=== PATIENT | female | born 1940 | race Caucasian/White ===

== ENCOUNTER 2018-03-12 22:32 | Emergency (ER) | payer MEDICARE, OTHER ==
[~2018-03-12] VITALS: Ht 162.6 cm; Wt 72.6 kg
[~2018-03-12 22:32] MED LIST: BENICAR HCT 401 EAC1 PO; BENICAR40 MG PO; BISOPROLOL; BUSPAR PO; BUSPIRONE HCL5 MG PO; CHLORDIAZEPOXI1 EACH PO; CYCLOBENZAPRINE10 MG PO; CYCLOBENZAPRINE5 MG PO; CYMBALTA60 MG PO; DOXAZOSIN MESYLA1 MG PO; DOXAZOSIN MESYLA2 MG PO; GABAPENTIN300 MG PO; HYDROCHLOROTHIA25 MG PO; LEVOTHYROXINE137 MCG PO; LOSARTAN POTASS25 MG PO; NEXIUM40 MG PO; NIACIN500 M1 PO; NORCO 5-325 TA1 EACH PO; TRAZODONE; TRAZODONE HCL50 MG PO; ZEBETA10 M1 PO; ZEBETA10 MG PO
[2018-03-13] MEDS ORDERED: MORPHINE SULFATE 4 MG/ML SYR IM ONE (00:20)
== END 2018-03-13 00:22 | disposition left against medical advice (07) ==
LOC: FSED 22:32
DX: M25.511 Pain in right shoulder (principal); Z96.611 Presence of right artificial shoulder joint
CPT/HCPCS: 73030; 96372; 99283; J2270

== ENCOUNTER → 2018-07-04 | Day surgery (SDC) | payer MEDICARE, OTHER ==
[2018-07-02 11:56] LABS: BASOPHILS # (AUTO) 0.1 (0.0-0.1); BASOPHILS % 1.3 % (0.0-1.0); EOSINOPHILS # (AUTO) 0.2 (0.0-0.4); HEMATOCRIT 39.9 % (34.2-44.1); HEMOGLOBIN 13.4 g/dL (12.0-16.0); LYMPHOCYTES # (AUTO) 1.6 (1.0-3.2); LYMPHOCYTES % 29.8 % (18.0-39.1); MEAN CORPUSCULAR HEMOGLOBIN 27.4 pg (28-32); MEAN CORPUSCULAR HGB CONC 33.6 g/dL (31-35); MEAN CORPUSCULAR VOLUME 81.6 fL (81-99); MONOCYTES # (AUTO) 0.7 (0.2-0.8); MONOCYTES % 12.7 % (4.4-11.3); NEUTROPHILS # (AUTO) 2.7 (2.1-6.9); NEUTROPHILS % 51.8 % (38.7-80.0); PLATELET COUNT 133 x10e3/uL (140-360); RED BLOOD COUNT 4.89 x10e6/uL (3.6-5.1); RED CELL DISTRIBUTION WIDTH 15.6 % (11.7-14.4)
[~2018-07-04] MED LIST changes: +DEXAMETHASONE SOD PHOS 10 MG/1 ML VIAL ONE; +FENTANYL CITRATE/PF 100MCG/2 ML INJ ONE; +IOPAMIDOL 200 MG/ML 20 ML VIAL IT ONE; +LIDOCAINE HCL 1% 30ML-PF VIAL ONE; +LIDOCAINE HCL 2% LOCAL INJ 5 ML SDV VIAL INJ ONE; +MIDAZOLAM HCL 2 MG/2 ML VIAL ONE; +NIFEDIPINE ER30 MG PO; +ONDANSETRON HCL INJ 2 MG/ML VIAL ONE; +PROPOFOL IV EMULSION 10 MG/ML 20 ML VIAL ONE; +SPIRONOLACTONE25 MG PO
== END | disposition home or self-care (01) ==
LOC: OR 06:08
PROVIDERS: ATTEND Physical Medicine & Rehabilitation Pain Medicine
DX: M47.26 Other spondylosis with radiculopathy, lumbar region (principal); M54.12 Radiculopathy, cervical region; M46.1 Sacroiliitis, not elsewhere classified; M25.512 Pain in left shoulder; M25.511 Pain in right shoulder; I10 Essential (primary) hypertension; E03.9 Hypothyroidism, unspecified; Z88.6 Allergy status to analgesic agent; Z88.0 Allergy status to penicillin; Z01.810 Encounter for preprocedural cardiovascular examination; Z01.812 Encounter for preprocedural laboratory examination; Z96.651 Presence of right artificial knee joint
CPT/HCPCS: 36415; 64483; 64484 ×2; 85025; 93005; J1100; J2001 ×2; J2250; J2405; Q9966; 77003

== ENCOUNTER → 2019-04-03 | Day surgery (SDC) | payer MEDICARE, OTHER ==
[2019-04-01 14:30] LABS: BASOPHILS # (AUTO) 0.1 (0.0-0.1); BASOPHILS % 1.2 % (0.0-1.0); EOSINOPHILS # (AUTO) 0.2 (0.0-0.4); EOSINOPHILS % 4.1 % (0.0-6.0); HEMATOCRIT 39.5 % (34.2-44.1); HEMOGLOBIN 12.8 g/dL (12.0-16.0); LYMPHOCYTES # (AUTO) 1.4 (1.0-3.2); LYMPHOCYTES % 29.9 % (18.0-39.1); MEAN CORPUSCULAR HEMOGLOBIN 27.5 pg (28-32); MEAN CORPUSCULAR HGB CONC 32.4 g/dL (31-35); MEAN CORPUSCULAR VOLUME 84.9 fL (81-99); MONOCYTES # (AUTO) 0.5 (0.2-0.8); MONOCYTES % 10.6 % (4.4-11.3); NEUTROPHILS # (AUTO) 2.6 (2.1-6.9); NEUTROPHILS % 53.8 % (38.7-80.0); PLATELET COUNT 107 x10e3/uL (140-360); RED BLOOD COUNT 4.65 x10e6/uL (3.6-5.1); RED CELL DISTRIBUTION WIDTH 14.6 % (11.7-14.4)
[~2019-04-03] MED LIST changes: +CEPHALEXIN250 MG PO; +LIBRAX CAPSULE1 EACH PO; -LIDOCAINE HCL 2% LOCAL INJ 5 ML SDV VIAL INJ ONE; +NORCO 7.5-3251 EACH PO; -ONDANSETRON HCL INJ 2 MG/ML VIAL ONE; +ONDANSETRON HCL INJ 2MG/ML 2ML 2 MG/ML VIAL ONE
--- OUTSIDE RECORDS SUMMARY | 2019-04-03 05:14 | XMS REPORT | Continuity of Care Document ---
Author Author [facility] Interface Address Unknown Phone Unavailable Problems Problem Status Onset Date Classification Date Reported Comments Source Medications Medication Details Route Status Patient Instructions Ordering Provider Order Date Source Cyclobenzaprine Hcl 10 Mg Tablet, 10 Mg Oral Daily Active 02/21/2017 [facility] Olmesartan/Hydrochlorothiazide (Benicar Hct 40-25 Mg Tablet) 1 Each Tablet, Oral Daily Active 09/26/2016 [facility] Doxazosin Mesylate 1 Mg Tablet, 1 Mg Oral 1/2QD Active 06/26/2016 [facility] Esomeprazole Magnesium (Nexium) 40 Mg Capsule., 40 Mg Oral Daily Active 06/26/2016 [facility] Olmesartan/Hydrochlorothiazide (Benicar Hct 40-25 Mg Tablet) 1 Each Tablet, Oral Daily Active 06/26/2016 [facility] Trazodone , Active 06/26/2016 [facility] Gabapentin 300 Mg Capsule, 300 Oral Daily Active 05/03/2016 [facility] Buspar , 5 Mg Oral Daily Active 05/19/2015 [facility] Niacin 500 Mg Tablet, 500 Mg Oral Daily Active 05/19/2015 [facility] Bisoprolol Fumarate (Zebeta) 10 Mg Tablet, 10 Mg Oral Daily Active 03/26/2014 [facility] Buspirone Hcl 5 Mg Tablet, 5 Mg Oral Daily Active 03/26/2014 [facility] Cyclobenzaprine Hcl (Flexeril) 5 Mg Tablet, 5 Mg Oral Daily Active 03/26/2014 [facility] Doxazosin Mesylate 1 Mg Tablet, 1 Mg Oral As Needed Active 03/26/2014 [facility] Hydrochlorothiazide 25 Mg Tablet, 25 Mg Oral Daily Active 03/26/2014 [facility] Olmesartan Medoxomil (Benicar) 40 Mg Tablet, 40 Mg Oral Daily Active 03/26/2014 [facility] Trazodone Hcl 50 Mg Tablet, 50 Mg Oral Daily Active 03/26/2014 [facility] Bisoprolol Fumarate (Zebeta) 10 Mg Tab Daily Active [facility] Chlordiazepoxide/Clidinium Br (Chlordiazepoxide-Clidinium Cap) 1 Each Capsule Daily Active [facility] Doxazosin Mesylate 2 Mg Tablet Daily Active [facility] Duloxetine Hcl (Cymbalta) 60 Mg Capsule.dr Daily Active [facility] Hydrochlorothiazide 25 Mg Tablet Daily Active [facility] Hydrocodone Bit/Acetaminophen ([place] 5-325 Tablet) 1 Each Tablet Four Times Daily as needed for Pain Active [facility] Levothyroxine Sodium 137 Mcg Tablet Daily Active [facility] Losartan Potassium 25 Mg Tablet Twice A Day Active [facility] Trazodone Hcl 50 Mg Tablet Daily Active [facility] Allergies, Adverse Reactions, Alerts Substance Category Reaction Severity Reaction type Status Date Reported Comments Source meperidine HCl Unknown Allergy to Substance Active 09/27/2016 [facility] Penicillin Unknown Allergy to Substance Active 09/27/2016 [facility] Immunizations Immunization Date Given Site Status Last Updated Comments Source Results Order Name Results Value Reference Range Date Interpretation Comments Source Vital Signs Vital Sign Value Date Comments Source Encounters Location Location Details Encounter Type Encounter Number Reason For Visit Attending Provider ADM Date DC Date Status Source Departed Emergency Room [id number] DEIDRA JOSE MD 03/12/2018 03/13/2018 [facility] Procedures Procedure Code Date Perfomer Comments Source
[2019-04-03 07:34] VITALS: BP 135/61
== END | disposition home or self-care (01) ==
LOC: OR 05:10
PROVIDERS: ATTEND Physical Medicine & Rehabilitation Pain Medicine
DX: M47.26 Other spondylosis with radiculopathy, lumbar region (principal); M46.1 Sacroiliitis, not elsewhere classified; M54.12 Radiculopathy, cervical region; M47.892 Other spondylosis, cervical region; G89.29 Other chronic pain; I10 Essential (primary) hypertension; I44.7 Left bundle-branch block, unspecified; E03.9 Hypothyroidism, unspecified; F32.9 Major depressive disorder, single episode, unspecified; Z88.6 Allergy status to analgesic agent; Z88.0 Allergy status to penicillin; Z01.810 Encounter for preprocedural cardiovascular examination; Z91.81 History of falling; Z86.19 Personal history of other infectious and parasitic diseases; Z96.651 Presence of right artificial knee joint; Z96.611 Presence of right artificial shoulder joint
CPT/HCPCS: 36415; 64483; 64484; 85025; 93005; J1100; J2001; J2250; J2405; J2704; Q9967; 77003

== ENCOUNTER 2019-05-29 18:33 | Emergency (ER) | payer MEDICARE, OTHER ==
[~2019-05-29] VITALS: Ht 162.6 cm; Wt 72.6 kg
[~2019-05-29 18:33] MED LIST changes: -DEXAMETHASONE SOD PHOS 10 MG/1 ML VIAL ONE; -FENTANYL CITRATE/PF 100MCG/2 ML INJ ONE; -IOPAMIDOL 200 MG/ML 20 ML VIAL IT ONE; -LIDOCAINE HCL 1% 30ML-PF VIAL ONE; -MIDAZOLAM HCL 2 MG/2 ML VIAL ONE; -ONDANSETRON HCL INJ 2MG/ML 2ML 2 MG/ML VIAL ONE; -PROPOFOL IV EMULSION 10 MG/ML 20 ML VIAL ONE
--- OUTSIDE RECORDS SUMMARY | 2019-05-29 18:36 | XMS REPORT | Continuity of Care Document ---
Author Author [facility] Address Unknown Phone Unavailable Care Team Providers Care Filter Tip Catcher Name Role Phone [facility] [place] [employer] Unavailable Unavailable Problems No Data Provided for This Section Medications Medication Details Route Status Patient Instructions Ordering Provider Order Date Source Cyclobenzaprine Hcl 10 Mg Tablet, 10 Mg Oral Daily Active 02/21/2017 [facility] Olmesartan/Hydrochlorothiazide (Benicar Hct 40-25 Mg Tablet) 1 Each Tablet, Oral Daily Active 09/26/2016 [facility] Doxazosin Mesylate 1 Mg Tablet, 1 Mg Oral 1/2QD Active 06/26/2016 [facility] Esomeprazole Magnesium (Nexium) 40 Mg Capsule.dr, 40 Mg Oral Daily Active 06/26/2016 [facility] Olmesartan/Hydrochlorothiazide (Benicar Hct 40-25 Mg Tablet) 1 Each Tablet, Oral Daily Active 06/26/2016 [facility] Trazodone , Active 06/26/2016 [facility] Gabapentin 300 Mg Capsule, 300 Oral Daily Active 05/03/2016 [facility] Buspar , 5 Mg Oral Daily Active 05/19/2015 [facility] Niacin 500 Mg Tablet, 500 Mg Oral Daily Active 05/19/2015 [facility] Bisoprolol Fumarate (Zebeta) 10 Mg Tablet, 10 Mg Oral Daily Active 03/26/2014 [facility] Buspirone Hcl 5 Mg Tablet, 5 Mg Oral Daily Active 03/26/2014 [facility] Cyclobenzaprine Hcl (Flexeril) 5 Mg Tablet, 5 Mg Oral Daily Active 03/26/2014 [facility] Doxazosin Mesylate 1 Mg Tablet, 1 Mg Oral As Needed Active 03/26/2014 [facility] Hydrochlorothiazide 25 Mg Tablet, 25 Mg Oral Daily Active 03/26/2014 [facility] Olmesartan Medoxomil (Benicar) 40 Mg Tablet, 40 Mg Oral Daily Active 03/26/2014 [facility] Trazodone Hcl 50 Mg Tablet, 50 Mg Oral Daily Active 03/26/2014 [facility] Bisoprolol Fumarate (Zebeta) 10 Mg Tab Daily Active [facility] Chlordiazepoxide/Clidinium Br (Chlordiazepoxide-Clidinium Cap) 1 Each Capsule Daily Active [facility] Doxazosin Mesylate 2 Mg Tablet Daily Active [facility] Duloxetine Hcl (Cymbalta) 60 Mg Capsule.dr Daily Active [facility] Hydrochlorothiazide 25 Mg Tablet Daily Active [facility] Hydrocodone Bit/Acetaminophen ([place] 5-325 Tablet) 1 Each Tablet Four Times Daily as needed for Pain Active [facility] Levothyroxine Sodium 137 Mcg Tablet Daily Active [facility] Losartan Potassium 25 Mg Tablet Twice A Day Active [facility] Trazodone Hcl 50 Mg Tablet Daily Active [facility] Allergies, Adverse Reactions, Alerts Substance Category Reaction Severity Reaction type Status Date Reported Comments Source meperidine HCl Unknown Allergy to Substance Active 09/27/2016 [facility] Penicillin Unknown Allergy to Substance Active 09/27/2016 [facility] Immunizations No Data Provided for This Section Results No Data Provided for This Section Pathology Reports No Data Provided for This Section Diagnostic Reports No Data Provided for This Section Consultation Notes No Data Provided for This Section Discharge Summaries No Data Provided for This Section History and Physicals No Data Provided for This Section Vital Signs No Data Provided for This Section Encounters Location Location Details Encounter Type Encounter Number Reason For Visit Attending Provider ADM Date DC Date Status Source Departed Emergency Room [id number] DEIDRA JOSE MD 03/12/2018 03/13/2018 [facility] Procedures No Data Provided for This Section Assessment and Plan No Data Provided for This Section Plan of Care Plan of Care Date Source Discharge Date 03/13/18 12:22am Disposition AGAINST MEDICAL ADVICE Condition at Discharge Other Forms Provided Work/School Excuse Prescriptions See Medication Section 03/13/2018 [facility] Social History Social History Date Source No social history information available. 03/13/2018 [facility] Family History No Data Provided for This Section Advance Directives Order Name Results Value Date Source Advance Directives Advance Directives Directive Response Recorded Date/Time Does the patient have an advance directive? Yes 03/31/14 6:01am If yes, is advance directive on file with [facility]? No 09/23/13 5:50pm If not on file with [facility] will patient provide a copy? Yes 02/20/17 12:27pm 03/13/2018 [facility] Functional Status No Data Provided for This Section
--- NOTE | 2019-05-29 20:17 | Diagnostic Imaging Report ---
Left complete knee. CPT CODE: 08609. INDICATION: Slip and fall, pain and swelling COMPARISON: None FINDINGS: The bones are diffusely demineralized. No evidence of acute fracture or dislocation. There is mild tricompartmental osteoarthritis. No joint effusion. Subcutaneous soft tissue swelling along the medial aspect of the knee. IMPRESSION: No acute osseous injury. Soft tissue contusion of the medial aspect of the knee. No joint effusion. Signed by: Dr. Raquel Ryder MD on 05/29/2019 8:13 PM
== END 2019-05-29 20:24 | disposition home or self-care (01) ==
LOC: FSED 18:33
DX: S83.412A Sprain of medial collateral ligament of left knee, initial encounter (principal); S83.422A Sprain of lateral collateral ligament of left knee, initial encounter; W18.30XA Fall on same level, unspecified, initial encounter; Y92.008 Other place in unspecified non-institutional (private) residence as the place of occurrence of the external cause; I10 Essential (primary) hypertension; E78.00 Pure hypercholesterolemia, unspecified
CPT/HCPCS: 99283

== ENCOUNTER 2020-01-20 21:01 | Inpatient (IN) | payer MEDICARE, OTHER ==
[~2020-01-20] VITALS: Ht 162.6 cm; Wt 71.9 kg
[2020-01-20] MEDS: KCL 20MEQ/.9 SOD CHL 1,000 ML IV SCH (01:40)
--- OUTSIDE RECORDS SUMMARY | 2020-01-20 21:05 | XMS REPORT | Summary of Care ---
Author Author Mike Bruce, Noemi Cifuentes Unknown Address Unknown Phone Unavailable Care Team Providers Care Supervisor Force Adjustment Name Role Phone TANIA Caal, ANNIE Unavailable Unavailable CALLUM Caal, NITHIN Unavailable Unavailable MICHELA Caal, THOR Unavailable Unavailable VALARIE Gutiérrez.OAntonia, KIMBER Unavailable Unavailable OBONYDONELL N.P., SALVADOR Unavailable Unavailable ARTURO Caal, SOLAFA Unavailable Unavailable JUAN Caal, PINEDA Unavailable Unavailable TANIA LOCKE [place], ANNIE HILTON Unavailable Unavailable LIBIA LOCKE, ADY Unavailable Unavailable JANAY INTERIOR DECORATOR PAINTING, SALVADOR T Unavailable Unavailable Callum LOCKE, Nithin Unavailable Unavailable JACINTA LOCKE, BALDEV Gutiérrez Unavailable Unavailable JEAN PAUL LOCKE, FIONA Lacy Unavailable Unavailable Michela LOCKE, Thor Unavailable Unavailable VELAZQUEZ INTERIOR DECORATOR PAINTING-C, MARGIE D Unavailable Unavailable ARTURO LOCKE, SOLAFA Unavailable Unavailable AMAYA LOCKE [place], SHARRON S Unavailable Unavailable KRANTHI LOCKE [place], AKOSUA Chi Unavailable Unavailable JUAN LOCKE, PINEDA W Unavailable Unavailable UMER LOCKE MN, CHE ERNST Unavailable Unavailable VALARIE LAURENT UT, KIMBER Unavailable Unavailable VICENTE INTERIOR DECORATOR PAINTING UT, KOREY N Unavailable Unavailable Unavailable Unavailable Functional Status Name Dates Details Functional status health issues are not documented Status: Name Dates Details Cognitive status health issues are not documented Status: Problems Name Dates Details Lower back pain (724.2, M54.5) Status: Active Hepatic cyst (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.8, 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) Status: Active Intermittent claudication (443.9, I73.9) Status: Active Vertebral fracture (805.8) Status: Active Asthma (493.90, J45.909) Status: Active Reactive airway disease (493.90, J45.909) Status: Active Neck pain (723.1, M54.2) Status: Active Vaginal atrophy (627.3, N95.2) Status: Active Fracture of right humerus (812.20, S42.301A) Status: Active Spontaneous bruising (782.7, R23.3) Status: Active Hip pain, acute, left (719.45, M25.552) Status: Active Leg pain, lateral, left (729.5, M79.605) Status: Active Right shoulder pain, unspecified chronicity (719.41, M25.511) Status: Active Hot flashes (782.62, R23.2) Status: Active Cough (786.2, R05) Status: Active Leg cramps, sleep related (327.52, G47.62) Status: Active Disc degeneration (722.6) Status: Active Back pain (724.5, M54.9) Status: Active Left lumbar radiculopathy (724.4, M54.16) Status: Active Urinary frequency (788.41, R35.0) Status: Active Postmenopausal hormone replacement therapy (V07.4, Z79.890) Status: Active Hyponatremia (276.1, E87.1) Status: Active Hypokalemia (276.8, E87.6) Status: Active Grief (309.0, F43.21) Status: Active Atypical chest pain (786.59, R07.89) Status: Active Clinical depression (311, F32.9) Status: Active Screening mammogram, encounter for (V76.12, Z12.31) Status: Active Post-menopausal (V49.81, Z78.0) Status: Active Osteoporosis screening (V82.81, Z13.820) Status: Active Advance directive discussed with patient (V65.49, Z71.89) Status: Active Lipoma of back (214.8, D17.1) Status: Active Allergic rhinitis (477.9, J30.9) Status: Active Soft tissue mass (729.99, M79.89) Status: Active Colon polyp (211.3, K63.5) Status: Active Cramp of toe (729.82, R25.2) Status: Active Diarrhea (787.91, R19.7) Status: Active Cellulitis (682.9, L03.90) Status: Active Headache (784.0, R51) Status: Active Urinary incontinence (788.30, R32) Status: Active Hand cramp (729.82, R25.2) Status: Active Acute pain of right shoulder (719.41, M25.511) Status: Active Pulmonary nodules (793.19, R91.8) Status: Active Allergic reaction to drug, initial encounter (995.27, T78.40XA) Status: Active Drug eruption (693.0, L27.0) Status: Active On potassium sparing diuretic therapy (V58.69, Z79.899) Status: Active Lightheadedness (780.4, R42) Status: Active Breast cancer screening (V76.10, Z12.39) Status: Active Pleural thickening (511.0, J92.9) Status: Active Abnormal CAT scan (793.99, R93.89) Status: Active Encounter for mini-mental status examination Status: Active Vomiting (787.03, R11.10) Status: Active Dry heaves (787.03, R11.10) Status: Active Tachycardia (785.0, R00.0) Status: Active Nausea (787.02, R11.0) Status: Active Tachycardia (785.0, R00.0) Status: Active Uncontrolled hypertension (401.9, I10) Status: Active Palpitations (785.1, R00.2) Status: Active Primary hypertension (401.9, I10) Status: Active Acute gastritis without bleeding (535.00, K29.00) Status: Active Finding of multiple premature atrial contractions by electrocardiography (427.61, I49.1) Status: Active Low HDL (under 40) (272.5, E78.6) Status: Active Nausea (787.02, R11.0) Status: Active B12 deficiency anemia (281.1, D51.9) Status: Active Hypertriglyceridemia (272.1, 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 Weight loss (783.21, R63.4) Status: Active Need for influenza vaccination (V04.81, Z23) Status: Active Statin intolerance (995.27, Z78.9) Status: Active Depression screen (V79.0, Z13.31) Status: Active Risk for falls (V15.88, Z91.81) Status: Active Abnormal mammogram (793.80, R92.8) Status: Active Nodular radiologic density (793.99, R93.89) Status: Active IBS (irritable bowel syndrome) (564.1, K58.9) Status: Active Major depressive disorder, recurrent, moderate (296.32, F33.1) Status: Active Pelvic cramping (625.9, R10.2) Status: Active Acute UTI (599.0, N39.0) Status: Active Vitamin B12 deficiency (266.2, E53.8) Status: Active Seizure (780.39, R56.9) Status: Active Urinary tract infection (599.0, N39.0) Status: Active Medial epicondylitis of left elbow (726.31, M77.02) Status: Active Chronic left shoulder pain (719.41, M25.512) Status: Active Cervical radiculopathy, acute (723.4, M54.12) Status: Active Abdominal pain (789.00, R10.9) Status: Active Acid reflux disease (530.81, K21.9) Status: Active IBS (irritable bowel syndrome) (564.1, K58.9) Status: Active Easy bruising (782.9, R23.8) Status: Active Pain of left knee after injury (719.46, M25.562) Status: Active Left knee pain, unspecified chronicity (719.46, M25.562) Status: Active Contusion, elbow, with forearm, right, initial encounter (923.10, S50.11XA) Status: Active Other sprain of right elbow, initial encounter (841.8, S53.491A) Status: Active Dyslipidemia (high LDL; low HDL) (272.4, E78.5) Status: Active LBBB (left bundle branch block) (426.3, I44.7) Status: Active Paroxysmal SVT (supraventricular tachycardia) (427.0, I47.1) Status: Active PVC (premature ventricular contraction) (427.69, I49.3) Status: Active Preop examination (V72.84, Z01.818) Status: Active Abnormal EKG (794.31, R94.31) Status: Active 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, I83.893) Status: Active S/P coronary artery stent placement (V45.82, Z95.5) Status: Active CKD (chronic kidney disease) stage 3, GFR 30-59 ml/min (585.3, N18.3) Status: Active Therapeutic opioid-induced constipation (OIC) (564.09, K59.03) Status: Active Recurrent UTI (599.0, N39.0) Status: Active OAB (overactive bladder) (596.51, N32.81) Status: Active BMI 26.0-26.9,adult (V85.22, Z68.26) Status: Active 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, 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 Mixed hyperlipidemia (272.2, E78.2) Status: Active Osteoarthritis of left knee (715.96, M17.12) Status: Active Chronic insomnia (780.52, F51.04) Status: Active Right inguinal pain (789.03, R10.31) Status: Active Pain in right hip (719.45, M25.551) Status: Active Essential hypertension (401.9, I10) Status: Active Adult onset hypothyroidism (244.8, E03.8) Status: Active CAD S/P percutaneous coronary angioplasty (414.01, I25.10) Status: Active Osteoarthritis of hips, 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 Active traZODone HCl - 50 MG Oral Tablet TAKE 1 TO 2 TABLETS BY MOUTH EVERY NIGHT AT BEDTIME * Quantity: 60 Refills: 1 ANNIE MARIN M.D. * Start : 19-Dec-2013 Active DULoxetine HCl - 60 MG Oral Capsule Delayed Release Particles TAKE 1 CAPSULE BY MOUTH EVERY DAY DIRECTED * Quantity: 30 Refills: 0 TANIA Caal ANNIE * Start : 05-May-2014 Active Fluticasone Propionate 50 MCG/ACT Nasal Suspension USE 1 SPRAY IN EACH NOSTRIL DAILY * Quantity: 1 Refills: 0 VALARIE D.O.KIMBER * Start : 15-Jun-2014 Active 16 GM Bottle ProAir HFA 108 (90 Base) MCG/ACT Inhalation Aerosol Solution INHALE 1 TO 2 PUFFS EVERY 4 TO 6 HOURS NEEDED. * Quantity: 1 Refills: 3 KIMBER SHEPPARD D.O. * Start : 16-Feb-2015 Active 8.5 GM Inhaler Synthroid 112 MCG Oral Tablet TAKE 1 TABLET BY MOUTH EVERY DAY * Quantity: 30 Refills: 4 ANNIE MARIN M.D. * Start : 15-Sep-2019 Active HYDROcodone-Acetaminophen 7.5-325 MG Oral Tablet TAKE 1 TABLET 4 TIMES DAILY * Refills: 0 Active Losartan Potassium 50 MG Oral Tablet take 2 tablets BID * Quantity: 360 Refills: 1 ANNIE MARIN M.D. * Start : 28-Sep-2016 Active Librax 5-2.5 MG Oral Capsule TAKE 1 CAPSULE TWICE DAILY * Quantity: 60 Refills: 6 OBONYDONELL N.PSALVADOR Knight * Start : 21-May-2017 Active Spironolactone 25 MG Oral Tablet TAKE 1/2 TABLET BY MOUTH EVERY DAY * Quantity: 45 Refills: 1 ANNIE MARIN M.D. * Start : 19-Jun-2017 Active Albuterol 90 MCG/ACT AERS INHALE 1-2 PUFFS EVERY 4-6 HOURS NEEDED AND DIRECTED. * Refills: 0 Active Omeprazole 40 MG Oral Capsule Delayed Release PRN * Refills: 0 NITHIN NOLEN M.D. * Start : 27-Dec-2017 Active NIFEdipine ER 60 MG Oral Tablet Extended Release 24 Hour TAKE 1 TABLET BY MOUTH EVERY DAY * Quantity: 90 Refills: 3 THOR ABERNATHY M.D. * Start : 22-May-2018 Active Dicyclomine HCl - 10 MG Oral Capsule TAKE 1 CAPSULE TWICE DAILY * Quantity: 60 Refills: 11 NITHIN NOLEN M.D. * Start : 11-Jul-2018 Active [id number] Ethyl Esters 1 GM Oral Capsule TAKE 2 CAPSULES BY MOUTH TWICE A DAY * Quantity: 360 Refills: 2 ANNIE MARIN M.D. * Start : 05-Aug-2018 Active Estradiol 0.1 MG/GM Vaginal Cream INSERT 1 GRAM INTO THE VAGINA USING APPLICATOR EVERY NIGHT AT BEDTIME FOR 2 WEEK S THEN DECREASE TO TWICE WEEKLY AT BEDTIME THEREAFTER * Quantity: 2 Refills: 4 ARTURO Caal, SOLAFA * Start : 27-Mar-2019 Active 42.5 GM Tube Thyroid TABS * Refills: 0 Active Metaxalone 400 MG Oral Tablet TAKE 1 TABLET 3 TIMES DAILY NEEDED. * Quantity: 40 Refills: 0 PINEDA MARTINEZ M.D. * Start : 13-May-2019 Active Clopidogrel Bisulfate 75 MG Oral Tablet TAKE 1 TABLET DAILY. * Quantity: 90 Refills: 3 THOR ABERNATHY M.D. * Start : 17-Jul-2019 Active Diclofenac Sodium 1 % Transdermal Gel APPLY TO LOWER EXTREMITIES, 4 GM OF GEL TO AFFECTED AREA 4 TIMES DAILY. DO NOT APPLY MORE THAN 16 GM DAILY TO ANY ONE AFFECTED JOINT. * Quantity: 1 Refills: 5 KIMBER SHEPPARD D.O. * Start : 21-Aug-2019 Active 100 GM Tube Trospium Chloride ER 60 MG Oral Capsule Extended Release 24 Hour TAKE 1 CAPSULE Daily in the am * Quantity: 30 Refills: 2 ARTURO Caal, SOLAFA * Start : 29-Aug-2019 Active Allergies and Adverse Reactions Name Dates Details amlodipine (Allergy) Reaction: Nausea Status: Active Codeine Derivatives (Allergy) Status: Active Demerol SOLN (Allergy) Status: Active Isosorbide Mononitrate TABS (Allergy) Status: Active metoprolol (Allergy) Status: Active Penicillins (Allergy) Status: Active Sulfa Drugs (Allergy) Status: Active Iodine (Allergy) Status: Active Past Medical History Name Dates Details History of acute pharyngitis (V12.69, Z87.09) Status: Resolved History of Arthralgia of hip (719.45, M25.559) Status: Resolved History of Burning with urination (788.1, R30.0) Status: Resolved History of Diverticulitis of colon (562.11, K57.32) Status: Resolved History of high cholesterol (V12.29, Z86.39) Status: Resolved History of hypertension (V12.59, Z86.79) Status: Resolved History of hypothyroidism (V12.29, Z86.39) Status: Resolved History of kidney disease (V13.09, Z87.448) Status: Resolved History of thyroid disease (V12., Z86.39) Status: Resolved History of urinary frequency (V13.09, Z87.898) Status: Resolved Procedures Procedure Dates Details History of Appendectomy Completed History of Cholecystectomy Completed History of Oophorectomy - Bilat (Removal Of Both Ovaries) Laparoscopic Completed History of Knee Surgery Left Completed History of Knee Surgery Right Completed History of Shoulder Surgery Left Completed History of Shoulder Surgery Right Completed History of Back Surgery Completed History of Back Surgery Completed History of Esophagogastric Fundoplasty Gómez Fundoplication Completed History of Hysterectomy Completed History of Shoulder Surgery Completed History of Hand Surgery Completed History of Arterial stent placement Completed Immunization Name Dates Details Hepatitis A on: 20-Apr-2009 Td on: 20-Apr-2009 Hepatitis A on: 06-Dec-2009 Pneumococcal polysaccharide vaccine, 23 valent on: 06-Dec-2009 Fluzone INJ Lot #: [id number] on: 22-Aug-2013 Influenza on: Aug-2014 Prevnar 13 Intramuscular Suspension Lot #: [id number] on: 30-Mar-2015 Zoster (Zostavax) on: 26-Apr-2015 Influenza on: 26-Aug-2015 Fluzone Quadrivalent 0.5 ML Intramuscular Suspension on: 25-Aug-2016 Fluzone High-Dose 0.5 ML Intramuscular Suspension Prefilled Syringe on: 17-Aug-2017 Fluzone Quadrivalent 0.5 ML Intramuscular Suspension Lot #: [id number] on: 05-Aug-2018 Shingrix 50 MCG Intramuscular Suspension Reconstituted on: 26-Mar-2019 Shingrix 50 MCG Intramuscular Suspension Reconstituted on: 26-Jun-2019 Family History Name Dates Details Family history of bipolar disorder (V17.0, Z81.8) Status: Active Name Dates Details Family history of Cancer Status: Active Family history of bipolar disorder (V17.0, Z81.8) Status: Active Family history of gastroesophageal reflux disease (V18.59, Z83.79) Status: Active Name Dates Details Family history of gout (V18.19, Z82.69) Status: Active Family history of hypertension (V17.49, Z82.49) Status: Active Family history of rheumatoid arthritis (V17.7, Z82.61) Status: Active Family history of chest pain (V19.8, Z84.89) Status: Active Family history of malignant neoplasm (V16.9, Z80.9) Status: Active Name Dates Details Family history of osteopenia (V17.89, Z82.69) Status: Active Family history of osteoporosis (V17.81, Z82.62) Status: Active Social History Name Dates Details - Status: Name Dates Details Never smoker Vital Signs Date Test Result Details No Known Vitals to report Results Date Description Value Details Results not documented Plan of Care Name Dates Details Planned Observations Planned Goals not documented Planned Encounters Appointment; THOR ABERNATHY M.D. On: 23-Jan-2020 12:00 Appointment; THOR ABERNATHY M.D. On: 18-Feb-2020 14:40 Interventions Provided Medication Changes* DULoxetine HCl - 60 MG Oral Capsule Delayed Release Particles - Renew Instructions Name Dates Details Instructions not documented Encounters Appointment; ADY REZA M.D. Encounter Diagnosis: Problem not documented On: 26-Dec-2017 11:00 Appointment; NITHIN NOLEN M.D. Encounter Diagnosis: Problem not documented On: 27-Dec-2017 14:45 Appointment; KRISS JOHNSON M.D. Encounter Diagnosis: Problem not documented On: 04-Jan-2018 11:15 Appointment; DUDLEY COYNE M.D. Encounter Diagnosis: Problem not documented On: 10-Jan-2018 9:40 Appointment; NITHIN NOLEN M.D. Encounter Diagnosis: Problem not documented On: 10-Jan-2018 10:15 Appointment; KIMBER SHEPPARD D.O. Encounter Diagnosis: Problem not documented On: 04-Feb-2018 10:45 Appointment; OMKAR PAULINO PEduardo Encounter Diagnosis: Problem not documented On: 06-Feb-2018 9:45 Appointment; KRISS JOHNSON M.D. Encounter Diagnosis: Problem not documented On: 08-Feb-2018 12:00 Appointment; OMKAR PAULINO PEduardo Encounter Diagnosis: Problem not documented On: 15-Feb-2018 10:45 Appointment; MIGUEL ANGEL DUMONT P.A. Encounter Diagnosis: Problem not documented On: 25-Feb-2018 15:00 Appointment; ALVARO DE LEÓN M.D. Encounter Diagnosis: Problem not documented On: 27-Feb-2018 10:30 Appointment; ANNIE MARIN M.D. Encounter Diagnosis: Problem not documented On: 07-Mar-2018 11:00 Appointment; KRISS JOHNSON M.D. Encounter Diagnosis: Problem not documented On: 13-Mar-2018 13:00 Appointment; OMKAR PAULINO P.A. Encounter Diagnosis: Problem not documented On: 22-Mar-2018 9:00 Appointment; ANNIE MARIN M.D. Encounter Diagnosis: Problem not documented On: 28-Mar-2018 10:30 Appointment; MIGUEL ANGEL DUMONT P.A. Encounter Diagnosis: Problem not documented On: 04-Apr-2018 10:00 Appointment; ANNIE MARIN M.D. Encounter Diagnosis: Problem not documented On: 09-Apr-2018 8:15 Appointment; OMKAR PAULINO P.A. Encounter Diagnosis: Problem not documented On: 08-May-2018 10:30 Appointment; ANNIE MARIN M.D. Encounter Diagnosis: Problem not documented On: 10-May-2018 16:15 Appointment; ANNIE MARIN M.D. Encounter Diagnosis: Problem not documented On: 13-May-2018 13:15 Appointment; ANNIE MARIN M.D. Encounter Diagnosis: Problem not documented On: 20-May-2018 13:00 Appointment; THOR ABERNATHY M.D. Encounter Diagnosis: Problem not documented On: 22-May-2018 16:40 Appointment; KATY LAWTON Encounter Diagnosis: Problem not documented On: 27-May-2018 14:00 Appointment; THOR ABERNATHY M.D. Encounter Diagnosis: Problem not documented On: 18-Jun-2018 14:40 Appointment; NITHIN NOLEN M.D. Encounter Diagnosis: Problem not documented On: 11-Jul-2018 13:45 Appointment; ANNIE MARIN M.D. Encounter Diagnosis: Problem not documented On: 05-Aug-2018 11:00 Appointment; FIONA REAVES M.D. Encounter Diagnosis: Problem not documented On: 31-Aug-2018 11:15 Appointment; NITHIN NOLEN M.D. Encounter Diagnosis: Problem not documented On: 04-Sep-2018 10:15 Appointment; NITHIN NOLEN M.D. Encounter Diagnosis: Problem not documented On: 07-Oct-2018 11:30 Appointment; NITHIN NOLEN M.D. Encounter Diagnosis: Problem not documented On: 28-Nov-2018 11:00 Appointment; SALVADOR GUSTAFSON NP Encounter Diagnosis: Problem not documented On: 28-Nov-2018 11:00 Appointment; BALDEV WORKMAN M.D. Encounter Diagnosis: Problem not documented On: 29-Nov-2018 11:15 Appointment; NITHIN NOLEN M.D. Encounter Diagnosis: Problem not documented On: 08-Jan-2019 11:30 Appointment; FIONA REAVES M.D. Encounter Diagnosis: Problem not documented On: 11-Jan-2019 10:45 Appointment; ANNIE MARIN M.D. Encounter Diagnosis: Problem not documented On: 28-Jan-2019 10:00 Appointment; ANNIE MARIN M.D. Encounter Diagnosis: Problem not documented On: 28-Jan-2019 10:00 Appointment; ANNIE MARIN M.D. Encounter Diagnosis: Problem not documented On: 06-Feb-2019 15:45 Appointment; THOR ABERNATHY M.D. Encounter Diagnosis: Problem not documented On: 18-Feb-2019 12:00 Appointment; MARGIE VELAZQUEZ NP Encounter Diagnosis: Problem not documented On: 12-Mar-2019 12:30 Appointment; MYKE MORRIS M.D. Encounter Diagnosis: Problem not documented On: 27-Mar-2019 11:00 Appointment; MYKE MORRIS M.D. Encounter Diagnosis: Problem not documented On: 01-May-2019 14:00 Appointment; PINEDA MARTINEZ M.D. Encounter Diagnosis: Problem not documented On: 13-May-2019 13:00 Appointment; PINEDA MARTINEZ M.D. Encounter Diagnosis: Problem not documented On: 03-Jun-2019 13:00 Appointment; KOREY ZHANG NP Encounter Diagnosis: Problem not documented On: 04-Jun-2019 15:00 Appointment; PINEDA MARTINEZ M.D. Encounter Diagnosis: Problem not documented On: 05-Jun-2019 8:00 Appointment; AOKSUA CRISOSTOMO M.D. Encounter Diagnosis: Problem not documented On: 06-Jun-2019 10:00 Appointment; THOR ABERNATHY M.D. Encounter Diagnosis: Problem not documented On: 11-Jun-2019 13:40 Appointment; [place]-MS, NUCLEAR Encounter Diagnosis: Problem not documented On: 17-Jun-2019 8:00 Appointment; THOR ABERNATHY M.D. Encounter Diagnosis: Problem not documented On: 17-Jun-2019 12:20 Appointment; DARRON LIRIANO M.D. Encounter Diagnosis: Problem not documented On: 11-Jul-2019 11:15 Appointment; THOR ABERNATHY M.D. Encounter Diagnosis: Problem not documented On: 22-Jul-2019 14:20 Appointment; KIMBER SHEPPARD D.O. Encounter Diagnosis: Problem not documented On: 21-Aug-2019 13:00 Appointment; ANNIE MARIN M.D. Encounter Diagnosis: Problem not documented On: 28-Aug-2019 10:30 Appointment; MYKE MORRIS M.D. Encounter Diagnosis: Problem not documented On: 29-Aug-2019 9:30
--- OUTSIDE RECORDS SUMMARY | 2020-01-20 21:05 | XMS REPORT | Summary of Care ---
Author Author TANIA Caal, ANNIE Cifuentes Unknown Address Unknown Phone Unavailable Care Team Providers Care Catholic Priest Name Role Phone TANIA Caal, ANNIE Unavailable Unavailable CALLUM Caal, NITHIN Unavailable Unavailable MICHELA Caal, THOR Unavailable Unavailable VALARIE Shah, KIMBER Unavailable Unavailable OBONYDONELL N.P., SALVADOR Unavailable Unavailable ARTURO Caal, SOLAFA Unavailable Unavailable JUAN Caal, PINEDA Unavailable Deniz MARIN MD UT, ANNIE HILTON Unavailable Unavailable JANAY DIRECTOR OF AGRICULTURE, SALVADOR T Unavailable Unavailable Callum LOCKE, Nithin Unavailable Unavailable JACINTA LOCKE, BALDEV Gutiérrez Unavailable Unavailable JEAN PAUL LOCKE, FIONA Lacy Unavailable Unavailable Michela LOCKE, Thor Unavailable Unavailable MARCUS DIRECTOR OF AGRICULTURE-C, MARGIE D Unavailable Unavailable ARTURO LOCKE, SOLAFA Unavailable Unavailable AMAYA LOCKE UT, SHARRON S Unavailable Unavailable KRANTHI LOCKE UT, AKOSUA Chi Unavailable Unavailable JUAN LOCKE, PINEDA W Unavailable Unavailable UMER LOCKE LA, CHE ERSNT Unavailable Unavailable VALARIE LAURENT UT, KIMBER Unavailable Unavailable VICENTE DIRECTOR OF AGRICULTURE UT, KOREY N Unavailable Unavailable LIBIA LOCKE, ADY Unavailable Unavailable Unavailable Unavailable Functional Status Name [...] declined by patient (V64.06, Z28.21) Status: Active Muscle spasm of back (724.8, M62.830) Status: Active Symptomatic varicose veins of both lower extremities (454.8, I83.893) Status: Active Medications Name Dates Details Vitamin [...] DAY DIRECTED * Quantity: 30 Refills: 0 BETHANY MARIN M.D.NDA * Start : 05-May-2014 Active Fluticasone Propionate 50 MCG/ACT Nasal Suspension USE 1 SPRAY IN EACH NOSTRIL DAILY * Quantity: 1 Refills: 0 YEH D.O., KIMBRE * Start : 15-Jun-2014 Active 16 GM Bottle ProAir HFA 108 (90 Base) MCG/ACT Inhalation Aerosol Solution INHALE 1 TO 2 PUFFS EVERY 4 TO 6 HOURS NEEDED. * Quantity: 1 Refills: 3 YEH D.O., KIMBER * Start : 16-Feb-2015 Active 8.5 GM [...] TWICE DAILY * Quantity: 60 Refills: 6 JESSICAONYSALVADOR MARLEY N.P. * Start : 21-May-2017 Active Spironolactone 25 MG Oral Tablet TAKE 1/2 TABLET BY MOUTH EVERY DAY * Quantity: 45 Refills: 1 ANNIE MARIN M.D. * Start : 19-Jun-2017 Active Omeprazole 40 MG Oral Capsule Delayed [...] NOLEN M.D. * Start : 11-Jul-2018 Active Jnvof-0-rgrq Ethyl Esters 1 GM Oral Capsule TAKE 2 CAPSULES BY MOUTH TWICE A DAY * Quantity: 360 Refills: 2 ANNIE MARIN M.D. * Start : 05-Aug-2018 Active Estradiol 0.1 MG/GM Vaginal Cream INSERT 1 GRAM INTO THE VAGINA USING APPLICATOR EVERY NIGHT AT BEDTIME FOR 2 WEEK S THEN DECREASE TO TWICE WEEKLY AT BEDTIME THEREAFTER * Quantity: 2 Refills: 4 MYKE MORRIS M.D. * Start : 27-Mar-2019 Active 42.5 GM [...] the am * Quantity: 30 Refills: 2 MYKE MORRIS M.D. * Start : 29-Aug-2019 Active tiZANidine HCl - 2 MG Oral Tablet TAKE 1 OR 2 at BEDTIME * Quantity: 60 Refills: 1 ANNIE MARIN M.D. * Start : 22-Dec-2019 Active Allergies and Adverse Reactions Name Dates [...] Z87.448) Status: Resolved History of thyroid disease (V12.29, Z86.39) Status: Resolved History of urinary frequency (V13.09, Z87.898) Status: Resolved Procedures Procedure Dates Details [QLH] TSH, 3RD GENERATION Date: 22-Dec-2019 [QLH] T4, FREE Date: 22-Dec-2019 [QLH] CMP W/EGFR Date: 22-Dec-2019 [QH] LIPID PANEL WITH REFLEX TO DIRECT LDL Date: 22-Dec-2019 MA Digital Mammo Screening Claudio [id number] Date: 22-Dec-2019 History of Appendectomy Completed History of Cholecystectomy [...] valent on: 06-Dec-2009 Fluzone INJ Lot #: [id number] on: 22-Aug-2013 Influenza on: Aug-2014 Prevnar 13 Intramuscular Suspension Lot #: [id number] on: 30-Mar-2015 Zoster (Zostavax) on: 26-Apr-2015 Influenza on: 26-Aug-2015 Fluzone Quadrivalent 0.5 ML Intramuscular Suspension on: 25-Aug-2016 Fluzone High-Dose 0.5 ML Intramuscular Suspension Prefilled Syringe on: 17-Aug-2017 Fluzone Quadrivalent 0.5 ML Intramuscular Suspension Lot #: [id number] on: 05-Aug-2018 Shingrix 50 MCG Intramuscular Suspension [...] smoker Vital Signs Date Test Result Details :33 BP Systolic 138 mm[Hg] Status: Comments: Location: LUE; Position: Sitting BP Diastolic 72 mm[Hg] Status: Comments: Location: LUE; Position: Sitting :28 BP Systolic 149 mm[Hg] Status: Comments: Location: LUE; Position: Sitting BP Diastolic 70 mm[Hg] Status: Comments: Location: LUE; Position: Sitting Physical Findings 1 Status: Comments: PHQ-9 Adult Depression Screening Height 65 in Status: Weight 165.4 lb Status: Body Mass Index Calculated 27.52 kg/m2 Status: Body Surface Area Calculated 1.82 m2 Status: Temperature 98 f Status: Comments: Method: Temporal Heart Rate 65 /min Status: Comments: Location: L Radial; Respiration Rate 16 /min Status: Comments: Quality: Normal Physical Findings 0 Status: Comments: Alcohol Screen - How many times in the past yr have you had 5 (for M) or 4 (for F) or 4 (for all > 65yrs) or more drinks in a day? Results Date Description Value Details Results not documented Plan of Care Name Dates Details Planned Observations Planned Goals not documented Planned Encounters Vascular Surgery Referral Surgery Referral Appointment; THOR ABERNATHY M.D. On: 23-Jan-2020 12:00 Appointment; ANNIE MARIN M.D. On: 29-Jan-2020 14:15 Appointment; THOR ABERNATHY M.D. On: 18-Feb-2020 14:40 Interventions Provided Medication Changes* tiZANidine HCl - 2 MG Oral Tablet - Start Labs/Procedures/Imaging* [QH] LIPID PANEL WITH REFLEX TO DIRECT LDL; To Be Done: 22 Dec 2019 * [QLH] CMP W/EGFR; To Be Done: 22 Dec 2019 * [QLH] T4, FREE; To Be Done: 22 Dec 2019 * [QLH] TSH, 3RD GENERATION; To Be Done: 22 Dec 2019 * MA Digital Mammo Screening Claudio [id number]; To Be Done: 22 Dec 2019 Instructions Name Dates Details Instructions not documented [...] documented On: 04-Feb-2018 10:45 Appointment; OMKAR PAULINO P.A. Encounter Diagnosis: Problem not documented On: 06-Feb-2018 [...] Problem not documented On: 22-May-2018 16:40 Appointment; [facility] Encounter Diagnosis: Problem not documented On: 27-May-2018 [...] Problem not documented On: 05-Jun-2019 8:00 Appointment; AKOSUA CRISOSTOMO M.D. Encounter Diagnosis: Problem not documented On: 06-Jun-2019 10:00 Appointment; THOR ABERNATHY M.D. Encounter Diagnosis: Problem not documented On: 11-Jun-2019 13:40 Appointment; [facility], NUCLEAR Encounter Diagnosis: Problem not documented On: [...] Diagnosis: Problem not documented On: 29-Aug-2019 9:30 Appointment; ANNIE MARIN M.D. Encounter Diagnosis: Problem not documented On: 22-Dec-2019 14:15
--- OUTSIDE RECORDS SUMMARY | 2020-01-20 21:05 | XMS REPORT ---
Author Author [facility] Address Unknown Phone Unavailable Care Team Providers Care Java Developer Consultant Name Role Phone Trinidad TYSON Unavailable Unavailable Problems This patient has no known problems. Allergies, Adverse Reactions, Alerts This patient has no known allergies or adverse reactions. Medications This patient has no known medications. Encounters Start Date/Time End Date/Time Encounter Type Admission Type Attending [facility] Care Department Encounter ID 2019-07-03 05:53:00 2019-07-03 05:53:00 Outpatient [facility] [id number] Results Test Description Test Time Test Comments Text Results Atomic Results Result Comments KNEE 3VW LT - HOPD 2019-05-29 20:12:00 [place] [address] Patient Name: BRENDA OLIVARES MR #: [id number] : 1940 Age/Sex: 78/F Req #: [id number] [facility] Physician: Ordered by: NIRALI TYSON MD Report #: [id number] Location: [facility] Room/Bed: Procedure: [id number] HOPD/KNEE 3VW LT - HOPD Exam Date: 05/29/19 Exam Time: 1915 REPORT STATUS: Signed Left complete knee. CPT CODE: 73760. I NDICATION: Slip and fall, pain and swelling COMPARISON: None FINDINGS: The bones are diffusely demineralized. No evidence of acute fracture or dislocation. There is mild tricompartmental osteoarthritis. No joint effusion. Subcutaneous soft tissue swelling along the medial aspect of the knee. IMPRESSION: No acute osseous injury. Soft tissue contusion of the medial aspect of the knee. No joint effusion. Signed by: Dr. Rolando Ryder MD on 05/29/2019 8:13 PM Dictated By: ROLANDO RYDER MD 12 Transcribed By: MALI on 05/29/192012 COPY TO: NIRALI TYSON MD
--- OUTSIDE RECORDS SUMMARY | 2020-01-20 21:06 | XMS REPORT | Summary of Care ---
Author Author TANIA Caal, ANNIE Cifuentes Unknown Address Unknown Phone Unavailable Care Team Providers Care Cruise Guide Name Role Phone TANIA Caal, ANNIE Unavailable Unavailable CALLUM Caal, NITHIN Unavailable Unavailable MICHELA Caal, THOR Unavailable Unavailable VALARIE Shah, KIMBER Unavailable Unavailable OBONYDONELL N.P., SALVADOR Unavailable Unavailable ARTURO Caal, SOLAFA Unavailable Unavailable JUAN Caal, PINEDA Unavailable Deniz MARIN MD UT, ANNIE HILTON Unavailable Unavailable JANAY WEIGHER PACKING, SALVADOR T Unavailable Unavailable Callum LOCKE, Nithin Unavailable Unavailable JACINTA LOCKE, BALDEV Gutiérrez Unavailable Unavailable JEAN PAUL LOCKE, FIONA Lacy Unavailable Unavailable Michela LOCKE, Thor Unavailable Unavailable MARCUS WEIGHER PACKING-C, MARGIE D Unavailable Unavailable ARTURO LOCKE, SOLAFA Unavailable Unavailable AMAYA LOCKE UT, SHARRON S Unavailable Unavailable KRANTHI LOCKE UT, AKOSUA Chi Unavailable Unavailable JUAN LOCKE, PINEDA W Unavailable Unavailable UMER LOCKE LA, CHE ERNST Unavailable Unavailable VALARIE LAURENT UT, KIMBER Unavailable Unavailable VICENTE WEIGHER PACKING UT, KOREY N Unavailable Unavailable LIBIA LOCKE, [...] Atypical chest pain (786.59, R07.89) Status: Active Screening mammogram, encounter for (V76.12, Z12.31) Status: Active Post-menopausal (V49.81, Z78.0) Status: Active Osteoporosis screening (V82.81, Z13.820) Status: Active Advance directive discussed with patient (V65.49, Z71.89) Status: Active Lipoma of back (214.8, D17.1) Status: Active Allergic rhinitis (477.9, J30.9) Status: Active Colon polyp (211.3, K63.5) Status: [...] Status: Active Lightheadedness (780.4, R42) Status: Active Pleural thickening (511.0, J92.9) Status: Active Abnormal CAT scan (793.99, R93.89) Status: Active Vomiting (787.03, R11.10) Status: Active [...] Active Statin intolerance (995.27, Z78.9) Status: Active Risk for falls (V15.88, Z91.81) [...] Active Abnormal EKG (794.31, R94.31) Status: Active S/P coronary artery stent placement (V45.82, Z95.5) Status: Active Therapeutic opioid-induced constipation (OIC) (564.09, K59.03) Status: Active Recurrent UTI (599.0, N39.0) Status: Active OAB (overactive bladder) (596.51, N32.81) Status: Active BMI 26.0-26.9,adult (V85.22, Z68.26) Status: Active 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, 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 Osteoarthritis of left knee (715.96, M17.12) Status: Active Chronic insomnia (780.52, F51.04) Status: Active Right inguinal pain (789.03, R10.31) Status: Active Pain in right hip (719.45, M25.551) Status: Active CAD S/P percutaneous coronary angioplasty (414.01, I25.10) Status: Active Osteoarthritis of hips, 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, M16.0) Status: Active Influenza vaccination declined by patient (V64.06, Z28.21) Status: Active 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, I83.893) Status: Active Muscle spasm of back (724.8, M62.830) Status: Active Soft tissue mass (729.99, M79.89) Status: Active Paresthesia of both feet (782.0, R20.2) Status: Active Symptomatic varicose veins of both lower extremities (454.8, I83.893) Status: Active Adult onset hypothyroidism (244.8, E03.8) Status: Active Essential hypertension (401.9, I10) Status: Active Mixed hyperlipidemia (272.2, E78.2) Status: Active 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, 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 * Start : 05-May-2014 Active Fluticasone Propionate 50 MCG/ACT Nasal Suspension USE 1 SPRAY IN EACH NOSTRIL DAILY * Quantity: 1 Refills: 0 YEH D.O., KIMBER * Start : 15-Jun-2014 Active 16 GM [...] TWICE DAILY * Quantity: 60 Refills: 6 SALVADOR GUSTAFSON N.P. * Start : 21-May-2017 Active Spironolactone [...] NOLEN M.D. * Start : 11-Jul-2018 Active Jfjhq-2-hwtz Ethyl Esters 1 GM Oral Capsule TAKE [...] Details [QLH] TSH, 3RD GENERATION Date: 22-Dec-2019 [QL] T4, FREE Date: 22-Dec-2019 [QL] CMP W/EGFR Date: 22-Dec-2019 [] LIPID PANEL WITH REFLEX TO DIRECT LDL [...] valent on: 06-Dec-2009 Fluzone INJ Lot #: [id number] on: 22-Aug-2013 Influenza on: Aug-2014 Prevnar 13 Intramuscular Suspension Lot #: [id number] on: 30-Mar-2015 Zoster (Zostavax) on: 26-Apr-2015 Influenza on: 26-Aug-2015 Fluzone Quadrivalent 0.5 ML Intramuscular Suspension on: 25-Aug-2016 Fluzone High-Dose 0.5 ML Intramuscular Suspension Prefilled Syringe on: 17-Aug-2017 Fluzone Quadrivalent 0.5 ML Intramuscular Suspension Lot #: [id number] on: 05-Aug-2018 Shingrix 50 MCG Intramuscular Suspension Reconstituted on: 26-Mar-2019 Shingrix 50 MCG Intramuscular Suspension Reconstituted on: 26-Jun-2019 Influenza on: 26-Oct-2019 Family History Name Dates Details Family history [...] G0202; To Be Done: 22 Dec 2019 * Tobacco Use Screening; Done: 22 Dec 2019 Plan* Muscle spasm of back: * - Medication: START Tizanidine HCl 2 mg, 1-2 tabs at bedtime * Soft tissue mass: * - Referral: General surgeon, Dr. Baldev Workman * Symptomatic varicose veins of both lower extremities and BLE edema: * - Referral: Vascular surgeon, Dr. Donna Acevedo * Bilateral feet paresthesia: * - Patient advised to wear shoes that do not compress the nerve on the dorsal aspect of the foot * - Further evaluation if symptoms fail to improve * Hypothyroidism, Hyperlipidemia, CKD3, Hypertension: * - Labs ordered for monitoring: TSH, free T4, CMP w/eGFR, Lipid panel * Breast cancer screening: Mammogram ordered * Overweight with BMI of 27.52: Diet and exercise counseling * Return to clinic in 6 weeks for reevaluation. * Return to clinic sooner if needed. Instructions Name Dates Details Instructions not documented Encounters Appointment; ADY REZA M.D. Encounter Diagnosis: Problem not documented On: 26-Dec-2017 11:00 Appointment; NITHIN NOLEN M.D. Encounter Diagnosis: Problem not documented On: 27-Dec-2017 14:45 Appointment; KRISS JOHNSON M.D. Encounter Diagnosis: Problem not documented On: 9-Feb-2018 11:15 Appointment; DUDLEY COYNE M.D. Encounter Diagnosis: [...] documented On: 08-Feb-2018 12:00 Appointment; OMKAR PAULINO P.A. Encounter Diagnosis: Problem not documented On: 15-Feb-2018 [...] Problem not documented On: 22-Mar-2018 9:00 Appointment; NANIE MARIN M.D. Encounter Diagnosis: Problem not documented [...] Problem not documented On: 22-May-2018 16:40 [facility] Encounter Diagnosis: Problem not documented On: 27-May-2018 [...] Problem not documented On: 11-Jun-2019 13:40 Appointment; [facility], NUCLEAR Encounter Diagnosis: Problem not documented On: [...]
--- OUTSIDE RECORDS SUMMARY | 2020-01-20 21:06 | XMS REPORT | Summary of Care ---
Author Author TANIA Caal, ANNIE Cifuentes Unknown Address Unknown Phone Unavailable Care Team Providers Care Communications Technician Name Role Phone TANIA Caal, ANNIE Unavailable Unavailable CALLUM Caal, NITHIN Unavailable Unavailable MICHELA Caal, THOR Unavailable Unavailable VALARIE Shah, KIMBER Unavailable Unavailable OBONYDONELL N.P., SALVADOR Unavailable Unavailable ARTURO Caal, SOLAFA Unavailable Unavailable JUAN Caal, PINEDA Unavailable Deniz MARIN MD UT, ANNIE HILTON Unavailable Unavailable JANAY CYLINDER HEAD ASSEMBLER, SALVADOR T Unavailable Unavailable Callum LOCKE, Nithin Unavailable Unavailable JACINTA LOCKE, BALDEV Gutiérrez Unavailable Unavailable JEAN PAUL LOCKE, FIONA Lacy Unavailable Unavailable Michela LOCKE, Thor Unavailable Unavailable MARCUS CYLINDER HEAD ASSEMBLER-C, MARGIE D Unavailable Unavailable ARTURO LOCKE, SOLAFA Unavailable Unavailable AMAYA LOCKE UT, SHARRON S Unavailable Unavailable KRANTHI LOCKE UT, AKOSUA Chi Unavailable Unavailable JUAN LOCKE, PINEDA W Unavailable Unavailable UMER LOCKE DE, CHE ERNST Unavailable Unavailable VALARIE LAURENT UT, KIMBER Unavailable Unavailable VICENTE CYLINDER HEAD ASSEMBLER UT, KOREY N Unavailable Unavailable LIBIA LOCKE, [...] Adult onset hypothyroidism (244.8, E03.8) Status: Active CKD (chronic kidney disease) stage 3, GFR 30-59 ml/min (585.3, N18.3) Status: Active Essential hypertension (401.9, I10) Status: [...] Active BMI 27.0-27.9,adult (V85.23, Z68.27) Status: Active Medications Name Dates Details Vitamin [...] TWICE DAILY * Quantity: 60 Refills: 6 JANAY N.PSALVADOR Knight * Start : 21-May-2017 Active [...] NOLEN M.D. * Start : 11-Jul-2018 Active [id number]-7-mfcp Ethyl Esters 1 GM Oral Capsule TAKE [...] valent on: 06-Dec-2009 Fluzone INJ Lot #: [id number] on: 22-Aug-2013 Influenza on: Aug-2014 Prevnar 13 Intramuscular Suspension Lot #: [id number] on: 30-Mar-2015 Zoster (Zostavax) on: 26-Apr-2015 Influenza on: 26-Aug-2015 Fluzone Quadrivalent 0.5 ML Intramuscular Suspension on: 25-Aug-2016 Fluzone High-Dose 0.5 ML Intramuscular Suspension Prefilled Syringe on: 17-Aug-2017 Fluzone Quadrivalent 0.5 ML Intramuscular Suspension Lot #: [id number] on: 05-Aug-2018 Shingrix 50 MCG Intramuscular Suspension [...] On: 15-Feb-2018 10:45 Appointment; [facility] ANGEL D[facility] PAntoniaAAntonia Encounter Diagnosis: Problem not documented On: 25-Feb-2018 [...] On: 28-Mar-2018 10:30 Appointment; MIGUEL ANGEL DUMONT PAntoniaAAntonia Encounter Diagnosis: Problem not documented On: 04-Apr-2018 [...] Problem not documented On: 22-May-2018 16:40 Appointment; [facility] Encounter Diagnosis: Problem not documented On: 27-May-2018 [...] Problem not documented On: 11-Jun-2019 13:40 Appointment; [facility] Encounter Diagnosis: Problem not documented On: [...]
--- OUTSIDE RECORDS SUMMARY | 2020-01-20 21:06 | XMS REPORT | Summary of Care ---
Author Brit Mcbride Unknown Address [facility] Phone Unavailable Care Team Providers Care Channel Rougher Name Role Phone TANIA Caal, ANNIE Unavailable Unavailable CALLUM Caal, NITHIN Unavailable Unavailable MICHELA Caal, THOR Unavailable Unavailable VALARIE Gutiérrez.OAntonia, KIMBER Unavailable Unavailable JANAY N.P., SALVADOR Unavailable Unavailable ARTURO Caal, VIKYAFA Unavailable Unavailable JUAN Caal, PINEDA Unavailable Unavailable TANIA LOCKE DE, ANNIE HILTON Unavailable Unavailable JANAY NOEP, SALVADOR T Unavailable Unavailable Callum LOCKE, Nithin Unavailable Unavailable JACINTA LOCKE, BALDEV Gutiérrez Unavailable Unavailable JEAN PAUL LOCKE, FIONA Lacy Unavailable Unavailable Michela LOCKE, Thor Unavailable Unavailable MARCUS NOEP-C, MARGIE D Unavailable Unavailable ARTURO LOCKE, MYKE Unavailable Unavailable AMAYA LOCKE DE, SHARRON S Unavailable Unavailable KRANTHI LOCKE DE, AKOSUA Chi Unavailable Unavailable JUAN LOCKE, PINEDA W Unavailable Unavailable UMER LOCKE [place], CHE ERNST Unavailable Unavailable VALARIE LAURENT [place], KIMBER Unavailable Unavailable VICENTE QUALITY ASSOCIATE DE, KORYE N Unavailable Unavailable LIBIA LOCKE, ADY Unavailable [...] Status: Active Diarrhea (787.91, R19.7) Status: Active Headache (784.0, R51) Status: Active Cellulitis (682.9, L03.90) Status: Active Urinary incontinence (788.30, R32) Status: [...] Abnormal CAT scan (793.99, R93.89) Status: Active Nausea (787.02, R11.0) Status: Active Tachycardia (785.0, R00.0) Status: Active Uncontrolled hypertension (401.9, I10) Status: Active Vomiting (787.03, R11.10) Status: Active Dry heaves (787.03, R11.10) Status: Active Tachycardia (785.0, R00.0) Status: Active Palpitations (785.1, R00.2) Status: Active Primary hypertension (401.9, I10) Status: Active Acute gastritis without bleeding (535.00, K29.00) Status: Active Low HDL (under 40) (272.5, E78.6) Status: Active Nausea (787.02, R11.0) Status: Active Finding of multiple premature atrial contractions by electrocardiography (427.61, I49.1) Status: Active B12 deficiency anemia (281.1, D51.9) [...] of left elbow (726.31, M77.02) Status: Active Cervical radiculopathy, acute (723.4, M54.12) Status: Active Chronic left shoulder pain (719.41, M25.512) Status: Active Abdominal pain (789.00, R10.9) Status: Active Acid reflux disease (530.81, K21.9) Status: Active IBS (irritable bowel syndrome) (564.1, K58.9) Status: Active Easy bruising (782.9, R23.8) Status: Active Pain of left knee after injury (719.46, M25.562) Status: Active Left knee pain, unspecified chronicity (719.46, M25.562) Status: Active Other sprain of right elbow, initial encounter (841.8, S53.491A) Status: Active Contusion, elbow, with forearm, right, initial encounter (923.10, S50.11XA) Status: Active Dyslipidemia (high LDL; low HDL) [...] Active BMI 26.0-26.9,adult (V85.22, Z68.26) Status: Active Chronic insomnia (780.52, F51.04) Status: Active 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, 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 Osteoarthritis of left knee (715.96, M17.12) Status: Active CAD S/P percutaneous coronary angioplasty (414.01, I25.10) Status: Active Pain in right hip (719.45, M25.551) Status: Active Osteoarthritis of hips, 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, M16.0) Status: Active Right inguinal pain (789.03, R10.31) Status: Active Influenza vaccination declined by patient (V64.06, Z28.21) Status: Active Adult onset hypothyroidism (244.8, E03.8) Status: Active Essential hypertension (401.9, I10) Status: Active Mixed hyperlipidemia (272.2, E78.2) Status: Active Breast cancer screening (V76.10, Z12.39) Status: Active Muscle spasm of back (724.8, M62.830) Status: Active Soft tissue mass (729.99, M79.89) Status: Active Symptomatic varicose veins of both lower extremities (454.8, I83.893) Status: Active 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, 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) Status: Active Paresthesia of both feet (782.0, R20.2) Status: Active Encounter for mini-mental status examination Status: Active At standard risk for fall (V15.88, Z91.81) Status: Active No impairment of memory (V49.89, Z78.9) Status: Active 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 Active Fluticasone Propionate 50 MCG/ACT Nasal Suspension USE 1 SPRAY IN EACH NOSTRIL DAILY * Quantity: 1 Refills: 0 YEH D.O.KIMBER * Start : 15-Jun-2014 Active 16 GM Bottle traZODone HCl - 50 MG Oral Tablet TAKE 1 TO 2 TABLETS BY MOUTH EVERY NIGHT AT BEDTIME * Quantity: 60 Refills: 1 TANIA Caal, ANNIE * Start : 19-Dec-2013 Active DULoxetine HCl - 60 MG Oral Capsule Delayed Release Particles TAKE 1 CAPSULE BY MOUTH EVERY DAY DIRECTED * Quantity: 30 Refills: 0 TANIA Caal, ANNIE * Start : 05-May-2014 Active HYDROcodone-Acetaminophen 7.5-325 MG Oral Tablet TAKE 1 TABLET 4 TIMES DAILY * Refills: 0 Active ProAir HFA 108 (90 Base) MCG/ACT Inhalation Aerosol Solution INHALE 1 TO 2 PUFFS EVERY 4 TO 6 HOURS NEEDED. * Quantity: 1 Refills: 3 YEH D.O., KIMBER * Start : 16-Feb-2015 Active 8.5 GM Inhaler Librax 5-2.5 MG Oral Capsule TAKE 1 CAPSULE TWICE DAILY * Quantity: 60 Refills: 6 OBONYANO N.P., SALVADOR * Start : 21-May-2017 Active Losartan Potassium 50 MG Oral Tablet take 2 tablets BID * Quantity: 360 Refills: 1 ANNIE MARIN M.D. * Start : 28-Sep-2016 Active Synthroid 112 MCG Oral Tablet TAKE 1 TABLET BY MOUTH EVERY DAY * Quantity: 30 Refills: 4 TANIA Caal, ANNIE * Start : 15-Sep-2019 Active Spironolactone 25 MG Oral Tablet TAKE 1/2 TABLET BY MOUTH EVERY DAY * Quantity: 45 Refills: 1 ANNIE MARIN M.D. * Start : 19-Jun-2017 Active Dicyclomine HCl - 10 MG Oral Capsule TAKE 1 CAPSULE TWICE DAILY * Quantity: 60 Refills: 11 NITHIN NOLEN M.D. * Start : 11-Jul-2018 Active Omeprazole 40 MG Oral Capsule Delayed Release PRN * Refills: 0 NITHIN NOLEN M.D. * Start : 27-Dec-2017 Active Estradiol 0.1 MG/GM Vaginal Cream INSERT [...] MARTINEZ M.D. * Start : 13-May-2019 Active Kdeqr-9-klew Ethyl Esters 1 GM Oral Capsule TAKE 2 CAPSULES BY MOUTH TWICE A DAY * Quantity: 360 Refills: 2 ANNIE MARIN M.D. * Start : 05-Aug-2018 Active Clopidogrel Bisulfate 75 MG Oral Tablet [...] Start : 21-Aug-2019 Active 100 GM Tube NIFEdipine ER 60 MG Oral Tablet Extended Release 24 Hour TAKE 1 TABLET BY MOUTH EVERY DAY * Quantity: 90 Refills: 3 THOR ABERNATHY M.D. * Start : 22-May-2018 Active Trospium Chloride ER 60 MG Oral Capsule [...] valent on: 06-Dec-2009 Fluzone INJ Lot #: [id number] on: 22-Aug-2013 Influenza on: Aug-2014 Prevnar 13 Intramuscular Suspension Lot #: [id number] on: 30-Mar-2015 Zoster (Zostavax) on: 26-Apr-2015 Influenza on: 26-Aug-2015 Fluzone Quadrivalent 0.5 ML Intramuscular Suspension on: 25-Aug-2016 Fluzone High-Dose 0.5 ML Intramuscular Suspension Prefilled Syringe on: 17-Aug-2017 Fluzone Quadrivalent 0.5 ML Intramuscular Suspension Lot #: [id number] on: 05-Aug-2018 Shingrix 50 MCG Intramuscular Suspension [...] Tobacco Use Screening; Done: 22 Dec 2019 Follow-ups/Referrals* Surgery Referral; To Be Done: 22 Dec 2019 * Vascular Surgery Referral; To Be Done: 22 Dec 2019 Plan* Muscle spasm [...] Problem not documented On: 27-Feb-2018 10:30 Appointment; NANIE MARIN M.D. Encounter Diagnosis: Problem [...] Problem not documented On: 22-May-2018 16:40 Appointment; [facility] Encounter Diagnosis: Problem not documented On: [...] Problem not documented On: 11-Jun-2019 13:40 Appointment; [facility], NUCLEAR Encounter Diagnosis: Problem not documented On: [...]
--- OUTSIDE RECORDS SUMMARY | 2020-01-20 21:07 | XMS REPORT | Summary of Care ---
Author Brit Mcbride Organization Unknown Address [facility] Phone Unavailable Care Team Providers Care Director Telehealth Name Role Phone TANIA Caal, ANNIE Unavailable Unavailable Brit Esparza Unavailable Unavailable CALLUM Caal, NITHIN Unavailable Unavailable MICHELA Caal, THOR Unavailable Unavailable VALARIE Shah, JAIR-MARCIO Unavailable Unavailable JANAY N.PAntonia, SALVADOR Unavailable Unavailable ARTURO Caal, SOLAFA Unavailable Unavailable JUAN Caal, PINEDA Unavailable Deniz MARIN MD [place], ANNIE YOBANI Unavailable Unavailable JANAY NOEP, SALVADOR T Unavailable Unavailable Callum LOCKE, Nithin Unavailable Unavailable JACINTA LOCKE, BALDEV Gutiérrez Unavailable Unavailable JEAN PAUL LOCKE, FIONA Lacy Unavailable Unavailable Michela LOCKE, Thor Unavailable Unavailable MARCUS LOSS PREVENTION OFFICER-C, MARGIE D Unavailable Unavailable ARTURO LOCKE, SOLAFA Unavailable Unavailable AMAYA LOCKE [place], SHARRON S Unavailable Unavailable KRANTHI LOCKE [place], AKOSUA H Unavailable Unavailable JUAN LOCKE, PINEDA Pagan Unavailable Unavailable UMER LOCKE [place], CHE ERNST Unavailable Unavailable VALARIE LAURENT [place], KIMBER Unavailable Unavailable VICENTE MEJIA [facility] RNBC CPN, KOREY Unavailable Unavailable LIBIA LOCKE, ADY Unavailable Unavailable [...] NOLEN M.D. * Start : 11-Jul-2018 Active Znuop-3-eazc Ethyl Esters 1 GM Oral Capsule TAKE [...] valent on: 06-Dec-2009 Fluzone INJ Lot #: [id number] on: 22-Aug-2013 Influenza on: Aug-2014 Prevnar 13 Intramuscular Suspension Lot #: [id number] on: 30-Mar-2015 Zoster (Zostavax) on: 26-Apr-2015 Influenza on: 26-Aug-2015 Fluzone Quadrivalent 0.5 ML Intramuscular Suspension on: 25-Aug-2016 Fluzone High-Dose 0.5 ML Intramuscular Suspension Prefilled Syringe on: 17-Aug-2017 Fluzone Quadrivalent 0.5 ML Intramuscular Suspension Lot #: [id number] on: 05-Aug-2018 Shingrix 50 MCG Intramuscular Suspension [...] Appointment; THOR ABERNATHY M.D. On: 18-Feb-2020 14:40 Instructions Name Dates Details Instructions not documented Encounters Appointment; DUDLEY OCYNE M.D. Encounter Diagnosis: Problem not documented On: 10-Jan-2018 9:40 Appointment; NITHIN NOLEN M.D. Encounter Diagnosis: Problem not documented On: 10-Jan-2018 10:15 Appointment; KIMBER SHEPPARD D.O. Encounter Diagnosis: Problem not documented On: 04-Feb-2018 10:45 Appointment; OMKAR PAULINO, PEduardo Encounter Diagnosis: Problem not documented On: 06-Feb-2018 9:45 Appointment; KRISS JOHNSON M.D. Encounter Diagnosis: Problem not documented On: 08-Feb-2018 12:00 Appointment; OMKAR PAULINO P.A. Encounter Diagnosis: Problem not documented On: 15-Feb-2018 10:45 Appointment; MIGUEL ANGEL DUMONT P.A. Encounter Diagnosis: Problem not documented On: 25-Feb-2018 15:00 Appointment; ALVARO DE LEÓN M.D. Encounter Diagnosis: Problem not documented On: 27-Feb-2018 10:30 Appointment; ANNIE AMRIN M.D. Encounter Diagnosis: Problem not documented On: 07-Mar-2018 11:00 Appointment; KRISS JOHNSON M.D. Encounter Diagnosis: Problem not documented On: 13-Mar-2018 13:00 Appointment; OMKAR PAULINO P.A. Encounter Diagnosis: Problem not documented On: 22-Mar-2018 9:00 Appointment; ANNIE MARIN M.D. Encounter Diagnosis: Problem not documented On: 28-Mar-2018 10:30 Appointment; MIGUEL ANGEL DUMONT PEduardo Encounter Diagnosis: Problem not documented On: 04-Apr-2018 [...] Problem not documented On: 11-Jun-2019 13:40 Appointment; [facility], [facility] Encounter Diagnosis: Problem not documented On: [...]
--- OUTSIDE RECORDS SUMMARY | 2020-01-20 21:07 | XMS REPORT | Summary of Care ---
Author Author Mike Bruce, Joan Cifuentes Unknown Address Unknown Phone Unavailable Care Team Providers Care Generator Technician Name Role Phone TANIA Caal, ANNIE Unavailable Unavailable CALLUM Caal, NITHIN Unavailable Unavailable MICHELA Caal, THOR Unavailable Unavailable VALARIE PerezOAntonia, KIMBER Unavailable Unavailable Mike Bruce, Joan Unavailable Unavailable JANAY N.PAntonia, SALVADOR Unavailable Unavailable ARTURO Caal, IVISA Unavailable Unavailable JUAN Caal, PINEDA Unavailable Unavailable TANIA LOCKE MD, ANNIE YOBANI Unavailable Unavailable JANAY ECKERT, SALVADOR T Unavailable Unavailable Callum LOCKE, Nithin Unavailable Unavailable JACINTA LOCKE, BALDEV Gutiérrez Unavailable Unavailable JEAN PAUL LOCKE, FIONA Lacy Unavailable Unavailable Michela LOCKE, Thor Unavailable Unavailable MARCUS ORTHODONTIC TECHNICIAN-C, MARGIE D Unavailable Unavailable ARTURO LOCKE, MYKE Unavailable Unavailable AMAYA LOCKE MD, SHARRON S Unavailable Unavailable KRANTHI LOCKE MD, AKOSUA Chi Unavailable Unavailable JUAN LOCKE, PINEDA W Unavailable Unavailable UMER LOCKE MD, CHE ERNST Unavailable Unavailable VALARIE LAURENT MD, KIMBER Unavailable Unavailable VICENTE MEJIA [facility] RNBC CPN, KOREY Unavailable Unavailable LIBIA LOCKE, [...] NEEDED. * Quantity: 1 Refills: 3 YEH D.O.KIMBER * Start : 16-Feb-2015 Active 8.5 GM [...] DAILY * Quantity: 60 Refills: 6 JANAY NSALVADOR Carrasco * Start : 21-May-2017 Active Spironolactone 25 [...] NOLEN M.D. * Start : 11-Jul-2018 Active Yfpnx-6-bhwp Ethyl Esters 1 GM Oral Capsule TAKE [...] Z87.898) Status: Resolved Procedures Procedure Dates Details [QL] TSH, 3RD GENERATION Date: 22-Dec-2019 [QL] T4, FREE Date: 22-Dec-2019 [QL] CMP W/EGFR Date: 22-Dec-2019 [Q] LIPID PANEL WITH REFLEX TO DIRECT LDL [...] valent on: 06-Dec-2009 Fluzone INJ Lot #: [id number] on: 22-Aug-2013 Influenza on: Aug-2014 Prevnar 13 Intramuscular Suspension Lot #: [id number] on: 30-Mar-2015 Zoster (Zostavax) on: 26-Apr-2015 Influenza on: 26-Aug-2015 Fluzone Quadrivalent 0.5 ML Intramuscular Suspension on: 25-Aug-2016 Fluzone High-Dose 0.5 ML Intramuscular Suspension Prefilled Syringe on: 17-Aug-2017 Fluzone Quadrivalent 0.5 ML Intramuscular Suspension Lot #: [id number] on: 05-Aug-2018 Shingrix 50 MCG Intramuscular Suspension [...] Details Instructions not documented Encounters Appointment; DUDLEY COYNE M.D. Encounter Diagnosis: Problem [...] On: 15-Feb-2018 10:45 Appointment; MIGUEL ANGEL DUMONT PEduardo Encounter Diagnosis: Problem not documented On: 25-Feb-2018 15:00 Appointment; ALVARO DE LEÓN M.D. Encounter Diagnosis: Problem not documented On: 27-Feb-2018 10:30 Appointment; ANNIE MARIN M.D. Encounter Diagnosis: Problem not documented On: 07-Mar-2018 11:00 Appointment; KRISS JOHNSON M.D. Encounter Diagnosis: Problem not documented On: 13-Mar-2018 13:00 Appointment; OMKAR PAULINO PEduardo Encounter Diagnosis: Problem not documented On: 22-Mar-2018 9:00 Appointment; ANNIE MARIN M.D. Encounter Diagnosis: Problem not documented On: 28-Mar-2018 10:30 Appointment; MIGUEL ANGEL DUMONT PAntoniaYudith Encounter Diagnosis: Problem not documented On: 04-Apr-2018 [...] not documented On: 22-May-2018 16:40 [facility] Encounter Diagnosis: Problem not documented On: 27-May-2018 [...] Problem not documented On: 11-Jun-2019 13:40 [facility] Encounter Diagnosis: Problem not documented On: [...]
--- OUTSIDE RECORDS SUMMARY | 2020-01-20 21:07 | XMS REPORT | Summary of Care ---
Author Author Mike Bruce, Noemi Cifuentes Unknown Address Unknown Phone Unavailable Care Team Providers Care Mysql Database Developer Name Role Phone TANIA Caal, ANNIE Unavailable Unavailable CALLUM Caal, NITHIN Unavailable Unavailable MICHELA Caal, THOR Unavailable Unavailable VALARIE Shah, KIMBER Unavailable Unavailable OBLISSETT N.P., SALVADOR Unavailable Unavailable ARTURO Caal, VIKYAFTrinidad Unavailable Unavailable JUAN Caal, PINEDA Unavailable Unavailable TANIA LOCKE [place], ANNIE YOBANI Unavailable Unavailable JANAY NOEP, SALVADOR T Unavailable Unavailable Callum LOCKE, Nithin Unavailable Unavailable JACINTA LOCKE, BALDEV Gutiérrez Unavailable Unavailable JEAN PAUL LOCKE, FIONA Lacy Unavailable Unavailable Michela LOCKE, Thor Unavailable Unavailable MARCUS NOEP-C, MARGIE D Unavailable Unavailable ARTURO LOCKE, SOLAFA Unavailable Unavailable AMAYA LOCKE [place], SHARRON S Unavailable Unavailable KRANTHI LOCKE [place], AKOSUA Chi Unavailable Unavailable JUAN LOCKE, PINEDA W Unavailable Unavailable UMER LOCKE [place], CHE ERNST Unavailable Unavailable VALARIE LAURENT [place], KIMBER Unavailable Unavailable VICENTE MEJIA [facility] RNBC CPN, KOREY Unavailable Unavailable LIBIA LOCKE, [...] * Quantity: 1 Refills: 3 YEH D.O., GABRIELLEN * Start : 16-Feb-2015 Active 8.5 GM [...] NOLEN M.D. * Start : 11-Jul-2018 Active Zmafs-1-udts Ethyl Esters 1 GM Oral Capsule TAKE [...] valent on: 06-Dec-2009 Fluzone INJ Lot #: [id number] on: 22-Aug-2013 Influenza on: Aug-2014 Prevnar 13 Intramuscular Suspension Lot #: [id number] on: 30-Mar-2015 Zoster (Zostavax) on: 26-Apr-2015 Influenza on: 26-Aug-2015 Fluzone Quadrivalent 0.5 ML Intramuscular Suspension on: 25-Aug-2016 Fluzone High-Dose 0.5 ML Intramuscular Suspension Prefilled Syringe on: 17-Aug-2017 Fluzone Quadrivalent 0.5 ML Intramuscular Suspension Lot #: [id number] on: 05-Aug-2018 Shingrix 50 MCG Intramuscular Suspension [...] documented On: 04-Feb-2018 10:45 Appointment; OMKAR PAULINO, PAntoniaAAntonia Encounter Diagnosis: Problem not documented On: 06-Feb-2018 9:45 Appointment; KRISS JOHNSON M.D. Encounter Diagnosis: Problem not documented On: 08-Feb-2018 12:00 Appointment; OMKAR PAULINO, PAntoniaAAntonia Encounter Diagnosis: Problem not documented On: 15-Feb-2018 10:45 Appointment; MIGUEL ANGEL DUMONT, PAntoniaAAntonia Encounter Diagnosis: Problem not documented On: 25-Feb-2018 15:00 Appointment; ALVARO DE LEÓN M.D. Encounter Diagnosis: Problem not documented On: 27-Feb-2018 10:30 Appointment; ANNIE MARIN M.D. Encounter Diagnosis: Problem not documented On: 07-Mar-2018 11:00 Appointment; KRISS JOHNSON M.D. Encounter Diagnosis: Problem not documented On: 13-Mar-2018 13:00 Appointment; OMKAR PAULINO PAntoniaAAntonia Encounter Diagnosis: Problem not documented On: 22-Mar-2018 [...] Problem not documented On: 22-May-2018 16:40 [facility] Encounter Diagnosis: Problem not documented On: 27-May-2018 [...] Problem not documented On: 11-Jun-2019 13:40 Appointment; [facility], [facility] Encounter Diagnosis: Problem not [...]
--- OUTSIDE RECORDS SUMMARY | 2020-01-20 21:08 | XMS REPORT | Summary of Care ---
Author Author Vicki Knowles R.N. Unknown Address Unknown Phone Unavailable Care Team Providers Care Sustainable Development Policy Analyst Name Role Phone TANIA Caal, ANNIE Unavailable Unavailable CALLUM Caal, NITHIN Unavailable Unavailable MICHELA Caal, THOR Unavailable Unavailable VALARIE Shah, KIMBER Unavailable Unavailable OBLIS[place] N.P., SALVADOR Unavailable Unavailable ARTURO Caal, VIKYAFTrinidad Unavailable Unavailable JUAN Caal, PINEDA Unavailable Deniz MARIN MD [place], ANNIE YOBANI Unavailable Unavailable JANAY NOEP, SALVADOR T Unavailable Unavailable aCllum LOCKE, Nithin Unavailable Unavailable JACINTA LOCKE, BALDEV Gutiérrez Unavailable Unavailable JEAN PAUL LOCKE, FIONA Lacy Unavailable Unavailable Michela LOCKE, Thor Unavailable Unavailable MARCUS NOEP-C, MARGIE D Unavailable Unavailable ARTURO LOCKE, SOLAFA Unavailable Unavailable AMAYA LOCKE [place], SHARRON S Unavailable Unavailable KRANTHI LOCKE [place], AKOSUA Chi Unavailable Unavailable JUAN LOCKE, PINEDA W Unavailable Unavailable UMER LOCKE [place], CHE ERNST Unavailable Unavailable VALARIE LAURENT [place], KIMBER Unavailable Unavailable VICENTE MEJIA [facility] RNBC CPN, KOREY Unavailable Unavailable LIBIA [...] B12 deficiency anemia (281.1, D51.9) Status: Active Weight loss (783.21, R63.4) Status: [...] chronic kidney disease (585.3, N18.3) Status: Active Hypertriglyceridemia (272.1, 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 Medications Name Dates Details Vitamin D3 25 MCG (1000 UT) Oral Tablet TAKE 1 TABLET DAILY. M.A. Active traZODone HCl - 50 MG Oral [...] TABLET 4 TIMES DAILY * Refills: 0 M.A. Active Losartan Potassium 50 MG Oral Tablet [...] NOLEN M.D. * Start : 11-Jul-2018 Active Sjfbf-1-runl Ethyl Esters 1 GM Oral Capsule TAKE [...] GM Tube Thyroid TABS * Refills: 0 M.A. Active Metaxalone 400 MG Oral Tablet TAKE [...] MARIN M.D. * Start : 22-Dec-2019 Active Vascepa 1 GM Oral Capsule TAKE 1 CAPSULE TWICE DAILY * Quantity: 180 Refills: 1 THOR ABERNATHY M.D. * Start : 09-Jan-2020 Active Allergies and Adverse Reactions Name Dates [...] hypertension (V12.59, Z86.79) Status: Resolved History of Hypertriglyceridemia (272.1, E78.1) Status: Resolved History of hypothyroidism (V12.29, Z86.39) Status: Resolved History of kidney disease (V13.09, Z87.448) Status: Resolved History of thyroid disease (V12.29, Z86.39) Status: Resolved History of urinary frequency (V13.09, Z87.898) Status: Resolved Procedures Procedure Dates Details [QLH] TSH, 3RD GENERATION Date: 22-Dec-2019 [QLH] T4, FREE Date: 22-Dec-2019 [QLH] CMP W/EGFR Date: 22-Dec-2019 [QH] LIPID PANEL WITH REFLEX TO DIRECT LDL Date: 22-Dec-2019 [QH] LIPID PANEL WITH REFLEX TO DIRECT LDL Date: 09-Jan-2020 [QLH] CMP W/EGFR Date: 09-Jan-2020 MA Digital Mammo Screening Claudio [id number] Date: [...] valent on: 06-Dec-2009 Fluzone INJ Lot #: [id number] on: 22-Aug-2013 Influenza on: Aug-2014 Prevnar 13 Intramuscular Suspension Lot #: [id number] on: 30-Mar-2015 Zoster (Zostavax) on: 26-Apr-2015 Influenza on: 26-Aug-2015 Fluzone Quadrivalent 0.5 ML Intramuscular Suspension on: 25-Aug-2016 Fluzone High-Dose 0.5 ML Intramuscular Suspension Prefilled Syringe on: 17-Aug-2017 Fluzone Quadrivalent 0.5 ML Intramuscular Suspension Lot #: [id number] on: 05-Aug-2018 Shingrix 50 MCG Intramuscular Suspension [...] of Care Name Dates Details Planned Observations [QH] LIPID PANEL WITH REFLEX TO DIRECT LDL On: 08-Apr-2020 Intent [QLH] CMP W/EGFR On: 08-Apr-2020 Intent Planned Goals not documented Planned Encounters Appointment; THOR ABERNATHY M.D. On: 23-Jan-2020 12:00 Appointment; ANNIE MARIN M.D. On: 29-Jan-2020 14:15 Appointment; THOR ABERNATHY M.D. On: 18-Feb-2020 14:40 Interventions Provided Medication Changes* Vascepa 1 GM Oral Capsule - Start Instructions Name Dates Details Instructions not documented [...] 22-May-2018 16:40 Appointment; [facility] Encounter Diagnosis: Problem not documented On: [...] Problem not documented On: 11-Jun-2019 13:40 [facility] Encounter Diagnosis: Problem not documented On: [...]
[2020-01-20] MEDS ORDERED: ONDANSETRON HCL INJ 2MG/ML 2ML 2 MG/ML VIAL IV STA (21:33)
[2020-01-20] MEDS ORDERED: SODIUM CHLORIDE 0.9% 500ML 500 ML IV ONE (21:45)
[2020-01-20] MEDS ORDERED: MORPHINE SULFATE INJ 4 MG/ML INJ 1ML IV ONE (21:45)
[2020-01-20] MEDS ORDERED: ONDANSETRON HCL INJ 2MG/ML 2ML 2 MG/ML VIAL ONE (21:53)
[2020-01-20] MEDS ORDERED: SODIUM CHLORIDE 0.9% 500ML 500 ML ONE (21:54)
[2020-01-20] MEDS ORDERED: MORPHINE SULFATE INJ 4 MG/ML INJ 1ML ONE ×2 (21:54→23:40)
[2020-01-20] MEDS ORDERED: IOPAMIDOL 370 MG/ML 200 ML INFUS..BTL INJ ONE (21:57)
[2020-01-20] MEDS ORDERED: SODIUM CHLORIDE 0.9% 50ML 50 ML ONE (21:57)
--- NOTE | 2020-01-20 22:52 | Diagnostic Imaging Report ---
EXAMINATION: CT of the abdomen and pelvis with contrast. TECHNIQUE: Spiral CT images of the abdomen and pelvis were performed from the lung bases to the lesser trochanters after the intravenous administration of 100 cc of Isovue 370. Coronal and sagittal reformatted images were obtained. COMPARISON: None. CLINICAL HISTORY:Abdominal pain, nausea, vomiting, history of bowel obstruction DISCUSSION: ABDOMEN/PELVIS: LOWER THORAX:Subsegmental atelectasis or fibrotic change in the lung bases no pleural or pericardial effusion. HEPATOBILIARY: 1.6 cm subcapsular lesion in segment 6 with nodular peripheral enhancement. No additional focal hepatic lesion. Mild intrahepatic biliary ductal dilatation status post cholecystectomy. SPLEEN: No splenomegaly or focal splenic lesion. PANCREAS: No focal masses or ductal dilatation. ADRENALS: No adrenal nodules. KIDNEYS/URETERS: Simple cyst projecting from the lower pole of the left kidney. No additional focal renal lesions. Bilateral extrarenal pelves. No calculi or hydronephrosis. PELVIC ORGANS/BLADDER: Urinary bladder is unremarkable. Uterus is not identified and has presumably been removed. No adnexal mass. PERITONEUM/RETROPERITONEUM: No ascites or pneumoperitoneum. LYMPH NODES: No pelvic sidewall, retroperitoneal, or mesenteric lymphadenopathy. VESSELS: Atherosclerotic calcification of the abdominal aorta and major branch vessels without aneurysmal dilatation. Incidental note of a retroaortic left renal vein. Portal vein, splenic vein, and central superior mesenteric vein are patent. GI TRACT: Postsurgical changes of the sigmoid colon. The large bowel shows no distention or wall thickening. The appendix is not definitively identified. However, there is no right lower quadrant inflammatory change. Postsurgical changes of the proximal stomach related to fundoplication. There is mild dilatation of multiple loops of proximal small bowel to a maximum of 3.2 cm. A transition point to decompressed small bowel is identified in the low anterior abdomen (series 2 image 63). BONES AND SOFT TISSUE: Lumbar spine laminectomy defects. No osseous destructive lesions. Age-indeterminate mild anterior compression deformity of L1. Postsurgical changes of the anterior abdominal wall. Otherwise no focal soft tissue abnormalities. IMPRESSION: Findings compatible with early small bowel obstruction with a transition point in the low abdomen as described above. No kayla perforation or drainable fluid collection. Enhancing lesion in hepatic segment 6 likely represents a benign hemangioma but is incompletely characterized on this single phase imaging examination. Definitive characterization with nonemergent CT or MRI of the abdomen with and without contrast (liver mass protocol) is suggested. Mild intrahepatic biliary ductal dilatation is likely a consequence of cholecystectomy. Correlation with serum bilirubin is suggested. Atherosclerotic vascular disease Signed by: Dr. Robert Reyes M.D. on 01/20/2020 10:50 PM
[2020-01-20] MEDS ORDERED: MORPHINE SULFATE 2 MG/ML SYR 1ML IV PRN (23:45)
[2020-01-21] VITALS (9 sets, daily range): BP systolic 136–174; BP diastolic 64–81
--- NOTE | 2020-01-21 01:20 | NUR ---
Patient [facility] AAO x 3. Patient had complaints of nausea. Respirations even and non-labored. Admission history obtained. Initial physical assessment performed. Patient oriented to room, call light and plan of care. Fall precautions implemented. Patient informed of NPO status after midnight and to call for assistance when needed. Call light within reach.
[2020-01-21] MEDS: ONDANSETRON HCL INJ 2MG/ML 2ML 2 MG/ML VIAL IV PRN ×3 (02:00→13:07)
[2020-01-21] MEDS: MORPHINE SULFATE INJ 4 MG/ML INJ 1ML IV PRN ×3 (03:28→13:08)
--- NOTE | 2020-01-21 06:37 | NUR ---
Patient complained of severe leg cramps (09/04) . Dr. Pascual Cho stated that the medication that could have been ordered is by mouth and patient is NPO. MD advised that patient wait for the next dose of Morphine 4 mg IV.
--- NOTE | 2020-01-21 06:50 | NUR ---
Bed-side shift report given to oncoming nurse.
--- NOTE | 2020-01-21 07:00 | NUR ---
RECEIVED BEDSIDE SHIFT REPORT FROM MUSIC THEORY PROFESSOR RN. PT DENIES NEEDS AT THIS TIME.
[2020-01-21 07:05] LABS: BASOPHILS % 0.2 % (0.0-1.0); EOSINOPHILS # (AUTO) 0.3 (0.0-0.4); EOSINOPHILS % 2.1 % (0.0-6.0); HEMATOCRIT 44.8 % (34.2-44.1); HEMOGLOBIN 14.9 g/dL (12.0-16.0); LYMPHOCYTES # (AUTO) 0.6 (1.0-3.2); LYMPHOCYTES % 4.9 % (18.0-39.1); MEAN CORPUSCULAR HGB CONC 33.3 g/dL (31-35); MEAN CORPUSCULAR VOLUME 84.1 fL (81-99); MONOCYTES # (AUTO) 0.6 (0.2-0.8); MONOCYTES % 4.7 % (4.4-11.3); NEUTROPHILS # (AUTO) 10.3 (2.1-6.9); NEUTROPHILS % 87.8 % (38.7-80.0); PLATELET COUNT 176 x10e3/uL (140-360); RED BLOOD COUNT 5.33 x10e6/uL (3.6-5.1); RED CELL DISTRIBUTION WIDTH 14.1 % (11.7-14.4)
[2020-01-21 07:22] LABS: ALANINE AMINOTRANSFERASE 44 IU/L (0-55); ALBUMIN 4.1 g/dL (3.5-5.0); ALKALINE PHOSPHATASE 103 IU/L (40-150); ANION GAP 14.1 mmol/L (8-16); BLOOD UREA NITROGEN 14 mg/dL (7-26); BUN/CREATININE RATIO 15 (6-25); CALCIUM 9.1 mg/dL (8.4-10.2); CARBON DIOXIDE 21 mmol/L (22-29); CHLORIDE 103 mmol/L (98-107); CREATININE, SERUM 0.92 mg/dL (0.57-1.11); EST GLOMERULAR FILTRATION RATE 59 ML/MIN (60-); GLUCOSE 149 mg/dL (74-118); POTASSIUM 4.1 mmol/L (3.5-5.1); SODIUM 134 mmol/L (136-145)
[2020-01-21 07:25] LABS: LIPASE > 1200 U/L (8-78)
[2020-01-21] MEDS: KCL 20MEQ/.9 SOD CHL 1,000 ML IV SCH ×3 (08:42→23:33)
[2020-01-21] MEDS ORDERED: HYDROCODONE/APAP 7.5MG-325MG 1 EA TAB PO PRN (09:45)
[2020-01-21] MEDS ORDERED: HYDRALAZINE HCL 20 MG/ML VIAL IV PRN (09:45)
[2020-01-21] MEDS ORDERED: CLOPIDOGREL75 MG PO (14:06)
[2020-01-21] MEDS ORDERED: ASPIR-LOW81 MG (14:06)
--- NOTE | 2020-01-21 14:18 | Diagnostic Imaging Report ---
EXAM: ABDOMEN-1VIEW (KUB) DATE: 01/21/2020 9:40 AM INDICATION: Small bowel obstruction COMPARISON: CT abdomen/pelvis with contrast from 01/20/2020 IMPRESSION: There is significant gaseous distention of the stomach. Dilated air-filled loops of small bowel are identified within the left abdomen measuring up to 4.5 cm and caliber. Findings are compatible with history of small bowel obstruction and better evaluated on the recent prior CT examination. No intraperitoneal free air is appreciated on this supine view examination. Surgical clips noted within the pelvis. Contrast material noted within the urinary bladder. No abnormal interbowel calcification is appreciated. Degenerative changes noted of the lumbosacral spine and pelvis. No acute osseous abnormality is identified. Signed by: Dr. Rivera Donis MD on 01/21/2020 2:15 PM
--- NOTE | 2020-01-21 14:47 | History and Physical ---
HISTORY OF PRESENT ILLNESS: The patient is 79-year-old female with past medical history positive for Gómez fundoplication, who came to the hospital with abdominal pain, nausea, she cannot vomit because of surgery. She was found to have small bowel obstruction, elevated LFTs, elevated lipase, admitted to the hospital. REVIEW OF SYSTEMS: CARDIOVASCULAR: No chest pain or palpitation. RESPIRATORY: No shortness of breath. No cough. GASTROINTESTINAL: She has nausea, abdominal distention, abdominal pain. GENITOURINARY: No frequency or dysuria. ALLERGIES: SHE IS ALLERGIC TO PENICILLIN AND DEMEROL. SOCIAL HISTORY: She does not smoke. She does not drink. PAST MEDICAL HISTORY: Positive for Gómez fundoplication. She has a history of hypertension and coronary artery disease also. PHYSICAL EXAMINATION: VITAL SIGNS: Temperature 97.2, heart rate 85 per minute, respiratory rate 19 per minute, blood pressure is 138/76, oxygen saturation 94%. HEART: Showed regular rhythm. Normal S1, S2 sound. LUNGS: Clear bilaterally. ABDOMEN: Soft, distended. EXTREMITIES: Show no evidence of edema. LABORATORY STUDIES: On the blood work, we have sodium , potassium 4.1, chloride 103, CO2 21, BUN 14, creatinine 0.92, glucose 149, calcium 9.1, total bilirubin 0.9, AST 81, ALT 44, alkaline phosphatase 103, total protein 8.2, albumin 4.1, globulin 4.1, lipase is 1200. On the CBC; white blood count 11,720, hemoglobin 14.9, hematocrit 44.8, platelet count 176,000. Also, we have a CT scan of the abdomen and pelvis, which showed early small bowel obstruction with a transition point in the lower abdomen, described above. No perforation or drainable fluid collection. Enhance lesion in hepatic segment is likely representing a benign hemangioma by completely characterize the single phase imaging examination, definitive heart catheterization with a nonemergent CT on MRI of the abdomen with or without contrast with liver mass protocol is suggested. Mild intrahepatic biliary ductal dilatation likely suggest atherosclerotic vascular disease. FINAL IMPRESSION: 1. Small-bowel obstruction. 2. Elevated LFTs. 3. Acute pancreatitis. 4. History of coronary artery disease. 5. History of hypertension. PLAN OF TREATMENT: N.p.o. We are going to have a surgeon on the case, which is Dr. Wang. Continue with IV fluids with potassium at 125 mL an hour. She is also taking morphine 4 mg IV q.4 hours as needed, Zofran 4 mg IV q.4 hours as needed. We are also order hepatitis profile, antinuclear antibody, serum plasmin level, antimitochondrial antibodies. Gastroenterology consult also with Dr. Darrius Romero and Dr. Wang, surgeon. We are going to do a KUB today. MD DANTE Granger/JOSUE /[id number]
[2020-01-21] MEDS: LOSARTAN POTASSIUM 25 MG TAB PO SCH (17:58)
--- NOTE | 2020-01-21 19:15 | NUR ---
REPORT [id number] FROM DAY RN. PT ALERT AND ORIENTED X3. COOPERATIVE WITH CARE. NPO. DX SBO. RESPIRATIONS EVEN AND UNLABORED. TELE ON- #5. PIV 20G RT AC- SITE HEALTHY. NS/20 MEQ KCL INFUSING AT 125/HR VIA IV PUMP ORDERED.ABDOMEN SOFT.BOWEL SOUNDS HYPOACTIVE. PT DENIES PAIN. AMBULATE WITH ONE ASSIST. BED IN LOW POSITION. NONSKID SOCKS ON. CALL LIGHT WITHIN REACH. BED ALARM ON.
[2020-01-21] MEDS ORDERED: TRAZODONE HCL 50 MG TAB PO SCH (21:00)
[2020-01-21] MEDS ORDERED: NIFEDIPINE CR 30 MG TAB PO SCH (21:00)
--- NOTE | 2020-01-21 22:00 | NUR ---
CALLED DR NELSON PT NPO AND PO MEDS ORDERED. PT HAS TEMP 100.7. AWAITING CALL BACK.
--- NOTE | 2020-01-21 22:58 | NUR ---
DR NELSON RETURN CALL. TYLENOL IV ORDERED FOR TEMP OVER 101 Q 6HRS PRN. HE INSTRUCTED TO HOLD PO MEDS FOR NOW. WE ARE TO USE IV HYDRALAZINE IF NEEDED FOR ELEVATED B/P.
[2020-01-21] MEDS ORDERED: ACETAMINOPHEN 1000 MG/100 ML IV PRN (23:15)
[2020-01-22] VITALS: BP 145/65
--- NOTE | 2020-01-22 00:05 | NUR ---
TEMP AT 1999 WAS 100.7- DR NELSON NOTIFIED. TEMP AT 0000 WAS 98.7. WILL CONTINUE TO MONITOR TEMP AND B/P. B/P AT 0000 WAS 145/65.
--- NOTE | 2020-01-22 03:00 | NUR ---
DR LEIGH HERE TO SEE PT. NEW ORDERS RECEIVED. NPO EXCEPT ICE CHIPS. PT HAS HX CARDIAC STENT AUG LAST YEAR- PLAVIX AND ASA RESTARTED WITH SIP OF H20.PT HAS HAD 2 LIQUID BMS THIS SHIFT. PT DENIES PAIN AND REPORTS LOTS OF GAS.
[2020-01-22 04:00] VITALS: BP 183/74
--- NOTE | 2020-01-22 05:19 | NUR ---
B/P AT 0400 VS ELEVATED. IV RESTARTED AND DR HERE EARLIER. PT DID NOT GET MUCH SLEEP. B/P RECHECKED MANUALLY- B/P 160/70. WILL WAIT ON HYDRALAZINE IV FOR NOW. PT RESTING ON HER SIDE.
--- NOTE | 2020-01-22 05:49 | Diagnostic Imaging Report ---
Exam: Abdominal film Clinical History: Small bowel obstruction Comparison: 01/21/2020 DISCUSSION: Persistent though improved dilatation of several small bowel loops measuring up to 3.5 cm. Gas throughout the colon. Excreted contrast within the urinary bladder is more dilute. Regional skeletal structures are intact. Laminectomy defects of the lower lumbar spine. IMPRESSION: Improved small bowel dilatation relative to 01/21/2020. Signed by: Dr. Robert Reyes M.D. on 01/22/2020 5:47 AM
[2020-01-22] MEDS: KCL 20MEQ/.9 SOD CHL 1,000 ML IV SCH ×2 (05:52→15:33)
[2020-01-22 05:58] LABS: BASOPHILS % 0.5 % (0.0-1.0); EOSINOPHILS # (AUTO) 0.1 (0.0-0.4); EOSINOPHILS % 1.5 % (0.0-6.0); HEMATOCRIT 37.8 % (34.2-44.1); LYMPHOCYTES # (AUTO) 1.6 (1.0-3.2); LYMPHOCYTES % 21.1 % (18.0-39.1); MEAN CORPUSCULAR HEMOGLOBIN 27.5 pg (28-32); MEAN CORPUSCULAR HGB CONC 31.7 g/dL (31-35); MEAN CORPUSCULAR VOLUME 86.7 fL (81-99); MONOCYTES # (AUTO) 0.9 (0.2-0.8); MONOCYTES % 12.2 % (4.4-11.3); NEUTROPHILS # (AUTO) 4.8 (2.1-6.9); NEUTROPHILS % 64.4 % (38.7-80.0); PLATELET COUNT 143 x10e3/uL (140-360); RED BLOOD COUNT 4.36 x10e6/uL (3.6-5.1); RED CELL DISTRIBUTION WIDTH 14.6 % (11.7-14.4)
[2020-01-22] MEDS ORDERED: LEVOTHYROXINE SODIUM 112 MCG TAB PO SCH (06:00)
--- NOTE | 2020-01-22 06:00 | NUR ---
PT REPORTS GLASSES COULD HAVE BEEN LOST AT EMERGENCY CLINIC. sHE WILL CHECK WITH FRIENDS AND FACILITY. NO GLASSES FOUND IN ROOM OR BELONGINGS. PT TO TALK TO FRIENDS.
[2020-01-22 06:19] LABS: ALBUMIN 3.2 g/dL (3.5-5.0); ALBUMIN/GLOBULIN RATIO 0.9 (0.8-2.0); ANION GAP 9.9 mmol/L (8-16); CALCIUM 8.1 mg/dL (8.4-10.2); CREATININE, SERUM 0.94 mg/dL (0.57-1.11); POTASSIUM 3.9 mmol/L (3.5-5.1)
--- NOTE | 2020-01-22 07:00 | NUR ---
RECEIVED BEDSIDE SHIFT REPORT FROM COMPOUNDING SCALER RN. PT DENIES NEEDS AT THIS TIME.
[2020-01-22 07:39] VITALS: BP 160/70
[2020-01-22] MEDS ORDERED: DULOXETINE HCL 30 MG DELAYED RELEASE PO SCH (09:00)
[2020-01-22] MEDS ORDERED: SPIRONOLACTONE 25 MG TAB PO SCH (09:00)
[2020-01-22] MEDS ORDERED: CLOPIDOGREL BISULFATE 75 MG TAB PO SCH (09:00)
[2020-01-22] MEDS ORDERED: ASPIRIN 81 MG CHEW TAB PO SCH (09:00)
[2020-01-22] MEDS: LOSARTAN POTASSIUM 25 MG TAB PO SCH (09:18)
[2020-01-22 09:35] VITALS: BP 160/70
--- NOTE | 2020-01-22 11:12 | NUR ---
IMM letter delivered to pt. She verbalized understanding. Signed copy placed in chart. Copy to pt.
[2020-01-22] MEDS ORDERED: CLONIDINE HCL 0.3MG/24 HR PATCH TOP SCH (11:30)
[2020-01-22 12:00] VITALS: BP 164/74
--- NOTE | 2020-01-22 12:14 | Progress Note ---
DATE: Internal Medicine Progress Note SUBJECTIVE: The patient is doing better now. No more abdominal pain. PHYSICAL EXAMINATION: HEART: Showed regular rhythm. Normal S1, S2 sound. LUNGS: Clear bilaterally. ABDOMEN: Soft, less distended than before. LABORATORY DATA: CBC; white blood count 7.43, hemoglobin 12.0, hematocrit 37.8, platelet count 143,000. On the BMP; sodium 135, potassium 3.9, chloride 107, CO2 22, BUN 20, creatinine 0.84, glucose 98, total bilirubin 0.6, AST 43, ALT 40, alkaline phosphatase 78, amylase 591, lipase is 281, which is better than before. FINAL IMPRESSION: 1. Small bowel obstruction. 2. Possible pancreatitis. 3. Elevated liver function test. 4. Coronary artery disease. 5. Hypertension. PLAN OF TREATMENT: Continue n.p.o. Continue monitoring liver function tests and lipase levels. Gastroenterology, Dr. Darrius Romero is following the case also for the small bowel obstruction is slowly improving. We are going continue monitoring the clinical status and along with the abdominal x-ray. Continue IV fluids. Continue n.p.o. status, pain control and lipase level tomorrow. MD DANTE Granger/JOSUE /[id number]
[2020-01-22 16:00] VITALS: BP 185/82
--- NOTE | 2020-01-22 17:22 | NUR ---
PT LEFT AT THIS TIME AMA. DR. NELSON CALLED. PT RECEIVED A CALL FROM FRIENDS HELPING WITH HERE HOUSE. NEWS WAS GIVEN THAT HER DOGS GOT OUT AND 1 IS . PT FELT OVERWELMING DESIRE TO HAVE TO GET HOME BUT ARIANNA SHE WOULD FOLLOW UP WITH DR. NELSON.
== END 2020-01-22 17:20 | disposition left against medical advice (07) | DRG 388 ==
LOC: FSED 21:01 → ERHOLD 23:40 → MED/SURG2 01-21 01:02
PROVIDERS: ADMIT Internal Medicine; ATTEND Internal Medicine
DX: K56.609 Unspecified intestinal obstruction, unspecified as to partial versus complete obstruction (principal); K85.90 Acute pancreatitis without necrosis or infection, unspecified; I25.10 Atherosclerotic heart disease of native coronary artery without angina pectoris; I10 Essential (primary) hypertension; R94.5 Abnormal results of liver function studies; E78.1 Pure hyperglyceridemia; Z79.02 Long term (current) use of antithrombotics/antiplatelets; Z79.82 Long term (current) use of aspirin; Z88.5 Allergy status to narcotic agent; Z95.5 Presence of coronary angioplasty implant and graft; Z88.0 Allergy status to penicillin
CPT/HCPCS: 36415; 74018; 74177; 80048; 80053; 82150; 82390; 83690; 84478; 85025; 86039; 86255; 93005; 99284; J0360; J2270; J2405; J7040; Q9967

== ENCOUNTER 2020-04-23 23:08 | Emergency (ER) | payer MEDICARE, OTHER ==
[~2020-04-23] VITALS: Ht 162.6 cm; Wt 71.7 kg
[~2020-04-23 23:08] MED LIST changes: +ASPIR-LOW81 MG; +CLOPIDOGREL75 MG PO
--- OUTSIDE RECORDS SUMMARY | 2020-04-23 23:12 | XMS REPORT ---
Author Author BRENDA MARIN Organization Unknown Address Unknown Phone Care Team Providers Care Intellectual Property Lawyer Name Role Phone TANIA ANNIE PP Unavailable Reason for Referral No Reason for Referral was given. History of Present Illness No HPI available. 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 (Active) * Bentyl 10 MG Oral Capsule; TAKE 1 CAPSULE DAILY (Active) * Bisoprolol Fumarate 10 MG Oral Tablet; TAKE 1 TABLET ONCE DAILY.; Start Date: ; End Date: (Active) * Cymbalta 60 MG Oral Capsule Delayed Release Particles; TAKE 1 CAPSULE DAILY (Active) * Doxazosin Mesylate 1 MG Oral Tablet; TAKE 0.5 TABLET AT BEDTIME. (Active) * ProAir HFA 108 (90 Base) MCG/ACT Inhalation Aerosol Solution; INHALE 2 PUFFS EVERY 4-6 HOURS NEEDED WHEEZING; Start Date: 09/22/2013; End Date: (Active) * Vitamin B-12 1000 MCG/ML SOLN; INJECT 1 ML INTRAMUSCULARLY ONCE A MONTH (Active) * Levothyroxine Sodium 150 MCG Oral Tablet; TAKE 1 TABLET DAILY; Start Date: 12/02/2013; End Date: (Active) * TraZODone HCl 50 MG Oral Tablet; TAKE 1 to 2 TABLETS AT BEDTIME.; Start Date: 12/19/2013 (Active) * TraMADol HCl 50 MG Oral Tablet; TAKE 1/2-1 TABLET BY MOUTH Q8 HRS PRN FOR PAIN ; Start Date: 12/19/2013 (Active) * Benicar HCT 40-25 MG Oral Tablet; TAKE 1 TABLET DAILY.; Start Date: 12/19/2013 (Active) Allergies and Adverse Reactions * Iodine (Active) * Sulfa Drugs (Active) * Penicillins (Active) * Demerol SOLN (Active) * Codeine Derivatives (Active) Past Medical History * History of Diverticulitis Of Colon (562.11); (Resolved) Procedures Procedure Procedure Date Date Completed Status Appendectomy - - Resolved Cholecystectomy - - Resolved Hysterectomy - - Resolved Oophorectomy - Bilat (Removal Of Both Ovaries) Laparoscopic - - Resolved Knee Surgery Left - - Resolved Knee Surgery Right - - Resolved Shoulder Surgery Left - - Resolved Shoulder Surgery Right - - Resolved Back Surgery - - Resolved Immunization * Fluzone Intramuscular Injectable (Lot #: [id number]) - Administered on: 08/22/2013 Family History * Maternal history of Cancer (Active) Social History * Never A Smoker (Active) * Never Drank Alcohol (Active) Treatment Plan * [[facility]] TSH, 3RD GENERATION W/REFLEX TO FT4 09/30/2013 Routine Advance Directives * No Advance Directives available. Encounters * AUDIT 12/20/2013
--- OUTSIDE RECORDS SUMMARY | 2020-04-23 23:12 | XMS REPORT ---
Author Author BRENDA Florez Organization Unknown Address Unknown Phone Care Team Providers Care Electronic News Gathering Camera Person Name Role Phone Jeanna Florez PP Unavailable Reason for Referral No Reason for Referral was given. History of Present Illness No HPI available. 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 (Active) * Bisoprolol Fumarate 10 MG Oral Tablet; TAKE 1 TABLET ONCE DAILY.; Start Date: ; End Date: (Active) * Vitamin B-12 1000 MCG/ML SOLN; INJECT 1 ML INTRAMUSCULARLY ONCE A MONTH (Active) * Cymbalta 60 MG Oral Capsule Delayed Release Particles; TAKE 1 CAPSULE DAILY (Active) * Dicyclomine HCl 10 MG Oral Capsule; TAKE 1 CAPSULE DAILY; Start Date: ; End Date: (Active) * ProAir HFA 108 (90 Base) MCG/ACT Inhalation Aerosol Solution; INHALE 2 PUFFS EVERY 4-6 HOURS NEEDED WHEEZING; Start Date: 09/22/2013; End Date: (Active) * Levothyroxine Sodium 150 MCG Oral Tablet; TAKE 1 TABLET DAILY; Start Date: 12/02/2013; End Date: (Active) * TraZODone HCl 50 MG Oral Tablet; TAKE 1 to 2 TABLETS AT BEDTIME.; Start Date: 12/19/2013 (Active) * Benicar HCT 40-25 MG Oral Tablet; TAKE 1 TABLET DAILY.; Start Date: 12/19/2013 (Active) * CloNIDine HCl 0.1 MG Oral Tablet; TAKE 1 TABLET DAILY (Active) * Doxazosin Mesylate 1 MG Oral Tablet; TAKE 0.5 TABLET AT BEDTIME. (Active) * Hydrocodone-Acetaminophen 5-300 MG Oral Tablet; TAKE 0.5 TABLET 4 times daily PRN pain; Start Date: 01/12/2014 (Active) Allergies and Adverse Reactions * Iodine [...] - Resolved Back Surgery - - Resolved Back Surgery - - Resolved Immunization * Fluzone Intramuscular Injectable (Lot #: [id number]) - Administered on: 08/22/2013 Family History * Maternal history of Cancer (Active) Social History * Never A Smoker (Active) * Never Drank Alcohol (Active) * Occupation: Retired (Active) Treatment Plan * [[facility]] TSH, 3RD GENERATION W/REFLEX TO FT4 09/30/2013 Routine Advance Directives * No Advance Directives available. Encounters * AUDIT 01/29/2014
--- OUTSIDE RECORDS SUMMARY | 2020-04-23 23:12 | XMS REPORT ---
Author Author BRENDA MARIN Organization Unknown Address Unknown Phone Care Team Providers Care Heel Seat Flap Stapler Name Role Phone TANIA ANNIE PP Unavailable Reason for Referral No Reason for Referral was given. History of Present Illness No HPI available. 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 (Active) * Dicyclomine HCl 10 MG Oral Capsule; TAKE 1 CAPSULE DAILY; Start Date: ; End Date: (Active) * Vitamin B-12 1000 MCG/ML SOLN; INJECT 1 ML INTRAMUSCULARLY ONCE A MONTH (Active) * TraZODone HCl 50 MG Oral Tablet; TAKE 1 to 2 TABLETS AT BEDTIME.; Start Date: 12/19/2013 (Active) * Hydrocodone-Acetaminophen 5-300 MG Oral Tablet; TAKE 0.5 TABLET 4 times daily PRN pain; Start Date: 01/12/2014 (Active) * Benicar HCT 40-25 MG Oral Tablet; TAKE 1 TABLET BY MOUTH ONCE DAILY DIRECTED; Start Date: 12/19/2013 (Active) * Gabapentin 300 MG Oral Capsule; TAKE 1 CAPSULE BEDTIME (Active) * Levothyroxine Sodium 137 MCG Oral Tablet; TAKE 1 TABLET DAILY.; Start Date: 12/02/2013; End Date: (Active) * NexIUM 40 MG Oral Capsule Delayed Release; TAKE 1 CAPSULE DAILY; Start Date: 03/18/2014; End Date: (Active) Allergies and Adverse Reactions * Iodine [...] - Resolved Back Surgery - - Resolved Esophagogastric Fundoplasty Gómez Fundoplication - - Resolved Immunization * Fluzone Intramuscular Injectable (Lot #: [id number]) - Administered on: 08/22/2013 Family History * Maternal history of Cancer (Active) Social History * Never A Smoker (Active) * Never Drank Alcohol (Active) * Occupation: Retired (Active) * Marital History - (V61.03); (Active) Treatment Plan * [[facility]] TSH, 3RD GENERATION W/REFLEX TO FT4 09/30/2013 Routine Advance Directives * No Advance Directives available. Encounters * AUDIT 04/02/2014
--- OUTSIDE RECORDS SUMMARY | 2020-04-23 23:12 | XMS REPORT ---
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); (Active) * Insomnia (780.52); (Active) * Abdominal Pain Feels Crampy / Colicky (789.00); (Active) Medication * BusPIRone HCl 5 MG [...] Start Date: 12/02/2013; End Date: (Active) * Benicar HCT 40-25 MG Oral Tablet; TAKE 1 TABLET DAILY.; Start Date: 12/19/2013 (Active) * TraZODone HCl 50 MG Oral Tablet; TAKE 1 to 2 TABLETS AT BEDTIME.; Start Date: 12/19/2013 (Active) * CloNIDine HCl 0.1 MG Oral Tablet; TAKE 1 TABLET DAILY (Active) * Hydrocodone-Acetaminophen 5-300 MG Oral Tablet; [...] Immunization * Fluzone Intramuscular Injectable (Lot #: [id number]) - Administered on: 08/22/2013 Family History * Maternal history of Cancer (Active) Social History * Never A Smoker (Active) * Never Drank Alcohol (Active) * Occupation: Retired (Active) Treatment Plan * [[facility]] TSH, 3RD GENERATION W/REFLEX TO FT4 09/30/2013 Routine Advance Directives * No Advance Directives available. Encounters * AUDIT 01/12/2014
--- OUTSIDE RECORDS SUMMARY | 2020-04-23 23:12 | XMS REPORT ---
Author Author BRENDA MARIN Organization Unknown Address Unknown Phone Care Team Providers Care Sports Cartoonist Name Role Phone ANNIE MARIN PP Unavailable Reason for Referral No Reason for Referral was given. History of Present Illness No HPI available. 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 (Active) * Benicar 40 MG Oral Tablet; TAKE 1 TABLET DAILY. (Active) * TraZODone HCl 50 MG Oral Tablet; TAKE 1 TABLET DAILY. (Active) * Lovaza 1 GM Oral Capsule; 2 po bid (Active) * Vitamin D3 1000 UNIT Oral Tablet; TAKE 1 TABLET DAILY. (Active) * Bentyl 10 MG Oral Capsule; TAKE 1 CAPSULE DAILY (Active) * Bisoprolol Fumarate 10 MG Oral Tablet; TAKE 1 TABLET ONCE DAILY.; Start Date: ; End Date: (Active) * Doxazosin Mesylate 1 MG Oral Tablet; TAKE 0.5 TABLET AT BEDTIME.; Start Date: ; End Date: (Active) * Synthroid 137 MCG Oral Tablet; TAKE 1 TABLET DAILY. (Active) * Cymbalta 60 MG Oral Capsule Delayed Release Particles; TAKE 1 CAPSULE DAILY (Active) * Cyclobenzaprine HCl 5 MG Oral Tablet; TAKE 1 TABLET AT BEDTIME NEEDED.; Start Date: 09/04/2013; End Date: (Active) * ProAir HFA 108 (90 Base) MCG/ACT Inhalation Aerosol Solution; INHALE 2 PUFFS EVERY 4-6 HOURS NEEDED WHEEZING; Start Date: 09/22/2013; End Date: (Active) * Vitamin B-12 1000 MCG/ML SOLN; INJECT 1 ML INTRAMUSCULARLY ONCE A MONTH (Active) * Lovenox 40 MG/0.4ML Subcutaneous Solution; Lovenox BID (Active) Allergies and Adverse Reactions * Iodine [...] Immunization * Fluzone Intramuscular Injectable (Lot #: [id number]) - Administered on: 08/22/2013 Family History * Maternal history of Cancer (Active) Social History * Never A Smoker (Active) * Never Drank Alcohol (Active) Treatment Plan * [[facility]] TSH, 3RD GENERATION W/REFLEX TO FT4 09/30/2013 Routine Advance Directives * No Advance Directives available. Encounters * AUDIT 12/01/2013 * ECL, Provider: ANNIE MARIN, Status: Fer, Time: 8:45 AM 12/02/2013
--- OUTSIDE RECORDS SUMMARY | 2020-04-23 23:12 | XMS REPORT ---
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 Encounters * AUDIT 03/18/2014
--- OUTSIDE RECORDS SUMMARY | 2020-04-23 23:12 | XMS REPORT | Continuity of Care Document ---
Author Author Carolann Elo7 BRENDA [facility] [employer] Address Unknown Phone Unavailable Care Team Providers Care Spragger Name Role Phone [facility] Unavailable Un available Problems Problem Status Onset Date Classification Date Reported Comments Source Hyperlipidemia Active 04/02/2014 [facility] Taking Female Hormones For Postmenopausal HRT Active 04/02/2014 [facility] Intervertebral Disc Degeneration Active 04/02/2014 [facility] Intermittent Claudication Acti ve 04/02/2014 [facility] Hypothyroidism Active 04/02/2014 [facility] Lower Back Pain Active 04/02/2014 [facility] Essential Hypertension Active 04/02/2014 [facility] Asthma Active 04/02/2014 [facility] Hypokalemia Active 04/02/2014 [facility] Mood Disorder Of Unknown ([place] III) Etiology Active 04/02/2014 [facility] Insomnia Active 04/02/2014 [facility] Abdominal Pain Feels Crampy / Colicky Active 04/02/2014 [facility] Hepatic Cyst Active 04/02/2014 [facility] Esophageal Reflux Active 04/02/2014 [facility] Chest Pain Or Discomfort Active 04/02/2014 [facility] Medications Medication Details Route Status Patient Instructions Ordering Provider Order Date Source NexIUM 40 MG Oral Capsule Delayed Release ; Start Date: 03/18/2014; End Date: (Active) Active 03/18/2014 [facility] Livalo 1 MG Oral Tablet ; Star t Date: 03/16/2014 (Active) Active 03/16/2014 [facility] BusPIRone HCl 5 MG Oral Tablet ; Start Date: 02/10/2014 (Active) Active 02/10/2014 [facility] Hydrocodone-Acetaminophen 5-300 MG Oral Tablet ; Start Date: 01/12/2014 (Active) Active 01/12/2014 [facility] TraZODone HCl 50 MG Oral Tablet ; Start Date: 12/19/2013 (Active) Active 12/19/2013 [facility] TraMADol HCl 50 MG Oral Tablet ; Start Date: 12/19/2013 (Active) Active 12/19/2013 [facility] Benicar HCT 40-25 MG Oral Tablet ; Start Date: 12/19/2013 (Active) Active 12/19/2013 [facility] Levothyroxine Sodium 150 MCG Oral Tablet ; Start Date: 12/02/2013; End Date: (Active) Active 12/02/2013 [facility] Irbesartan 75 MG Oral Tablet ; Start Date: 12/02/2013; End Date: (Active) Active 12/02/2013 [facility] Methocarbamol 500 MG Oral Tablet ; Start Date: 12/02/2013 (Active) Active 12/02/2013 [facility] Levothyroxine Sodium 137 MCG Oral Tablet ; Start Date: 12/02/2013; End Date: (Active) Active 12/02/2013 [facility] ProAir HFA 108 (90 Base) MCG/ACT Inhalat ion Aerosol Solution ; Start Date: 09/22/2013; End Date: 11/1899 (Active) Active 09/22/2013 [facility] Cyclobenzaprine HCl 5 MG Oral Tablet ; Start Date: 09/04/2013; End Date: (Active) Active 09/04/2013 [facility] Cyclobenzaprine HCl 10 MG Oral Tablet ; Start Date: 08/04/2013; End Date: (Active) Active 08/04/2013 [facility] Bisoprolol Fumarate 10 MG Oral Tablet ; Start Date: ; End Date: (Active) Inactive [facility] Doxazosin Mesylate 1 MG Oral Tablet ; Start Date: ; End Date: (Active) Inactive [facility] Dicyclomine HCl 10 MG Oral Capsule ; Start Date: ; End Date: (Active) Inactive [facility] BusPIRone HCl 5 MG Oral Tablet (Active) Active [facility] Hydrochlorothiazide 25 MG Oral Tablet (Active) Active [facility] Benicar 40 MG Oral Tablet (Ac tive) Active [facility] TraZODone HCl 50 MG Oral Tablet (Active) Active [facility] Lovaza 1 GM Oral Capsule (Act cristian) Active [facility] Bentyl 10 MG Oral Capsule (Ac tive) Active [facility] Cymbalta 60 MG Oral Capsule Delayed Release Particles (Active) Active [facility] Vitamin D3 1000 UNIT Oral Tablet (Active) Active [facility] Bisoprolol Fumarate 10 MG Oral Tablet (Active) Active [facility] Synthroid 125 MCG Oral Tablet (Active) Active [facility] Cardura 1 MG Oral Tablet (Act cristian) Active [facility] Synthroid 137 MCG Oral Tablet (Active) Active [facility] Doxazosin Mesylate 1 MG Oral Tablet (Active) Active [facility] Vitamin B-12 1000 MCG/ML SOLN (Active) Active [facility] [place] 5-325 MG Oral Tablet (A ctive) Active [facility] CloNIDine HCl 0.1 MG Oral Tablet (Active) Active [facility] Lovenox 40 MG/0.4ML Subcutaneous Solution (Active) Active [facility] Gabapentin 300 MG Oral Capsule (Active) Active [facility] Allergies, Adverse Reactions, Alerts Substance Category Reaction Severity Reaction type Status Date Reported Comments Source Sulfa Drugs drug allergy drug allergy Active [facility] Penicillins drug allergy drug allergy Active [facility] Demerol SOLN drug allergy drug allergy Active [facility] Codeine Derivatives drug aller gy drug aller gy Active [facility] Immunizations Immunization Date Given Site Status Last Updated Comments Source Fluzone Intramuscular Injectable 08/22/2013 completed [facility] Results No Data Provided for This Section [...] Provider ADM Date DC Date Status Source AUDIT [id number] 08/04/2013 08/04/2013 [facility] ENRIKE Provloco kevin: MJ VELASQUEZ, Status: Pen, Time: 2:00 PM [id number] 08/05/20 13 08/04/2013 [facility] AUDIT [id number] 08/05/2013 08/05/2013 [facility] Rickie SANCHEZ kevin: FIONA REAVES, Status: Pen, Time: 1:45 PM [id number] 08/18/2013 08/05/2013 [facility] AUDIT [id number] 08/18/2013 08/18/2013 [facility] AUDIT [id number] 08/22/2013 08/22/2013 [facility] AUDIT [id number] 09/22/2013 09/22/2013 [facility] AUDIT [id number] 12/01/2013 12/02/2013 [facility] ECL, Provi kevin: ANNIE MARIN, Status: Pen, Time: 8:45 AM [id number] 12/02/19 14 12/02/2013 [facility] AUDIT [id number] 12/11/2013 12/11/2013 [facility] AUDIT [id number] 12/16/2013 12/16/2013 [facility] FUP, Provi kevin: ANNIE MARIN, Status: Pen, Time: 10:00 AM [id number] 12/19/19 14 12/16/2013 [facility] AUDIT [id number] 12/19/2013 12/19/2013 [facility] AUDIT [id number] 12/20/2013 12/20/2013 [facility] AUDIT [id number] 01/12/2014 01/12/2014 [facility] AUDIT [id number] 01/29/2014 01/29/2014 [facility] AUDIT [id number] 01/30/2014 01/30/2014 [facility] AUDIT [id number] 03/16/2014 03/16/2014 [facility] EGV, Provi kevin: KALIN BESS, Status: Pen, Time: 11:15 AM [id number] 03/16/20 14 03/16/2014 [facility] AUDIT [id number] 03/18/2014 03/18/2014 [facility] AUDIT [id number] 04/02/2014 04/02/2014 [facility] Procedures No Data Provided for This Section Assessment and Plan No Data Provided for This Section Plan of Care Plan of Care Date Source [[facility]] TSH, 3RD GENERATION W/REFLEX TO FT 4 09/30/2013 Routine 04/02/2014 [facility] [[facility]] TSH, 3RD GENERATION W/REFLEX TO FT 4 09/30/2013 Routine 03/18/2014 [facility] [[facility]] TSH, 3RD GENERATION W/REFLEX TO FT 4 09/30/2013 Routine 03/16/2014 [facility] [[facility]] TSH, 3RD GENERATION W/REFLEX TO FT 4 09/30/2013 RoutineUS Abdomen RUQ [id number] 01/29/2014 Routine 01/30/2014 [facility] [[facility]] TSH, 3RD GENERATION W/REFLEX TO FT 4 09/30/2013 Routine 01/29/2014 [facility] [QL[facility]] TSH, 3RD GENERATION W/REFLEX TO FT 4 09/30/2013 Routine 01/12/2014 [facility] [QL[facility]] TSH, 3RD GENERATION W/REFLEX TO FT 4 09/30/2013 Routine 12/20/2013 [facility] [QLH] TSH, 3RD GENERATION W/REFLEX TO FT 4 09/30/2013 Routine 12/19/2013 [facility] [[facility]] TSH, 3RD GENERATION W/REFLEX TO FT 4 09/30/2013 Routine 12/16/2013 [facility] [QLH] TSH, 3RD GENERATION W/REFLEX TO FT 4 09/30/2013 Routine 12/11/2013 [facility] [QLH] TSH, 3RD GENERATION W/REFLEX TO FT 4 09/30/2013 Routine 12/02/2013 [facility] Follow-up visit in 2 weeks 08/04/2013 Routine 08/22/2013 [facility] Follow-up visit in 2 weeks 08/04/2013 Routine 08/18/2013 [facility] [QLH] CREATINE KINASE, TOTAL 08/04/2013 Routine[[facility]] TSH, 3RD GENERATION W/REFLEX TO FT4 08/04/2013 Routine[QL[facility]] CBC (INCLUDES DIFF/PLT) 08/04/2013 Routine[QL[facility]] CMP W/EGFR 08/04/2013 Routine[QLH] SED RATE BY MODIFIED [facility] 08/04/2013 RoutineFollow-up visit in 2 weeks 08/04/2013 Routine 08/05/2013 [facility] [N] ENRIKE-Ankle Brachial Index Multiple [place] [id number] 08/04/2013 Routine[QLH] CREATINE KINASE, TOTAL 08/04/2013 Routine[QL[facility]] TSH, 3RD GENERATION W/REFLEX TO FT4 08/04/2013 Routine[QL[facility]] CBC (INCLUDES DIFF/PLT) 08/04/2013 Routine[QL[facility]] CMP W/EGFR 08/04/2013 Routine[QLH] SED [facility] 08/04/2013 RoutineFollow-up visit in 2 weeks 08/04/2013 Routine 08/04/2013 [facility] Social History Social History Date Source Never A Smoker (Active) Never Drank Alcohol (Active) Occupation: Retired (Active) Marital History - (V61.03); (Active) 04/02/2014 [facility] Family History Value Date S ource Maternal history of Cancer (Active) 04/02/2014 [facility] Maternal history of Cancer (Active) 03/18/2014 [facility] Maternal history of Cancer (Active) 03/16/2014 [facility] Maternal history of Cancer (Active) 01/30/2014 [facility] Maternal history of Cancer (Active) 01/29/2014 [facility] Maternal history of Cancer (Active) 01/12/2014 [facility] Maternal history of Cancer (Active) 12/20/2013 [facility] Maternal history of Cancer (Active) 12/19/2013 [facility] Maternal history of Cancer (Active) 12/16/2013 [facility] Maternal history of Cancer (Active) 12/11/2013 [facility] Maternal history of Cancer (Active) 12/02/2013 [facility] Maternal history of Cancer (Active) 09/22/2013 [facility] Maternal history of Cancer (Active) 08/22/2013 [facility] Maternal history of Cancer (Active) 08/18/2013 [facility] Maternal history of Cancer (Active) 08/05/2013 [facility] Maternal history of Cancer (Active) 08/04/2013 [facility] Advance Directives Order Name Results Value Date Source Advance Directives Advance Dir ectives No Advance Directives available. 04/02/2014 [facility] Advance Directives Advance Dir ectives No Advance Directives available. 03/18/2014 [facility] Advance Directives Advance Dir ectives No Advance Directives available. 03/16/2014 [facility] Advance Directives Advance Dir ectives No Advance Directives available. 01/30/2014 [facility] Advance Directives Advance Dir ectives No Advance Directives available. 01/29/2014 [facility] Advance Directives Advance Dir ectives No Advance Directives available. 01/12/2014 [facility] Advance Directives Advance Dir ectives No Advance Directives available. 12/20/2013 [facility] Advance Directives Advance Dir ectives No Advance Directives available. 12/19/2013 [facility] Advance Directives Advance Dir ectives No Advance Directives available. 12/16/2013 [facility] Advance Directives Advance Dir ectives No Advance Directives available. 12/11/2013 [facility] Advance Directives Advance Dir ectives No Advance Directives available. 12/02/2013 [facility] Advance Directives Advance Dir ectives No Advance Directives available. 09/22/2013 [facility] Advance Directives Advance Dir ectives No Advance Directives available. 08/22/2013 [facility] Advance Directives Advance Dir ectives No Advance Directives available. 08/18/2013 [facility] Advance Directives Advance Dir ectives No Advance Directives available. 08/05/2013 [facility] Advance Directives Advance Dir ectives No Advance Directives available. 08/04/2013 [facility] Functional Status No Data Provided for This Section
--- OUTSIDE RECORDS SUMMARY | 2020-04-23 23:12 | XMS REPORT ---
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); (Active) * Insomnia (780.52); [...] to 2 TABLETS AT BEDTIME.; Start Date: 12/19/2013; End Date: (Active) * TraMADol HCl 50 MG Oral Tablet; TAKE 1/2-1 TABLET BY MOUTH Q8 HRS PRN FOR PAIN ; Start Date: 12/19/2013; End Date: (Active) * Benicar HCT 40-25 MG Oral Tablet; TAKE 1 TABLET DAILY.; Start Date: 12/19/2013; End Date: (Active) Allergies and Adverse Reactions [...] Immunization * Fluzone Intramuscular Injectable (Lot #: [id number]) - Administered on: 08/22/2013 Family History * Maternal history of Cancer (Active) Social History * Never A Smoker (Active) * Never Drank Alcohol (Active) Treatment Plan * [[facility]] TSH, 3RD GENERATION W/REFLEX TO FT4 09/30/2013 Routine Advance Directives * No Advance Directives available. Encounters * AUDIT 12/19/2013
--- OUTSIDE RECORDS SUMMARY | 2020-04-23 23:12 | XMS REPORT ---
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); (Active) Medication * BusPIRone HCl 5 MG [...] Particles; TAKE 1 CAPSULE DAILY (Active) * ProAir HFA 108 (90 Base) MCG/ACT Inhalation Aerosol Solution; INHALE 2 PUFFS EVERY 4-6 HOURS NEEDED WHEEZING; Start Date: 09/22/2013; End Date: (Active) * Vitamin B-12 1000 MCG/ML SOLN; INJECT 1 ML INTRAMUSCULARLY ONCE A MONTH (Active) * [place] 5-325 MG Oral Tablet; TAKE TABLET PRN (Active) * Irbesartan 75 MG Oral Tablet; TAKE 1 TABLET ONCE DAILY.; Start Date: 12/02/2013; End Date: (Active) * Levothyroxine Sodium 150 MCG Oral Tablet; TAKE 1 TABLET DAILY; Start Date: 12/02/2013; End Date: (Active) * Methocarbamol 500 MG Oral Tablet; Take one tablet by mouth BID.; Start Date: 12/02/2013 (Active) Allergies and Adverse Reactions * Iodine [...] Immunization * Fluzone Intramuscular Injectable (Lot #: [id number]) - Administered on: 08/22/2013 Family History * Maternal history of Cancer (Active) Social History * Never A Smoker (Active) * Never Drank Alcohol (Active) Treatment Plan * [[facility]] TSH, 3RD GENERATION W/REFLEX TO FT4 09/30/2013 Routine Advance Directives * No Advance Directives available. Encounters * AUDIT 12/16/2013 * FUP, Provider: ANNIE MARIN, Status: Fer, Time: 10:00 AM 12/19/2013
--- OUTSIDE RECORDS SUMMARY | 2020-04-23 23:12 | XMS REPORT ---
Author Author BRENDA Naidu Organization Unknown Address Unknown Phone Care Team Providers Care Yardage Estimator Name Role Phone Marci Naidu PP Unavailable Reason for Referral No Reason [...] (Active) * Lower Back Pain (724.2); (Active) Medication * BusPIRone HCl 5 MG Oral Tablet; TAKE 1 TABLET DAILY (Active) * Hydrochlorothiazide 25 MG Oral Tablet; TAKE 1 TABLET DAILY. (Active) * Benicar 40 MG Oral Tablet; TAKE 1 TABLET DAILY. (Active) * TraZODone HCl 50 MG Oral Tablet; TAKE 1 TABLET DAILY. (Active) * Lovaza 1 GM Oral Capsule; 2 po bid (Active) * Bentyl 10 MG Oral Capsule; TAKE 1 CAPSULE DAILY (Active) * Cymbalta 60 MG Oral Capsule Delayed Release Particles; TAKE 1 CAPSULE DAILY (Active) * Vitamin D3 1000 UNIT Oral Tablet; TAKE 1 TABLET DAILY. (Active) * Bisoprolol Fumarate 10 MG Oral Tablet; TAKE 1 TABLET ONCE DAILY. (Active) * Synthroid 125 MCG Oral Tablet; TAKE 1 TABLET DAILY. (Active) * Cardura 1 MG Oral Tablet; TAKE 1 TABLET AT BEDTIME. (Active) * Cyclobenzaprine HCl 10 MG Oral Tablet; TAKE 1 TABLET 3 TIMES DAILY as needed; Start Date: 08/04/2013; End Date: (Active) Allergies and Adverse Reactions [...] - Resolved Back Surgery - - Resolved Family History * Maternal history of Cancer (Active) Social History * Never A Smoker (Active) * Never Drank Alcohol (Active) Treatment Plan * [N] ENRIKE-Ankle Brachial Index Multiple Levels [id number] 08/04/2013 Routine * [[facility]] CREATINE KINASE, TOTAL 08/04/2013 Routine * [[facility]] TSH, 3RD GENERATION W/REFLEX TO FT4 08/04/2013 Routine * [[facility]] CBC (INCLUDES DIFF/PLT) 08/04/2013 Routine * [[facility]] CMP W/EGFR 08/04/2013 Routine * [[facility]] SED RATE BY MODIFIED [place] 08/04/2013 Routine * Follow-up visit in 2 weeks 08/04/2013 Routine Advance Directives * No Advance Directives available. Encounters * AUDIT 08/04/2013 * ENRIKE, Provider: MJ VELASQUEZ, Status: Fer, Time: 2:00 PM 08/05/2013 * FUP, Provider: FIONA REAVES, Status: Fer, Time: 1:45 PM 08/18/2013
--- OUTSIDE RECORDS SUMMARY | 2020-04-23 23:12 | XMS REPORT ---
Author Author BRENDA Salvador Organization Unknown Address Unknown Phone Care Team Providers Care Director Of Veterans Affairs Name Role Phone Radha Salvador PP Unavailable Reason for Referral No Reason [...] Never Drank Alcohol (Active) Treatment Plan * [[facility]] CREATINE KINASE, TOTAL 08/04/2013 Routine * [[facility]] TSH, 3RD GENERATION W/REFLEX TO FT4 08/04/2013 Routine * [[facility]] CBC (INCLUDES DIFF/PLT) 08/04/2013 Routine * [[facility]] CMP W/EGFR 08/04/2013 Routine * [[facility]] SED RATE BY MODIFIED [place] 08/04/2013 Routine * Follow-up visit in 2 weeks 08/04/2013 Routine Advance Directives * No Advance Directives available. Encounters * AUDIT 08/05/2013 * [facility], Provider: FIONA REAVES, Status: Fer, Time: 1:45 PM 08/18/2013
--- OUTSIDE RECORDS SUMMARY | 2020-04-23 23:12 | XMS REPORT ---
Author Author BRENDA Lujan Organization Unknown Address Unknown Phone Care Team Providers Care Programming Coordinator Name Role Phone Lynn Lujan PP Unavailable Reason for Referral No Reason [...] Hypertension (401.9); (Active) * Asthma (493.90); (Active) Medication * BusPIRone HCl 5 MG [...] Tablet; TAKE 1 TABLET DAILY. (Active) * Doxazosin Mesylate 1 MG Oral Tablet; TAKE 0.5 TABLET AT BEDTIME.; Start Date: ; End Date: (Active) * Cyclobenzaprine HCl 5 MG Oral Tablet; TAKE 1 TABLET AT BEDTIME NEEDED.; Start Date: 09/04/2013; End Date: (Active) * ProAir HFA 108 (90 Base) MCG/ACT Inhalation Aerosol Solution; INHALE 2 PUFFS EVERY 4-6 HOURS NEEDED WHEEZING; Start Date: 09/22/2013; End Date: (Active) Allergies and Adverse Reactions [...] Immunization * Fluzone Intramuscular Injectable (Lot #: [id number]) - Administered on: 08/22/2013 Family History * Maternal history of Cancer (Active) Social History * Never A Smoker (Active) * Never Drank Alcohol (Active) Advance Directives * No Advance Directives available. Encounters * AUDIT 09/22/2013
--- OUTSIDE RECORDS SUMMARY | 2020-04-23 23:12 | XMS REPORT ---
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 Encounters * AUDIT 01/30/2014
--- OUTSIDE RECORDS SUMMARY | 2020-04-23 23:12 | XMS REPORT ---
Author Author BRENDA Maier Organization Unknown Address Unknown Phone Care Team Providers Care Affiliate Marketing Manager Name Role Phone Darrion Jeanie PP Unavailable Reason for Referral No Reason [...] (724.2); (Active) * Essential Hypertension (401.9); (Active) Medication * BusPIRone HCl 5 MG [...] Tablet; TAKE 1 TABLET DAILY. (Active) * Synthroid 125 MCG Oral Tablet; TAKE 1 TABLET DAILY. (Active) * Cardura 1 MG Oral Tablet; TAKE 0.5 TABLET AT BEDTIME. (Active) * Bisoprolol Fumarate 10 MG Oral Tablet; TAKE 1 TABLET ONCE DAILY.; Start Date: ; End Date: (Active) Allergies and Adverse Reactions [...] Immunization * Fluzone Intramuscular Injectable (Lot #: [id number]) - Administered on: 08/22/2013 Family History * Maternal history of Cancer (Active) Social History * Never A Smoker (Active) * Never Drank Alcohol (Active) Treatment Plan * Follow-up visit in 2 weeks 08/04/2013 Routine Advance Directives * No Advance Directives available. Encounters * AUDIT 08/22/2013
--- OUTSIDE RECORDS SUMMARY | 2020-04-23 23:12 | XMS REPORT ---
Author Author BRENDA Mullen Organization Unknown Address Unknown Phone Care Team Providers Care Portable Power Tool Repairer Name Role Phone Sebas Chasity M. PP Unavailable Reason for Referral No Reason for Referral was given. History of Present Illness No HPI available. 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); (Active) Medication * BusPIRone [...] ML INTRAMUSCULARLY ONCE A MONTH (Active) * [place] 5-325 MG Oral Tablet; TAKE TABLET PRN (Active) * Irbesartan 75 MG Oral Tablet; TAKE 1 TABLET ONCE DAILY.; Start Date: 12/02/2013; End Date: (Active) * Levothyroxine Sodium 150 MCG Oral Tablet; TAKE 1 TABLET DAILY; Start Date: 12/02/2013; End Date: (Active) * Methocarbamol 500 MG Oral Tablet; Take one tablet by mouth BID.; Start Date: 12/02/2013; End Date: (Active) Allergies and Adverse Reactions [...] Immunization * Fluzone Intramuscular Injectable (Lot #: [id number]) - Administered on: 08/22/2013 Family History * Maternal history of Cancer (Active) Social History * Never A Smoker (Active) * Never Drank Alcohol (Active) Treatment Plan * [[facility]] TSH, 3RD GENERATION W/REFLEX TO FT4 09/30/2013 Routine Advance Directives * No Advance Directives available. Encounters * AUDIT 12/11/2013 * FUP, Provider: ANNIE MARIN, Status: Fer, Time: 10:00 AM 12/19/2013
--- OUTSIDE RECORDS SUMMARY | 2020-04-23 23:12 | XMS REPORT ---
Author Author BRENDA BESS Organization Unknown Address Unknown Phone Care Team Providers Care Packing Room Supervisor Name Role Phone KALIN BESS PP Unavailable [...] No Advance Directives available. Encounters * AUDIT 08/18/2013
--- OUTSIDE RECORDS SUMMARY | 2020-04-23 23:13 | XMS REPORT ---
Author Author [facility] t Organization [facility] Address [address] [place] [address] [address] [place] [address] Phone Unavailable Care Team Providers Care Technology Development Intern Name Role Phone Marielle MARIN PCP NICKI BERGERON M.D. Attphys Unavailable GRISEL DE JESUS M.D. Attphys Unavailable NELL DUPONT M.D. Attphys Unavailable JUAN DAINEL ABERNATHY M.D. Attphys UnavailDANE Michael M.D. Attphys Unavailable ANNIE MARIN M.D. Attphys Unavailable GEORGE NELSON Attphys Unavailable MYKE MORRIS M.D. Attphys Unavailable KIMBER SHEPPARD D.O. Attphys Unavailable DARRON LIRIANO M.D. Attphys Unavailable [place], NUCLEAR Attphys Unavailable AKOSUA CRISOSTOMO M.D. Attphys Unavailable PINEDA MARTINEZ M.D. Attphys Unavailable KOREY ZHANG APRN Attphys Unavailable Trinidad TYSON Attphys Unavailable MARGIE VELAZQUEZ APRN Attphys Unavailable FIONA REAVES M.D. Attphys Unavailable FARHAT NOLEN M.D. Attphys Unavailable BALDEV WORKMAN M.D. Attphys Unavailable SALVADOR GUSTAFSON APRN Attphys Unavailable [facility], HOLTER Attphys Unavailable OMKAR PAULINO P.A. Attphys Unavailable MIGUEL ANGEL DUMONT P.A. Attphys Unavailable KRISS JOHNSON M.D. Attphys Unavailable ALVARO DE LEÓN M.D. Attphys Unavailable DUDLEY COYNE M.D. Attphys Unavailable ADY REZA M.D. Attphys Unavailable GEORGE NELSON Admphys Unavailable Payers Payer Name Policy Type Policy Number Effective Date Expiration Date Rob smaano Medicare A & B [id number] 2007 00:00:00 [facility] Miscellaneous Hmo [id number] 2007 00:00:00 [facility] Problems Condition Name Condition Details Condition Category Status Onset Date Resolution Date Last Treatment Date Treating Clinician Comments Source Small bowel obstruction Small bowel obstruction Problem Active [facility] Vertebral fracture Vertebral fracture Problem Active [facility] Disc degeneration Disc degeneration Problem Active [facility] Encounter for mini-mental status examination Encounter for mini-mental status examination Problem Active [facility] Overweight (BMI 25.0-29.9) Overweight (BMI 25.0-29.9) Problem Active [facility] History of acute pharyngitis History of acute pharyngitis Problem Re solved [facility] History of Arthralgia of hip History of Arthralgia of hip Problem Re solved [facility] History of Burning with urination History of Burning with urinat ion Problem Resolved [facility] History of Diverticulitis of colon History of Diverticulitis of colon Problem Resolved [facility] History of thyroid disease History of thyroid disease Problem Resolved [facility] History of hypertension History of hypertension Problem Resolved [facility] Hypertriglyceridemia Hypertriglyceridemia Problem Active [facility] History of kidney disease History of kidney disease Problem Resolved [facility] History of urinary frequency History of urinary frequency Problem Re solved [facility] Hepatic cyst Hepatic cyst Problem Active [facility] Intermittent claudication Intermittent claudication Problem Active [facility] Reactive airway disease Reactive airway disease Problem Active [facility] Neck pain Neck pain Problem Active [facility] Vaginal atrophy Vaginal atrophy Problem Active [facility] Fracture of right humerus Fracture of right humerus Problem Active [facility] Spontaneous bruising Spontaneous bruising Problem Active [facility] Hip pain, acute, left Hip pain, acute, left Problem Active [facility] Leg pain, lateral, left Leg pain, lateral, left Problem Active [facility] Acute pain of right shoulder Acute pain of right shoulder Problem [facility] Hot flashes Hot flashes Problem Active [facility] Cough Cough Problem Active [facility] Leg cramps, sleep related Leg cramps, sleep related Problem Active [facility] Back pain Back pain Problem [facility] Left lumbar radiculopathy Left lumbar radiculopathy Problem Active [facility] Urinary frequency Urinary frequency Problem Active [facility] Postmenopausal hormone replacement therapy Postmenopau drew hormone replacement therapy Problem Active [facility] Hyponatremia Hyponatremia Problem Active [facility] Hypokalemia Hypokalemia Problem Active [facility] Grief Grief Problem Active [facility] Atypical chest pain Atypical chest pain Problem Active [facility] Screening mammogram, encounter for Screening mammogram, encounte r for Problem Active [facility] Post-menopausal Post-menopausal Problem Active [facility] Osteoporosis screening Osteoporosis screening Problem Active [facility] Advance directive discussed with patient Advance direc tive discussed with patient Problem Active [facility] Lipoma of back Lipoma of back Problem Active [facility] Allergic rhinitis Allergic rhinitis Problem Active [facility] Colon polyp Colon polyp Problem Active [facility] Bilateral leg cramps Bilateral leg cramps Problem Active [facility] Diarrhea Diarrhea Problem Active [facility] Cellulitis Cellulitis [facility] Headache Headache Problem Active [facility] Urinary incontinence Urinary incontinence Problem Active [facility] Pulmonary nodules Pulmonary nodules Problem Active [facility] Allergic reaction to drug, initial encounter Allergic reaction to drug, initial encounter Problem Active [facility] Drug eruption Drug eruption Problem Active [facility] Medication management Medication management Problem Active [facility] Lightheadedness Lightheadedness Problem Active [facility] Pleural thickening Pleural thickening Problem Active [facility] Nodular radiologic density Nodular radiologic density Problem Active [facility] Dry heaves Dry heaves Problem [facility] Tachycardia Tachycardia Problem Active [facility] Nausea Nausea Problem Active [facility] Essential hypertension Essential hypertension Problem Active [facility] Palpitations Palpitations Problem Active [facility] Acute gastritis without bleeding Acute gastritis without bleedin g Problem Active [facility] Finding of multiple premature atrial contractions by e lectrocardiography Finding of multiple premature atrial contractions by electrocardiography Problem Active [facility] Low HDL (under 40) Low HDL (under 40) Problem Active [facility] B12 deficiency anemia B12 deficiency anemia Problem Active [facility] Weight loss Weight loss Problem Active [facility] Need for influenza vaccination Need for influenza vaccination Problem Active [facility] No impairment of memory No impairment of memory Problem Active [facility] At standard risk for fall At standard risk for fall Problem Active [facility] Abnormal mammogram Abnormal mammogram Problem Active [facility] IBS (irritable bowel syndrome) IBS (irritable bowel syndrome) Problem Active [facility] Major depressive disorder, recurrent, moderate Major d epressive disorder, recurrent, moderate Problem Active [facility] Pelvic cramping Pelvic cramping Problem Active [facility] Seizure Seizure Problem Active [facility] Medial epicondylitis of left elbow Medial epicondylitis of left elbow Problem Active [facility] Chronic left shoulder pain Chronic left shoulder pain Problem Active [facility] Cervical radiculopathy, acute Cervical radiculopathy, acute Problem Active [facility] Abdominal pain Abdominal pain Problem Active [facility] Acid reflux disease Acid reflux disease Problem Active [facility] Easy bruising Easy bruising Problem Active [facility] Left knee pain, unspecified chronicity Left knee pain, unspe cified chronicity Problem Active [facility] Contusion, elbow, with forearm, right, initial encount er Contusion, elbow, with forearm, right, initial encounter Problem Active [facility] Other sprain of right elbow, initial encounter Other s prain of right elbow, initial encounter Problem Active [facility] Dyslipidemia (high LDL; low HDL) Dyslipidemia (high LDL; low HDL ) Problem Active [facility] LBBB (left bundle branch block) LBBB (left bundle branch block) Pro blem Active [facility] Paroxysmal SVT (supraventricular tachycardia) Paroxysm al SVT (supraventricular tachycardia) Problem Active [facility] PVC (premature ventricular contraction) PVC (premature ventr icular contraction) Problem Active [facility] Preop examination Preop examination Problem Active [facility] Abnormal EKG Abnormal EKG Problem Active [facility] S/P coronary artery stent placement S/P coronary artery stent pl acement Problem Active [facility] Therapeutic opioid-induced constipation (OIC) Therapeu tic opioid-induced constipation (OIC) Problem [facility] OAB (overactive bladder) OAB (overactive bladder) Problem Active [facility] Osteoarthritis of left knee Osteoarthritis of left knee Problem Active [facility] Chronic insomnia Chronic insomnia Problem Active [facility] Right inguinal pain Right inguinal pain Problem Active [facility] Pain in right hip Pain in right hip Problem Active [facility] Osteoarthritis of hips, bilateral Osteoarthritis of hips, bilate ral Problem Active [facility] Influenza vaccination declined by patient Influenza va ccination declined by patient Problem Active [facility] Varicose veins of both legs with edema Varicose veins of bot h legs with edema Problem Active [facility] Muscle spasm of back Muscle spasm of back Problem Active [facility] Soft tissue mass Soft tissue mass Problem Active [facility] Paresthesia of both feet Paresthesia of both feet Problem Active [facility] Major depression in remission Major depression in remission Problem Active [facility] Breast cancer screening Breast cancer screening Problem Active [facility] Standardized adult depression screening tool completed Standardized adult depression screening tool completed Problem Active [facility] Chronic kidney disease, stage 3a Chronic kidney disease, stage 3 a Problem Active [facility] Adult onset hypothyroidism Adult onset hypothyroidism Problem Active [facility] Mixed hyperlipidemia Mixed hyperlipidemia Problem Active [facility] Frequent urinary tract infections Frequent urinary tract infecti ons Problem Active [facility] Vitamin B12 deficiency Vitamin B12 deficiency Problem Active [facility] Overweight Overweight Problem [facility] Chronic constipation Chronic constipation Problem Active [facility] Chronic, continuous use of opioids Chronic, continuous use of op ioids Problem Active [facility] Hospital discharge follow-up Hospital discharge follow-up Problem Active [facility] Pancreatitis Pancreatitis Problem Active [facility] Dehydration Dehydration Problem Active [facility] BMI 26.0-26.9,adult BMI 26.0-26.9,adult Problem Active [facility] BMI 27.0-27.9,adult BMI 27.0-27.9,adult Problem Active [facility] CAD S/P percutaneous coronary angioplasty CAD S/P perc utaneous coronary angioplasty Problem Active [facility] Partial small bowel obstruction Partial small bowel obstruction Pro blem [facility] Muscular torticollis Muscular torticollis Problem Active [facility] Lower back pain Lower back pain Problem Active [facility] Muscle spasm Muscle spasm Problem Active [facility] Constipation Constipation Problem Active [facility] 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 Problem Active [facility] Partial nontraumatic tear of left rotator cuff Partial nontraumatic tear of left rotator cuff Problem Active [facility] Suspected 2019 novel coronavirus infection Suspected 2 019 novel coronavirus infection Problem Active [facility] Chills Chills Problem Active [facility] Restless leg syndrome Restless leg syndrome Problem Active [facility] Acute sinusitis Acute sinusitis Problem Active [facility] Insomnia Insomnia Problem Active [facility] Hyperlipidemia Hype rlipidemia Active 04/02/2014 [facility] Problem Active 2014-04-02 18:01:58 [facility] Taking Female Hormones For Postmenopausal HRT Taking Female Hormones For Postmenopausal HRT Active 04/02/2014 [facility] Problem Active 2014-04-02 18:01:58 [facility] Intervertebral Disc Degeneration Intervertebral Disc Degeneration Active 04/02/2014 [facility] Problem Active 2014-04-02 18:01:58 [facility] Intermittent Claudication Inte rmittent Claudication Active 04/02/2014 [facility] Problem Active 2014-04-02 18:01: 58 [facility] Hypothyroidism Hypo thyroidism Active 04/02/2014 [facility] Problem Active 2014-04-02 18:01:58 [facility] Lower Back Pain Lowe r Back Pain Active 04/02/2014 [facility] Problem Active 2014-04-02 18:01:58 [facility] Essential Hypertension Esse ntial Hypertension Active 04/02/2014 [facility] Problem Active 2014-04-02 18:01:58 [facility] Asthma Asth ma Active 04/02/2014 [facility] Problem Active 2014-04-02 18:01:58 [facility] Hypokalemia Hypo kalemia Active 04/02/2014 [facility] Problem Active 2014-04-02 18:01:58 [facility] Mood Disorder Of Unknown ([place]) Etiology Mood Disorder Of Unknown ([place]) Etiology Active 04/02/2014 [facility] Problem Active 2014-04-02 18:01:58 [facility] Insomnia Inso mnia Active 04/02/2014 [facility] Problem Active 2014-04-02 18:01:58 [facility] Abdominal Pain Feels Crampy / Colicky Abdominal Pain Feels Crampy / Colicky Active 04/02/2014 [facility] Problem Active 2014-04-02 18:01:58 [facility] Hepatic Cyst Hepa tic Cyst Active 04/02/2014 [facility] Problem Active 2014-04-02 18:01:58 [facility] Esophageal Reflux Esop hageal Reflux Active 04/02/2014 [facility] Problem Active 2014-04-02 18:01:58 [facility] Chest Pain Or Discomfort Ches t Pain Or Discomfort Active 04/02/2014 [facility] Problem Active 2014-04-02 18:01: 58 [place] [facility] Allergies, Adverse Reactions, Alerts Allergy Name Allergy Type Status Severity Reaction(s) Onset Date Inacti ve Date Treating Clinician Comments Source meperidine HCl Allergy to Substance Active 2016-09-27 00:00 :00 [facility] Penicillin Allergy to Substance Active 2016-09-27 00:00:00 [facility] amlodipine Allergy to drug (finding) Active Nausea [facility] Codeine Derivatives Allergy to drug (finding) Active [facility] Demerol SOLN Allergy to drug (finding) Active [facility] Isosorbide Mononitrate TABS Allergy to drug (finding) Active [facility] metoprolol Allergy to drug (finding) Active [facility] Penicillins Allergy to drug (finding) Active [facility] Sulfa Drugs Allergy to drug (finding) Active [facility] Iodine Allergy to substance (finding) Active [facility] Sulfa Drugs Sulfa Drugs Active [facility] Penicillins Penicillins Active [facility] Demerol SOLN Demerol SOLN Active [facility] Codeine Derivatives Codeine Derivatives Active [facility] Family History Family Member Diagnosis Comments Start Date Stop Date Source natural daughter Family history of bipolar disorder [facility] Mother Family history of Cancer [facility] Mother Family history of bipolar disorder [facility] Mother Family history of gastroesophageal reflux disease [facility] Father [facility] Father Family history of hypertension [facility] Father Family history of rheumatoid arthritis [facility] Father Family history of chest pain [facility] Father Family history of malignant neoplasm [facility] Sister Family history of osteopenia [facility] Sister Family history of osteoporosis [facility] Social History Social Habit Start Date Stop Date Quantity Comments Source Social History 2014-04-02 18:01:58 2014-04-02 18:01:58 [facility] Smoking Status Start Date Stop Date Source Never smoked tobacco (finding) [facility] Medications Ordered Medication Name Filled Medication Name Start Date Stop Da te Current Medication? Ordering Clinician Indication Dosage Frequency Signature (SIG) Comments Components Source rOPINIRole HCl - 0.25 MG Oral Tablet rOPINIRole HCl - 0.25 M G Oral Tablet 2020-04-21 00:00:00 Yes NICKI BERGERON M.D. Q 0.3333D TAKE 1 TABLET 3 TIMES DAILY. [facility] Azithromycin 250 MG Oral Tablet Azithromycin 250 MG Oral Tab let 2020-04-21 00:00:00 Yes NICKI Garcia RHEA 2 TABLETS ON DAY 1 THEN TAKE 1 TABLET A DAY FOR 4 DAYS. [facility] traZODone HCl - 50 MG Oral Tablet traZODone HCl - 50 MG Oral Tablet 2020-04-21 00:00:00 Yes NICKI BERGERON M.D. T RHEA 1 TABLET AT BEDTIME NEEDED FOR SLEEP. [facility] methylPREDNISolone 4 MG Oral Tablet methylPREDNISolone 4 MG Oral Tablet 2020-04-15 00:00:00 Yes GRISEL DE JESUS M.D. 1 QD TAKE 1 TABLET DAILY [facility] Nitroglycerin 0.3 MG Sublingual Tablet Sublingual Nitr oglycerin 0.3 MG Sublingual Tablet Sublingual 2020-04-12 00:00:00 Yes NELL MENDOZA M.D. [address] PL[address] 1 TABLET Once PRN Chest pain May r epeat 5 mins later if pain persists. [facility] Senna 8.6 MG Oral Capsule Senna 8.6 MG Oral Capsule 2020-04-02 00:00: 00 Yes NELL DUPONT M.D. 1 Q12H TAKE 1 CAPSULE Every twelve hours [facility] Docusate Sodium 100 MG Oral Capsule Docusate Sodium 100 MG O ral Capsule 2020-04-02 00:00:00 Yes NELL DUPONT M.D. Q0.5D TAKE 1 CAPSULE TWICE DAILY. [facility] Cyclobenzaprine HCl - 5 MG Oral Tablet Cyclobenzaprine HCl - 5 MG Oral Tablet 2020-03-25 00:00:00 Yes NELL DUPONT M.D. TAKE 1 TABLET AT BEDTIME NEEDED. [facility] Repatha SureClick 140 MG/ML Subcutaneous Solution Auto -injector Repatha SureClick 140 MG/ML Subcutaneous Solution Auto-injector 2020-02-13 00:00:00 Yes JUAN DANIEL ABERNATHY M.D. Inject contents of 1 pen every 2 weeks [facility] Promethazine HCl - 12.5 MG Oral Tablet Promethazine HCl - 12 .5 MG Oral Tablet 2020-01-27 00:00:00 Yes DANE ELDER M.D. TAKE 1 TABLET BY MOUTH EVERY 6 HOURS NEEDED FOR NAUSEA AND VOMITING [facility] Metamucil 28.3 % Oral Powder Metamucil 28.3 % Oral Powder 00:00:00 Yes DANE ELDER M.D. ONE SCOOP EVERY DAY. [facility] Polyethylene Glycol 3350 17 GM/SCOOP Oral Powder Polye thylene Glycol 3350 17 GM/SCOOP Oral Powder 2020-01-26 00:00:00 Yes DANE ELDER M.D. MIX 1 CAPFUL IN 8 OUNCES OF WATER AND DRINK AT BEDTIME NEEDED FOR CONSTIPATION. [facility] Synthroid 112 MCG Oral Tablet Synthroid 112 MCG Oral Tablet 2018 00:00:00 Yes ANNIE MARIN M.D. TAKE 1 TABLET BY KELSI TH EVERY DAY [facility] Clopidogrel Bisulfate 75 MG Oral Tablet Clopidogrel Bisulfat e 75 MG Oral Tablet 2019-07-17 00:00:00 Yes JUAN DANIEL ABERNATHY M.D. 1 QD TAKE 1 TABLET BY MOUTH DAILY [facility] Metaxalone 400 MG Oral Tablet Metaxalone 400 MG Oral Tablet 2018 00:00:00 Yes PINEDA MARTINEZ M.D. 1 Q0.3333D TAKE 1 TABLET 3 TIMES D AILY NEEDED. [facility] Estradiol 0.1 MG/GM Vaginal Cream Estradiol 0.1 MG/GM Vagina l Cream 2019-03-27 00:00:00 Yes MYKE MORRIS M.D. INSERT 1 GRAM INTO THE VAGINA USING APPLICATOR EVERY NIGHT AT BEDTIME FOR 2 WEEKS THEN DECREASE TO TWICE WEEKLY AT BEDTIME THEREAFTER [facility] [id number] Ethyl Esters 1 GM Oral Capsule [place]-3-ac id Ethyl Esters 1 GM Oral Capsule 2018-08-05 00:00:00 Yes ANNIE MARIN M.D. TAKE 2 CAPSULES BY MOUTH TWICE A DAY [facility] NIFEdipine ER 30 MG Oral Tablet Extended Release 24 Ho ur NIFEdipine ER 30 MG Oral Tablet Extended Release 24 Hour 2018-05-22 00:00:00 Yes JUAN DANIEL ABERNATHY M.D. 1 QD TAKE 1 TABLET DAILY. [facility] Spironolactone 25 MG Oral Tablet Spironolactone 25 MG Oral T ablet 2017-06-19 00:00:00 Yes ANNIE MARIN M.D. .5 TAKE 1/2 TA BLET BY MOUTH EVERY DAY [facility] Losartan Potassium 50 MG Oral Tablet Losartan Potassium 50 M G Oral Tablet 2016-09-28 00:00:00 Yes NELL DUPONT M.D. Q0.5D TAKE 1 TABLET TWICE DAILY. [facility] ProAir HFA 108 (90 Base) MCG/ACT Inhalation Aerosol So lution ProAir HFA 108 (90 Base) MCG/ACT Inhalation Aerosol Solution 2015-02-16 00:00:00 Ye rob SHEPPARD D.O. INHALE 1 TO 2 PUFFS EVERY 4 TO 6 HOURS A S NEEDED. [facility] Fluticasone Propionate 50 MCG/ACT Nasal Suspension Flu ticasone Propionate 50 MCG/ACT Nasal Suspension 2014-06-15 00:00:00 Yes KIMBER SHEPPARD D.OAntonia USE 1 SPRAY IN EACH NOSTRIL DAILY [facility] DULoxetine HCl - 60 MG Oral Capsule Delayed Release Pa rticles DULoxetine HCl - 60 MG Oral Capsule Delayed Release Particles 2014-05-05 00:00:00 Yes ANNEI MARIN M.D. TAKE 1 CAPSULE BY MOUTH EVERY DAY DIRECTED [facility] Lovaza 1 GM Oral Capsule 2014-04-02 18:01:58 Yes (Active) [facility] Cymbalta 60 MG Oral Capsule Delayed Release Particles 2014-04-02 18:01:58 Yes (Active) [facility] Vitamin D3 1000 UNIT Oral Tablet 2014-04-02 18:01:58 Yes (Active) [facility] Doxazosin Mesylate 1 MG Oral Tablet 2014-04-02 18:01:58 Yes (Active) [facility] Vitamin B-12 1000 MCG/ML SOLN 2014-04-02 18:01:58 Yes (Active) [facility] Gabapentin 300 MG Oral Capsule 2014-04-02 18:01:58 Yes (Active) [facility] NexIUM 40 MG Oral Capsule Delayed Release 2014-03-18 05:00:00 Yes ; Start Date: 03/18/2014; End Date: (Active) [facility] CloNIDine HCl 0.1 MG Oral Tablet 2014-03-16 14:46:55 Yes (Active) [facility] Livalo 1 MG Oral Tablet 2014-03-16 05:00:00 Yes ; Start Date: 03/16/2014 (Active) [facility] BusPIRone HCl 5 MG Oral Tablet 2014-02-10 05:00:00 Yes ; Start Date: 02/10/2014 (Active) [facility] BusPIRone HCl 5 MG Oral Tablet 2014-01-30 19:26:23 Yes (Active) [facility] Hydrocodone-Acetaminophen 5-300 MG Oral Tablet 2014-01-12 06:00: 00 Yes ; Start Date: 01/12/2014 (Active) [facility] Bentyl 10 MG Oral Capsule 2013-12-20 17:15:19 Yes (Active) [facility] TraZODone HCl 50 MG Oral Tablet 2013-12-19 06:00:00 Yes ; Start Date: 12/19/2013 (Active) [facility] TraMADol HCl 50 MG Oral Tablet 2013-12-19 06:00:00 Yes ; Start Date: 12/19/2013 (Active) [facility] Benicar HCT 40-25 MG Oral Tablet 2013-12-19 06:00:00 Yes ; Start Date: 12/19/2013 (Active) [facility] Hydrochlorothiazide 25 MG Oral Tablet 2013-12-16 06:45:13 Y es (Active) [facility] TraZODone HCl 50 MG Oral Tablet 2013-12-16 06:45:13 Yes (Active) [facility] Synthroid 137 MCG Oral Tablet 2013-12-16 06:45:13 Yes (Active) [facility] [place] 5-325 MG Oral Tablet 2013-12-16 06:45:13 Yes (Active) [facility] Levothyroxine Sodium 150 MCG Oral Tablet 2013-12-02 06:00:00 Yes ; Start Date: 12/02/2013; End Date: (Active) [facility] Irbesartan 75 MG Oral Tablet 2013-12-02 06:00:00 Yes ; Start Date: 12/02/2013; End Date: (Active) [facility] Methocarbamol 500 MG Oral Tablet 2013-12-02 06:00:00 Yes ; Start Date: 12/02/2013 (Active) [facility] Levothyroxine Sodium 137 MCG Oral Tablet 2013-12-02 06:00:00 Yes ; Start Date: 12/02/2013; End Date: (Active) [facility] Benicar 40 MG Oral Tablet 2013-12-02 04:00:41 Yes (Active) [facility] Lovenox 40 MG/0.4ML Subcutaneous Solution 2013-12-02 04:00:41 Yes (Active) [facility] ProAir HFA 108 (90 Base) MCG/ACT Inhalation Aerosol Solution 2013-09-22 05:00:00 Yes ; Start Date: 3; End Date: (Active) [facility] Cyclobenzaprine HCl 5 MG Oral Tablet 2013-09-04 05:00:00 Ye s ; Start Date: 09/04/2013; End Date: (Active) [facility] Synthroid 125 MCG Oral Tablet 2013-08-22 18:01:05 Yes (Active) [facility] Cardura 1 MG Oral Tablet 2013-08-22 18:01:05 Yes (Active) [facility] Bisoprolol Fumarate 10 MG Oral Tablet 2013-08-05 22:30:35 Y es (Active) [facility] Cyclobenzaprine HCl 10 MG Oral Tablet 2013-08-04 05:00:00 Y es ; Start Date: 08/04/2013; End Date: (Active) [facility] Bisoprolol Fumarate 10 MG Oral Tablet Y es ; Start Date: ; End Date: (Active) [facility] Doxazosin Mesylate 1 MG Oral Tablet Yes ; Start Date: ; End Date: (Active) [facility] Dicyclomine HCl 10 MG Oral Capsule Yes ; Start Date: ; End Date: (Active) [facility] Aspirin (Aspir-Low) 81 Mg Tablet. Aspirin (Aspir-Low) 81 Mg Tablet. Yes [facility] Clopidogrel Bisulfate (Clopidogrel) 75 Mg Tablet Clopi dogrel Bisulfate (Clopidogrel) 75 Mg Tablet Yes 75 Daily [facility] Duloxetine Hcl (Cymbalta) 60 Mg Capsule. Duloxetine Hcl (Cymbalta) 60 Mg Capsule. Yes 60 Daily [facility] Hydrocodone Bit/Acetaminophen (Richford 7.5-325 Tablet) 1 Each Tablet Hydrocodone Bit/Acetaminophen (Rich[place] 7.5-325 Tablet) 1 Each Tablet Yes 1 As Needed [facility] Levothyroxine Sodium 137 Mcg Tablet Levothyroxine Sodium 137 Mcg Tabl et Yes 112 Daily [facility] Losartan Potassium 25 Mg Tablet Losartan Potassium 25 Mg Tablet Yes 50 Twice A Day [facility] Nifedipine (Nifedipine Er) 30 Mg Tablet.er Nifedipine (Nifedipine Er) 30 Mg Tablet.er Yes 30 Bedtime [facility] Spironolactone 25 Mg Tablet Spironolactone 25 Mg Tablet Yes 12.5 Daily [facility] Trazodone Hcl 50 Mg Tablet Trazodone Hcl 50 Mg Tablet Yes 50 Bedtime [facility] Vitamin D3 25 MCG (1000 UT) Oral Tablet Vitamin D3 25 MCG (1 000 UT) Oral Tablet Yes 1 QD TAKE 1 TABLET DAILY. [facility] HYDROcodone-Acetaminophen 7.5-325 MG Oral Tablet HYDRO codone-Acetaminophen 7.5- 325 MG Oral Tablet Yes 1 Q0.25D TAKE 1 TABLET 4 TI MES DAILY [facility] Aspirin 81 MG TABS Aspirin 81 MG TABS Yes 1 QD TA KE 1 TABLET DAILY. [facility] Cephalexin 250 Mg Capsule, 250 Mg Oral Cephalexin 250 Mg Capsule , 250 Mg Oral 2020-01-21 00:00:00 No 250 Twice A Day [facility] Chlordiazepoxide/Clidinium Br (Librax Capsule) 1 Each Capsule, 1 Cap Oral Chlordiazepoxide/Clidinium Br (Librax Capsule) 1 Each Capsule, 1 Cap Oral 2020-01-21 00:00:00 No 1 Daily [facility] Chlordiazepoxide/Clidinium Br (Chlordiaz epoxide-Clidinium Cap) 1 Each Capsule, 1 Each Oral Chlordiazepoxide/Clidinium Br (Chlordiaz epoxide-Clidinium Cap) 1 Each Capsule, 1 Each Oral 2019-04-01 00:00:00 No 1 Manda ly [facility] Hydrocodone Bit/Acetaminophen ([place] 5-325 Tablet) 1 E ach Tablet, 1 Each Oral Hydrocodone Bit/Acetaminophen (Rich[place] 5-325 Tablet) 1 Each Tablet, 1 Each Oral 2019-04-01 00:00:00 No 1 Four Times Daily as needed for Pain [facility] Bisoprolol Fumarate (Zebeta) 10 Mg Tab, 10 Mg Oral Bis oprolol Fumarate (Zebeta) 10 Mg Tab, 10 Mg Oral 2018-07-02 00:00:00 No 10 Da mango [facility] Doxazosin Mesylate 2 Mg Tablet, 1 Mg Oral Doxazosin Me sylate 2 Mg Tablet, 1 Mg Oral 2018-07-02 00:00:00 No 1 Daily [facility] Hydrochlorothiazide 25 Mg Tablet, 25 Mg Oral Hydrochlo rothiazide 25 Mg Tablet, 25 Mg Oral 2018-07-02 00:00:00 No 25 Daily [facility] Cyclobenzaprine Hcl 10 Mg Tablet, 10 Mg Oral Cyclobenz aprine Hcl 10 Mg Tablet, 10 Mg Oral 2017-02-21 00:00:00 No 10 Daily [facility] Olmesartan/Hydrochlorothiazide (Benicar Hct 40-25 Mg Tablet) 1 Each Tablet, Oral Olmesartan/Hydrochlorothiazide (Benicar Hct 40-25 Mg Tablet) 1 Each Tablet, Oral 2016-09-26 00:00:00 No Daily [facility] Doxazosin Mesylate 1 Mg Tablet, 1 Mg Oral Doxazosin Me sylate 1 Mg Tablet, 1 Mg Oral 2016-06-26 00:00:00 No 1 1/2QD [facility] Esomeprazole Magnesium (Nexium) 40 Mg Capsule., 40 M g Oral Esomeprazole Magnesium (Nexium) 40 Mg Capsule., 40 Mg Oral 2016-06-26 00:00:00 No 40 Daily [facility] Olmesartan/Hydrochlorothiazide (Benicar Hct 40-25 Mg Tablet) 1 Each Tablet, Oral Olmesartan/Hydrochlorothiazide (Benicar Hct 40-25 Mg Tablet) 1 Each Tablet, Oral 2016-06-26 00:00:00 No Daily [facility] Trazodone , Trazodone , 2016-06-26 00:00:00 No [facility] Gabapentin 300 Mg Capsule, 300 Oral Gabapentin 300 Mg Capsule, 300 Oral 2016-05-03 00:00:00 No 300 Daily [facility] Buspar , 5 Mg Oral Buspar , 5 Mg Oral 2015-05-19 00:00:00 No 5 Daily [facility] Niacin 500 Mg Tablet, 500 Mg Oral Niacin 500 Mg Tablet, 500 Mg O ral 2015-05-19 00:00:00 No 500 Daily [facility] Bisoprolol Fumarate (Zebeta) 10 Mg Tablet, 10 Mg Oral Bisoprolol Fumarate (Zebeta) 10 Mg Tablet, 10 Mg Oral 2014-03-26 00:00:00 No 10 Daily [facility] Buspirone Hcl 5 Mg Tablet, 5 Mg Oral Buspirone Hcl 5 Mg Tablet, 5 Mg Oral 2014-03-26 00:00:00 No 5 Daily [facility] Cyclobenzaprine Hcl (Flexeril) 5 Mg Tablet, 5 Mg Oral Cyclobenzaprine Hcl (Flexeril) 5 Mg Tablet, 5 Mg Oral 2014-03-26 00:00:00 No 5 Daily [facility] Doxazosin Mesylate 1 Mg Tablet, 1 Mg Oral Doxazosin Me sylate 1 Mg Tablet, 1 Mg Oral 2014-03-26 00:00:00 No 1 As Needed [facility] Hydrochlorothiazide 25 Mg Tablet, 25 Mg Oral Hydrochlo rothiazide 25 Mg Tablet, 25 Mg Oral 2014-03-26 00:00:00 No 25 Daily [facility] Olmesartan Medoxomil (Benicar) 40 Mg Tablet, 40 Mg Ora l Olmesartan Medoxomil (Benicar) 40 Mg Tablet, 40 Mg Oral 2014-03-26 00:00:00 No 4 0 Daily [facility] Trazodone Hcl 50 Mg Tablet, 50 Mg Oral Trazodone Hcl 50 Mg Table t, 50 Mg Oral 2014-03-26 00:00:00 No 50 Daily [facility] Immunizations Ordered Immunization Name Filled Immunization Name Date Status Comments Source Influenza 2019-10-26 00:00:00 [facility] Shingrix 50 MCG Intramuscular Suspension Reconstituted 2019-06-26 00:00:00 Completed [facility] Shingrix 50 MCG Intramuscular Suspension Reconstituted 2019-03-26 00:00:00 Completed [facility] Fluzone Quadrivalent 0.5 ML Intramuscular Suspension 2018-08-05 11:42:00 Completed [facility] Fluzone High-Dose 0.5 ML Intramuscular Suspension Prefilled Syringe 2017-08-17 00:00:00 Completed [facility] Fluzone Quadrivalent 0.5 ML Intramuscular Suspension 2016-08-25 00:00:00 Completed [facility] Influenza 2015-08-26 00:00:00 [facility] Zoster (Zostavax) 2015-04-26 00:00:00 Completed [facility] Prevnar 13 Intramuscular Suspension 2015-03-30 11:33:00 Co mpleted [facility] Fluzone INJ 2013-08-22 12:49:00 Completed [facility] Hepatitis A 2009-12-06 00:00:00 Completed [facility] Pneumococcal polysaccharide vaccine, 23 valent 2009-11 00:00:00 Completed [facility] Hepatitis A 2009-04-20 00:00:00 [facility] 2009-04-20 00:00:00 Completed [facility] Influenza Unknown Completed [facility] Vital Signs Vital Name Observation Time Observation Value Comments Source Systolic blood pressure 2020-04-21 15:06:00 159 mm[Hg] [facility] Diastolic blood pressure 2020-04-21 15:06:00 62 mm[Hg] [facility] Heart Rate 2020-04-21 15:06:00 67 /min [facility] Systolic blood pressure 2020-04-21 15:01:00 162 mm[Hg] Location: DANNE; [facility] Diastolic blood pressure 2020-04-21 15:01:00 71 mm[Hg] Location: LUE; [facility] Heart Rate 2020-04-21 15:01:00 66 /min [facility] Body height 2020-04-21 15:01:00 65 [in_us] [facility] Weight 2020-04-21 15:01:00 155 [lb_av] [facility] Body mass index (BMI) [Ratio] 2020-04-21 15:01:00 25.79 kg/m2 [facility] Body temperature 2020-04-21 15:01:00 98 [degF] Method: Temporal [facility] Respiratory rate 2020-04-21 15:01:00 16 /min [facility] O2 SAT 2020-04-21 15:01:00 98 % [facility] Systolic blood pressure 2020-04-12 15:57:00 139 mm[Hg] Loca tion: LUE; Position: Sitting [facility] Diastolic blood pressure 2020-04-12 15:57:00 54 mm[Hg] Loc ation: LUE; Position: Sitting [facility] Body height 2020-04-12 15:57:00 65 [in_us] [facility] Weight 2020-04-12 15:57:00 155 [lb_av] [facility] Body mass index (BMI) [Ratio] 2020-04-12 15:57:00 25.79 kg/m2 [facility] Body temperature 2020-04-12 15:57:00 97.7 [degF] Method: Temporal [facility] Heart Rate 2020-04-12 15:57:00 67 /min Location: L Amadeo; [facility] Respiratory rate 2020-04-12 15:57:00 16 /min Quality: Normal [facility] Systolic blood pressure 2020-04-02 11:23:00 128 mm[Hg] Loca tion: LUE; Position: Sitting [facility] Diastolic blood pressure 2020-04-02 11:23:00 67 mm[Hg] Loc ation: LUE; Position: Sitting [facility] Body height 2020-04-02 11:23:00 65 [in_us] [facility] Weight 2020-04-02 11:23:00 156 [lb_av] [facility] Body mass index (BMI) [Ratio] 2020-04-02 11:23:00 25.96 kg/m2 [facility] Body temperature 2020-04-02 11:23:00 98 [degF] Method: Temporal [facility] Heart Rate 2020-04-02 11:23:00 66 /min [facility] Respiratory rate 2020-04-02 11:23:00 15 /min [facility] Systolic blood pressure 2020-03-25 11:13:00 119 mm[Hg] Loca tion: LUE; Position: Sitting [facility] Diastolic blood pressure 2020-03-25 11:13:00 55 mm[Hg] Loc ation: LUE; Position: Sitting [facility] Body height 2020-03-25 11:13:00 65 [in_us] [facility] Weight 2020-03-25 11:13:00 154 [lb_av] [facility] Body mass index (BMI) [Ratio] 2020-03-25 11:13:00 25.63 kg/m2 [facility] Body temperature 2020-03-25 11:13:00 97.7 [degF] Method: [facility] Heart Rate 2020-03-25 11:13:00 66 /min Location: L PT; [facility] Respiratory rate 2020-03-25 11:13:00 16 /min Quality: Normal [facility] Systolic blood pressure 2020-02-06 10:40:00 129 mm[Hg] Loca tion: LUE; Position: Sitting [facility] Diastolic blood pressure 2020-02-06 10:40:00 68 mm[Hg] Loc ation: LUE; Position: Sitting [facility] Body height 2020-02-06 10:40:00 65 [in_us] [facility] Weight 2020-02-06 10:40:00 154.5 [lb_av] [facility] Body mass index (BMI) [Ratio] 2020-02-06 10:40:00 25.71 kg/m2 [facility] Heart Rate 2020-02-06 10:40:00 63 /min [facility] Systolic blood pressure 2020-01-26 14:36:00 126 mm[Hg] Loca tion: LUE; Position: Sitting [facility] Diastolic blood pressure 2020-01-26 14:36:00 71 mm[Hg] Loc ation: LUE; Position: Sitting [facility] Body height 2020-01-26 14:36:00 65 [in_us] [facility] Weight 2020-01-26 14:36:00 153.6 [lb_av] [facility] Body mass index (BMI) [Ratio] 2020-01-26 14:36:00 25.56 kg/m2 [facility] Body temperature 2020-01-26 14:36:00 97.7 [degF] Method: Oral [facility] Heart Rate 2020-01-26 14:36:00 67 /min [facility] Respiratory rate 2020-01-26 14:36:00 16 /min [facility] Systolic blood pressure 2020-01-23 15:55:00 159 mm[Hg] Loca tion: LUE; Position: Sitting [facility] Diastolic blood pressure 2020-01-23 15:55:00 75 mm[Hg] Loc ation: LUE; Position: Sitting [facility] Systolic blood pressure 2020-01-23 14:52:00 159 mm[Hg] Loca tion: LUE; Position: Sitting [facility] Diastolic blood pressure 2020-01-23 14:52:00 73 mm[Hg] Loc ation: LUE; Position: Sitting [facility] Weight 2020-01-23 14:52:00 157 [lb_av] [facility] Body mass index (BMI) [Ratio] 2020-01-23 14:52:00 26.13 kg/m2 [facility] Body height 2020-01-23 14:52:00 65 [in_us] [facility] Body temperature 2020-01-23 14:52:00 98.4 [degF] Method: Temporal [facility] Heart Rate 2020-01-23 14:52:00 69 /min [facility] Respiratory rate 2020-01-23 14:52:00 15 /min [facility] BP Systolic 2019-12-22 14:33:00 138 mm[Hg] Location: LUE; [place] on: Sitting [facility] BP Diastolic 2019-12-22 14:33:00 72 mm[Hg] Location: LUE; [place] on: Sitting [facility] BP Systolic 2019-12-22 14:28:00 149 mm[Hg] Location: LUE; [place] on: Sitting [facility] BP Diastolic 2019-12-22 14:28:00 70 mm[Hg] Location: LUE; [place] on: Sitting [facility] Height 2019-12-22 14:28:00 65 [in_us] [facility] Weight 2019-12-22 14:28:00 165.4 [lb_av] [facility] Body Mass Index Calculated 2019-12-22 14:28:00 27.52 kg/m2 [facility] Temperature 2019-12-22 14:28:00 98 [degF] Method: Temporal [facility] Heart Rate 2019-12-22 14:28:00 65 /min Location: L Radial; [facility] Respiration Rate 2019-12-22 14:28:00 16 /min Quality[facility] BP Systolic 2019-08-29 09:56:00 138 mm[Hg] Location: RUE; [place] on: Sitting [facility] BP Diastolic 2019-08-29 09:56:00 70 mm[Hg] Location: RUE; [place] on: Sitting [facility] Height 2019-08-29 09:56:00 65 [in_us] [facility] Weight 2019-08-29 09:56:00 161.25 [lb_av] [facility] Body Mass Index Calculated 2019-08-29 09:56:00 26.83 kg/m2 [facility] Heart Rate 2019-08-29 09:56:00 58 /min [facility] Temperature 2019-08-29 09:56:00 97.9 [degF] Method: Oral [facility] BP Systolic 2019-08-28 11:37:00 118 mm[Hg] Location: LUE; [place] on: Sitting [facility] BP Diastolic 2019-08-28 11:37:00 62 mm[Hg] Location: LUE; [place] on: Sitting [facility] BP Systolic 2019-08-28 10:41:00 122 mm[Hg] Location: LUE; [place] on: Sitting [facility] BP Diastolic 2019-08-28 10:41:00 61 mm[Hg] Location: LUE; [place] on: Sitting [facility] Height 2019-08-28 10:41:00 65 [in_us] [facility] Weight 2019-08-28 10:41:00 160.4 [lb_av] [facility] Body Mass Index Calculated 2019-08-28 10:41:00 26.69 kg/m2 [facility] Temperature 2019-08-28 10:41:00 98.2 [degF] Method: Temporal [facility] Heart Rate 2019-08-28 10:41:00 61 /min Location: L Radial; [facility] Respiration Rate 2019-08-28 10:41:00 16 /min Quality[facility] BP Systolic 2019-08-21 12:52:00 154 mm[Hg] Location: LUE; [place] on: Sitting [facility] BP Diastolic 2019-08-21 12:52:00 70 mm[Hg] Location: LUE; [place] on: Sitting [facility] Weight 2019-08-21 12:52:00 160 [lb_av] [facility] Body Mass Index Calculated 2019-08-21 12:52:00 26.63 kg/m2 [facility] Height 2019-08-21 12:52:00 65 [in_us] [facility] Temperature 2019-08-21 12:52:00 97.8 [degF] Method: Temporal [facility] Respiration Rate 2019-08-21 12:52:00 16 /min [facility] Heart Rate 2019-08-21 12:52:00 57 /min [facility] BP Systolic 2019-07-22 14:15:00 128 mm[Hg] Location: LUE; [place] on: Sitting [facility] BP Diastolic 2019-07-22 14:15:00 69 mm[Hg] Location: LUE; [place] on: Sitting [facility] Height 2019-07-22 14:15:00 65 [in_us] [facility] Weight 2019-07-22 14:15:00 159 [lb_av] [facility] Body Mass Index Calculated 2019-07-22 14:15:00 26.46 kg/m2 [facility] Heart Rate 2019-07-22 14:15:00 60 /min Location: L Radial; [facility] BP Systolic 2019-06-17 12:54:00 120 mm[Hg] Location: FELIBERTO; [place]: Sitting [facility] BP Diastolic 2019-06-17 12:54:00 64 mm[Hg] Location: FELIBERTO; [place] on: Sitting [facility] Height 2019-06-17 12:54:00 65 [in_us] [facility] Weight 2019-06-17 12:54:00 163.5 [lb_av] [facility] Body Mass Index Calculated 2019-06-17 12:54:00 27.21 kg/m2 [facility] Heart Rate 2019-06-17 12:54:00 65 /min [facility] Respiration Rate 2019-06-17 12:54:00 16 /min [facility] BP Systolic 2019-06-11 14:04:00 135 mm[Hg] Location: FELIBERTO; [place]: Sitting [facility] BP Diastolic 2019-06-11 14:04:00 66 mm[Hg] Location: FELIBERTO; [place]: Sitting [facility] Height 2019-06-11 14:04:00 65 [in_us] [facility] Weight 2019-06-11 14:04:00 163 [lb_av] [facility] Body Mass Index Calculated 2019-06-11 14:04:00 27.12 kg/m2 [facility] Heart Rate 2019-06-11 14:04:00 62 /min Location: L Brachial Artery; [facility] Height 2019-06-06 11:17:00 65 [in_us] [facility] Weight 2019-06-06 11:17:00 164.25 [lb_av] [facility] Body Mass Index Calculated 2019-06-06 11:17:00 27.33 kg/m2 [facility] Height 2019-06-05 08:08:00 65 [in_us] [facility] Weight 2019-06-05 08:08:00 160 [lb_av] [facility] Body Mass Index Calculated 2019-06-05 08:08:00 26.63 kg/m2 [facility] BP Systolic 2019-06-04 15:06:00 136 mm[Hg] Location: [place] on: Sitting [facility] BP Diastolic 2019-06-04 15:06:00 67 mm[Hg] Location: [place]: Sitting [facility] Height 2019-06-04 15:06:00 65 [in_us] [facility] Weight 2019-06-04 15:06:00 163.8 [lb_av] [facility] Body Mass Index Calculated 2019-06-04 15:06:00 27.26 kg/m2 [facility] Temperature 2019-06-04 15:06:00 98.5 [degF] Method: Temporal [facility] Heart Rate 2019-06-04 15:06:00 66 /min Location: L Radial; [facility] Respiration Rate 2019-06-04 15:06:00 16 /min Quality: [facility] Height 2019-05-13 12:54:00 65 [in_us] [facility] Weight 2019-05-13 12:54:00 155 [lb_av] [facility] Body Mass Index Calculated 2019-05-13 12:54:00 25.79 kg/m2 [facility] Procedures Procedure Date / Time Performed Performing Clinician Magdaleno Knight [facility] - COVID-19/SARS-Cov-2 2020-04-21 00:00:00 [facility] [U] XR SHOULDER MIN 2 VWS BILATERAL 2020-04-13 00:00:00 [facility] [U] XRAY SPINE CERVICAL 2 OR 3 VWS [id number] 2020-04-13 00:00:00 [facility] [QL] VITAMIN B12 2020-04-12 00:00:00 [facility] [QL] CMP W/EGFR 2020-04-12 00:00:00 [facility] [Q] LIPID PANEL WITH REFLEX TO DIRECT LDL 2020-04-12 00:00:00 [facility] [QL] CBC (INCLUDES DIFF/PLT) 2020-04-12 00:00:00 [facility] [QL] VITAMIN D, 25-HYDROXY, LC/MS/MS 2020-04-12 00:00:00 [facility] CVRAD - ENRIKE - [id number] 2020-04-12 00:00:00 [facility] [QL] CMP W/EGFR 2020-03-29 00:00:00 [place] [facility] [QH] LIPID PANEL WITH REFLEX TO DIRECT LDL 2020-02-06 00:00:00 [facility] [QLH] CMP W/EGFR 2020-02-06 00:00:00 [facility] [Q] LIPID PANEL WITH REFLEX TO DIRECT LDL 2020-02-06 00:00:00 [facility] [QL] CMP W/EGFR 2020-02-06 00:00:00 [facility] [QL] CBC (INCLUDES DIFF/PLT) 2020-01-23 00:00:00 [facility] [QLH] CMP W/EGFR 2020-01-23 00:00:00 [facility] [QLH] LIPASE 2020-01-23 00:00:00 [place] [facility] [QH] LIPID PANEL WITH REFLEX TO DIRECT LDL 2020-01-09 00:00:00 [facility] [QLH] CMP W/EGFR 2020-01-09 00:00:00 [facility] [Q] LIPID PANEL WITH REFLEX TO DIRECT LDL 2020-01-09 00:00:00 [facility] [QL] CMP W/EGFR 2020-01-09 00:00:00 [facility] [QLH] TSH, 3RD GENERATION 2019-12-22 00:00:00 [facility] [QL] T4, FREE 2019-12-22 00:00:00 [place] [facility] [QL] CMP W/EGFR 2019-12-22 00:00:00 [facility] [Q] LIPID PANEL WITH REFLEX TO DIRECT LDL 2019-12-22 00:00:00 [facility] MA Digital Mammo Screening Claudio [id number] 2019-12-22 00:00:00 [facility] [QLH] BASIC METABOLIC PANEL W/EGFR 2019-08-29 00:00:00 [facility] XRAY Hip min 2 views [id number] 2019-08-21 00:00:00 [facility] [N] Nuclear Test-Adenosine Stress Perfusion 2019-06-11 00:00:00 [facility] [QH] LIPID PANEL WITH REFLEX TO DIRECT LDL 2019-06-05 00:00:00 [facility] [PENDING SALE TO [facility]] CMP W/EGFR 2019-06-05 00:00:00 [facility] INJ FORAMEN EPIDURAL L/S 2019-04-03 00:00:00 ANA AUGUSTIN [facility] INJ FORAMEN EPIDURAL ADD-ON 2019-04-03 00:00:00 KRISSY AUGUSTIN [facility] History of Appendectomy [facility] History of Cholecystectomy Unive [facility] History of Oophorectomy - Bilat (Removal Of Both Ovaries) Laparo scopic [facility] History of Shoulder Surgery Left [facility] History of Shoulder Surgery Right [facility] History of Back Surgery [facility] History of Esophagogastric Fundoplasty Gómez Fundoplication [facility] History of Hysterectomy [facility] History of Shoulder [facility] of Hand Surgery [facility] History of Arterial stent placement [facility] Plan of Care Planned Activity Planned Date Details Comments Source Future Scheduled Test 2020-04-26 00:00:00 [QH] LIPID PANEL W ITH REFLEX TO DIRECT LDL [code = [QH] LIPID PANEL WITH REFLEX TO DIRECT LDL] [facility] Future Scheduled Test 2020-04-26 00:00:00 [QLH] CMP W/EGFR [ code = [QLH] CMP W/EGFR] [facility] Future Scheduled Test 2020-04-08 00:00:00 [QH] LIPID PANEL W ITH REFLEX TO DIRECT LDL [code = [QH] LIPID PANEL WITH REFLEX TO DIRECT LDL] [facility] Future Scheduled Test 2020-04-08 00:00:00 [QLH] CMP W/EGFR [ code = [QLH] CMP W/EGFR] [facility] Diagnostic Test Pending 2019-12-22 00:00:00 [place] Digital Mammo Screening Claudio [id number] [code = G0202] [facility] Diagnostic Test Pending 2019-06-11 00:00:00 [N] Nuclear Test -Adenosine Stress Perfusion [code = [N] Nuclear Test-Adenosine Stress Perfusion] [facility] Diagnostic Test Pending 2019-06-11 00:00:00 [N] Nuclear Test -Adenosine Stress Perfusion [code = [N] Nuclear Test-Adenosine Stress Perfusion] [facility] Future Scheduled Test Plan of Care [code = 37158-4] [facility] Future Scheduled Test Plan of Care [code = 97138-9] [facility] Future Scheduled Test Plan of Care [code = 38362-9] [facility] Future Scheduled Test Plan of Care [code = 68083-1] [facility] Future Scheduled Test Plan of Care [code = 94026-7] [facility] Future Scheduled Test Plan of Care [code = 08918-8] [facility] Future Scheduled Test Plan of Care [code = 20287-0] [facility] Future Scheduled Test Plan of Care [code = 32053-4] [facility] Future Scheduled Test Plan of Care [code = 35782-1] [facility] Future Scheduled Test Plan of Care [code = 11065-6] [facility] Future Scheduled Test Plan of Care [code = 90770-1] [facility] Future Scheduled Test Plan of Care [code = 58511-0] [facility] Future Scheduled Test Plan of Care [code = 24729-6] [facility] Future Scheduled Test Plan of Care [code = 85278-0] [facility] Future Scheduled Test Plan of Care [code = 75606-7] [facility] Future Appointment 2020-06-22 10:00:00 Ten CAMEJO [facility] Future Appointment 2020-06-22 10:00:00 Ten CAMEJO [facility] Future Appointment 2020-05-11 12:40:00 Ten FRANCES [facility] Encounters Start Date/Time End Date/Time Encounter Type Admission Type [facility] Care Department Encounter ID Source 2020-04-21 14:30:00 2020-04-21 14:30:00 Appointment; JAYSNICKI BAILEY M.D. JAYSWAL, MALAY, M.D. [facility] [id number] [facility] 2020-04-15 14:30:00 2020-04-15 14:30:00 Appointment; GRISEL DE JESUS M.D. CRUMBIE, DAVID, M.D. [facility] Orthopedics [facility] [id number] [facility] 2020-04-12 15:30:00 2020-04-12 15:30:00 Appointment; RACQUEL DUPONT M.D. MOHEYUDDIN, AMINA, M.D. [facility] [id number] [facility] 2020-04-02 11:00:00 2020-04-02 11:00:00 Appointment; RACQUEL DUPONT M.D. MOHEYUDDIN, AMINA, M.D. [facility] [id number] [facility] 2020-03-25 11:00:2020-03-25 11:00:00 Appointment; RACQUEL DUPONT M.D. MOHEYUDDIN, AMINA, M.D. [facility] [id number] [facility] 2020-02-18 12:00:00 2020-02-18 12:00:00 Appointment; JUAN DANIEL MCKENZIE M.D. CHARITAKIS, KONSTANTINOS, M.D. [facility] [id number] [facility] 2020-02-06 10:20:00 2020-02-06 10:20:00 Appointment; JUAN DANIEL MCKENZIE M.D. CHARITAKIS, KONSTANTINOS, M.D. [facility], [address] [id number] [facility] 2020-01-26 13:45:00 2020-01-26 13:45:00 Appointment; DANE ELDER M.D. WALTON, HAROLD, M.D. [facility], [address] [id number] [facility] 2020-01-23 14:45:00 2020-01-23 14:45:00 Appointment; RONNY MARIN M.D. GOODINE, GLENDA, M.D. [facility] [id number] [facility] 2020-01-20 23:40:00 2020-01-22 17:20:00 Discharged Inpatient 1 GEORGE NELSON [facility] [id number] [facility] 2019-12-22 14:15:00 2019-12-22 14:15:00 Appointment; RONNY MARIN M.D. GOODINE, GLENDA, M.D. [facility] [id number] [facility] 2019-08-29 09:30:00 2019-08-29 09:30:00 Appointment; MYKE REYNOLDS M.D. ELSHATANOUFY, SOLAFA, M.D. [facility] [id number] [facility] 2019-08-28 10:30:00 2019-08-28 10:30:00 Appointment; RONNY MARIN M.D. GOODINE, GLENDA, M.D. [facility] [id number] [facility] 2019-08-21 13:00:00 2019-08-21 13:00:00 Appointment; KIMBER SHEPPARD D.O. YEH, SHAO-CHUN, D.O. [facility] [id number] [facility] 2019-07-22 14:20:00 2019-07-22 14:20:00 Appointment; JUAN DANIEL MCKENZIE M.D. CHARITAKIS, KONSTANTINOS, M.D. [facility] [id number] [facility] 2019-07-11 11:15:00 2019-07-11 11:15:00 Appointment; DARRON LIRIANO M.D. MARTIN, GORDON, M.D. [facility] Thoracic Surgery - [facility] [id number] [facility] 2019-07-03 05:53:00 2019-07-03 05:53:00 Outpatient [facility] CAR 7523 [facility] 2019-06-17 12:20:2019-06-17 12:20:00 Appointment; JUAN DANIEL MCKENZIE M.D. CHARITAKIS, KONSTANTINOS, M.D. [facility], [address] [id number] [facility] 2019-06-17 08:00:00 2019-06-17 08:00:00 Appointment; [facility], N UCLEAR [facility], NUCLEAR UTP [facility] [id number] [facility] 2019-06-11 13:40:00 2019-06-11 13:40:00 Appointment; JUAN DANIEL MCKENZIE M.D. CHARITAKIS, KONSTANTINOS, M.D. [facility], [address] [id number] [facility] 2019-06-06 10:00:00 2019-06-06 10:00:00 Appointment; AKOSUA CRISOSTOMO M.D. HUANG, EDDIE, M.D. [facility] UTP [id number] [facility] 2019-06-05 08:00:00 2019-06-05 08:00:00 Appointment; PINEDA MARTINEZ M .D. SMITH, DEAN, M.D. [facility] UTP [id number] [facility] 2019-06-04 15:00:00 2019-06-04 15:00:00 Appointment; KOREY ZHANG APRN DUGAS, NANCY, APRN [facility] UTP [id number] [facility] 2019-06-03 13:00:00 2019-06-03 13:00:00 Appointment; PINEDA MARTINEZ M .D. SMITH, DEAN, M.D. [facility] UTP [id number] [facility] 2019-05-29 18:33:00 2019-05-29 20:24:00 Departed Emergency Room 1 NIRALI TYSON [facility] [id number] [facility] 2019-05-13 13:00:00 2019-05-13 13:00:00 Appointment; PINEDA MARTINEZ M .D. SMITH, DEAN, M.D. [facility] UTP [id number] [facility] 2019-05-01 14:00:00 2019-05-01 14:00:00 Appointment; MYKE REYNOLDS M.D. ELSHATANOUFY, SOLAFA, M.D. [facility] [id number] [facility] 2019-04-03 05:10:00 2019-04-03 05:10:00 Registered Surgical Day Care [facility] [id number] [facility] 2019-03-27 11:00:00 2019-03-27 11:00:00 Appointment; MYKE REYNOLDS M.D. ELSHATANOUFY, SOLAFA, M.D. [facility] [id number] [facility] 2019-03-12 12:30:00 2019-03-12 12:30:00 Appointment; LILIA VELAZQUEZ APRN HOANG, CHRISTINA, APRN [facility] UTP [id number] [facility] 2019-02-18 12:00:00 2019-02-18 12:00:00 Appointment; JUAN DANIEL MCKENZIE M.D. CHARITAKIS, KONSTANTINOS, M.D. [facility] UTP [id number] [facility] 2019-02-06 15:45:00 2019-02-06 15:45:00 Appointment; RONNY MARIN M.D. GOODINE, GLENDA, M.D. [facility] [id number] [facility] 2019-01-28 10:00:00 2019-01-28 10:00:00 Appointment; RONNY MARIN M.D. GOODINE, GLENDA, M.D. [facility] [id number] [facility] 2019-01-28 10:00:00 2019-01-28 10:00:00 Appointment; RONNY MARIN M.D. GOODINE, GLENDA, M.D. [facility] [id number] [facility] 2019-01-11 10:45:00 2019-01-11 10:45:00 Appointment; REN REAVES M.D. BORTOLOTTI, JULIE, M.D. [facility] [id number] [facility] 2019-01-08 11:30:00 2019-01-08 11:30:00 Appointment; FARHAT NOLEN M.D. CATALANO, MARC, M.D. [facility] UTP [id number] [facility] 2018-11-29 11:15:00 2018-11-29 11:15:00 Appointment; ETHEL WORKMAN M.D. TRAHAN, MICHAEL, M.D. [facility] UTP [id number] [facility] 2018-11-28 11:00:00 2018-11-28 11:00:00 Appointment; FARHAT NOLEN M.D. CATALANO, MARC, M.D. [facility] UTP [id number] [facility] 2018-11-28 11:00:00 2018-11-28 11:00:00 Appointment; PEÑA GUSTAFSON, POSTDOCTORAL FELLOW SALVADOR GUSTAFSON, POSTDOCTORAL FELLOW [facility] UTP [id number] [facility] 2018-10-07 11:30:00 2018-10-07 11:30:00 Appointment; FARHAT NOLEN M.D. CATALANO, MARC, M.D. [facility] UTP [id number] [facility] 2018-09-04 10:15:00 2018-09-04 10:15:00 Appointment; FARHAT NOLEN M.D. CATALANO, MARC, M.D. [facility] UTP [id number] [facility] 2018-08-31 11:15:00 2018-08-31 11:15:00 Appointment; REN REAVES M.D. BORTOLOTTI, JULIE, M.D. [facility] UTP [id number] [facility] 2018-08-05 11:00:00 2018-08-05 11:00:00 Appointment; RONNY MARIN M.D. GOODINE, GLENDA, M.D. [facility] UTP [id number] [facility] 2018-07-11 13:45:00 2018-07-11 13:45:00 Appointment; FARHAT NOLEN M.D. CATALANO, MARC, M.D. [facility] UTP [id number] [facility] 2018-06-18 14:40:00 2018-06-18 14:40:00 Appointment; JUAN DANIEL MCKENZIE M.D. CHARITAKIS, KONSTANTINOS, M.D. [facility] UTP [id number] [facility] 2018-05-27 14:00:00 2018-05-27 14:00:00 Appointment; [place]-MS, Alon DUFF [place]-MS, KATY [facility] UTP [id number] [facility] 2018-05-22 16:40:00 2018-05-22 16:40:00 Appointment; JUAN DANIEL MCKENZIE M.D. CHARITAKIS, KONSTANTINOS, M.D. [facility] UTP [id number] [facility] 2018-05-20 13:00:00 2018-05-20 13:00:00 Appointment; RONNY MARIN M.D. GOODINE, GLENDA, M.D. [facility] UTP [id number] [facility] 2018-05-13 13:15:00 2018-05-13 13:15:00 Appointment; RONNY MARIN M.D. GOODINE, GLENDA, M.D. [facility] UTP [id number] [facility] 2018-05-10 16:15:00 2018-05-10 16:15:00 Appointment; RONNY MARIN M.D. GOODINE, GLENDA, M.D. [facility] UTP [id number] [facility] 2018-05-08 10:30:00 2018-05-08 10:30:00 Appointment; OMKAR PAULINO P.A. MORICE, FABIAN, P.A. [facility] UTP [id number] [facility] 2018-04-09 08:15:00 2018-04-09 08:15:00 Appointment; RONNY MARIN M.D. GOODINE, GLENDA, M.D. [facility] UTP [id number] [facility] 2018-04-04 10:00:00 2018-04-04 10:00:00 Appointment; MIGUEL ANGEL DUMONT P.A. CAMPOS, BERTHA, P.A. UTP UTP [id number] [facility] 2018-03-28 10:30:00 2018-03-28 10:30:00 Appointment; RONNY MARIN M.D. GOODINE, GLENDA, M.D. [facility] UTP [id number] [facility] 2018-03-22 09:00:00 2018-03-22 09:00:00 Appointment; OMKAR PAULINO P.A. MORICE, FABIAN PAntoniaAAntonia [facility] UTP [id number] [facility] 2018-03-13 13:00:00 2018-03-13 13:00:00 Appointment; LANIE JOHNSON M.D. FULLICK, ROBERT, M.D. [facility] UTP [id number] [facility] 2018-03-12 22:32:00 2018-03-13 00:22:00 Departed Emergency Room [facility] [id number] [facility] 2018-03-07 11:00:00 2018-03-07 11:00:00 Appointment; RONNY MARIN M.D. GOODINE, GLENDA, M.D. [facility] UTP [id number] [facility] 2018-02-27 10:30:00 2018-02-27 10:30:00 Appointment; ALVARO DE LEÓN M.D. PRASARN, MARK, M.D. [facility] UTP [id number] [facility] 2018-02-25 15:00:00 2018-02-25 15:00:00 Appointment; MIGUEL ANGEL DUMONT P.A. CAMPOS, BERTHA, P.A. [facility] UTP [id number] [facility] 2018-02-15 10:45:00 2018-02-15 10:45:00 Appointment; OMKAR PAULINO P.A. MORICE, FABIAN, P.A. [facility] UTP [id number] [facility] 2018-02-08 12:00:00 2018-02-08 12:00:00 Appointment; LANIE JOHNSON M.D. FULLICK, ROBERT, M.D. [facility] UTP [id number] [facility] 2018-02-06 09:45:00 2018-02-06 09:45:00 Appointment; OMKAR PAULINO P.A. MORICE, FABIAN, P.AAntonia UTP UTP [id number] [facility] 2018-02-04 10:45:00 2018-02-04 10:45:00 Appointment; KIMBER SHEPPARD D.O. YEH, SHAO-CHUN, D.O. [facility] UTP [id number] [facility] 2018-01-10 10:15:00 2018-01-10 10:15:00 Appointment; FARHAT NOLEN M.D. CATALANO, MARC, M.D. [facility] UTP [id number] [facility] 2018-01-10 09:40:00 2018-01-10 09:40:00 Appointment; [place] M.D. MADJID, MOHAMMAD, M.D. UTP UTP [id number] [facility] 2018-01-04 11:15:00 2018-01-04 11:15:00 Appointment; LANIE JOHNSON M.D. FULLICK, ROBERT, M.D. U[facility] UTP [id number] [facility] 2017-12-27 14:45:00 2017-12-27 14:45:00 Appointment; FARHAT NOLEN M.D. CATALANO, MARC, M.D. [facility] UTP [id number] [facility] 2017-12-26 11:00:00 2017-12-26 11:00:00 Appointment; ADY REZA M.D. SATTAR, BEENA, M.D. [facility] UTP [id number] [facility] 2017-11-28 11:15:00 2017-11-28 11:15:00 Appointment; FARHAT NOLEN M.D. CATALANO, MARC, M.D. UTP UTP [id number] [facility] 2017-11-27 13:20:00 2017-11-27 13:20:00 Appointment; [place] M.D. MADJID, MOHAMMAD, M.D. UTP UTP [id number] [facility] 2017-11-14 10:45:00 2017-11-14 10:45:00 Appointment; LANIE JOHNSON M.D. FULLICK, ROBERT, M.D. UTP UTP [id number] [facility] 2017-11-02 10:00:00 2017-11-02 10:00:00 Appointment; ETHEL WORKMAN M.D. TRAHAN, MICHAEL, M.D. UTP UTP [id number] [facility] 2017-10-25 15:00:00 2017-10-25 15:00:00 Appointment; [place] M.D. MADJID, MOHAMMAD, M.D. UTP UTP [id number] [facility] 2017-10-10 10:30:00 2017-10-10 10:30:00 Appointment; LANIE JOHNSON M.D. FULLICK, ROBERT, M.D. UTP UTP [id number] [facility] 2017-10-02 14:15:00 2017-10-02 14:15:00 Appointment; MIGUEL ANGEL DUMONT P.A. CAMPOS, BERTHA, P.A. UTP UTP [id number] [facility] 2017-09-21 12:15:00 2017-09-21 12:15:00 Appointment; LANIE JOHNSON M.D. FULLICK, ROBERT, M.D. U[facility] UTP [id number] [facility] 2017-09-12 10:45:00 2017-09-12 10:45:00 Appointment; OMKAR PAULINO P.A. MORICE, FABIAN, P.A. UTP UTP [id number] [facility] 2017-08-23 15:00:00 2017-08-23 15:00:00 Appointment; [place] M.D. MADJID, MOHAMMAD, M.D. UTP UTP [id number] [facility] 2017-08-10 11:00:00 2017-08-10 11:00:00 Appointment; ADY REZA M.D. SATTAR, BEENA, M.D. UTP UTP [id number] [facility] 2017-07-31 13:30:00 2017-07-31 13:30:00 Appointment; [place] M.D. MADJID, MOHAMMAD, M.D. UTP UTP [id number] [facility] 2017-07-19 15:30:00 2017-07-19 15:30:00 Appointment; [place] M.D. MADJID, MOHAMMAD, M.D. UTP UTP [id number] [facility] 2017-07-13 11:00:00 2017-07-13 11:00:00 Appointment; ADY REZA M.D. SATTAR, BEENA, M.D. [facility] [id number] [facility] 2017-07-12 14:00:00 2017-07-12 14:00:00 Appointment; ADY REZA M.D. SATTAR, BEENA, M.D. [facility] [id number] [facility] 2017-06-29 08:30:00 2017-06-29 08:30:00 Appointment; ADY REZA M.D. SATTAR, BEENA, M.D. UTP [facility] [id number] [facility] 2017-06-19 13:00:00 2017-06-19 13:00:00 Appointment; [place] M.D. MADJID, MOHAMMAD, M.D. [facility] UTP [id number] [facility] 2014-04-02 13:01:59 2014-04-02 18:01:58 AUDIT MHIEALT MHIEALT [id number] [place] [facility] 2014-04-02 13:01:59 2014-04-02 13:01:58 Outpatient MHIEA LT [facility] [id number] 2014-03-18 14:05:56 2014-03-18 19:05:55 AUDIT MHIEALT MHIEALT [id number] [place] [facility] 2014-03-18 14:05:56 2014-03-18 14:05:55 Outpatient MHIEA LT [facility] [id number] 2014-03-16 11:15:00 2014-03-16 14:46:55 EGV, Provider: Marielle BESS, Status: Pen, Time: 11:15 AM MH[facility] [id number] [place] [facility] 2014-03-16 09:46:55 2014-03-16 14:46:55 AUDIT MHIEALT MHIEALT [id number] [place] [facility] 2014-03-16 09:46:55 2014-03-16 09:46:55 Outpatient [facility] [id number] 2014-01-30 13:26:24 2014-01-30 19:26:23 AUDIT [facility] [id number] [facility] 2014-01-30 13:26:24 2014-01-30 13:26:23 Outpatient [facility] [id number] 2014-01-29 15:01:08 2014-01-29 21:01:08 AUDIT [facility] [id number] [facility] 2014-01-29 15:01:08 2014-01-29 15:01:08 Outpatient [facility] [id number] 2014-01-12 11:31:50 2014-01-12 17:31:50 AUDIT [facility] [id number] [facility] 2014-01-12 11:31:50 2014-01-12 11:31:50 Outpatient [facility] [id number] 2013-12-20 11:15:19 2013-12-20 17:15:19 AUDIT [facility] [id number] [facility] 2013-12-20 11:15:19 2013-12-20 11:15:19 Outpatient [facility] [id number] 2013-12-19 12:00:43 2013-12-19 18:00:42 AUDIT [facility] [id number] [facility] 2013-12-19 12:00:43 2013-12-19 12:00:42 Outpatient [facility] [id number] 2013-12-19 10:00:00 2013-12-16 06:45:13 FUP, Provider: ANNIE DEWEY, Status: Fer, Time: 10:00 AM [facility] [id number] [facility] 2013-12-16 00:45:15 2013-12-16 06:45:13 AUDIT [facility] [id number] [facility] 2013-12-16 00:45:15 2013-12-16 00:45:13 Outpatient MHIEA LT MHIEALT [id number] 2013-12-11 11:31:46 2013-12-11 17:31:45 AUDIT MHIEALT MHIEALT [id number] [facility] 2013-12-11 11:31:46 2013-12-11 11:31:45 Outpatient MHIEA LT MHIEALT [id number] 2013-12-02 08:45:00 2013-12-02 04:00:41 ECL, Provider: ANNIE DEWEY, Status: Pen, Time: 8:45 AM MHIEALT MHIEALT [id number] [facility] 2013-12-01 22:00:45 2013-12-02 04:00:41 AUDIT MHIEALT MHIEALT [id number] [facility] 2013-12-01 22:00:45 2013-12-01 22:00:41 Outpatient MHIEA LT MHIEALT [id number] 2013-09-22 16:45:50 2013-09-22 21:45:49 AUDIT MHIEALT [facility]IEALT [id number] [facility] 2013-09-22 16:45:50 2013-09-22 16:45:49 Outpatient MHIEA LT MHIEALT [id number] 2013-08-22 13:01:05 2013-08-22 18:01:05 AUDIT MHIEALT [facility]IEALT [id number] [facility] 2013-08-22 13:01:05 2013-08-22 13:01:05 Outpatient MHIEA LT MHIEALT [id number] 2013-08-18 15:16:56 2013-08-18 20:16:56 AUDIT MHIEALT [facility]ALT [id number] [facility] 2013-08-18 15:16:56 2013-08-18 15:16:56 Outpatient MHIEA LT MHIEALT [id number] 2013-08-18 13:45:00 2013-08-05 22:30:35 FUP, Provider: FIONA BRIAN, Status: Pen, Time: 1:45 PM MHIEALT MHIEALT [id number] [facility] 2013-08-05 17:30:35 2013-08-05 22:30:35 AUDIT MHIEALT [facility]IEALT [id number] [facility] 2013-08-05 17:30:35 2013-08-05 17:30:35 Outpatient MHIEA LT MHIEALT [id number] 2013-08-05 14:00:00 2013-08-04 21:31:18 ENRIKE, Provider: MJ CENTENO, Status: Pen, Time: 2:00 PM [facility] IEALT [id number] [facility] 2013-08-04 16:31:18 2013-08-04 21:31:18 AUDIT MHIEALT IEALT [id number] [facility] 2013-08-04 16:31:18 2013-08-04 16:31:18 Outpatient MHIEA LT IEALT [id number] Results Test Description Test Time Test Comments Results Result Comments Source [O] Influenza A and B, Rapid Method (In Office) 2020-04-21 1 5:08:00 Test Item INFLUENZA A & B Rapid (test code = INFLUENZA A & B Rapid) neg N [facility][U] XR SHOULDER MIN 2 VWS [id number] 14:24:00Images acquired, not reported on this accession number.[facility][U] XRAY SPINE CERVICAL 2 OR 3 VWS [id number] 14:24:00 Images acquired, not reported on this accession number.[facility][QL] CMP W/[id number] 11:25:00* Test Item Value Reference Range Interpretation Comments GLUCOSE; Above High Threshold (test code = 1547-9) 137 mg/dl 65- 99 Fasting reference interval For someone without known diabetes, a glucosevalue >125 mg/dL indicates that they may havediabetes and this should be confirmed with afollow- up test. UREA NITROGEN (BUN) (test code = UREA NITROGEN (BUN)) 16 mg/dl 7-25 N CREATININE (test code = CREATININE) 1.01 mg/dl 0.60-0.93 For patients >49 years of age, the reference limitfor Creatinine is approximately 13% higher for peopleidentified as -Uzbek. eGFR NON- (test code = eGFR NON-ADRIAN N CUBAN) 54 {ML/MIN/1.7} > OR = 60 eGFR (test code = eGFR ) 62 {ML/MIN/1.7} > OR = 60 N BUN/CREATININE RATIO (test code = BUN/CREATININE RATIO) 16 {CALC} 6-22 N SODIUM (test code = SODIUM) 137 mmol/L 135-146 N POTASSIUM (test code = POTASSIUM) 4.1 mmol/L 3.5-5.3 N CHLORIDE (test code = CHLORIDE) 103 mmol/L 98-110 N CARBON DIOXIDE (test code = CARBON DIOXIDE) 24 mmol/L 20-32 N CALCIUM (test code = CALCIUM) 9.3 mg/dl 8.6-10.4 N PROTEIN, TOTAL (test code = PROTEIN, TOTAL) 7.1 g/dl 6.1-8.1 N ALBUMIN (test code = ALBUMIN) 4.0 g/dl 3.6-5.1 N GLOBULIN (test code = GLOBULIN) 3.1 {G/DL CALC} 1.9-3.7 N ALBUMIN/GLOBULIN RATIO (test code = ALBUMIN/GLOBULIN RATIO) 1.3 {CALC} 1.0-2.5 N BILIRUBIN, TOTAL; Normal (test code = 59629-4) 0.4 mg/dl 0.2-1.2 N ALKALINE PHSPHATASE (test code = ALKALINE PHSPHATASE) 78 u/l 37-153 N AST; Normal (test code = 1916-6) 22 u/l 10-35 N ALT; Normal (test code = 1742-6) 13 u/l 6-29 N [facility][O] Urine Dipstick (In Office)2020-01-23 16:07:21 * Test Item Value Reference Range Interpretation Comments Glucose (test code = Glucose) neg N LEUKOCYTES (test code = LEUKOCYTES) neg N NITRITE; Normal (test code = 48679-1) neg N UROBILINOGEN; Normal (test code = 30102-4) neg N PROTEIN (test code = 93312-9) trace pH (test code = pH) 6 N URINE BLOOD; Normal (test code = 41194-8) neg N SPECIFIC GRAVITY; Normal (test code = 2965-2) 1.010 N KETONES; Normal (test code = 47032-9) neg N BILIRUBIN; Normal (test code = 91430-8) neg N COLOR URINE; Normal (test code = 5778-6) yellow N APPEARANCE; Normal (test code = 5767-9) clear N [facility] PhysiciansAnti-Nuclear Antibody [id number] 13:48:00* Test Item Value Reference Range Interpretation Comments Anti-Nuclear Antibody Screen (test code = 5048-4) Negative . Negative <1:80 Borderline 1:80 Positive > 1:80Performed at: [facility] [address] [place], [place] [address] 3Lab Director: Chidi Jain MD, Phone: [phone] West Regional HospitalTriglycerides [id number] 07:06:00* Test Item Value Reference Range Interpretation Comments Triglycerides Level (test code = 2571-8) 144 0-149 [facility] HospitalLipase2020-02-27 07:01:00* Test Item Value Reference Range Interpretation Comments Lipase (test code = 3040-3) 281 8-78 H [facility]odium Brsnk8739-27-83 06:26:00* Test Item Value Reference Range Interpretation Comments Sodium Level (test code = 2951-2) 135 136-145 L [facility] HospitalPotassium Qbgen8981-67-47 06:26:00* Test Item Value Reference Range Interpretation Comments Potassium Level (test code = 2823-3) 3.9 3.5-5.1 [facility] HospitalChloride Ukima8324-94-84 06:26:00* Test Item Value Reference Range Interpretation Comments Chloride Level (test code = 2075-0) 107 98-107 [facility] HospitalCarbon Dioxide Gtiey4949-63-58 06:26:00* Test Item Value Reference Range Interpretation Comments Carbon Dioxide Level (test code = 2028-9) 22 22-29 [facility] HospitalAnion Sgj6311-51-21 06:26:00* Test Item Value Reference Range Interpretation Comments Anion Gap (test code = 43225-1) 9.9 8-16 [facility] HospitalBlood Urea Alxaziao0751-75-18 06:26:00* Test Item Value Reference Range Interpretation Comments Blood Urea Nitrogen (test code = 3094-0) 20 7-26 [facility] HospitalCreatinine2020-02-27 06:26:00* Test Item Value Reference Range Interpretation Comments Creatinine (test code = 2160-0) 0.94 0.57-1.11 [facility] HospitalBUN/Creatinine Resin4546-35-64 06:26:00* Test Item Value Reference Range Interpretation Comments BUN/Creatinine Ratio (test code = 3097-3) 21 6-25 [facility] HospitalEstimat Glomerular Filtration Rate 2020-01-22 06:26:00* Test Item Value Reference Range Interpretation Comments Estimat Glomerular Filtration Rate (test code = 817544356) 58 >60 L Ranges were taken from the National Kidney Disease Education Program and the [facility] Kidney Foundation literature.Reference ranges:60 or greater: Imnxhi03-41 ( for 3 consecutive months): Chronic kidney disease 15 or less: Kidney failureKell West Regional HospitalGlucose Lzvct5706-38-70 06:26:00* Test Item Value Reference Range Interpretation Comments Glucose Level (test code = OGW7621) 98 74-118 [facility] HospitalCalcium Hacqx2177-50-34 06:26:00* Test Item Value Reference Range Interpretation Comments Calcium Level (test code = 50225-7) 8.1 8.4-10.2 L [facility] HospitalTotal Vylknqkin7474-35-76 06:26:00* Test Item Value Reference Range Interpretation Comments Total Bilirubin (test code = 1975-2) 0.6 0.2-1.2 [facility] HospitalAspartate Amino Transf (AST/SGOT) 2020-01-22 06:26:00* Test Item Value Reference Range Interpretation Comments Aspartate Amino Transf (AST/SGOT) (test code = Aspartate Amino Transf (AST/SGOT)) 43 5-34 H [facility] HospitalAlanine Aminotransferase (ALT/SGPT) 2020-01-22 06:26:00* Test Item Value Reference Range Interpretation Comments Alanine Aminotransferase (ALT/SGPT) (test code = 1742-6) 40 0-55 [facility] HospitalTotal Nrciboi7520-94-48 06:26:00* Test Item Value Reference Range Interpretation Comments Total Protein (test code = 2885-2) 6.6 6.5-8.1 [facility] HospitalAlbumin2020-02-27 06:26:00* Test Item Value Reference Range Interpretation Comments Albumin (test code = 1751-7) 3.2 3.5-5.0 L [facility] HospitalGlobulin2020-02-27 06:26:00* Test Item Value Reference Range Interpretation Comments Globulin (test code = 87693-7) 3.4 2.3-3.5 [facility] HospitalAlbumin/Globulin Uvblq1445-43-41 06:26:00 * Test Item Value Reference Range Interpretation Comments Albumin/Globulin Ratio (test code = 1759-0) 0.9 0.8-2.0 [facility] HospitalAlkaline Imvqgnqqrik4743-79-08 06:26:00* Test Item Value Reference Range Interpretation Comments Alkaline Phosphatase (test code = 6768-6) 78 40-150 [facility] HospitalWhite Blood Fqbpo5917-56-58 06:00:00* Test Item Value Reference Range Interpretation Comments White Blood Count (test code = 6690-2) 7.43 4.8-10.8 [facility] HospitalRed Blood Wtzew4205-91-53 06:00:00* Test Item Value Reference Range Interpretation Comments Red Blood Count (test code = 789-8) 4.36 3.6-5.1 [facility] HospitalHemoglobin2020-02-27 06:00:00* Test Item Value Reference Range Interpretation Comments Hemoglobin (test code = 94267-3) 12.0 12.0-16.0 [facility] HospitalHematocrit2020-02-27 06:00:00* Test Item Value Reference Range Interpretation Comments Hematocrit (test code = 4544-3) 37.8 34.2-44.1 [facility] HospitalMean Corpuscular Jpbosj8729-89-75 06:00:00* Test Item Value Reference Range Interpretation Comments Mean Corpuscular Volume (test code = 787-2) 86.7 81-99 [facility] HospitalMean Corpuscular Pehbblyeyh7494-28-28 06:00:00* Test Item Value Reference Range Interpretation Comments Mean Corpuscular Hemoglobin (test code = 785-6) 27.5 28-32 L [facility] HospitalMean Corpuscular Hemoglobin Concent 2020-01-22 06:00:00* Test Item Value Reference Range Interpretation Comments Mean Corpuscular Hemoglobin Concent (test code = 786-4) 31.7 31-35 [facility] HospitalRed Cell Distribution Plobe2686-01-88 06:00:00* Test Item Value Reference Range Interpretation Comments Red Cell Distribution Width (test code = 50442-3) 14.6 11.7 -14.4 H [facility] HospitalPlatelet Rjhjh1926-13-15 06:00:00* Test Item Value Reference Range Interpretation Comments Platelet Count (test code = 777-3) 143 140-360 [facility] HospitalNeutrophils (%) (Auto)2020-01-22 06:00:00 * Test Item Value Reference Range Interpretation Comments Neutrophils (%) (Auto) (test code = 25071-3) 64.4 38.7-80.0 [facility] HospitalLymphocytes (%) (Auto)2020-01-22 06:00:00 * Test Item Value Reference Range Interpretation Comments Lymphocytes (%) (Auto) (test code = 736-9) 21.1 18.0-39.1 [facility] HospitalMonocytes (%) (Auto)2020-01-22 06:00:00* Test Item Value Reference Range Interpretation Comments Monocytes (%) (Auto) (test code = 5905-5) 12.2 4.4-11.3 H [facility] HospitalEosinophils (%) (Auto)2020-01-22 06:00:00 * Test Item Value Reference Range Interpretation Comments Eosinophils (%) (Auto) (test code = 713-8) 1.5 0.0-6.0 [facility] HospitalBasophils (%) (Auto)2020-01-22 06:00:00* Test Item Value Reference Range Interpretation Comments Basophils (%) (Auto) (test code = 706-2) 0.5 0.0-1.0 [facility] HospitalIM GRANULOCYTES %2020-01-22 06:00:00* Test Item Value Reference Range Interpretation Comments IM GRANULOCYTES % (test code = IM GRANULOCYTES %) 0.3 0.0- 1.0 [facility] HospitalNeutrophils # (Auto)2020-01-22 06:00:00* Test Item Value Reference Range Interpretation Comments Neutrophils # (Auto) (test code = 751-8) 4.8 2.1-6.9 [facility] HospitalLymphocytes # (Auto)2020-01-22 06:00:00* Test Item Value Reference Range Interpretation Comments Lymphocytes # (Auto) (test code = 84298-2) 1.6 1.0-3.2 [facility] HospitalMonocytes # (Auto)2020-01-22 06:00:00* Test Item Value Reference Range Interpretation Comments Monocytes # (Auto) (test code = 742-7) 0.9 0.2-0.8 H [facility] HospitalEosinophils # (Auto)2020-01-22 06:00:00* Test Item Value Reference Range Interpretation Comments Eosinophils # (Auto) (test code = 711-2) 0.1 0.0-0.4 [facility] HospitalBasophils # (Auto)2020-01-22 06:00:00* Test Item Value Reference Range Interpretation Comments Basophils # (Auto) (test code = 704-7) 0.0 0.0-0.1 [facility] HospitalAbsolute Immature Granulocyte (auto 2020-01-22 06:00:00* Test Item Value Reference Range Interpretation Comments Absolute Immature Granulocyte (auto (mahin t code = Absolute Immature Granulocyte (auto) 0.02 0-0.1 [facility] HospitalABDOMEN-1VIEW ([facility])2020-01-22 05:43:00 [facility] [address] [place] [address] Patient Name: BRENDA OLIVARES MR #: [id number] : [birth year] Age/Sex: 79/F Req #: [id number] Adm Physician: GEORGE NELSON MD Ordered by: KEE LEIGH MD Report #: [id number] Location: MED/SURG2 Room/Bed: [facility] Procedure: 0227-001 1 DX/ABDOMEN-1VIEW (KU) Exam Date: 01/22/20 Exam Ti me: 0505 REPORT STATUS: Signed Exam: Abdominal film Clinical History: Small bowel obstruction Comp arison: 01/21/2020 DISCUSSION: Persistent though improved dilatation of agustina ral small bowel loops measuring up to 3.5 cm. Gas throughout the colon. Excret ed contrast within the urinary bladder is more dilute. Regional skeletal struc tures are intact. Laminectomy defects of the lower lumbar spine. IMPRESSI ON: Improved small bowel dilatation relative to 01/21/2020. Signed by: Dr. Grisel Reyes M.D. on 01/22/2020 5:47 AM Dictated By: GRISEL REYES MD T ranscribed By: MALI on 01/22/2047 COPY TO: KEE LEIGH MD ABDOMEN-1VIEW ([facility])2020-01-21 14:12:00 [place] [address] Patient Name: BRENDA OLIVARES MR #: [id number] : 1940 Age/Sex: 79/F Req #: [id number] Adm Physician: GEORGE NELSON MD Ordered by: GEORGE NELSON MD Report #: [id number] Location: MED/SURG2 Room/Bed: [facility] Procedure: [id number] DX/ABDOMEN-1VIEW (KUB) Exam Date: 01/21/20 Exam Da e: 1345 REPORT STATUS: Signed EX AM: ABDOMEN-1VIEW (KUB) DATE: 01/21/2020 9:40 AM INDICATION: Small b owel obstruction COMPARISON: CT abdomen/pelvis with contrast from 01/20/20 IMPRESSION: There is significant gaseous distention of the stomach. Di lated air-filled loops of small bowel are identified within the left abdomen m easuring up to 4.5 cm and caliber. Findings are compatible with history of sma ll bowel obstruction and better evaluated on the recent prior CT examination. No intraperitoneal free air is appreciated on this supine view examination. Surgical clips noted within the pelvis. Contrast material noted within the urinary bladder. No abnormal interbowel calcification is appreciated. Degenera tive changes noted of the lumbosacral spine and pelvis. No acute osseous abnor mality is identified. Signed by: Dr. Rivera Donis MD on 01/21/2020 2:15 PM Dictated By: RIVERA DONIS MD 1415 COPY TO: GEORGE CUEVAS MD Amylase [id number] 11:09:00* Test Item Value Reference Range Interpretation Comments Amylase Level (test code = 1798-8) 591 25-125 H [facility] [id number]-[id number] 22:38:00 [facility] [address] [place], [place] [address] Patient Name: BRENDA OLIVARES MR #: [id number] : 1940 Age/Sex: 79/F Req #: [id number] Adm Physician: Ordered by: ROSANNA RUSSELL MD Report #: [id number] Location: [facility] Room/Bed: Procedure: 0225-0 003 HOPD/CT ABD/PEL WITH CONTRAST-HOPD Exam Date: 01/20/20 Exam Time: 5 REPORT STATU S: Signed EXAMINATION: CT of the abdomen and pelvis with contrast. TECHN IQUE: Spiral CT images of the abdomen and pelvis were performed from the lung bases to the lesser trochanters after the intravenous administration of 100 c c of Isovue 370. Coronal and sagittal reformatted images were obtained. C OMPARISON: None. CLINICAL HISTORY:Abdominal pain, nausea, vomiting, histor y of bowel obstruction DISCUSSION: ABDOMEN/PELVIS: LOWER THO RAX:Subsegmental atelectasis or fibrotic change in the lung bases no pleural o r pericardial effusion. HEPATOBILIARY: 1.6 cm subcapsular lesion in segment 6 with nodular peripheral enhancement. No additional focal hepatic lesion. M ild intrahepatic biliary ductal dilatation status post cholecystectomy. SPLEEN: No splenomegaly or focal splenic lesion. PANCREAS: No focal ma sses or ductal dilatation. ADRENALS: No adrenal nodules. KIDNEYS/URET ERS: Simple cyst projecting from the lower pole of the left kidney. No additio nal focal renal lesions. Bilateral extrarenal pelves. No calculi or hydronephr osis. PELVIC ORGANS/BLADDER: Urinary bladder is unremarkable. Uterus is not identified and has presumably been removed. No adnexal mass. PERITONEUM/ RETROPERITONEUM: No ascites or pneumoperitoneum. LYMPH NODES: No pelvic feliz ewall, retroperitoneal, or mesenteric lymphadenopathy. VESSELS: Atheroscl erotic calcification of the abdominal aorta and major branch vessels without a neurysmal dilatation. Incidental note of a retroaortic left renal vein. Portal vein, splenic vein, and central superior mesenteric vein are patent. GI TRACT: Postsurgical changes of the sigmoid colon. The large bowel shows no dis tention or wall thickening. The appendix is not definitively identified. Howev er, there is no right lower quadrant inflammatory change. Postsurgical changes of the proximal stomach related to fundoplication. There is mild dilatation o f multiple loops of proximal small bowel to a maximum of 3.2 cm. A transition point to decompressed small bowel is identified in the low anterior abdomen (s eries 2 image 63). BONES AND SOFT TISSUE: Lumbar spine laminectomy defects. No osseous destructive lesions. Age-indeterminate mild anterior compression d eformity of L1. Postsurgical changes of the anterior abdominal wall. Otherwise no focal soft tissue abnormalities. IMPRESSION: Findings comp atible with early small bowel obstruction with a transition point in the low a bdomen as described above. No kayla perforation or drainable fluid collection. Enhancing lesion in hepatic segment 6 likely represents a benign hemangiom a but is incompletely characterized on this single phase imaging examination. Definitive characterization with nonemergent CT or MRI of the abdomen with and without contrast (liver mass protocol) is suggested. Mild intrahepatic b iliary ductal dilatation is likely a consequence of cholecystectomy. Correlati on with serum bilirubin is suggested. Atherosclerotic vascular disease Signed by: Dr. Grisel Reyes M.D. on 01/20/2020 10:50 PM Dictated By: HAILE REYES MD 49 Tra nscribed By: MALI on 01/20/202249 COPY TO: ROSANNA RUSSELL MD [O] Urine Dipstick (In Office)2019-08-29 14:13:00* Test Item Value Reference Range Interpretation Comments Glucose (test code = Glucose) Negative N LEUKOCYTES (test code = LEUKOCYTES) Small N NITRITE; Normal (test code = 16862-7) Negative N PROTEIN; Normal (test code = 67291-0) Negative N URINE BLOOD; Normal (test code = 89733-0) Negative N KETONES; Normal (test code = 61325-5) Negative N [facility]ENDING [facility] TO [facility]] BASIC METABOLIC PANEL W/DZSN7114-10-09 10:00:01* Test Item Value Reference Range Interpretation Comments Glucose Lvl (test code = 2345-7) 96 mg/dl 70-99 Adult reference range values reflect the clinical guidelinesof the [place] Diabetes Association. Blood Urea Nitrogen (test code = 3094-0) 18 mg/dl 7-22 Creatinine Lvl (test code = 2160-0) 1.10 mg/dl 0.50-1.40 Sodium Level (test code = 2951-2) 138 {mEq/l} 135-145 Potassium Level (test code = 2823-3) 4.3 {mEq/l} 3.5-5.1 Chloride Level (test code = 2075-0) 107 {mEq/l} 95-109 Carbon Dioxide (test code = 2027-) 26 {mEq/l} 24-32 AGAP; Below Low Threshold (test code = 68995-0) 9.3 {mEq/l} 10.0-2 0.0 Calcium Level Total (test code = 70061-2) 8.8 mg/dl 8.5-10.5 eGFR (test code = 12985-8) 49 {ML/MIN/1.7} The eGFR is calculated using the CKD-EPI formula. In most young, healthyindividuals the eGFR will be >90 mL/min/1.73m2. The eGFR declines with age. AneGFR of 60-89 may be normal in some populations, particularly the elderly, forwhom the CKD-EPI formula has not been extensively validated. Use of the eGFR isnot recommended in the following populations:Individuals with unstable creatinine concentrations, including patients and those with serious co-morbid conditions.Patients with extremes in muscle mass or diet.The data above are obtained from the National Kidney Disease Education Program(NKDEP) which additionally recommends that when the eGFR is used in patientswith extremes of body mass index for purposes of drug dosing, the eGFR shouldbe multiplied by the estimated BMI. [facility][O] Urine Dipstick (In Office)2019-08-28 10:54:00 * Test Item Value Reference Range Interpretation Comments Glucose (test code = Glucose) neg N LEUKOCYTES (test code = LEUKOCYTES) + NITRITE; Normal (test code = 48277-6) neg N UROBILINOGEN; Normal (test code = 99467-1) neg N PROTEIN (test code = 54464-2) trace pH (test code = pH) 5 N URINE BLOOD; Normal (test code = 78034-4) neg N SPECIFIC GRAVITY; Normal (test code = 2965-2) 1.010 N KETONES; Normal (test code = 00387-0) neg N BILIRUBIN; Normal (test code = 13504-3) neg N COLOR URINE; Normal (test code = 5778-6) yellow N APPEARANCE; Normal (test code = 5767-9) clear N [facility] uni [id number] 13:41:00EXAM: XR RIGHT HIP 2 VIEW AND AP PELVISDATE: 08/21/2019 13:41 CDTINDICATION: - pain in right hipCOMPARISON: None.TECHNIQUE: 2 views of the hip, AP pelvisFINDINGS: No acute fracture or malalignment is identified. Degenerative changeof the bilateral sacroiliac joints noted. Hip joint spaces are preserved. Milddegenerat cristian changes of the bilateral hips.Incompletely evaluated mild to moderate degene rative changes of the lowerlumbar spine.Surgical clips are seen within the pelvi s, compatible with patient's history ofhysterectomy. Otherwise no acute soft tis reji abnormality identified.IMPRESSION: 1. Mild degenerative change of the bilat eral hips and bilateral sacroiliacjoints.2. No acute bony abnormality. MRI of t he hip may be considered if there is apersistent clinical concern.--This report was dictated by a Sales Representative Door To Door/Fellow/Physician Service Counselor. Pamela best yreviewed the images as well as the interpretation and agree with the findings.R ead by: Duc Kahn MD Resident/Fellow/PhysicianAssistant : Duc Kahn MDDictated Date/time: 08/21/19 14:02Electronically Signed by: Eliot Almendarez MD 08/21/1915:42FINAL REPORT [facility][U] XRAY KNEE 4 OR MORE VWS LEFT [id number] 10:20:00Images acquired, not reported on this accession number.[facility][Q] IRON, TIBC AND FERRITIN [id number] 15:51:00* Test Item Value Reference Range Interpretation Comments IRON, TOTAL (test code = IRON, TOTAL) 86 {mcg/dl} 45-160 N IRON BINDING CAPACITY (test code = IRON BINDING CAPACITY) 50 8 {mcg/dL ca} 250-450 % SATURATION (test code = % SATURATION) 17 {% CALC} 16-45 N FERRITIN (test code = FERRITIN) 48 ng/ml 16-288 N [facility][QLH] CMP W/[id number] 15:51:00* Test Item Value Reference Range Interpretation Comments GLUCOSE; Normal (test code = 1547-9) 88 mg/dl 65-139 N Non-fasting reference interval UREA NITROGEN (BUN) (test code = UREA NITROGEN (BUN)) 14 mg/dl 7-25 N CREATININE (test code = CREATININE) 0.99 mg/dl 0.60-0.93 For patients >49 years of age, the reference limitfor Creatinine is approximately 13% higher for peopleidentified as -Uz[place]. eGFR NON- (test code = eGFR NON-ADRIAN N CUBAN) 55 {ML/MIN/1.7} > OR = 60 eGFR (test code = eGFR ) 64 {ML/MIN/1.7} > OR = 60 N BUN/CREATININE RATIO (test code = BUN/CREATININE RATIO) 14 {CALC} 6-22 N SODIUM (test code = SODIUM) 138 mmol/L 135-146 N POTASSIUM (test code = POTASSIUM) 4.3 mmol/L 3.5-5.3 N CHLORIDE (test code = CHLORIDE) 104 mmol/L 98-110 N CARBON DIOXIDE (test code = CARBON DIOXIDE) 22 mmol/L 20-32 N CALCIUM (test code = CALCIUM) 9.3 mg/dl 8.6-10.4 N PROTEIN, TOTAL (test code = PROTEIN, TOTAL) 7.5 g/dl 6.1-8.1 N ALBUMIN (test code = ALBUMIN) 4.3 g/dl 3.6-5.1 N GLOBULIN (test code = GLOBULIN) 3.2 {G/DL CALC} 1.9-3.7 N ALBUMIN/GLOBULIN RATIO (test code = ALBUMIN/GLOBULIN RATIO) 1.3 {CALC} 1.0-2.5 N BILIRUBIN, TOTAL; Normal (test code = 31589-1) 0.7 mg/dl 0.2-1.2 N ALKALINE PHSPHATASE (test code = ALKALINE PHSPHATASE) 105 u/l 33-130 N AST; Normal (test code = 1916-6) 23 u/l 10-35 N ALT; Normal (test code = 1742-6) 14 u/l 6-29 N [facility][PENDING SALE TO [facility]] D-DIMER, [id number] 15:51:00* Test Item Value Reference Range Interpretation Comments D-DIMER, QUANTITATIVE (test code = D-DIMER, QUANTITATIVE) 1. 92 {mcg/mL FEU} <0.50 The D-Dimer test is used billy quently to excludean acute PE or DVT. In patients with a low tomoderate clinical risk assessment and a D-Dimerresult <0.50 mcg/mL FEU, the likelihood of a PEor DVT is very low. However, a thromboembolicevent should not be excluded solely on the basisof the D-Dimer level. Increased levels of D-Dimerare associated with a PE, DVT, DIC, malignancies,inflammation, sepsis, surgery, trauma, ,and advancing patient age.[Von 2006 11:295(2):199-207] For additional information, please refer to:[email or web address]://[email or web address].com/faq/[email or web address](This link is being provided for informational/educational purposes only) [facility][PENDING SALE TO [facility]] CBC (INCLUDES DIFF/PLT)2019-06-04 15:51:00* Test Item Value Reference Range Interpretation Comments WHITE BLOOD CELL COUNT (test code = WHITE BLOOD CELL COUNT) 5.8 {Thousand/u} 3.8-10.8 N RED BLOOD CELL COUNT (test code = RED BLOOD CELL COUNT) 4.34 {Million/uL} 3.80-5.10 N HEMAGLOBIN; Normal (test code = 98727-8) 12.2 g/dl 11.7-15.5 N HEMATOCRIT; Normal (test code = 4544-3) 35.9 % 35.0-45.0 N MCV; Normal (test code = 787-2) 82.7 fL 80.0-100.0 N MCHC; Normal (test code = 25409-4) 34.0 g/dl 32.0-36.0 N RDW; Above High Threshold (test code = 788-0) 15.7 % 11.0-15. 0 PLATELET COUNT; Normal (test code = 777-3) 154 {Thousand/u} 140-400 N MPV; Normal (test code = 81372-5) 12.2 fL 7.5-12.5 N ABSOLUTE NEUTROPHILS (test code = ABSOLUTE NEUTROPHILS) 3341 {cells/uL} 1540-8309 N ABSOLUTE LYMPHOCYTES (test code = ABSOLUTE LYMPHOCYTES) 1624 {cells/uL} 850-3900 N ABSOLUTE MONOCYTES (test code = ABSOLUTE MONOCYTES) 522 {cells/uL} 200-950 N ABSOLUTE EOSINOPHILS (test code = ABSOLUTE EOSINOPHILS) 232 {cells/ uL} 15-500 N ABSOLUTE BASOPHILS (test code = ABSOLUTE BASOPHILS) 81 {cells/uL} 0 -200 N NEUTROPHILS (test code = NEUTROPHILS) 57.6 % N LYMPHOCYTES (test code = LYMPHOCYTES) 28.0 % N MONOCYTES; Normal (test code = 07246-9) 9.0 % N EOSINOPHILS; Normal (test code = 59650-2) 4.0 % N BASOPHILS; Normal (test code = 50427-8) 1.4 % N [facility] 3VW LT - [id number] 20:12:00 [place] [address] Patient Name: BRENDA OLIVARES MR #: [id number] : 1940 Age/Sex: 78/F Req #: [id number] Adm Physician: Ordered by: NIRALI TYSON MD Report #: [id number] Location: [facility] Room/Bed: Procedure: 0704-0 010 HOPD/KNEE 3VW LT - HOPD Exam Date: 05/29/19 Exam Time: 1914 REPORT STATUS: Signed Left complete knee. CPT CODE: 95400. INDICATION: Slip and fall, pain and swelling COMPARISON: None FINDINGS: The bones are diffusely dale neralized. No evidence of acute fracture or dislocation. 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 No joint effusion. Subcutaneous soft tissue swelling along the medial aspect of the knee. IMPRESSION: No acute os seous injury. Soft tissue contusion of the medial aspect of the knee. No joint effusion. Signed by: Dr. Raquel Bolton MD on 05/29/2019 8:13 PM Dictated By: RAQUEL BOLTON MD 12 Transcribed By: MALI on 05/29/192012 COPY TO: NIRALI HEATH MD White Blood [id number] 14:32:00* Test Item Value Reference Range Interpretation Comments White Blood Count (test code = 6690-2) 4.82 4.8-10.8 [facility] [id number] 14:32:00* Test Item Value Reference Range Interpretation Comments Red Blood Count (test code = 789-8) 4.65 3.6-5.1 [facility]2019-[facility] 14:32:00* Test Item Value Reference Range Interpretation Comments Hemoglobin (test code = 11816-8) 12.8 12.0-16.0 [facility]2019-[facility]-07 14:32:00* Test Item Value Reference Range Interpretation Comments Hematocrit (test code = 4544-3) 39.5 34.2-44.1 [facility] Corpuscular [id number] 14:32:00* Test Item Value Reference Range Interpretation Comments Mean Corpuscular Volume (test code = 787-2) 84.9 81-99 [facility] [id number] 14:32:00* Test Item Value Reference Range Interpretation Comments Mean Corpuscular Hemoglobin (test code = 785-6) 27.5 28-32 L [facility] Hemoglobin Concent 2019-04-01 14:32:00* Test Item Value Reference Range Interpretation Comments Mean Corpuscular Hemoglobin Concent (test code = 786-4) 32.4 31-35 [facility] [id number] 14:32:00* Test Item Value Reference Range Interpretation Comments Red Cell Distribution Width (test code = 16978-8) 14.6 11.7 -14.4 H [facility]Platelet [id number] 14:32:00* Test Item Value Reference Range Interpretation Comments Platelet Count (test code = 777-3) 107 140-360 L [facility]ut[facility]ils (%) (Auto)2019-04-01 14:32:00 * Test Item Value Reference Range Interpretation Comments Neutrophils (%) (Auto) (test code = 35492-2) 53.8 38.7-80.0 [facility]ymph[facility] (%) (Auto)2019-04-01 14:32:00 * Test Item Value Reference Range Interpretation Comments Lymphocytes (%) (Auto) (test code = 736-9) 29.9 18.0-39.1 [facility] (%) (Auto)2019-04-01 14:32:00* Test Item Value Reference Range Interpretation Comments Monocytes (%) (Auto) (test code = 5905-5) 10.6 4.4-11.3 [facility] (%) (Auto)2019-04-01 14:32:00 * Test Item Value Reference Range Interpretation Comments Eosinophils (%) (Auto) (test code = 713-8) 4.1 0.0-6.0 [facility] (%) (Auto)2019-04-01 14:32:00* Test Item Value Reference Range Interpretation Comments Basophils (%) (Auto) (test code = 706-2) 1.2 0.0-1.0 H [facility]IM [facility]UL[facility]TES %2019-04-01 14:32:00* Test Item Value Reference Range Interpretation Comments IM GRANULOCYTES % (test code = IM GRANULOCYTES %) 0.4 0.0- 1.0 [facility]ut[facility]ils # (Auto)2019-04-01 14:32:00* Test Item Value Reference Range Interpretation Comments Neutrophils # (Auto) (test code = 751-8) 2.6 2.1-6.9 [facility]Lymph[facility] # (Auto)2019-04-01 14:32:00* Test Item Value Reference Range Interpretation Comments Lymphocytes # (Auto) (test code = 77105-0) 1.4 1.0-3.2 [facility] # (Auto)2019-04-01 14:32:00* Test Item Value Reference Range Interpretation Comments Monocytes # (Auto) (test code = 742-7) 0.5 0.2-0.8 [facility]osin[facility] # (Auto)2019-04-01 14:32:00* Test Item Value Reference Range Interpretation Comments Eosinophils # (Auto) (test code = 711-2) 0.2 0.0-0.4 [facility] # (Auto)2019-04-01 14:32:00* Test Item Value Reference Range Interpretation Comments Basophils # (Auto) (test code = 704-7) 0.1 0.0-0.1 [facility] HospitalAbsolute Immature Granulocyte (auto 2019-04-01 14:32:00* Test Item Value Reference Range Interpretation Comments Absolute Immature Granulocyte (auto (mahin t code = Absolute Immature Granulocyte (auto) 0.02 0-0.1 [facility]
--- OUTSIDE RECORDS SUMMARY | 2020-04-23 23:13 | XMS REPORT ---
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); (Active) * Insomnia (780.52); [...] DAILY DIRECTED; Start Date: 12/19/2013 (Active) * Livalo 1 MG Oral Tablet; TAKE 0.5 TABLET DAILY; Start Date: 03/16/2014 (Active) Allergies and Adverse Reactions * Iodine [...] Immunization * Fluzone Intramuscular Injectable (Lot #: [id number]) - Administered on: 08/22/2013 Family History * Maternal history of Cancer (Active) Social History * Never A Smoker (Active) * Never Drank Alcohol (Active) * Occupation: Retired (Active) Treatment Plan * [[facility]] TSH, 3RD GENERATION W/REFLEX TO FT4 09/30/2013 Routine Advance Directives * No Advance Directives available. Encounters * AUDIT 03/16/2014 * [facility], Provider: KALIN BESS, Status: Pen, Time: 11:15 AM 03/16/2014
--- OUTSIDE RECORDS SUMMARY | 2020-04-23 23:14 | XMS REPORT | Summary of Care ---
Author Author TANIA Caal, BRENDA Lacy Organization Unknown Address Unknown Phone Unavailable Care Team Providers Care Header Set Up Operator Name Role Phone TANIA Caal, ANNIE Unavailable Unavailable CALLUM Caal, NITHIN Unavailable Unavailable MICHELA Caal, THOR Unavailable Unavailab bismark SHEPPARD D.O., KIMBER Unavailable Unavailable JANAY BOSE, SALVADOR Unavailable Unavailable ARTURO Caal, MYKE Unavailable Unavailable JUAN Caal, PINEDA Unavailable Unavailable TANIA LOCKE [place], ANNIE YOBANI Unavailable Unavailable JANAY NOEP, SALVADOR T Unavailable Unavailable Callum LOCKE, Nithin Unavailable Unavailable JACINTA LOCEK, BALDEV Gutiérrez Unavailable Unavailable JEAN PAUL LOCKE, FIONA Lacy Unavailable Unavailable Michela LOCKE, Thor Unavailable Unavailable MARCUS NOEP-C, MARGIE D Unavailable Unavailable ARTURO LOCKE, SOLAFA Unavailable Unavailable AMAYA LOCKE [place], SHARRON S Unavailable Unavailable KRANTHI LOCKE [place], AKOSUA Chi Unavailable Unavailable JUAN LOCKE, PINEDA W Unavailable Unavailable UMER LOCKE IL, CHE ERNST Unavailable Unavailable VALARIE LAURENT IL, KIMBER Unavailable Unavailable VICENTE MEJIA 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) Status: Active Intermittent claudication (443.9, I73.9) Status: Active Vertebral fracture (805.8) Status: Active Asthma (493.90, J45.909) Status: Active Reactive airway disease (493.90, J45.909 ) Status: Active Neck pain (723.1, M54.2) Status: Active Vaginal atrophy (627.3, N95.2) Status: Active Fracture of right humerus (812.20, S42.3 01A) Status: Active Spontaneous bruising (782.7, R23.3) Status: Active Hip pain, acute, left (719.45, M25.552) Status: Active Leg pain, lateral, left (729.5, M79.605) Status: Active Right shoulder pain, unspecified chronic ity (719.41, M25.511) Status: Active Hot flashes (782.62, R23.2) Status: Active Cough (786.2, R05) Status: Active Leg cramps, sleep related (327.52, G47.6 2) Status: Active Disc degeneration (722.6) Status: Active Back pain (724.5, M54.9) Status: Active Left lumbar radiculopathy (724.4, M54.16 ) Status: Active Urinary frequency (788.41, R35.0) Status: Active Postmenopausal hormone replacement thera py (V07.4, Z79.890) Status: Active Hyponatremia (276.1, E87.1) Status: Active Hypokalemia (276.8, E87.6) Status: Active Grief (309.0, F43.21) Status: Active Atypical chest pain (786.59, R07.89) Status: Active Screening mammogram, encounter for (V76. 12, Z12.31) Status: Active Post-menopausal (V49.81, Z78.0) Status: [...] Active Acute pain of right shoulder (719.41, M2 5.511) Status: Active Pulmonary nodules (793.19, R91.8) Status: Active Allergic reaction to drug, initial encou nter (995.27, T78.40XA) Status: Active Drug eruption (693.0, L27.0) Status: Active On potassium sparing diuretic therapy (V 58.69, Z79.899) Status: Active Lightheadedness (780.4, R42) Status: [...] I10) Status: Active Acute gastritis without bleeding (535.00 , K29.00) Status: Active Finding of multiple premature atrial con tractions by electrocardiography (427.61, I49.1) Status: Active Low HDL (under 40) (272.5, E78.6) Status: Active Nausea (787.02, R11.0) Status: Active B12 deficiency anemia (281.1, D51.9) Status: Active Weight loss (783.21, R63.4) Status: Active Need for influenza vaccination (V04.81, Z23) Status: Active Statin intolerance (995.27, Z78.9) Status: Active Risk for falls (V15.88, Z91.81) Status: Active Abnormal mammogram (793.80, R92.8) Status: Active Nodular radiologic density (793.99, R93. 89) Status: Active IBS (irritable bowel syndrome) (564.1, K 58.9) Status: Active Major depressive disorder, recurrent, mo derate (296.32, F33.1) Status: Active Pelvic cramping (625.9, R10.2) Status: Active Acute UTI (599.0, N39.0) Status: Active Vitamin B12 deficiency (266.2, E53.8) Status: Active Seizure (780.39, R56.9) Status: Active Urinary tract infection (599.0, N39.0) Status: Active Medial epicondylitis of left elbow (726. 31, M77.02) Status: Active Chronic left shoulder pain (719.41, M25. 512) Status: Active Cervical radiculopathy, acute (723.4, M5 4.12) Status: Active Abdominal pain (789.00, R10.9) Status: Active Acid reflux disease (530.81, K21.9) Status: Active IBS (irritable bowel syndrome) (564.1, K 58.9) Status: Active Easy bruising (782.9, R23.8) Status: Active Pain of left knee after injury (719.46, M25.562) Status: Active Left knee pain, unspecified chronicity ( 719.46, M25.562) Status: Active Contusion, elbow, with forearm, right, i nitial encounter (923.10, S50.11XA) Status: Active Other sprain of right elbow, initial enc ounter (841.8, S53.491A) Status: Active Dyslipidemia (high LDL; low HDL) (272.4, E78.5) Status: Active LBBB (left bundle branch block) (426.3, I44.7) Status: Active Paroxysmal SVT (supraventricular tachyca rdia) (427.0, I47.1) Status: Active PVC (premature ventricular contraction) (427.69, I49.3) Status: Active Preop examination (V72.84, Z01.818) Status: Active Abnormal EKG (794.31, R94.31) Status: Active S/P coronary artery stent placement (V45 .82, Z95.5) Status: Active Therapeutic opioid-induced constipation (OIC) (564.09, K59.03) Status: Active Recurrent UTI (599.0, N39.0) Status: Active OAB (overactive bladder) (596.51, N32.81 ) Status: Active BMI 26.0-26.9,adult (V85.22, Z68.26) Status: Active 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, 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 Osteoarthritis of left knee (715.96, M17 .12) Status: Active Chronic insomnia (780.52, F51.04) Status: Active CAD S/P percutaneous coronary angioplast y (414.01, I25.10) Status: Active Pain in right hip (719.45, M25.551) Status: Active Osteoarthritis of hips, 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, M16.0) Status: Active Right inguinal pain (789.03, R10.31) Status: Active Influenza vaccination declined by patien t (V64.06, Z28.21) Status: Active Adult onset hypothyroidism (244.8, E03.8 ) Status: Active Essential hypertension (401.9, I10) Status: Active Mixed hyperlipidemia (272.2, E78.2) Status: Active Breast cancer screening (V76.10, Z12.39) Status: Active Muscle spasm of back (724.8, M62.830) Status: Active Soft tissue mass (729.99, M79.89) Status: Active Symptomatic varicose veins of both lower extremities (454.8, I83.893) Status: Active Varicose veins of both legs with edema ( 454.8, I83.893) Status: Active Paresthesia of both feet (782.0, R20.2) Status: Active Encounter for mini-mental status examina tion Status: Active At standard risk for fall (V15.88, Z91.8 1) Status: Active No impairment of memory (V49.89, Z78.9) Status: Active 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, 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: Active Standardized adult depression screening tool completed (Z13.31) Status: Active Overweight (BMI 25.0-29.9) Status: Active BMI 27.0-27.9,adult (V85.23, Z68.27) Status: [...] DAILY * Quantity: 1 Refills: 0 YEH D.KIMBER Bright * Start : 15-Jun-2014 Active 16 GM Bottle ProAir HFA 108 (90 Base) MCG/ACT Inhalation Aerosol Solution INHALE 1 TO 2 PUFFS EVERY 4 TO 6 HOURS NEEDED. * Quantity: 1 Refills: 3 YEH D.KIMBER Bright * Start : 16-Feb-2015 Active 8.5 GM [...] * Quantity: 60 Refills: 6 SALVADOR GUSTAFSON APRN * Start : 21-May-2017 Active Spironolactone 25 [...] EVERY DAY * Quantity: 90 Refills: 3 ELIAS ABERNATHY M.D.S * Start : 22-May-2018 Active Dicyclomine HCl - 10 MG Oral Capsule TAKE 1 CAPSULE TWICE DAILY * Quantity: 60 Refills: 11 NITHIN NOLEN M.D. * Start : 11-Jul-2018 Active Rfsje-5-jfet Ethyl Esters 1 GM Oral Capsule TAKE [...] AFFECTED JOINT. * Quantity: 1 Refills: 5 VALARIE D.KIMBER Bright * Start : 21-Aug-2019 Active 100 GM Tube Trospium Chloride ER 60 MG Oral Capsule Extended Release 24 Hour TAKE 1 CAPSULE Daily in the am * Quantity: 30 Refills: 2 MYKE MORRIS M.D. * Start : 29-Aug-2019 Active Vascepa 1 GM Oral Capsule TAKE 1 CAPSULE TWICE DAILY * Quantity: 180 Refills: 1 THOR ABERNATHY M.D. * Start : 09-Jan-2020 Active tiZANidine HCl - 2 MG Oral Tablet TAKE 1 OR 2 at BEDTIME * Quantity: 60 Refills: 1 ANNIE MARIN M.D. * Start : 22-Dec-2019 Active Allergies and Adverse Reactions Name Dates Details amlodipine (Allergy) Reaction: Nausea Status: Active Codeine Derivatives (Allergy) Status: Ac tive Demerol SOLN (Allergy) Status: Active Isosorbide Mononitrate TABS (Allergy) St atus: Active metoprolol (Allergy) Status: Active Penicillins (Allergy) Status: Active Sulfa Drugs (Allergy) Status: Active Iodine (Allergy) Status: Active Past Medical History Name Dates Details History of acute pharyngitis (V12.69, Z8 7.09) Status: Resolved History of Arthralgia of hip (719.45, M2 5.559) Status: Resolved History of Burning with urination (788.1 , R30.0) Status: Resolved History of Diverticulitis of colon (562. 11, K57.32) Status: Resolved History of high cholesterol (V12.29, Z86 .39) Status: Resolved History of hypertension (V12.59, Z86.79) Status: Resolved History of Hypertriglyceridemia (272.1, E78.1) Status: Resolved History of hypothyroidism (V12.29, Z86.3 9) Status: Resolved History of kidney disease (V13.09, Z87.4 48) Status: Resolved History of thyroid disease (V12.29, Z86. 39) Status: Resolved History of urinary frequency (V13.09, Z8 7.898) Status: Resolved Procedures Procedure Dates Details [QH] LIPID PANEL WITH REFLEX TO DIRECT LDL Date: 09-Jan-2020 [QLH] CMP W/EGFR Date: 09-Jan-2020 [facility] Digital Mammo Screening Claudio G0202 Date: 22-Dec-2019 History of Appendectomy Completed History of Cholecystectomy Completed History of Oophorectomy - Bilat (Removal Of Both Ovaries) La paroscopic Completed History of Knee Surgery Left Completed History of Knee Surgery Right Completed History of Shoulder Surgery Left Complet ed History of Shoulder Surgery Right Comple misti History of Back Surgery Completed History of Back Surgery Completed History of Esophagogastric Fundoplasty Gómez Fundoplication Completed History of Hysterectomy Completed History of Shoulder Surgery Completed History of Hand Surgery Completed History of Arterial stent placement Comp leted Immunization Name Dates Details Hepatitis A on: 20-Apr-2009 Td on: 20-Apr-2009 Hepatitis A on: 06-Dec-2009 Pneumococcal polysaccharide vaccine, 23 valent on: 06-Dec-2009 Fluzone INJ Lot #: [id number] on: 22-Aug-2013 Influenza on: Aug-2014 Prevnar 13 Intramuscular Suspension Lot #: [id number] on: 30-Mar-2015 Zoster (Zostavax) on: 26-Apr-2015 Influenza on: 26-Aug-2015 Fluzone Quadrivalent 0.5 ML Intramuscula r Suspension on: 25-Aug-2016 Fluzone High-Dose 0.5 ML Intramuscular S uspension Prefilled Syringe on: 17-Aug-2017 Fluzone Quadrivalent 0.5 ML Intramuscula r Suspension Lot #: [id number] on: 05-Aug-2018 Shingrix 50 MCG Intramuscular Suspension Reconstituted on: 26-Mar-2019 Shingrix 50 MCG Intramuscular Suspension Reconstituted on: 26-Jun-2019 Influenza on: 26-Oct-2019 Family History Name Dates Details Family history of bipolar disorder (V17. 0, Z81.8) Status: Active Name Dates Details Family history of Cancer Status: Active Family history of bipolar disorder (V17. 0, Z81.8) Status: Active Family history of gastroesophageal reflu x disease (V18.59, Z83.79) Status: Active Name Dates Details Family history of gout (V18.19, Z82.69) Status: Active Family history of hypertension (V17.49, Z82.49) Status: Active Family history of rheumatoid arthritis ( V17.7, Z82.61) Status: Active Family history of chest pain (V19.8, Z84 .89) Status: Active Family history of malignant neoplasm (V1 6.9, Z80.9) Status: Active Name Dates Details Family history of osteopenia (V17.89, Z8 2.69) Status: Active Family history of osteoporosis (V17.81, Z82.62) Status: Active Social History Name Dates Details - Status: Name Dates Details Never smoked tobacco (finding) Vital Signs Date Test Result Details No Known Vitals to report Results Date Description Value Details Results not documented Plan of Care Name Dates Details Planned Observations MA Digital Mammo Screening Claudio G0202 On: 22-Dec-2019 Intent Planned Goals not documented Planned Encounters Appointment; THOR ABERNATHY M .D. On: 23-Jan-2020 12:00 Appointment; ANNIE MARIN M.D. On: 13-Feb-2020 10:00 Appointment; THOR ABERNATHY M .D. On: 18-Feb-2020 14:40 Interventions Provided Medication Changes* Spironolactone 25 MG Oral Tablet - Renew * Synthroid 112 MCG Oral Tablet - Renew * tiZANidine HCl - 2 MG Oral Tablet - Start Labs/Procedures/Imaging* [O] Urine Dipstick (In Office); Done: 28 Jan 2019 Instructions* Patient Specific Education Given; Done: 28 Jan 2019 Instructions Name Dates Details Instructions not documented Encounters Appointment; KIMBER SHEPPARD D.O. Encounter Diagnosis: Problem [...] documented On: 20-May-2018 13:00 Appointment; THOR ABERNATHY M .D. Encounter Diagnosis: Problem not documented On: 22-May-2018 16:40 Appointment; [facility] Encounter Diagnosis: Problem not documented On: 27-May-2018 14:00 Appointment; THOR ABERNATHY M .D. Encounter Diagnosis: Problem not documented On: 18-Jun-2018 [...] documented On: 28-Nov-2018 11:00 Appointment; SALVADOR GUSTAFSON APRN Encounter Diagnosis: Problem not documented On: 28-Nov-2018 11:00 Appointment; BALDEV WORKMAN M.D. Encounter Diagnosis: Problem not documented On: 29-Nov-2018 11:15 Appointment; NITHIN NOLEN M.D. Encounter Diagnosis: Problem not documented On: 08-Jan-2019 11:30 Appointment; FIONA REAVES M.D. Encounter Diagnosis: Problem not documented On: 11-Jan-2019 10:45 Appointment; ANNIE MARIN M.D. Encounter Diagnosis: Problem not documented On: 28-Jan-2019 10:00
--- OUTSIDE RECORDS SUMMARY | 2020-04-23 23:14 | XMS REPORT | Summary of Care ---
Author Author TANIA Caal, BRENDA Lacy Organization Unknown Address Unknown Phone Unavailable Care Team Providers Care Surveillance System Monitor Name Role Phone TANIA Caal, ANNIE Unavailable Unavailable CALLUM Caal, NITHIN Unavailable Unavailable MICHELA Caal, THOR Unavailable Unavailab bismark SHEPPARD D.O., KIMBER Unavailable Unavailable JANAY BOSE, SALVADOR Unavailable Unavailable ARTURO Caal, MYKE Unavailable Unavailable JUAN Caal, PINEDA Unavailable Unavailable TANIA LOCKE RI, ANNIE YOBANI Unavailable Unavailable JANAY NOEP, SALVADOR T Unavailable Unavailable Callum LOCKE, Nithin Unavailable Unavailable JACINTA LOCKE, BALDEV Gutiérrez Unavailable Unavailable JEAN PAUL LOCKE, FIONA Lacy Unavailable Unavailable Michela LOCKE, Thor Unavailable Unavailable MARCUS NOEP-C, MARGIE D Unavailable Unavailable ARTURO LOCKE, SOLAFA Unavailable Unavailable AMAYA LOCKE RI, SHARRON S Unavailable Unavailable KRANTHI LOCKE RI, AKOSUA Chi Unavailable Unavailable JUAN LOCKE, PINEDA W Unavailable Unavailable UMER LOCKE RI, CHE ERNST Unavailable Unavailable VALARIE LAURENT RI, KIMBER Unavailable Unavailable VICENTE ME[facility]IA [facility] RNBC CPN, KOREY Unavailable Unav monster [...] Active Acute UTI (599.0, N39.0) Status: Active Seizure (780.39, R56.9) Status: Active Medial epicondylitis of left elbow [...] Right inguinal pain (789.03, R10.31) Status: Active CAD S/P percutaneous coronary angioplast y (414.01, I25.10) Status: Active Pain in right hip (719.45, M25.551) Status: Active Osteoarthritis of hips, 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, M16.0) Status: Active Influenza vaccination declined by patien t (V64.06, Z28.21) Status: Active Breast cancer screening (V76.10, Z12.39) [...] Status: Active Overweight (BMI 25.0-29.9) Status: Active Stage 3a chronic kidney disease (585.3, N18.3) Status: Active Hypertriglyceridemia (272.1, 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 Adult onset hypothyroidism (244.8, E03.8 ) Status: Active Mixed hyperlipidemia (272.2, E78.2) Status: Active Frequent urinary tract infections (599.0 , N39.0) Status: Active Essential hypertension (401.9, I10) Status: Active Vitamin B12 deficiency (266.2, E53.8) Status: Active BMI 27.0-27.9,adult (V85.23, Z68.27) Status: Active Chronic kidney disease, stage 3a (585.3, N18.3) Status: Active Overweight (278.02, E66.3) Status: Active Medications Name Dates Details Vitamin [...] * Quantity: 1 Refills: 3 YEH D.O., JAIRBIBN * Start : 16-Feb-2015 Active 8.5 GM [...] NOLEN M.D. * Start : 11-Jul-2018 Active Yjdsu-6-wcwt Ethyl Esters 1 GM Oral Capsule TAKE [...] the am * Quantity: 30 Refills: 2 VIKY MORRIS M.D.AFTrinidad * Start : 29-Aug-2019 Active Vascepa 1 [...] valent on: 06-Dec-2009 Fluzone INJ Lot #: [id number] on: 22-Aug-2013 Influenza on: Aug-2014 Prevnar 13 Intramuscular Suspension Lot #: [id number] on: 30-Mar-2015 Zoster (Zostavax) on: 26-Apr-2015 Influenza on: 26-Aug-2015 Fluzone Quadrivalent 0.5 ML Intramuscula r Suspension on: 25-Aug-2016 Fluzone High-Dose 0.5 ML Intramuscular S uspension Prefilled Syringe on: 17-Aug-2017 Fluzone Quadrivalent 0.5 ML Intramuscula r Suspension Lot #: [id number] on: 05-Aug-2018 Shingrix 50 MCG Intramuscular Suspension [...] Dipstick (In Office); Done: 28 Jan 2019 * Tobacco Use Screening; Done: 21 Jan 2020 * Tobacco Use Screening; Done: 21 Jan 2020 Instructions* Patient Specific Education Given; Done: 28 Jan 2019 Plan* Review and discussion with patient results of lab performed 01/08/2019 and 01/11/2019. * Urinalysis in office: Normal * Urine specimen submitted to lab for culture and sensitivity to determine eradication status of UTI. * For mixed hyperlipidemia with low HDL in patient intolerant of statins: * -Start ezetimibe 10 mg 1 p.o. daily. * -Continue Lovaza 2 g twice daily for hypertriglyceridemia * -Recheck lipid panel in 3 months * For hypothyroidism on levothyroxine with borderline elevation of TSH but normal free T4 and in in the setting of 78-year-old patient with coronary artery disease and cardiac arrhythmia, I advised no increase in the dose of Synthroid at this time and remain on the 112 mcg daily and monitor with repeat TFTs in 3 months. * For history of frequent and recurrent UTIs despite use of topical estrogen: * -Discussed use of prophylactic oral antibiotic and prescribed cephalexin 250 mg every other day and monitor closely. * -Evaluation by urogynecology. Instructions Name Dates Details Instructions not documented [...] 22-May-2018 16:40 Appointment; [facility] Encounter Diagnosis: Problem not documented On: 27-May-2018 [...]
--- OUTSIDE RECORDS SUMMARY | 2020-04-23 23:15 | XMS REPORT | Summary of Care ---
Author Author TANIA Caal, BRENDA Lacy Organization Unknown Address Unknown Phone Unavailable Care Team Providers Care Application Development Specialist Name Role Phone TANIA Caal, ANNIE Unavailable Unavailable CALLUM Caal, NITHIN Unavailable Unavailable MICHELA Caal, THOR Unavailable Unavailab bismark SHEPPARD D.O., KIMBER Unavailable Unavailable JANAY BOSE, SALVADOR Unavailable Unavailable ARTURO Caal, MYKE Unavailable Unavailable JUAN Caal, PINEDA Unavailable Unavailable TANIA LOCKE OR, ANNIE YOBANI Unavailable Unavailable JANAY NOEP, SALVADOR T Unavailable Unavailable Callum LOCKE, Nithin Unavailable Unavailable JACINTA LOCKE, BALDEV Gutiérrez Unavailable Unavailable JEAN PAUL LOCKE, FIONA Lacy Unavailable Unavailable Michela LOCKE, Thor Unavailable Unavailable MARCUS NOEP-C, MARGIE D Unavailable Unavailable ARTURO LOCKE, SOLAFA Unavailable Unavailable AMAYA LOCKE OR, SHARRON S Unavailable Unavailable KRANTHI LOCKE OR, AKOSUA Chi Unavailable Unavailable JUAN LOCKE, PINEDA W Unavailable Unavailable UMER LOCKE OR, CHE ERNST Unavailable Unavailable VALARIE LAURENT OR, KIMBER Unavailable Unavailable VICENTE MEJIA [facility] RNBC CPN, KOREY Unavailable Unav monster [...] of both feet (782.0, R20.2) Status: Active At standard risk for fall (V15.88, Z91.8 1) Status: Active 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, [...] Status: Active Overweight (278.02, E66.3) Status: Active No impairment of memory (V49.89, Z78.9) Status: Active Encounter for mini-mental status examina tion Status: Active Medications Name Dates Details Vitamin [...] * Quantity: 1 Refills: 0 YEH D.O., JAIRBIBN * Start : 15-Jun-2014 Active 16 GM Bottle ProAir HFA 108 (90 Base) MCG/ACT Inhalation Aerosol Solution INHALE 1 TO 2 PUFFS EVERY 4 TO 6 HOURS NEEDED. * Quantity: 1 Refills: 3 YEH D.O., JAIR-MARCIO * Start : 16-Feb-2015 Active 8.5 GM [...] NOLEN M.D. * Start : 11-Jul-2018 Active Xevoa-8-mdgx Ethyl Esters 1 GM Oral Capsule TAKE [...] valent on: 06-Dec-2009 Fluzone INJ Lot #: [id number] on: 22-Aug-2013 Influenza on: Aug-2014 Prevnar 13 Intramuscular Suspension Lot #: [id number] on: 30-Mar-2015 Zoster (Zostavax) on: 26-Apr-2015 Influenza on: 26-Aug-2015 Fluzone Quadrivalent 0.5 ML Intramuscula r Suspension on: 25-Aug-2016 Fluzone High-Dose 0.5 ML Intramuscular S uspension Prefilled Syringe on: 17-Aug-2017 Fluzone Quadrivalent 0.5 ML Intramuscula r Suspension Lot #: [id number] on: 05-Aug-2018 Shingrix 50 MCG Intramuscular Suspension [...] day and monitor closely. * -Evaluation by urogynecology advised. * Lab ordered to be performed in 3 months: TSH, free T3, free T4, methylmalonic acid, lipid panel and serum vitamin B12. * Return to clinic in 3 months following the lab draw or sooner if needed Instructions Name Dates Details Instructions not documented [...] Problem not documented On: 22-May-2018 16:40 Appointment; [facility] Encounter Diagnosis: Problem not documented On: [...]
--- OUTSIDE RECORDS SUMMARY | 2020-04-23 23:15 | XMS REPORT | Summary of Care ---
Author Author BRENDA Kam R.N. Organization Unknown Address Unknown Phone Unavailable Care Team Providers Care Guest Relations Associate Name Role Phone TANIA Caal, ANNIE Unavailable Unavailable CALLUM Caal, NITHIN Unavailable Unavailable MICHELA Caal, THOR Unavailable Unavailab bismark SHEPPARD D.O., JAIR-MARCIO Unavailable Unavailable OBONYDONELL CHANNEL CEMENTER, SALVADOR Unavailable Unavailable Negin Bruce, Cass Unavailable Unavailable ARTURO Caal, MYKE Unavailable Unavailable JUAN Caal, PINEDA Unavailable Unavailable TANIA LOCKE CA, ANNIE YOBANI Unavailable Unavailable JESSICAONYDONELL NOEP, SALVADOR T Unavailable Unavailable Callum LOCKE, Nithin Unavailable Unavailable JACINTA LOCKE, BALDEV Gutiérrez Unavailable Unavailable JEAN PAUL LOCKE, FIONA Lacy Unavailable Unavailable Michela LOCKE, Thor Unavailable Unavailable VELAZQUEZ SCANNING COORDINATOR-C, MARGIE D Unavailable Unavailable ARTURO LOCKE, MYKE Unavailable Unavailable AMAYA LOCKE CA, SHARRON S Unavailable Unavailable KRANTHI LOCKE CA, AKOSUA Chi Unavailable Unavailable JUAN LOCKE, PINEDA W Unavailable Unavailable UMER LOCKE CA, CHE ERNST Unavailable Unavailable VALARIE LAURENT UT, KIMBER Unavailable Unavailable VICENTE EMJIA [facility] RNBC CPN, KOREY Unavailable Unav leonorable LIBIA LOCKE, ADY Unavailable Unavailable Unavailable Unavailable [...] for mini-mental status examina tion Status: Active Partial small bowel obstruction (560.9, K56.600) Status: Active Pancreatitis (577.0, K85.90) Status: Active Dehydration (276.51, E86.0) Status: Active Medications Name Dates Details Vitamin [...] * Quantity: 1 Refills: 0 YEH D.O., JAIR-MARCIO * Start : 15-Jun-2014 Active 16 GM [...] NOLEN M.D. * Start : 11-Jul-2018 Active Mnzcq-8-wwgv Ethyl Esters 1 GM Oral Capsule TAKE [...] am * Quantity: 30 Refills: 2 ARTURO Caal SOLAFA * Start : 29-Aug-2019 Active tiZANidine HCl [...] valent on: 06-Dec-2009 Fluzone INJ Lot #: [id number] on: 22-Aug-2013 Influenza on: Aug-2014 Prevnar 13 Intramuscular Suspension Lot #: [id number] on: 30-Mar-2015 Zoster (Zostavax) on: 26-Apr-2015 Influenza on: 26-Aug-2015 Fluzone Quadrivalent 0.5 ML Intramuscula r Suspension on: 25-Aug-2016 Fluzone High-Dose 0.5 ML Intramuscular S uspension Prefilled Syringe on: 17-Aug-2017 Fluzone Quadrivalent 0.5 ML Intramuscula r Suspension Lot #: [id number] on: 05-Aug-2018 Shingrix 50 MCG Intramuscular Suspension [...] (finding) Vital Signs Date Test Result Details :55 Systolic blood pressure 159 mm[Hg] Status: Comments : Location: LUE; Position: Sitting Diastolic blood pressure 75 mm[Hg] Status: Comment s: Location: LUE; Position: Sitting [id number] Systolic blood pressure 159 mm[Hg] Status: Comments : Location: LUE; Position: Sitting Diastolic blood pressure 73 mm[Hg] Status: Comment s: Location: LUE; Position: Sitting Weight 157 lb Status: Body mass index (BMI) [Ratio] 26.13 kg/m2 Status: Body surface area Derived from formula 1.78 m2 S tatus: Body height 65 in Status: Body temperature 98.4 f Status: Comments: Me thod: Temporal Heart Rate 69 /min Status: Respiratory rate 15 /min Status: Results Date Description Value Details [id number] [O] Urine Dipstick (In Office) Glucose neg (Normal) LEUKOCYTES neg (Normal) NITRITE neg (Normal) UROBILINOGEN neg (Normal) PROTEIN trace pH 6 (Normal) URINE BLOOD neg (Normal) SPECIFIC GRAVITY 1.010 (Normal) KETONES neg (Normal) BILIRUBIN neg (Normal) COLOR URINE yellow (Normal) APPEARANCE clear (Normal) Plan of Care Name Dates Details Planned Observations Planned Goals not documented Planned Encounters Appointment; DANE ELDER M.D. On: 26-Jan-2020 13:45 Appointment; ANNIE MARIN M.D. On: 13-Feb-2020 10:00 Appointment; THOR ABERNATHY M .D. On: 18-Feb-2020 14:40 Interventions Provided Discussion/Summary* Guideline Used: * Other: New Rx * Intended Caller Action: * Other: receive medication Instructions Name Dates Details Instructions not documented [...] On: 22-May-2018 16:40 Appointment; [facility] Encounter Diagnosis: Problem not documented [...] not documented On: 29-Nov-2018 11:15 Appointment; NITHIN NOELN M.D. Encounter Diagnosis: Problem not documented On: 08-Jan-2019 11:30 Appointment; FIONA REAVES M.D. Encounter Diagnosis: Problem not documented On: 11-Jan-2019 10:45 Appointment; ANNIE MARIN M.D. Encounter Diagnosis: Problem not documented On: 28-Jan-2019 10:00 Appointment; ANNIE MARIN M.D. Encounter Diagnosis: Problem not documented On: 28-Jan-2019 10:00 Appointment; ANNIE MARIN M.D. Encounter Diagnosis: Problem not documented On: 06-Feb-2019 15:45 Appointment; THOR ABERNATHY M .D. Encounter Diagnosis: Problem not documented On: 18-Feb-2019 12:00 Appointment; MARGIE VELAZQUEZ APRN Encounter Diagnosis: Problem not documented On: 12-Mar-2019 12:30 Appointment; MYKE MORRIS M.D. Encounter Diagnosis: Problem not documented On: 27-Mar-2019 11:00 Appointment; MYKE MORRIS M.D. Encounter Diagnosis: Problem not documented On: 01-May-2019 14:00 Appointment; PINEDA MARTINEZ M.D. Encounter Diagnosis: Problem not documented On: 13-May-2019 13:00 Appointment; PINEDA MARTINEZ M.D. Encounter Diagnosis: Problem not documented On: 03-Jun-2019 13:00 Appointment; KOREY ZHANG APRN Encounter Diagnosis: Problem not documented On: 04-Jun-2019 15:00 Appointment; MARTINEZ, PINEDA, M.D. Encounter Diagnosis: Problem not documented On: 05-Jun-2019 8:00 Appointment; AKOSUA CRISOSTOMO M.D. Encounter Diagnosis: Problem not documented On: 06-Jun-2019 10:00 Appointment; THOR ABERNATHY M .D. Encounter Diagnosis: Problem not documented On: 11-Jun-2019 13:40 Appointment; [facility] Encounter Diagnosis: Problem not documented On: 17-Jun-2019 8:00 Appointment; THOR ABERNATHY M .D. Encounter Diagnosis: Problem not documented On: 17-Jun-2019 12:20 Appointment; DARRON LIRIANO M.D. Encounter Diagnosis: Problem not documented On: 11-Jul-2019 11:15 Appointment; THOR ABERNATHY M .D. Encounter Diagnosis: Problem not documented On: 22-Jul-2019 14:20 Appointment; KIMBER SHEPPARD D.O. Encounter Diagnosis: Problem not documented On: 21-Aug-2019 13:00 Appointment; ANNIE MARIN M.D. Encounter Diagnosis: Problem not documented On: 28-Aug-2019 10:30 Appointment; MYKE MORRIS M.D. Encounter Diagnosis: Problem not documented On: 29-Aug-2019 9:30 Appointment; ANNIE MARIN M.D. Encounter Diagnosis: Problem not documented On: 22-Dec-2019 14:15 Appointment; ANNIE MARIN M.D. Encounter Diagnosis: Problem not documented On: 23-Jan-2020 14:45
--- OUTSIDE RECORDS SUMMARY | 2020-04-23 23:15 | XMS REPORT | Summary of Care ---
Author Author BRENDA Acosta R.N. Organization Unknown Address Unknown Phone Unavailable Care Team Providers Care Winder Operator Name Role Phone TANIA Caal, ANNIE Unavailable Unavailable CALLUM Caal, NITHIN Unavailable Unavailable MIHCELA Caal, THOR Unavailable Unavailab bismark SHEPPARD D.O., KIMBER Unavailable Unavailable JANAY BOSE, SALVADOR Unavailable Unavailable ARTURO Caal, MYKE Unavailable Unavailable JUAN Caal, PINEDA Unavailable Unavailable TANIA LOCKE CT, ANNIE YOBANI Unavailable Unavailable JANAY NOEP, SALVADOR T Unavailable Unavailable Callum LOCKE, Nithin Unavailable Unavailable JACINTA LOCKE, BALDEV Gutiérrez Unavailable Unavailable JEAN PAUL LOCKE, FIONA Lacy Unavailable Unavailable Michela LOCKE, Thor Unavailable Unavailable MARCUS NOEP-C, MARGIE D Unavailable Unavailable ARTURO LOCKE, SOLAFA Unavailable Unavailable AMAYA LOCKE CT, SHARRON S Unavailable Unavailable KRANTHI LOCKE CT, AKOSUA Chi Unavailable Unavailable JUAN LOCKE, PINEDA W Unavailable Unavailable UMER LOCKE CT, CHE ERNST Unavailable Unavailable VALARIE LAURENT CT, KIMBER Unavailable Unavailable VICENTE MEJIA 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, M16.0) Status: Active Influenza vaccination declined by patien t (V64.06, Z28.21) Status: Active Varicose veins of both legs with edema ( 454.8, I83.893) Status: Active Muscle spasm of back (724.8, M62.830) Status: Active Soft tissue mass (729.99, M79.89) Status: Active Paresthesia of both feet (782.0, R20.2) Status: Active Symptomatic varicose veins of both lower extremities (454.8, I83.893) Status: Active 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, 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: Active Breast cancer screening (V76.10, Z12.39) Status: Active At standard risk for fall (V15.88, Z91.8 1) Status: Active Standardized adult depression screening tool completed (Z13.31) Status: Active Overweight (BMI 25.0-29.9) Status: Active Stage 3a chronic kidney disease (585.3, N18.3) Status: Active Hypertriglyceridemia (272.1, 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 Adult onset hypothyroidism (244.8, E03.8 ) Status: Active Mixed hyperlipidemia (272.2, E78.2) Status: Active Essential hypertension (401.9, I10) Status: Active Chronic kidney disease, stage 3a (585.3, N18.3) Status: Active Vitamin B12 deficiency (266.2, E53.8) Status: Active Frequent urinary tract infections (599.0 , N39.0) Status: Active BMI 27.0-27.9,adult (V85.23, Z68.27) Status: Active Overweight (278.02, E66.3) Status: Active [...] * Quantity: 60 Refills: 6 JESSICAONYSALVADOR MARLEY APRN * Start : 21-May-2017 Active Spironolactone [...] TWICE DAILY * Quantity: 60 Refills: 11 NTIHIN NOLEN M.D. * Start : 11-Jul-2018 Active Wtmth-3-yvxd Ethyl Esters 1 GM Oral Capsule TAKE [...] MORRIS M.D.AFTrinidad * Start : 29-Aug-2019 Active tiZANidine HCl [...] valent on: 06-Dec-2009 Fluzone INJ Lot #: [id number] on: 22-Aug-2013 Influenza on: Aug-2014 Prevnar 13 Intramuscular Suspension Lot #: [id number] on: 30-Mar-2015 Zoster (Zostavax) on: 26-Apr-2015 Influenza on: 26-Aug-2015 Fluzone Quadrivalent 0.5 ML Intramuscula r Suspension on: 25-Aug-2016 Fluzone High-Dose 0.5 ML Intramuscular S uspension Prefilled Syringe on: 17-Aug-2017 Fluzone Quadrivalent 0.5 ML Intramuscula r Suspension Lot #: [id number] on: 05-Aug-2018 Shingrix 50 MCG Intramuscular Suspension [...] (finding) Vital Signs Date Test Result Details [id number] Systolic blood pressure 159 mm[Hg] Status: Comments [...] /min Status: Results Date Description Value Details Results not documented Plan of Care Name Dates Details Planned Observations Planned Goals not documented Planned Encounters Appointment; ANNIE MARIN M.D. On: 13-Feb-2020 10:00 Appointment; THOR ABERNATHY M .D. On: 18-Feb-2020 14:40 Instructions Name Dates Details [...] Problem not documented On: 28-Mar-2018 10:30 Appointment; [facility] Encounter Diagnosis: Problem not [...] Problem not documented On: 22-May-2018 16:40 [facility] Diagnosis: Problem not documented On: 27-May-2018 [...] not documented On: 06-Jun-2019 10:00 Appointment; THOR ABERNATYH M .D. Encounter Diagnosis: Problem not documented On: 11-Jun-2019 13:40 Appointment; [facility] Encounter Diagnosis: Problem not documented [...]
--- OUTSIDE RECORDS SUMMARY | 2020-04-23 23:15 | XMS REPORT | Summary of Care ---
Author Author JAEL Caal, BRENDA Lacy Organization Unknown Address Unknown Phone Unavailable Care Team Providers Care Certified Prosthetist Vice President Name Role Phone JAEL Caal, DANE Unavailable Unavailable TANIA Caal, ANNIE Unavailable Unavailable CALLUM Caal, NITHIN Unavailable Unavailable MICHELA Caal, THOR Unavailable Unavailab bismark SHEPPARD D.OAntonia, JAIR-MARCIO Unavailable Unavailable JANAY BOSE, SALVADOR Unavailable Unavailable ARTURO Caal, MYKE Unavailable Unavailable JUAN Caal, PINEDA Unavailable Unavailable TANIA LOCKE [place], ANNIE YOBANI Unavailable Unavailable JANAY ECKERT, SALVADOR T Unavailable Unavailable Callum LOCKE, Nithin Unavailable Unavailable JACINTA LOCKE, BALDEV Gutiérrez Unavailable Unavailable JEAN PAUL LOCKE, FIONA Lacy Unavailable Unavailable Michela LOCKE, Thor Unavailable Unavailable MARCUS REEL AND REWINDER OPERATOR-C, MARGIE D Unavailable Unavailable ARTURO LOCKE, MYKE Unavailable Unavailable AMAYA LOCKE [place], SHARRON S Unavailable Unavailable KRANTHI LOCKE [place], AKOSUA Chi Unavailable Unavailable JUAN LOCKE, PINEDA W Unavailable Unavailable UMER LOCKE [place], CHE ERNST Unavailable Unavailable VALARIE LAURENT UT, KIMBER Unavailable Unavailable VICENTE MEJIA [facility] RNBC CPN, KOREY Unavailable Unav monster REZA [...] M16.0) Status: Active Influenza vaccination declined by libia t (V64.06, Z28.21) Status: Active Varicose veins of both legs with edema ( 454.8, I83.893) Status: Active Muscle spasm of back (724.8, M62.830) Status: Active Soft tissue mass (729.99, M79.89) Status: Active Breast cancer screening (V76.10, Z12.39) Status: Active Symptomatic varicose veins of both lower extremities (454.8, I83.893) Status: Active Paresthesia of both [...] tract infections (599.0 , N39.0) Status: Active Vitamin B12 deficiency (266.2, E53.8) Status: Active BMI 27.0-27.9,adult (V85.23, Z68.27) Status: Active Chronic kidney disease, stage 3a (585.3, N18.3) Status: Active Overweight (278.02, E66.3) Status: Active No impairment of memory (V49.89, Z78.9) Status: Active Encounter for mini-mental status examina tion Status: Active Pancreatitis (577.0, K85.90) Status: Active Dehydration (276.51, E86.0) Status: Active Partial small bowel obstruction (560.9, K56.600) Status: Active Chronic constipation (564.00, K59.09) Status: Active Chronic, continuous use of opioids (305. 51, F11.90) Status: Active Essential hypertension (401.9, I10) Status: Active Hospital discharge follow-up (V67.59, Z0 9) Status: Active Medications Name Dates Details Vitamin [...] DAILY * Quantity: 1 Refills: 0 YEH D.Nelia.KIMBER * Start : 15-Jun-2014 Active 16 GM [...] DAILY * Quantity: 60 Refills: 6 JANAY BENSONNSALVADOR * Start : 21-May-2017 Active Spironolactone 25 MG Oral Tablet TAKE 1/2 TABLET BY MOUTH EVERY DAY * Quantity: 45 Refills: 1 ANNIE MARIN M.D. * Start : 19-Jun-2017 Active Omeprazole 40 MG Oral Capsule Delayed Release TAKE 1 TABLET DAILY as needed * Refills: 0 NITHIN NOLEN M.D. * Start : 27-Dec-2017 Active NIFEdipine ER 30 MG Oral Tablet Extended Release 24 Hour TAKE 1 TABLET DAILY. * Refills: 0 THOR ABERNATHY M.D. * Start : 22-May-2018 Active Dicyclomine HCl - 10 MG Oral Capsule TAKE 1 CAPSULE TWICE DAILY * Quantity: 60 Refills: 11 NITHIN NOLEN M.D. * Start : 11-Jul-2018 Active Dzwpn-4-ttbx Ethyl Esters 1 GM Oral Capsule TAKE [...] Start : 27-Mar-2019 Active 42.5 GM Tube Metaxalone 400 MG Oral Tablet TAKE 1 TABLET 3 TIMES DAILY NEEDED. * Quantity: 40 Refills: 0 PINEDA MARTINEZ M.D. * Start : 13-May-2019 Active Clopidogrel Bisulfate 75 MG Oral Tablet TAKE 1 TABLET DAILY. * Quantity: 90 Refills: 3 THOR ABERNATHY M.D. * Start : 17-Jul-2019 Active tiZANidine HCl - 2 MG Oral Tablet TAKE 1 OR 2 at BEDTIME * Quantity: 60 Refills: 1 ANNIE MARIN M.D. * Start : 22-Dec-2019 Active Aspirin 81 MG TABS TAKE 1 TABLET DAILY. * Refills: 0 Active Metamucil 28.3 % Oral Powder ONE SCOOP EVERY DAY. * Quantity: 1 Refills: 6 DANE ELDER M.D. * Start : 26-Jan-2020 Active 575 GM Bottle Polyethylene Glycol 3350 Oral Powder MIX 1 CAPFUL IN 8 OUNCES OF WATER AND DRINK AT BEDTIME NEEDED FOR CONSTIPATIO N. * Quantity: 510 Refills: 1 DANE ELDER M.D. * Start : 26-Jan-2020 Active Allergies and Adverse Reactions Name Dates [...] valent on: 06-Dec-2009 Fluzone INJ Lot #: [id number] on: 22-Aug-2013 Influenza on: Aug-2014 Prevnar 13 Intramuscular Suspension Lot #: [id number] on: 30-Mar-2015 Zoster (Zostavax) on: 26-Apr-2015 Influenza on: 26-Aug-2015 Fluzone Quadrivalent 0.5 ML Intramuscula r Suspension on: 25-Aug-2016 Fluzone High-Dose 0.5 ML Intramuscular S uspension Prefilled Syringe on: 17-Aug-2017 Fluzone Quadrivalent 0.5 ML Intramuscula r Suspension Lot #: [id number] on: 05-Aug-2018 Shingrix 50 MCG Intramuscular Suspension [...] (finding) Vital Signs Date Test Result Details [id number] Systolic blood pressure 126 mm[Hg] Status: Comments : Location: LUE; Position: Sitting Diastolic blood pressure 71 mm[Hg] Status: Comment s: Location: LUE; Position: Sitting Body height 65 in Status: Weight 153.6 lb Status: Body mass index (BMI) [Ratio] 25.56 kg/m2 Status: Body surface area Derived from formula 1.77 m2 S tatus: Body temperature 97.7 f Status: Comments: Me thod: Oral Heart Rate 67 /min Status: Respiratory rate 16 /min Status: :55 Systolic blood pressure 159 mm[Hg] Status: Comments : Location: LUE; Position: Sitting Diastolic blood pressure 75 mm[Hg] Status: Comment s: Location: LUE; Position: Sitting :52 Systolic blood pressure 159 mm[Hg] Status: Comments : Location: LUE; Position: Sitting Diastolic blood pressure 73 mm[Hg] Status: Comment s: Location: LUE; Position: Sitting Body height 65 in Status: Weight 157 lb Status: Body mass index (BMI) [Ratio] 26.13 kg/m2 Status: Body surface area Derived from formula 1.78 m2 S tatus: Body temperature 98.4 f Status: Comments: Me thod: Temporal Heart Rate 69 /min Status: Respiratory rate 15 /min Status: Results Date Description Value Details [id number] [O] Urine Dipstick (In Office) Glucose neg (Normal) LEUKOCYTES neg (Normal) NITRITE neg (Normal) UROBILINOGEN neg (Normal) PROTEIN trace pH 6 (Normal) URINE BLOOD neg (Normal) SPECIFIC GRAVITY 1.010 (Normal) KETONES neg (Normal) BILIRUBIN neg (Normal) COLOR URINE yellow (Normal) APPEARANCE clear (Normal) Plan of Care Name Dates Details Planned Observations Planned Goals not documented Planned Encounters Appointment; NITHIN NOLEN M.D. On: 27-Jan-2020 13:15 Appointment; ANNIE MARIN M.D. On: 13-Feb-2020 10:00 Appointment; THOR ABERNATHY M .D. On: 18-Feb-2020 14:40 Interventions Provided Medication Changes* Metamucil 28.3 % Oral Powder - Start * Polyethylene Glycol 3350 Oral Powder - Start Plan* Continue current medications same. Recommend Miralax and Metamucil on a daily basis. F/U with PCP as needed. Instructions Name Dates Details Instructions not [...] 16:40 Appointment; [facility] Encounter Diagnosis: Problem not documented On: 27-May-2018 [...] Problem not documented On: 11-Jun-2019 13:40 Appointment; [facility], NUCLEAR Encounter Diagnosis: Problem not documented On: [...] Diagnosis: Problem not documented On: 23-Jan-2020 14:45 Appointment; DANE ELDER M.D. Encounter Diagnosis: Problem not documented On: 26-Jan-2020 13:45
--- OUTSIDE RECORDS SUMMARY | 2020-04-23 23:15 | XMS REPORT | Summary of Care ---
Author Author BRENDA Kam R.N. Organization Unknown Address Unknown Phone Unavailable Care Team Providers Care Silo Filler Name Role Phone TANIA Caal, ANNIE Unavailable Unavailable CALLUM Caal, NITHIN Unavailable Unavailable MICHELA Caal, THOR Unavailable Unavailab bismark SHEPPARD D.O., JAIR-MARCIO Unavailable Unavailable OBONYDONELL ROTARY MACHINE OPERATOR, SALVADOR Unavailable Unavailable Negin Bruce, Cass Unavailable Unavailable ARTURO Caal, MYKE Unavailable Unavailable JUAN Caal, PINEDA Unavailable Unavailable TANIA LOCKE [place], ANNIE YOBANI Unavailable Unavailable JESSICAONYDONELL NOEP, SALVADOR T Unavailable Unavailable Callum LOCKE, Nithin Unavailable Unavailable JACINTA LOCKE, BALDEV Gutiérrez Unavailable Unavailable JEAN PAUL LOCKE, FIONA Lacy Unavailable Unavailable Michela LOCKE, Thor Unavailable Unavailable VELAZQUEZ HUMAN RESOURCES OFFICE MANAGER-C, MARGIE D Unavailable Unavailable ARTURO LOCKE, MYKE Unavailable Unavailable AMAYA LOCKE [place], SHARRON S Unavailable Unavailable KRANTHI LOCKE [place], AKOSUA Chi Unavailable Unavailable JAUN LOCKE, PINEDA W Unavailable Unavailable UMER LOCKE [place], CHE ERNST Unavailable Unavailable VALARIE LAURENT UT, KIMBER Unavailable Unavailable VICENTE MEJIA [facility] RNBC CPN, KOREY Unavailable Unav leonorable [...] 4 TIMES DAILY * Refills: 0 Active Spironolactone 25 MG Oral Tablet TAKE [...] NOLEN M.D. * Start : 11-Jul-2018 Active Estradiol 0.1 MG/GM Vaginal Cream INSERT 1 GRAM INTO THE VAGINA USING APPLICATOR EVERY NIGHT AT BEDTIME FOR 2 WEEK S THEN DECREASE TO TWICE WEEKLY AT BEDTIME THEREAFTER * Quantity: 2 Refills: 4 ARTURO Caal [place] * Start : 27-Mar-2019 Active 42.5 GM Tube Thyroid TABS * Refills: 0 Active tiZANidine HCl - 2 MG Oral Tablet TAKE 1 OR 2 at BEDTIME * Quantity: 60 Refills: 1 ANNIE MARIN M.D. * Start : 22-Dec-2019 Active Wcpvt-5-lcfc Ethyl Esters 1 GM Oral Capsule TAKE 2 CAPSULES BY MOUTH TWICE A DAY * Quantity: 360 Refills: 2 ANNIE MARIN M.D. * Start : 05-Aug-2018 Active Librax 5-2.5 MG Oral Capsule TAKE 1 CAPSULE TWICE DAILY * Quantity: 60 Refills: 6 JANAY BENSONNSALVADOR * Start : 21-May-2017 Active Losartan Potassium 50 MG Oral Tablet take 2 tablets BID * Quantity: 360 Refills: 1 ANNIE MARIN M.D. * Start : 28-Sep-2016 Active Diclofenac Sodium 1 % Transdermal Gel APPLY TO LOWER EXTREMITIES, 4 GM OF GEL TO AFFECTED AREA 4 TIMES DAILY. DO NOT APPLY MORE THAN 16 GM DAILY TO ANY ONE AFFECTED JOINT. * Quantity: 1 Refills: 5 KIMBER SHEPPARD D.O. * Start : 21-Aug-2019 Active 100 GM Tube Clopidogrel Bisulfate 75 MG Oral Tablet TAKE 1 TABLET DAILY. * Quantity: 90 Refills: 3 THOR ABERNATHY M.D. * Start : 17-Jul-2019 Active Metaxalone 400 MG Oral Tablet TAKE 1 TABLET 3 TIMES DAILY NEEDED. * Quantity: 40 Refills: 0 PINEDA MARTINEZ M.D. * Start : 13-May-2019 Active Vascepa 1 GM Oral Capsule TAKE 1 CAPSULE TWICE DAILY * Quantity: 180 Refills: 1 CHARTHOR MCCANN M.D. * Start : 09-Jan-2020 Active Trospium Chloride ER 60 MG Oral Capsule Extended Release 24 Hour TAKE 1 CAPSULE Daily in the am * Quantity: 30 Refills: 2 MYKE MORRIS M.D. * Start : 29-Aug-2019 Active Allergies and [...] valent on: 06-Dec-2009 Fluzone INJ Lot #: [id number] on: 22-Aug-2013 Influenza on: Aug-2014 Prevnar 13 Intramuscular Suspension Lot #: [id number] on: 30-Mar-2015 Zoster (Zostavax) on: 26-Apr-2015 Influenza on: 26-Aug-2015 Fluzone Quadrivalent 0.5 ML Intramuscula r Suspension on: 25-Aug-2016 Fluzone High-Dose 0.5 ML Intramuscular S uspension Prefilled Syringe on: 17-Aug-2017 Fluzone Quadrivalent 0.5 ML Intramuscula r Suspension Lot #: [id number] on: 05-Aug-2018 Shingrix 50 MCG Intramuscular Suspension [...] Status: Comment s: Location: LUE; Position: Sitting [id number] Systolic blood pressure 159 mm[Hg] Status: Comments [...] /min Status: Results Date Description Value Details [id number] [O] Urine Dipstick (In Office) Glucose neg [...] Problem not documented On: 22-May-2018 16:40 Appointment; [facility] Encounter Diagnosis: Problem not documented [...]
--- OUTSIDE RECORDS SUMMARY | 2020-04-23 23:15 | XMS REPORT | Summary of Care ---
Author Author Gautam THOMPSON BRENDA Regino Organization Unknown Address Unknown Phone Unavailable Care Team Providers Care Band Builder Name Role Phone JAEL Caal, DANE Unavailable Unavailable TANIA Caal, ANNIE Unavailable Unavailable Gautam THOMPSON, Jeanna Unavailable Unavailable CALLUM Caal, NITHIN Unavailable Unavailable MICHELA Caal, THOR Unavailable Unavailab bismark SHEPPARD D.OAntonia, KIMBER Unavailable Unavailable JANAY BOSE, SALVADOR Unavailable Unavailable ARTURO Caal, MYKE Unavailable Unavailable JUAN Caal, PINEDA Unavailable Unavailable TANIA LOCKE [place], ANNIE HILTON Unavailable Unavailable JANAY ECKERT, SALVADOR T Unavailable Unavailable Callum LOCKE, Nithin Unavailable Unavailable JACINTA LOCKE, BALDEV Gutiérrez Unavailable Unavailable JEAN PAUL LOCKE, FIONA Lacy Unavailable Unavailable Michela LOCKE, Thor Unavailable Unavailable MARCUS WALLPAPER SCRAPER-C, MARGIE D Unavailable Unavailable ARTURO LOCKE, MYKE Unavailable Unavailable AMAYA LOCKE [place], SHARRON Lacy Unavailable Unavailable KRANTHI LOCKE [place], AKOSUA Chi Unavailable Unavailable JUAN LOCKE, PINEDA W Unavailable Unavailable UMER LOCKE [place], CHE ERNST Unavailable Unavailable VALARIE LAURENT UT, KIMBER Unavailable Unavailable VICENTE MEJIA [facility] RNBC CPN, KOREY Unavailable Unav leonorable [...] DAILY * Quantity: 60 Refills: 6 JANAY BENSONLisa SALVADOR * Start : 21-May-2017 Active Spironolactone 25 [...] NOLEN M.D. * Start : 11-Jul-2018 Active Pxhsm-2-rlpr Ethyl Esters 1 GM Oral Capsule TAKE [...] ELDER M.D. * Start : 26-Jan-2020 Active Promethazine HCl - 12.5 MG Oral Tablet TAKE 1 TABLET BY MOUTH EVERY 6 HOURS NEEDED FOR NAUSEA AND VOMITING * Quantity: 12 Refills: 0 DANE ELDER M.D. * Start : 27-Jan-2020 Active Allergies and Adverse Reactions Name Dates [...] valent on: 06-Dec-2009 Fluzone INJ Lot #: [id number] on: 22-Aug-2013 Influenza on: Aug-2014 Prevnar 13 Intramuscular Suspension Lot #: [id number] on: 30-Mar-2015 Zoster (Zostavax) on: 26-Apr-2015 Influenza on: 26-Aug-2015 Fluzone Quadrivalent 0.5 ML Intramuscula r Suspension on: 25-Aug-2016 Fluzone High-Dose 0.5 ML Intramuscular S uspension Prefilled Syringe on: 17-Aug-2017 Fluzone Quadrivalent 0.5 ML Intramuscula r Suspension Lot #: [id number] on: 05-Aug-2018 Shingrix 50 MCG Intramuscular Suspension [...] (finding) Vital Signs Date Test Result Details :36 Systolic blood pressure 126 mm[Hg] Status: Comments [...] /min Status: Results Date Description Value Details :07 [O] Urine Dipstick (In Office) Glucose neg [...] On: 18-Feb-2020 14:40 Interventions Provided Medication Changes* Promethazine HCl - 12.5 MG Oral Tablet - Start Instructions Name Dates Details Instructions [...] Problem not documented On: 22-May-2018 16:40 Appointment; [facility] Encounter Diagnosis: Problem not documented On: 27-May-2018 [...]
--- OUTSIDE RECORDS SUMMARY | 2020-04-23 23:15 | XMS REPORT | Summary of Care ---
Author Author BRENDA Acosta R.N. Organization Unknown Address Unknown Phone Unavailable Care Team Providers Care Accident Examiner Name Role Phone TANIA Caal, ANNIE Unavailable Unavailable CALLUM Caal, NITHIN Unavailable Unavailable MICHELA Caal, THOR Unavailable Unavailab bismark SHEPPARD D.O., KIMBER Unavailable Unavailable JANAY BOSE, SALVADOR Unavailable Unavailable ARTURO Caal, MYKE Unavailable Unavailable JUAN Caal, PINEDA Unavailable Unavailable TANIA LOCKE [place], ANNIE YOBANI Unavailable Unavailable JANAY NOEP, SALVADOR T Unavailable Unavailable Callum LOCKE, Nithin Unavailable Unavailable JACINTA LOCKE, BALDEV Gutiérrez Unavailable Unavailable JEAN PAUL LOCKE, FIONA Lacy Unavailable Unavailable Michela LOCKE, Thor Unavailable Unavailable MARCUS NOEP-C, MARGIE D Unavailable Unavailable ARTURO LOCKE, SOLAFA Unavailable Unavailable AMAYA LOCKE ME, SHARRON S Unavailable Unavailable KRANTHI LOCKE ME, AKOSUA Chi Unavailable Unavailable JUAN LOCKE, PINEDA W Unavailable Unavailable UMER LOCKE ME, CHE ERNST Unavailable Unavailable VALARIE LAURENT ME, KIMBER Unavailable Unavailable VICENTE MEJIA [facility] RNBC CPN, KOREY Unavailable Unav monster REZA [...] NOLEN M.D. * Start : 11-Jul-2018 Active Voetz-2-khxk Ethyl Esters 1 GM Oral Capsule TAKE [...] DAILY * Quantity: 180 Refills: 1 THOR ABENRATHY M.D. * Start : 09-Jan-2020 Active Allergies [...] Date: 09-Jan-2020 [QLH] CMP W/EGFR Date: 09-Jan-2020 [QL] CBC (INCLUDES DIFF/PLT) Date: 23-Jan-2020 [QL] CMP W/EGFR Date: 23-Jan-2020 [QLH] LIPASE Date: 23-Jan-2020 MA Digital Mammo Screening Claudio [id number] Date: [...] valent on: 06-Dec-2009 Fluzone INJ Lot #: [id number] on: 22-Aug-2013 Influenza on: Aug-2014 Prevnar 13 Intramuscular Suspension Lot #: [id number] on: 30-Mar-2015 Zoster (Zostavax) on: 26-Apr-2015 Influenza on: 26-Aug-2015 Fluzone Quadrivalent 0.5 ML Intramuscula r Suspension on: 25-Aug-2016 Fluzone High-Dose 0.5 ML Intramuscular S uspension Prefilled Syringe on: 17-Aug-2017 Fluzone Quadrivalent 0.5 ML Intramuscula r Suspension Lot #: [id number] on: 05-Aug-2018 Shingrix 50 MCG Intramuscular Suspension [...] (finding) Vital Signs Date Test Result Details [id number] Systolic blood pressure 159 mm[Hg] Status: Comments : Location: LUE; Position: Sitting Diastolic blood pressure 75 mm[Hg] Status: Comment s: Location: LUE; Position: Sitting [id number] Systolic blood pressure 159 mm[Hg] Status: Comments [...] /min Status: Results Date Description Value Details [id number] [O] Urine Dipstick (In Office) Glucose neg [...] M .D. On: 18-Feb-2020 14:40 Interventions Provided Labs/Procedures/Imaging* [QLH] CBC (INCLUDES DIFF/PLT); To Be Done: 23 Jan 2020 * [QLH] CMP W/EGFR; To Be Done: 23 Jan 2020 * [QLH] LIPASE; To Be Done: 23 Jan 2020 * [O] Urine Dipstick (In Office); Done: 23 Jan 2020 Instructions Name Dates Details Instructions not documented [...] Problem not documented On: 22-May-2018 16:40 Appointment; [facility] Encounter Diagnosis: Problem not documented [...] Problem not documented On: 11-Jun-2019 13:40 Appointment; [facility], NUCLEAR Encounter Diagnosis: Problem not documented On: [...]
--- OUTSIDE RECORDS SUMMARY | 2020-04-23 23:16 | XMS REPORT | Summary of Care ---
Author Author TANIA Caal, BRENDA Lacy Organization Unknown Address Unknown Phone Unavailable Care Team Providers Care Warehouse Order Puller Name Role Phone JAEL Caal, DANE Unavailable Unavailable TANIA Caal, ANNIE Unavailable Unavailable CALLUM Caal, NITHIN Unavailable Unavailable MICHELA Caal, THOR Unavailable Unavailab bismark SHEPPARD D.OAntonia, JAIR-MARCIO Unavailable Unavailable JANAY BOSE, SALVADOR Unavailable Unavailable ARTURO Caal, MYKE Unavailable Unavailable JUAN Caal, PINEDA Unavailable Unavailable TANIA LOCKE [place], ANNIE YOBANI Unavailable Unavailable JANAY ECKERT, SALVADOR T Unavailable Unavailable Callum LOCKE, Nithin Unavailable Unavailable JACINTA LOCKE, BALDEV Gutiérrez Unavailable Unavailable JEAN PAUL LOCKE, FIONA Lacy Unavailable Unavailable Michela LOCKE, Thor Unavailable Unavailable MARCUS SPIN TABLE OPERATOR-C, MARGIE D Unavailable Unavailable ARTURO LOCKE, MYKE Unavailable Unavailable AMAYA LOCKE [place], SHARRON S Unavailable Unavailable KRANTHI LOCKE OR, AKOSUA Chi Unavailable Unavailable JUAN LOCKE, PINEDA W Unavailable Unavailable UMER LOCKE [place], CHE ERNST Unavailable Unavailable VALARIE LAURENT UT, KIMBER Unavailable Unavailable VICENTE MEJIA [facility] RNBC CPN, KOREY Unavailable Unav monster [...] without bleeding (535.00 , K29.00) Status: Active Low HDL (under 40) (272.5, E78.6) Status: Active Nausea (787.02, R11.0) Status: Active Finding of multiple premature atrial con tractions by electrocardiography (427.61, I49.1) Status: Active B12 [...] left elbow (726. 31, M77.02) Status: Active Cervical radiculopathy, acute (723.4, M5 4.12) Status: Active Chronic left shoulder pain (719.41, M25. 512) Status: Active Abdominal pain (789.00, R10.9) Status: Active Acid reflux disease (530.81, K21.9) Status: Active IBS (irritable bowel syndrome) (564.1, K 58.9) Status: Active Easy bruising (782.9, R23.8) Status: Active Pain of left knee after injury (719.46, M25.562) Status: Active Left knee pain, unspecified chronicity ( 719.46, M25.562) Status: Active Other sprain of right elbow, initial enc ounter (841.8, S53.491A) Status: Active Contusion, elbow, with forearm, right, i nitial encounter (923.10, S50.11XA) Status: Active Dyslipidemia (high [...] (overactive bladder) (596.51, N32.81 ) Status: Active Chronic insomnia (780.52, F51.04) Status: Active 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 51, F11.90) Status: Active Essential hypertension (401.9, I10) Status: Active Hospital discharge follow-up (V67.59, Z0 9) Status: Active Partial small bowel obstruction (560.9, K56.600) Status: Active Hypertriglyceridemia (272.1, 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 Pancreatitis (577.0, K85.90) Status: Active Dehydration (276.51, E86.0) Status: Active BMI 26.0-26.9,adult (V85.22, Z68.26) Status: Active Overweight (BMI 25.0-29.9) Status: Active Medications Name Dates Details Vitamin [...] NEEDED. * Quantity: 1 Refills: 3 YEH D.Nelia.KIMBER * Start : 16-Feb-2015 Active 8.5 GM [...] NOLEN M.D. * Start : 11-Jul-2018 Active Okcru-7-nbww Ethyl Esters 1 GM Oral Capsule TAKE [...] valent on: 06-Dec-2009 Fluzone INJ Lot #: [id number] on: 22-Aug-2013 Influenza on: Aug-2014 Prevnar 13 Intramuscular Suspension Lot #: [id number] on: 30-Mar-2015 Zoster (Zostavax) on: 26-Apr-2015 Influenza on: 26-Aug-2015 Fluzone Quadrivalent 0.5 ML Intramuscula r Suspension on: 25-Aug-2016 Fluzone High-Dose 0.5 ML Intramuscular S uspension Prefilled Syringe on: 17-Aug-2017 Fluzone Quadrivalent 0.5 ML Intramuscula r Suspension Lot #: [id number] on: 05-Aug-2018 Shingrix 50 MCG Intramuscular Suspension [...] .D. On: 18-Feb-2020 14:40 Interventions Provided Labs/Procedures/Imaging* [O] Urine Dipstick (In Office); Done: 23 Jan 2020 Plan* Hospital discharge follow up, Pancreatitis, Dehydration, Bowel obstruction: * - Urine dipstick obtained in office: Trace protein otherwise, unremarkable. * - Labs: CBC, CMP w/eGFR, and Lipase * - Patient advised to avoid fatty foods and remain hydrated * - Patient advised to eat soft foods * - Follow up with geophysical data technician and internal medicine physician * Return to clinic in 6 weeks. * Return to clinic sooner if needed. [...] Problem not documented On: 22-May-2018 16:40 Appointment; [facility] Encounter Diagnosis: Problem not documented [...] Problem not documented On: 11-Jun-2019 13:40 Appointment; [facility], NUCLEAR Encounter Diagnosis: Problem not documented [...]
--- OUTSIDE RECORDS SUMMARY | 2020-04-23 23:16 | XMS REPORT | Summary of Care ---
Author Author MICHELA Caal, BRENDA Lacy Organization Unknown Address Unknown Phone Unavailable Care Team Providers Care Chain Splitter Name Role Phone JAEL Caal, DANE Unavailable Unavailable TANIA Caal, ANNIE Unavailable Unavailable CALLUM Caal, NITHIN Unavailable Unavailable MICHELA Caal, THOR Unavailable Unavailab bismark PerezOAntonia, KIMBER Unavailable Unavailable ARTURO Caal, MYKE Unavailable Unavailable JUAN Caal, PINEDA Unavailable Deniz MARIN MD [place], ANNIE YOBANI Unavailable Unavailable JANAY ECKERT, SALVADOR T Unavailable Unavailable Callum LOCKE, Nithin Unavailable Unavailable JACINTA LOCKE, BALDEV Gutiérrez Unavailable Unavailable JEAN PAUL LOCKE, FIONA Lacy Unavailable Unavailable Michela LOCKE, Thor Unavailable Unavailable MARCUS NOEP-C, MARGIE Gutiérrez Unavailable Unavailable ARTURO LOCKE, VIKYAFA Unavailable Unavailable AMAYA LOCKE [place], SHARRON Lacy Unavailable Unavailable KRANTHI LOCKE [place], AKOSUA Chi Unavailable Unavailable JUAN LOCKE, PINEDA W Unavailable Unavailable UMER LOCKE [place], [place] ERNST Unavailable Unavailable VALARIE LAURENT [place], KIMBER Unavailable Unavailable VICENTE MEJIA [facility] RNBC CPN, KOREY Unavailable Unav monster REZA MD, AYD Unavailable Unavailable Unavailable Unavailable Functional Status Name [...] Active Pelvic cramping (625.9, R10.2) Status: Active Seizure (780.39, R56.9) Status: Active [...] opioid-induced constipation (OIC) (564.09, K59.03) Status: Active OAB (overactive bladder) (596.51, N32.81 ) Status: Active 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 51, F11.90) Status: Active Hospital discharge follow-up (V67.59, Z0 9) Status: Active Partial small bowel obstruction (560.9, K56.600) Status: Active Hypertriglyceridemia (272.1, 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 Pancreatitis (577.0, K85.90) Status: Active Dehydration (276.51, E86.0) Status: Active BMI 26.0-26.9,adult (V85.22, Z68.26) Status: Active Overweight (BMI 25.0-29.9) Status: Active Acute UTI (599.0, N39.0) Status: Active Essential hypertension (401.9, I10) Status: Active Frequent urinary tract infections (599.0 , N39.0) Status: Active BMI 27.0-27.9,adult (V85.23, Z68.27) Status: Active CAD S/P percutaneous coronary angioplast y (414.01, I25.10) Status: Active Medication management (V58.69, Z79.899) Status: Active Medications Name Dates Details Vitamin D3 25 MCG (1000 UT) Oral Tablet TAKE 1 TABLET DAILY. Active DULoxetine HCl - 60 MG Oral [...] MARIN M.D. * Start : 28-Sep-2016 Active Spironolactone 25 MG Oral Tablet TAKE [...] ABERNATHY M.D. * Start : 22-May-2018 Active Dqcbv-8-volf Ethyl Esters 1 GM Oral Capsule TAKE [...] ELDER M.D. * Start : 27-Jan-2020 Active Gabapentin 100 MG Oral Capsule TAKE 1-3 CAPSULES AT BEDTIIME * Quantity: 60 Refills: 0 ANNIE MARIN M.D. * Start : 04-Feb-2020 Active Allergies and Adverse Reactions Name Dates [...] WITH REFLEX TO DIRECT LDL Date: 09-Jan-2020 [QL] CMP W/EGFR Date: 09-Jan-2020 [QH] LIPID PANEL WITH REFLEX TO DIRECT LDL Date: 06-Feb-2020 [QL] CMP W/EGFR Date: 06-Feb-2020 MA Digital Mammo Screening Claudio [id number] Date: [...] valent on: 06-Dec-2009 Fluzone INJ Lot #: [id number] on: 22-Aug-2013 Influenza on: Aug-2014 Prevnar 13 Intramuscular Suspension Lot #: [id number] on: 30-Mar-2015 Zoster (Zostavax) on: 26-Apr-2015 Influenza on: 26-Aug-2015 Fluzone Quadrivalent 0.5 ML Intramuscula r Suspension on: 25-Aug-2016 Fluzone High-Dose 0.5 ML Intramuscular S uspension Prefilled Syringe on: 17-Aug-2017 Fluzone Quadrivalent 0.5 ML Intramuscula r Suspension Lot #: [id number] on: 05-Aug-2018 Shingrix 50 MCG Intramuscular Suspension [...] (finding) Vital Signs Date Test Result Details [id number] Systolic blood pressure 129 mm[Hg] Status: Comments : Location: LUE; Position: Sitting Diastolic blood pressure 68 mm[Hg] Status: Comment s: Location: LUE; Position: Sitting Body height 65 in Status: Weight 154.5 lb Status: Body mass index (BMI) [Ratio] 25.71 kg/m2 Status: Body surface area Derived from formula 1.77 m2 S tatus: Heart Rate 63 /min Status: :36 Systolic blood pressure 126 mm[Hg] Status: Comments : Location: LUE; Position: Sitting Diastolic blood pressure 71 mm[Hg] Status: Comment s: Location: LUE; Position: Sitting Body height 65 in Status: Weight 153.6 lb Status: Body mass index (BMI) [Ratio] 25.56 kg/m2 Status: Body surface area Derived from formula 1.77 m2 S tatus: Heart Rate 67 /min Status: Body temperature 97.7 f Status: Comments: Me thod: Oral Respiratory rate 16 /min Status: :55 Systolic blood pressure 159 mm[Hg] Status: Comments : Location: E; Position: Sitting Diastolic blood pressure 75 mm[Hg] Status: Comment s: Location: E; Position: Sitting :52 Systolic blood pressure 159 mm[Hg] Status: Comments : Location: LUE; Position: Sitting Diastolic blood pressure 73 mm[Hg] Status: Comment s: Location: E; Position: Sitting Body height 65 in Status: Weight 157 lb Status: Body mass index (BMI) [Ratio] 26.13 kg/m2 Status: Body surface area Derived from formula 1.78 m2 S tatus: Heart Rate 69 /min Status: Body temperature 98.4 f Status: Comments: Me thod: Temporal Respiratory rate 15 /min Status: Results Date [...] PANEL WITH REFLEX TO DIRECT LDL On: 1-Lopez-2 020 Intent [QLH] CMP W/EGFR On: 26-Apr-2020 Intent Planned Goals not documented Planned Encounters Appointment; ANNIE MARIN M.D. On: 13-Feb-2020 10:00 Appointment; THOR ABERNATHY M .D. On: 18-Feb-2020 14:40 Interventions Provided Discussion/Summary* 1- HTN * - Cont nifedipine 30mg daily- BP is now better * - She stopped her clonidine patch 0.3 Mg /hr Q weekly because of depression. Can take clonidine prn * - Continue losartan * - Can't tolerate many BP meds including bb * - To follow with nephrology as well * 2- HLP: * a. statin intolerant, we will apply for [facility] 9 inh * b. Diet + exercise * 3- LBBB on ECG * a- SPECT: Normal with fixed apical artifact. Echo: normal * b. CAD post PCI of the RCA as per HPI: cont DAPT * 4. Anxiety and pain * - see PCP * 5. Palpitations- better * a. holter monitor 06/18/2018 reviewed and rare AT and PVCs * b. tte reviewed and normal 2015 * 6. Pre op risk stratification prior to hip replacement/LBBB: * a. Nuclear stress test 06/17/2019 reviewed and + for inferior ischemia * S/p RCA PCI 06/2019. We will cont DAPT for 6months and reevaluate * Cnnot tolerate lopid 600 daily for HTG, she cant tolerate statin or zetia Instructions Name Dates Details Instructions not documented Encounters Appointment; OMKAR PAULINO, PEduardo Encounter Diagnosis: Problem [...] Problem not documented On: 22-May-2018 16:40 [facility] Diagnosis: Problem not documented [...] On: 11-Jun-2019 13:40 Appointment; [facility] NUCLEAR Encounter Diagnosis: Problem not documented On: 17-Jun-2019 8:00 Appointment; THOR AEBRNATHY M .D. Encounter Diagnosis: Problem not documented [...] Diagnosis: Problem not documented On: 26-Jan-2020 13:45 Appointment; THOR ABERNATHY M .D. Encounter Diagnosis: Problem not documented On: 06-Feb-2020 10:20
--- OUTSIDE RECORDS SUMMARY | 2020-04-23 23:16 | XMS REPORT | Summary of Care ---
Author Author TANIA Caal, BRENDA Lacy Organization Unknown Address Unknown Phone Unavailable Care Team Providers Care Job Coaching Name Role Phone JAEL Caal, DANE Unavailable Unavailable TANIA Caal, ANNIE Unavailable Unavailable CALLUM Caal, NITHIN Unavailable Unavailable MICHELA Caal, THOR Unavailable Unavailab bismark SHEPPARD D.OAntonia, JAIR-MARCIO Unavailable Unavailable JANAY BOSE, SALVADOR Unavailable Unavailable ARTURO Caal, MYKE Unavailable Unavailable JUAN Caal, PINEDA Unavailable Unavailable TANIA LOCKE [place], ANNIE YOBANI Unavailable Unavailable JANAY ECKERT, SALVADOR T Unavailable Unavailable Callum LOCKE, Nithin Unavailable Unavailable JACINTA LOCKE, BALDEV Gutiérrez Unavailable Unavailable JEAN PAUL LOCKE, FIONA Lacy Unavailable Unavailable Michela LOCKE, Thor Unavailable Unavailable MARCUS SPORTS MANAGEMENT PROFESSOR-C, MARGIE D Unavailable Unavailable ARTURO LOCKE, MYKE Unavailable Unavailable AMAYA LOCKE [place], SHARRON S Unavailable Unavailable KRANTHI LOCKE [place], AKOSUA Chi Unavailable Unavailable JUAN LOCKE, PINEDA W Unavailable Unavailable UMER LOCKE [place], CHE ERNST Unavailable Unavailable VALARIE LAURENT [place], KIMBER Unavailable Unavailable VICENTE MEJIA [facility] RNBC CPN, KOREY Unavailable Unav monster [...] Active Essential hypertension (401.9, I10) Status: Active BMI 27.0-27.9,adult (V85.23, Z68.27) Status: [...] NOLEN M.D. * Start : 11-Jul-2018 Active Bfkdk-9-rqbd Ethyl Esters 1 GM Oral Capsule TAKE [...] AT BEDTIIME * Quantity: 60 Refills: 0 TANIA Caal ANNIE * Start : 04-Feb-2020 Active Allergies and [...] valent on: 06-Dec-2009 Fluzone INJ Lot #: [id number] on: 22-Aug-2013 Influenza on: Aug-2014 Prevnar 13 Intramuscular Suspension Lot #: [id number] on: 30-Mar-2015 Zoster (Zostavax) on: 26-Apr-2015 Influenza on: 26-Aug-2015 Fluzone Quadrivalent 0.5 ML Intramuscula r Suspension on: 25-Aug-2016 Fluzone High-Dose 0.5 ML Intramuscular S uspension Prefilled Syringe on: 17-Aug-2017 Fluzone Quadrivalent 0.5 ML Intramuscula r Suspension Lot #: [id number] on: 05-Aug-2018 Shingrix 50 MCG Intramuscular Suspension [...] Encounters Appointment; THOR ABERNATHY M .D. On: 06-Feb-2020 10:20 Appointment; ANNIE MARIN M.D. On: 13-Feb-2020 10:00 Appointment; THOR ABERNATHY M .D. On: 18-Feb-2020 14:40 Interventions Provided Labs/Procedures/Imaging* [O] Urine Dipstick (In Office); Done: 06 Feb 2019 * Tobacco Use Screening; Done: 04 Feb 2020 Instructions* Patient Specific Education Given; Done: 06 Feb 2019 Instructions Name Dates Details Instructions not [...] Problem not documented On: 22-May-2018 16:40 [facility] Encounter Diagnosis: Problem not documented On: [...]
--- OUTSIDE RECORDS SUMMARY | 2020-04-23 23:16 | XMS REPORT | Summary of Care ---
Author Author TANIA Caal, BRENDA Lacy Organization Unknown Address Unknown Phone Unavailable Care Team Providers Care Leather Scrubber Name Role Phone JAEL Caal, DANE Unavailable Unavailable TANIA Caal, ANNIE Unavailable Unavailable CALLUM Caal, NITHIN Unavailable Unavailable MICHELA Caal, THOR Unavailable Unavailab bismark SHEPPARD D.OAntonia, JAIR-MARCIO Unavailable Unavailable JANAY BOSE, SALVADOR Unavailable Unavailable ARTURO Caal, MYKE Unavailable Unavailable JUAN Caal, PINEDA Unavailable Unavailable TANIA LOCKE [place], ANNIE OYBANI Unavailable Unavailable JANAY ECKERT, SALVADOR T Unavailable Unavailable Callum LOCKE, Nithin Unavailable Unavailable JACINTA LOCKE, BALDEV Gutiérrez Unavailable Unavailable JEAN PAUL LOCKE, FIONA Lacy Unavailable Unavailable Michela LOCKE, Thor Unavailable Unavailable MARCUS TRANSIT COACH OPERATOR-C, MARGIE D Unavailable Unavailable ARTURO LOCKE, MYKE Unavailable Unavailable AMAYA LOCKE [place], SHARRON S Unavailable Unavailable KRANTHI LOCKE [place], AKOSUA Chi Unavailable Unavailable JUAN LOCKE, PINEDA W Unavailable Unavailable UMER LOCKE [place], CHE ERNST Unavailable Unavailable VALARIE LAURENT [place], KIMBER Unavailable Unavailable VICENTE MEJIA [facility] RNBC CPN, KOREY Unavailable Unav monster [...] NOLEN M.D. * Start : 11-Jul-2018 Active Wzvtf-3-nako Ethyl Esters 1 GM Oral Capsule TAKE [...] valent on: 06-Dec-2009 Fluzone INJ Lot #: [id number] on: 22-Aug-2013 Influenza on: Aug-2014 Prevnar 13 Intramuscular Suspension Lot #: [id number] on: 30-Mar-2015 Zoster (Zostavax) on: 26-Apr-2015 Influenza on: 26-Aug-2015 Fluzone Quadrivalent 0.5 ML Intramuscula r Suspension on: 25-Aug-2016 Fluzone High-Dose 0.5 ML Intramuscular S uspension Prefilled Syringe on: 17-Aug-2017 Fluzone Quadrivalent 0.5 ML Intramuscula r Suspension Lot #: [id number] on: 05-Aug-2018 Shingrix 50 MCG Intramuscular Suspension [...] soft foods * - Follow up with driver supervisor and internal medicine physician * Return to [...] not documented On: 22-May-2018 16:40 Appointment; [facility] Encounter Diagnosis: Problem not documented On: [...] not documented On: 11-Jun-2019 13:40 Appointment; [facility], NUCLEAR Encounter Diagnosis: Problem not documented On: [...]
--- OUTSIDE RECORDS SUMMARY | 2020-04-23 23:16 | XMS REPORT | Summary of Care ---
Author Author MICHELA Caal, BRENDA Lacy Organization Unknown Address Unknown Phone Unavailable Care Team Providers Care Bundle Collector Name Role Phone JAEL Caal, DANE Unavailable Unavailable TANIA Caal, ANNIE Unavailable Unavailable CALLUM Caal, NITHIN Unavailable Unavailable MICHELA Caal, THOR Unavailable Unavailab bismark SHEPPARD D.OAntonia, KIMBER Unavailable Unavailable JANAY BOSE, SALVADOR Unavailable Unavailable ARTURO Caal, MYKE Unavailable Unavailable JUAN Caal, PINEDA Unavailable Unavailable TANIA LOCKE [place], ANNIE YOBANI Unavailable Unavailable JANAY ECKERT, SALVADOR T Unavailable Unavailable Callum LOCKE, Nithin Unavailable Unavailable JACINTA LOCKE, BALDEV Gutiérrez Unavailable Unavailable JEAN PAUL LOCKE, FIONA Lacy Unavailable Unavailable Michela LOCKE, Thor Unavailable Unavailable MARCUS COMMERCIAL OCEAN CLAMMER-C, MARGIE D Unavailable Unavailable ARTURO LOCKE, MYKE Unavailable Unavailable AMAYA LOCKE [place], SHARRON Lacy Unavailable Unavailable KRANTHI LOCKE [place], AKOSUA Chi Unavailable Unavailable JUAN LOCKE, PINEDA W Unavailable Unavailable UMER LOCKE [place], CHE ERNST Unavailable Unavailable VALARIE LAURENT [place], KIMBER Unavailable Unavailable VICENTE MEJIA [facility] RNBC CPN, KOREY Unavailable Unav leonorable [...] coronary angioplast y (414.01, I25.10) Status: Active Medications Name Dates Details Vitamin [...] NOLEN M.D. * Start : 11-Jul-2018 Active Xysmg-2-vghd Ethyl Esters 1 GM Oral Capsule TAKE [...] valent on: 06-Dec-2009 Fluzone INJ Lot #: [id number] on: 22-Aug-2013 Influenza on: Aug-2014 Prevnar 13 Intramuscular Suspension Lot #: [id number] on: 30-Mar-2015 Zoster (Zostavax) on: 26-Apr-2015 Influenza on: 26-Aug-2015 Fluzone Quadrivalent 0.5 ML Intramuscula r Suspension on: 25-Aug-2016 Fluzone High-Dose 0.5 ML Intramuscular S uspension Prefilled Syringe on: 17-Aug-2017 Fluzone Quadrivalent 0.5 ML Intramuscula r Suspension Lot #: [id number] on: 05-Aug-2018 Shingrix 50 MCG Intramuscular Suspension [...] as well * 2- HLP: * a. Lipids OK * b. Diet + exercise * 3- [...] cont DAPT for 6months and reevaluate * Start lopid 600 daily for HTG, she cant tolerate statin or zetia Instructions Name Dates Details Instructions not documented Encounters Appointment; OMKAR PAULINO P.A. Encounter Diagnosis: Problem [...] Problem not documented On: 11-Jun-2019 13:40 Appointment; [facility] Encounter Diagnosis: Problem not documented On: 17-Jun-2019 8:00 Appointment; THOR ABERNATHY M .D. Encounter Diagnosis: Problem not documented On: 17-Jun-2019 12:20 Appointment; DARRON LIRIANO M.D. Encounter Diagnosis: Problem not documented On: 11-Jul-2019 11:15 Appointment; THOR ABERNATHY M .D. Encounter Diagnosis: Problem not documented On: 22-Jul-2019 14:20 Appointment; KIMBER SHEPPARD D.O. Encounter Diagnosis: Problem not documented On: 21-Aug-2019 13:00 Appointment; ANNIE MARNI M.D. Encounter Diagnosis: Problem not documented On: [...]
--- OUTSIDE RECORDS SUMMARY | 2020-04-23 23:16 | XMS REPORT | Summary of Care ---
Author Author Mike Bruce, BRENDA Lacy Organization Unknown Address Unknown Phone Unavailable Care Team Providers Care Correction Officer Reformatory Name Role Phone JAEL Caal, DANE Unavailable Unavailable TANIA Caal, ANNIE Unavailable Unavailable CALLUM Caal, NITHIN Unavailable Unavailable MICHELA Caal, THOR Unavailable Unavailab bismark Gutiérrez.OAntonia, JAIR-MARCIO Unavailable Unavailable JANAY BOSE, SALVADOR Unavailable Unavailable Mike Bruce, Noemi Unavailable Unavailable ARTURO Caal, VIKYAFA Unavailable Unavailable JUAN Caal, PINEDA Unavailable Unavailable TANIA LOCKE [place], ANNIE YOBANI Unavailable Unavailable JANAY ECKERT, SALVADOR T Unavailable Unavailable Callum LOCKE, Nithin Unavailable Unavailable JACINTA LOCKE, BALDEV Gutiérrez Unavailable Unavailable JEAN PAUL LOCKE, FIONA Lacy Unavailable Unavailable Michela LOCKE, Thor Unavailable Unavailable MARCUS NOEP-C, MARGIE D Unavailable Unavailable ARTURO LOCKE, MYKE Unavailable Unavailable AMAYA LOCKE [place], SHARRON Lacy Unavailable Unavailable KRANTHI LOCKE [place], AKOSUA Chi Unavailable Unavailable JUAN LOCKE, PINEDA W Unavailable Unavailable UMER LOCKE [place], CHE ERNST Unavailable Unavailable VALARIE LAURENT [place], JAIR-MARCIO Unavailable Unavailable VICENTE MEJIA [facility] RNBC CPN, KOREY Unavailable Unav [...] NOLEN M.D. * Start : 11-Jul-2018 Active Wneas-7-dpnm Ethyl Esters 1 GM Oral Capsule TAKE [...] CONSTIPATIO N. * Quantity: 510 Refills: 1 JAEL Caal, DANE * Start : 26-Jan-2020 Active Promethazine HCl - 12.5 MG Oral Tablet TAKE 1 TABLET BY MOUTH EVERY 6 HOURS NEEDED FOR NAUSEA AND VOMITING * Quantity: 12 Refills: 0 JAEL Caal, DANE * Start : 27-Jan-2020 Active Gabapentin 100 MG Oral Capsule TAKE 1-3 CAPSULES AT BEDTIIME * Quantity: 60 Refills: 0 BETHANY MARIN M.D.NDA * Start : 04-Feb-2020 Active Allergies and [...] valent on: 06-Dec-2009 Fluzone INJ Lot #: [id number] on: 22-Aug-2013 Influenza on: Aug-2014 Prevnar 13 Intramuscular Suspension Lot #: [id number] on: 30-Mar-2015 Zoster (Zostavax) on: 26-Apr-2015 Influenza on: 26-Aug-2015 Fluzone Quadrivalent 0.5 ML Intramuscula r Suspension on: 25-Aug-2016 Fluzone High-Dose 0.5 ML Intramuscular S uspension Prefilled Syringe on: 17-Aug-2017 Fluzone Quadrivalent 0.5 ML Intramuscula r Suspension Lot #: [id number] on: 05-Aug-2018 Shingrix 50 MCG Intramuscular Suspension [...] On: 18-Feb-2020 14:40 Interventions Provided Medication Changes* Gabapentin 100 MG Oral Capsule - Start Instructions Name Dates [...] not documented On: 22-May-2018 16:40 Appointment; [facility] Encounter Diagnosis: Problem not documented [...] not documented On: 11-Jun-2019 13:40 Appointment; [facility], NUCLEAR Encounter Diagnosis: Problem not [...]
--- OUTSIDE RECORDS SUMMARY | 2020-04-23 23:17 | XMS REPORT | Summary of Care ---
Author Author BRENDA Smith M.A. Organization Unknown Address [facility] Phone Unavailable Care Team Providers Care Metal Numerical Tool Programmer Name Role Phone JAEL Caal, DANE Unavailable Unavailable TANIA Caal, ANNIE Unavailable Unavailable Luis Cool, Fozia Unavailable Unavailable CALLUM Caal, NITHIN Unavailable Unavailable MICHELA Caal, THOR Unavailable Unavailab bismark SHEPPARD D.O., KIMBER Unavailable Unavailable ARTURO Caal, MYKE Unavailable Unavailable JUAN Caal, PINEDA Unavailable Unavailable TANIA LOCKE [place], ANNIE YOBANI Unavailable Unavailable JANAY NOEP, SALVADOR T Unavailable Unavailable Callum LOCKE, Nithin Unavailable Unavailable JACINTA LOCKE, BALDEV Gutiérrez Unavailable Unavailable JEAN PAUL LOCKE, FIONA Lacy Unavailable Unavailable Michela LOCKE, Thor Unavailable Unavailable MARCUS ENVIRONMENTAL STUDIES FACULTY MEMBER-C, MARGIE D Unavailable Unavailable ARTURO LOCKE, MYKE Unavailable Unavailable AMAYA LOCKE [place], SHARRON S Unavailable Unavailable KRANTHI LOCKE [place], AKOSUA Chi Unavailable Unavailable JUAN LOCKE, PINEDA W Unavailable Unavailable UMER LOCKE [place], CHE ERNST Unavailable Unavailable VALARIE LAURENT [place], KIMBER Unavailable Unavailable VICENTE MEJIA [facility] RNBC CPN, KOREY Unavailable Unav [...] Active Mixed hyperlipidemia (272.2, E78.2) Status: Active Chronic kidney disease, stage 3a (585.3, N18.3) Status: Active Vitamin B12 deficiency (266.2, E53.8) Status: Active Frequent urinary tract infections (599.0 , N39.0) Status: Active Overweight (278.02, E66.3) Status: Active [...] Status: Active Dehydration (276.51, E86.0) Status: Active Hypertriglyceridemia (272.1, 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 BMI 26.0-26.9,adult (V85.22, Z68.26) Status: [...] ABERNATHY M.D. * Start : 22-May-2018 Active Qhyie-9-yrlr Ethyl Esters 1 GM Oral Capsule TAKE 2 CAPSULES BY MOUTH TWICE A DAY * Quantity: 360 Refills: 2 ANNIE AMRIN M.D. * Start : 05-Aug-2018 Active Estradiol [...] MARIN M.D. * Start : 04-Feb-2020 Active Praluent 75 MG/ML Subcutaneous Solution Auto-injector INJECT PEN CONTENT EVERY 2 WEEK * Quantity: 3 Refills: 3 MICHELA Caal, THOR * Start : 11-Feb-2020 Active 2 x 1 ML Pen Allergies and Adverse Reactions Name Dates Details [...] WITH REFLEX TO DIRECT LDL Date: 06-Feb-2020 [QLH] CMP W/EGFR Date: 06-Feb-2020 MA Digital Mammo [...] valent on: 06-Dec-2009 Fluzone INJ Lot #: [id number] on: 22-Aug-2013 Influenza on: Aug-2014 Prevnar 13 Intramuscular Suspension Lot #: [id number] on: 30-Mar-2015 Zoster (Zostavax) on: 26-Apr-2015 Influenza on: 26-Aug-2015 Fluzone Quadrivalent 0.5 ML Intramuscula r Suspension on: 25-Aug-2016 Fluzone High-Dose 0.5 ML Intramuscular S uspension Prefilled Syringe on: 17-Aug-2017 Fluzone Quadrivalent 0.5 ML Intramuscula r Suspension Lot #: [id number] on: 05-Aug-2018 Shingrix 50 MCG Intramuscular Suspension [...] (finding) Vital Signs Date Test Result Details :40 Systolic blood pressure 129 mm[Hg] Status: Comments : Location: E; Position: Sitting Diastolic blood pressure 68 mm[Hg] Status: Comment s: Location: E; Position: Sitting Body height 65 in Status: Weight 154.5 lb Status: Body mass index (BMI) [Ratio] 25.71 kg/m2 Status: Body surface area Derived from formula 1.77 m2 S tatus: Heart Rate 63 /min Status: :36 Systolic blood pressure 126 mm[Hg] Status: Comments : Location: [facility]; Position: Sitting Diastolic blood pressure 71 mm[Hg] Status: Comment s: Location: [facility] [place]; Position: Sitting Body height 65 in Status: Weight 153.6 lb Status: Body mass index (BMI) [Ratio] 25.56 kg/m2 Status: Body surface area Derived from formula 1.77 m2 S tatus: Heart Rate 67 /min Status: Body temperature 97.7 f Status: Comments: Me thod: Oral Respiratory rate 16 /min Status: :55 Systolic blood pressure 159 mm[Hg] Status: Comments : Location: [facility] [place]; Position: Sitting Diastolic blood pressure 75 mm[Hg] Status: Comment s: Location: [facility] [place]; Position: Sitting :52 Systolic blood pressure 159 mm[Hg] Status: Comments : Location: [facility] [place]; Position: Sitting Diastolic blood pressure 73 mm[Hg] Status: Comment s: Location: [facility] [place]; Position: Sitting Body height 65 in Status: [...] 10:00 Appointment; THOR ABERNATHY M .D. On: 11-May-2020 12:40 Interventions Provided Medication Changes* Praluent 75 MG/ML Subcutaneous Solution Auto-injector - Start Instructions Name Dates Details Instructions [...] Problem not documented On: 22-May-2018 16:40 Appointment; [facility] [place] [place] Encounter Diagnosis: Problem not documented [...] Problem not documented On: 11-Jun-2019 13:40 Appointment; [facility], NUCLEAR Encounter Diagnosis: Problem not documented [...]
--- OUTSIDE RECORDS SUMMARY | 2020-04-23 23:17 | XMS REPORT | Summary of Care ---
Author Author BRENDA Knowles R.N. Organization Unknown Address Unknown Phone Unavailable Care Team Providers Care Chain Dyer Name Role Phone JAEL Caal, DANE Unavailable Unavailable TANIA Caal, ANNIE Unavailable Unavailable CALLUM Caal, NITHIN Unavailable Unavailable MICHELA Caal, THOR Unavailable Unavailab bismark Gutiérrez.OAntonia, JAIR-MARCIO Unavailable Unavailable ARTURO Caal, SOLAFA Unavailable Unavailable Eleni Bruce, Vicki Unavailable Unavailable JUAN Caal, PINEDA Unavailable Unavailable TANIA LOCKE AL, ANNIE YOBANI Unavailable Unavailable JANAY NOEP, SALVADOR T Unavailable Unavailable Callum LOCKE, Nithin Unavailable Unavailable JACINTA LOCKE, BALDEV Gutiérrez Unavailable Unavailable JEAN PAUL LOCKE, FIONA Lacy Unavailable Unavailable Michela LOCKE, Thor Unavailable Unavailable MARCUS FLIGHT PARAMEDIC-C, MARGIE D Unavailable Unavailable ARTURO LOCKE, MYKE Unavailable Unavailable AMAYA LOCKE [place], SHARRON S Unavailable Unavailable KRANTHI LOCKE [place], AKOSUA Chi Unavailable Unavailable JUAN LOCKE, PINEDA W Unavailable Unavailable UMER LOCKE AL, CHE ERNST Unavailable Unavailable VALARIE LAURENT AL, JAIR-MARCIO Unavailable Unavailable VICENTE MEJIA [facility] RNBC CPN, KOREY Unavailable Unav leonorable LIBIA LOCKE, ADY Unavailable Unavailable Unavailable Unavailable Functional Status Name Dates Details Functional status health issues are not documented Status: Name Dates Details Cognitive status health issues are not d ocumented Status: Problems Name Dates Details Tachycardia (785.0, R00.0) Status: Active Pulmonary nodules (793.19, R91.8) Status: Active Drug eruption (693.0, L27.0) Status: Active Lightheadedness (780.4, R42) Status: Active Uncontrolled hypertension (401.9, I10) Status: Active Nausea (787.02, R11.0) Status: Active Low HDL (under 40) (272.5, E78.6) Status: Active Nausea (787.02, R11.0) Status: Active Right inguinal pain (789.03, R10.31) Status: Active Osteoarthritis of hips, 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, M16.0) Status: Active Osteoarthritis of left knee (715.96, M17 .12) Status: Active Chronic insomnia (780.52, F51.04) Status: Active Pain in right hip (719.45, M25.551) Status: Active Symptomatic varicose veins of both lower extremities (454.8, I83.893) Status: Active 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, 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: Active Muscle spasm of back (724.8, M62.830) Status: Active Standardized adult depression screening tool completed (Z13.31) Status: Active At standard risk for fall (V15.88, Z91.8 1) Status: Active Hypertriglyceridemia (272.1, 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 Pancreatitis (577.0, K85.90) Status: Active BMI 26.0-26.9,adult (V85.22, Z68.26) Status: Active Dehydration (276.51, E86.0) Status: Active Paresthesia of both feet (782.0, R20.2) Status: Active Varicose veins of both legs with edema ( 454.8, I83.893) Status: Active Overweight (BMI 25.0-29.9) Status: Active Partial small bowel obstruction (560.9, K56.600) Status: Active Soft tissue mass (729.99, M79.89) Status: Active Hospital discharge follow-up (V67.59, Z0 9) Status: Active Breast cancer screening (V76.10, Z12.39) Status: Active Stage 3a chronic kidney disease (585.3, N18.3) Status: Active Medication management (V58.69, Z79.899) Status: Active S/P coronary artery stent placement (V45 .82, Z95.5) Status: Active Seizure (780.39, R56.9) Status: Active Weight loss (783.21, R63.4) Status: Active Postmenopausal hormone replacement thera py (V07.4, Z79.890) Status: Active Dry heaves (787.03, R11.10) Status: Active Tachycardia (785.0, R00.0) Status: Active Vomiting (787.03, R11.10) Status: Active Nodular radiologic density (793.99, R93. 89) Status: Active Abnormal mammogram (793.80, R92.8) Status: Active Urinary frequency (788.41, R35.0) Status: Active Vertebral fracture (805.8) Status: Active Hepatic cyst (573.8, K76.89) Status: Active Vaginal atrophy (627.3, N95.2) Status: Active Left knee pain, unspecified chronicity ( 719.46, M25.562) Status: Active Medial epicondylitis of left elbow (726. 31, M77.02) Status: Active OAB (overactive bladder) (596.51, N32.81 ) Status: Active Abnormal EKG (794.31, R94.31) Status: Active LBBB (left bundle branch block) (426.3, I44.7) Status: Active Primary hypertension (401.9, I10) Status: Active PVC (premature ventricular contraction) (427.69, I49.3) Status: Active CAD S/P percutaneous coronary angioplast y (414.01, I25.10) Status: Active Palpitations (785.1, R00.2) Status: Active Paroxysmal SVT (supraventricular tachyca rdia) (427.0, I47.1) Status: Active Hand cramp (729.82, R25.2) Status: Active Urinary incontinence (788.30, R32) Status: Active Spontaneous bruising (782.7, R23.3) Status: Active Headache (784.0, R51) Status: Active Cellulitis (682.9, L03.90) Status: Active Cough (786.2, R05) Status: Active Therapeutic opioid-induced constipation (OIC) (564.09, K59.03) Status: Active Acute pain of right shoulder (719.41, M2 5.511) Status: Active Left lumbar radiculopathy (724.4, M54.16 ) Status: Active Leg cramps, sleep related (327.52, G47.6 2) Status: Active Disc degeneration (722.6) Status: Active Back pain (724.5, M54.9) Status: Active Allergic rhinitis (477.9, J30.9) Status: Active Allergic reaction to drug, initial encou nter (995.27, T78.40XA) Status: Active Neck pain (723.1, M54.2) Status: Active Asthma (493.90, J45.909) Status: Active Acute gastritis without bleeding (535.00 , K29.00) Status: Active Influenza vaccination declined by patien t (V64.06, Z28.21) Status: Active No impairment of memory (V49.89, Z78.9) Status: Active Encounter for mini-mental status examina tion Status: Active Essential hypertension (401.9, I10) Status: Active Need for influenza vaccination (V04.81, Z23) Status: Active Risk for falls (V15.88, Z91.81) Status: Active 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, 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 Statin intolerance (995.27, Z78.9) Status: Active Reactive airway disease (493.90, J45.909 ) Status: Active Mixed hyperlipidemia (272.2, E78.2) Status: Active Pleural thickening (511.0, J92.9) Status: Active Overweight (278.02, E66.3) Status: Active BMI 27.0-27.9,adult (V85.23, Z68.27) Status: Active Abnormal CAT scan (793.99, R93.89) Status: Active Fracture of right humerus (812.20, S42.3 01A) Status: Active Finding of multiple premature atrial con tractions by electrocardiography (427.61, I49.1) Status: Active Chronic kidney disease, stage 3a (585.3, N18.3) Status: Active Frequent urinary tract infections (599.0 , N39.0) Status: Active Frequent urinary tract infections (599.0 , N39.0) Status: Active Dyslipidemia (high LDL; low HDL) (272.4, E78.5) Status: Active On potassium sparing diuretic therapy (V 58.69, Z79.899) Status: Active Adult onset hypothyroidism (244.8, E03.8 ) Status: Active Acute UTI (599.0, N39.0) Status: Active Vitamin B12 deficiency (266.2, E53.8) Status: Active Intermittent claudication (443.9, I73.9) Status: Active Pelvic cramping (625.9, R10.2) Status: Active Pain of left knee after injury (719.46, M25.562) Status: Active Easy bruising (782.9, R23.8) Status: Active IBS (irritable bowel syndrome) (564.1, K 58.9) Status: Active Abdominal pain (789.00, R10.9) Status: Active Colon polyp (211.3, K63.5) Status: Active Acid reflux disease (530.81, K21.9) Status: Active IBS (irritable bowel syndrome) (564.1, K 58.9) Status: Active B12 deficiency anemia (281.1, D51.9) Status: Active Diarrhea (787.91, R19.7) Status: Active Lower back pain (724.2, M54.5) Status: Active Chronic, continuous use of opioids (305. 51, F11.90) Status: Active Chronic constipation (564.00, K59.09) Status: Active Preop examination (V72.84, Z01.818) Status: Active Major depressive disorder, recurrent, mo derate (296.32, F33.1) Status: Active Leg pain, lateral, left (729.5, M79.605) Status: Active Hyponatremia (276.1, E87.1) Status: Active Grief (309.0, F43.21) Status: Active Post-menopausal (V49.81, Z78.0) Status: Active Osteoporosis screening (V82.81, Z13.820) Status: Active Atypical chest pain (786.59, R07.89) Status: Active Hip pain, acute, left (719.45, M25.552) Status: Active Advance directive discussed with patient (V65.49, Z71.89) Status: Active Cramp of toe (729.82, R25.2) Status: Active Lipoma of back (214.8, D17.1) Status: Active Hypokalemia (276.8, E87.6) Status: Active Right shoulder pain, unspecified chronic ity (719.41, M25.511) Status: Active Hot flashes (782.62, R23.2) Status: Active Screening mammogram, encounter for (V76. 12, Z12.31) Status: Active Contusion, elbow, with forearm, right, i nitial encounter (923.10, S50.11XA) Status: Active Chronic left shoulder pain (719.41, M25. 512) Status: Active Other sprain of right elbow, initial enc ounter (841.8, S53.491A) Status: Active Cervical radiculopathy, acute (723.4, M5 4.12) Status: Active Medications Name Dates Details Vitamin [...] ABERNATHY M.D. * Start : 22-May-2018 Active Oivte-0-fixw Ethyl Esters 1 GM Oral Capsule TAKE [...] MARIN M.D. * Start : 04-Feb-2020 Active Repatha SureClick 140 MG/ML Subcutaneous Solution Auto-injector Inject contents of 1 pen every 2 weeks * Quantity: 3 Refills: 3 MICHELA Caal THOR * Start : 13-Feb-2020 Active 2 x 1 ML Pen Allergies [...] Screening Claudio G0202 Date: 22-Dec-2019 History of Shoulder Surgery Left Complet ed History of Knee Surgery Right Completed History of Knee Surgery Left Completed History of Back Surgery Completed History of Shoulder Surgery Right Comple misti History of Esophagogastric Fundoplasty Gómez Fundoplication Completed History of Back Surgery Completed History of Hand Surgery Completed History of Shoulder Surgery Completed History of Oophorectomy - Bilat (Removal Of Both Ovaries) La paroscopic Completed History of Appendectomy Completed History of Cholecystectomy Completed History of Arterial stent placement Comp leted History of Hysterectomy Completed Immunization Name Dates Details Hepatitis A on: 20-Apr-2009 Td on: 20-Apr-2009 Hepatitis A on: 06-Dec-2009 Pneumococcal polysaccharide vaccine, 23 valent on: 06-Dec-2009 Fluzone INJ Lot #: [id number] on: 22-Aug-2013 Influenza on: Aug-2014 Prevnar 13 Intramuscular Suspension Lot #: [id number] on: 30-Mar-2015 Zoster (Zostavax) on: 26-Apr-2015 Influenza on: 26-Aug-2015 Fluzone Quadrivalent 0.5 ML Intramuscula r Suspension on: 25-Aug-2016 Fluzone High-Dose 0.5 ML Intramuscular S uspension Prefilled Syringe on: 17-Aug-2017 Fluzone Quadrivalent 0.5 ML Intramuscula r Suspension Lot #: [id number] on: 05-Aug-2018 Shingrix 50 MCG Intramuscular Suspension [...] (V18.19, Z82.69) Status: Active Family history of malignant neoplasm (V1 6.9, Z80.9) Status: Active Family history of chest pain (V19.8, Z84 .89) Status: Active Family history of hypertension (V17.49, Z82.49) Status: Active Family history of rheumatoid arthritis ( V17.7, Z82.61) Status: Active Name Dates Details Family history of osteoporosis (V17.81, Z82.62) Status: Active Family history of osteopenia (V17.89, Z8 2.69) Status: Active Social History Name Dates Details [...] pressure 126 mm[Hg] Status: Comments : Location: E; Position: Sitting Diastolic blood pressure 71 mm[Hg] Status: Comment s: Location: [facility] [place]; Position: Sitting Body height 65 in Status: Weight 153.6 lb Status: Body mass index (BMI) [Ratio] 25.56 kg/m2 Status: Body surface area Derived from formula 1.77 m2 S tatus: Heart Rate 67 /min Status: Body temperature 97.7 f Status: Comments: Me thod: Oral Respiratory rate 16 /min Status: :55 Systolic blood pressure 159 mm[Hg] Status: Comments : Location: [facility] [place]; Position: Sitting Diastolic blood pressure 75 mm[Hg] Status: Comment s: Location: [facility] [place]; Position: Sitting :52 Systolic blood pressure 159 mm[Hg] Status: Comments : Location: [facility] [place]; Position: Sitting Diastolic blood pressure 73 mm[Hg] [...] Encounters Appointment; THOR ABERNATHY M .D. On: 11-May-2020 12:40 Interventions Provided Medication Changes* Repatha SureClick 140 MG/ML Subcutaneous Solution Auto- injector - Start Instructions Name Dates Details Instructions [...] Problem not documented On: 22-May-2018 16:40 Appointment; [facility] Encounter Diagnosis: Problem not documented On: 27-May-2018 [...] Problem not documented On: 11-Jun-2019 13:40 Appointment; [facility], NUCLEAR Encounter Diagnosis: Problem not documented On: [...]
--- OUTSIDE RECORDS SUMMARY | 2020-04-23 23:17 | XMS REPORT | Summary of Care ---
Author Author BRENDA Mckeon R.N. Organization Unknown Address Unknown Phone Unavailable Care Team Providers Care Paint Roller Covers Supervisor Name Role Phone JAEL Caal, DANE Unavailable Unavailable TANIA Caal, ANNIE Unavailable Unavailable CALLUM Caal, NITHIN Unavailable Unavailable MICHELA Caal, THOR Unavailable Unavailab bismark PerezOAntonia, KIMBER Unavailable Unavailable ARTURO Caal, MYKE Unavailable Unavailable JUAN Caal, PINEDA Unavailable Unavailable TANIA LOCKE [place], ANNIE YOBANI Unavailable Unavailable JESSICAONYDONELL NOEP, SALVADOR T Unavailable Unavailable Callum LOCKE, Nithin Unavailable Unavailable JACINTA LOCKE, BALDEV Gutiérrez Unavailable Unavailable JEAN PAUL LOCKE, FIONA Lacy Unavailable Unavailable Michela LOCKE, Thor Unavailable Unavailable MARCUS NOEP-C, MARGIE D Unavailable Unavailable ARTURO LOCKE, SOLAFA Unavailable Unavailable AMAYA LOCKE SC, SHARRON Lacy Unavailable Unavailable KRANTHI LOCKE SC, AKOSUA Chi Unavailable Unavailable JAUN LOCKE, PINEDA W Unavailable Unavailable UMER LOCKE SC, CHE ERNST Unavailable Unavailable VALARIE LAURENT SC, KIMBER Unavailable Unavailable VICENTE MEJIA [facility] RNBC CPN, KOREY Unavailable Unav monster [...] MOUTH EVERY DAY * Quantity: 45 Refills: 0 ANNIE MARIN M.D. * Start : 19-Jun-2017 Active Omeprazole 40 MG Oral Capsule Delayed Release TAKE 1 TABLET DAILY as needed * Refills: 0 NITHIN NOLEN M.D. * Start : 27-Dec-2017 Active NIFEdipine ER 30 MG Oral Tablet Extended Release 24 Hour TAKE 1 TABLET DAILY. * Refills: 0 THOR ABERNATHY M.D. * Start : 22-May-2018 Active Hkpdm-6-zjwl Ethyl Esters 1 GM Oral Capsule TAKE [...] MG Oral Capsule TAKE 1-3 CAPSULES AT [place] * Quantity: 60 Refills: 0 TANIA Caal ANNIE * Start : 04-Feb-2020 Active [facility] 140 MG/ML Subcutaneous Solution Auto-injector Inject contents [...] valent on: 06-Dec-2009 Fluzone INJ Lot #: [id number] on: 22-Aug-2013 Influenza on: Aug-2014 Prevnar 13 Intramuscular Suspension Lot #: [id number] on: 30-Mar-2015 Zoster (Zostavax) on: 26-Apr-2015 Influenza on: 26-Aug-2015 Fluzone Quadrivalent 0.5 ML Intramuscula r Suspension on: 25-Aug-2016 Fluzone High-Dose 0.5 ML Intramuscular S uspension Prefilled Syringe on: 17-Aug-2017 Fluzone Quadrivalent 0.5 ML Intramuscula r Suspension Lot #: [id number] on: 05-Aug-2018 Shingrix 50 MCG Intramuscular Suspension [...] pressure 159 mm[Hg] Status: Comments : Location: [facility] [place]; Position: Sitting Diastolic blood pressure 73 mm[Hg] [...] On: 11-May-2020 12:40 Interventions Provided Medication Changes* Spironolactone 25 MG Oral Tablet - Renew Instructions Name Dates Details Instructions not documented Encounters Appointment; MIGUEL ANGEL DUMONT P.A. Encounter Diagnosis: [...] Problem not documented On: 22-May-2018 16:40 [facility] Diagnosis: Problem not documented [...] not documented On: 27-Mar-2019 11:00 Appointment; MYKE MRORIS M.D. Encounter Diagnosis: Problem not documented On: [...] Problem not documented On: 11-Jun-2019 13:40 Appointment; [facility], NUCLEAR Encounter Diagnosis: Problem not [...] Diagnosis: Problem not documented On: 06-Feb-2020 10:20 Appointment; THOR ABERNATHY M .D. Encounter Diagnosis: Problem not documented On: 18-Feb-2020 12:00
--- OUTSIDE RECORDS SUMMARY | 2020-04-23 23:17 | XMS REPORT | Summary of Care ---
Author Author BRENDA Mckeon R.N. Organization Unknown Address Unknown Phone Unavailable Care Team Providers Care Video Operator Name Role Phone JAEL Caal, DANE Unavailable Unavailable TANIA Caal, ANNIE Unavailable Unavailable CALLUM Caal, NITHIN Unavailable Unavailable MICHELA Caal, THOR Unavailable Unavailab bismark PerezOAntonia, KIMBER Unavailable Unavailable ARTURO Caal, MYKE Unavailable Unavailable JUAN Caal, PINEDA Unavailable Unavailable TANIA LOCKE [place], ANNIE YOBANI Unavailable Unavailable JESSICAONYDONELL NOEP, SALVADOR T Unavailable Unavailable Callum LOCKE, Nithin Unavailable Unavailable JACINTA LOCKE, BALDEV Gutiérrez Unavailable Unavailable JEAN PAUL LOCKE, FIONA Lacy Unavailable Unavailable Michela LOCKE, Thor Unavailable Unavailable MARCUS NOEP-C, MARGIE D Unavailable Unavailable ARTURO LOCKE, SOLAFA Unavailable Unavailable AMAYA LOCKE [place], SHARRON Lacy Unavailable Unavailable KRANTHI LOCKE [place], AKOSUA Chi Unavailable Unavailable JUAN LOCKE, PINEDA W Unavailable Unavailable UMER LOCKE CO, CHE ERNST Unavailable Unavailable VALARIE LAURENT [place], KIMBER Unavailable Unavailable VICENTE MEJIA [facility] RNBC CPN, KOREY Unavailable Unav [...] Active Losartan Potassium 50 MG Oral Tablet TAKE 2 TABLETS BY MOUTH TWICE DAILY * Quantity: 120 Refills: 0 ANNIE MARIN M.D. * Start : 28-Sep-2016 [...] ABERNATHY M.D. * Start : 22-May-2018 Active Rulcd-7-rplg Ethyl Esters 1 GM Oral Capsule TAKE [...] Active 575 GM Bottle Polyethylene Glycol 3350 17 GM/SCOOP Oral Powder MIX 1 CAPFUL IN 8 [...] MARIN M.D.NDA * Start : 04-Feb-2020 Active Repatha SureClick 140 MG/ML Subcutaneous Solution Auto-injector Inject contents of 1 pen every 2 weeks * Quantity: 3 Refills: 3 MICHELA Caal, THOR * Start : 13-Feb-2020 Active 2 [...] Date: 06-Feb-2020 [QLH] CMP W/EGFR Date: 06-Feb-2020 History of Appendectomy Completed History of Cholecystectomy [...] valent on: 06-Dec-2009 Fluzone INJ Lot #: [id number] on: 22-Aug-2013 Influenza on: Aug-2014 Prevnar 13 Intramuscular Suspension Lot #: [id number] on: 30-Mar-2015 Zoster (Zostavax) on: 26-Apr-2015 Influenza on: 26-Aug-2015 Fluzone Quadrivalent 0.5 ML Intramuscula r Suspension on: 25-Aug-2016 Fluzone High-Dose 0.5 ML Intramuscular S uspension Prefilled Syringe on: 17-Aug-2017 Fluzone Quadrivalent 0.5 ML Intramuscula r Suspension Lot #: [id number] on: 05-Aug-2018 Shingrix 50 MCG Intramuscular Suspension [...] (finding) Vital Signs Date Test Result Details [id number] Systolic blood pressure 129 mm[Hg] Status: Comments : Location: LUE; Position: Sitting Diastolic blood pressure 68 mm[Hg] Status: Comment s: Location: [facility]; Position: Sitting Body height 65 in Status: Weight 154.5 lb Status: Body mass index (BMI) [Ratio] 25.71 kg/m2 Status: Body surface area Derived from formula 1.77 m2 S tatus: Heart Rate 63 /min Status: Results Date Description Value Details Results not documented Plan of Care Name Dates Details Planned Observations Planned Goals not documented Planned Encounters Appointment; THOR ABERNATHY M .D. On: 11-May-2020 12:40 Interventions Provided Medication Changes* DULoxetine HCl - 60 MG Oral Capsule Delayed Release Particles - Renew Instructions Name Dates Details Instructions not documented Encounters Appointment; ALVARO DE LEÓN M.D. Encounter Diagnosis: [...] Problem not documented On: 22-May-2018 16:40 Appointment; [facility] Encounter Diagnosis: Problem not documented On: 27-May-2018 [...] Problem not documented On: 11-Jun-2019 13:40 Appointment; [facility], NUCLE[facility] Encounter Diagnosis: Problem not documented [...]
--- OUTSIDE RECORDS SUMMARY | 2020-04-23 23:17 | XMS REPORT | Summary of Care ---
Author Author BRENDA Mckeon R.N. Organization Unknown Address Unknown Phone Unavailable Care Team Providers Care Manager Client Support Name Role Phone JAEL Caal, DANE Unavailable Unavailable TANIA Caal, ANNIE Unavailable Unavailable CALLUM Caal, NITHIN Unavailable Unavailable MICHELA Caal, THOR Unavailable Unavailab bismark PerezOAntonia, KIMBER Unavailable Unavailable ARTURO Caal, MYKE Unavailable Unavailable JUAN Caal, PINEDA Unavailable Unavailable TANIA LOCKE SD, ANNIE YOBANI Unavailable Unavailable JESSICAONYDONELL NOEP, SALVADOR T Unavailable Unavailable Callum LOCKE, Nithin Unavailable Unavailable JACINTA LOCKE, BALDEV Gutiérrez Unavailable Unavailable JEAN PAUL LOCKE, FIONA Lacy Unavailable Unavailable Michela LOCKE, Thor Unavailable Unavailable MARCUS NOEP-C, MARGIE D Unavailable Unavailable ARTURO LOCKE, SOLAFA Unavailable Unavailable AMAYA LOCKE SD, SHARRON Lacy Unavailable Unavailable KRANTHI LOCKE SD, AKOSUA Chi Unavailable Unavailable JUAN LOCKE, PINEDA W Unavailable Unavailable UMER LOCKE SD, CHE ERNST Unavailable Unavailable VALARIE LAURENT SD, KIMBER Unavailable Unavailable VICENTE MEJIA [facility] RNBC CPN, KOREY Unavailable Unav monster [...] ABERNATHY M.D. * Start : 22-May-2018 Active Obarl-8-vcun Ethyl Esters 1 GM Oral Capsule TAKE [...] BEDTIIME * Quantity: 60 Refills: 0 TANIA M.Chris, ANNIE * Start : 04-Feb-2020 Active Allergies [...] valent on: 06-Dec-2009 Fluzone INJ Lot #: [id number] on: 22-Aug-2013 Influenza on: Aug-2014 Prevnar 13 Intramuscular Suspension Lot #: [id number] on: 30-Mar-2015 Zoster (Zostavax) on: 26-Apr-2015 Influenza on: 26-Aug-2015 Fluzone Quadrivalent 0.5 ML Intramuscula r Suspension on: 25-Aug-2016 Fluzone High-Dose 0.5 ML Intramuscular S uspension Prefilled Syringe on: 17-Aug-2017 Fluzone Quadrivalent 0.5 ML Intramuscula r Suspension Lot #: [id number] on: 05-Aug-2018 Shingrix 50 MCG Intramuscular Suspension [...] (finding) Vital Signs Date Test Result Details [id number] Systolic blood pressure 129 mm[Hg] Status: Comments [...] THOR ABERNATHY M .D. On: 18-Feb-2020 14:40 Appointment; THOR ABERNATHY M .D. On: 11-May-2020 [...] Problem not documented On: 09-Apr-2018 8:15 Appointment; [facility] PAULINO P.A. Encounter Diagnosis: Problem not documented On: 08-May-2018 10:30 Appointment; ANNIE MARIN M.D. Encounter Diagnosis: Problem not documented On: 10-May-2018 16:15 Appointment; ANNIE MARIN M.D. Encounter Diagnosis: Problem not documented On: 13-May-2018 13:15 Appointment; ANNIE MARIN M.D. Encounter Diagnosis: Problem not documented On: 20-May-2018 13:00 Appointment; THOR ABERNATHY M .D. Encounter Diagnosis: Problem not documented On: 22-May-2018 16:40 [facility] En[facility] Diagnosis: Problem not documented On: 27-May-2018 [...] Problem not documented On: 11-Jun-2019 13:40 Appointment; [facility] Encounter Diagnosis: Problem not documented On: [...]
--- OUTSIDE RECORDS SUMMARY | 2020-04-23 23:17 | XMS REPORT | Summary of Care ---
Author Author BRENDA Acosta R.N. Organization Unknown Address Unknown Phone Unavailable Care Team Providers Care Jack Machine Operator Name Role Phone JALE Caal, DANE Unavailable Unavailable TANIA Caal, ANNIE Unavailable Unavailable CALLUM Caal, NITHIN Unavailable Unavailable MICHELA Caal, THOR Unavailable Unavailab bismark PerezOAntonia, KIMBER Unavailable Unavailable ARTURO Caal, MYKE Unavailable Unavailable JUAN Caal, PINEDA Unavailable Unavailable TANIA LOCKE MS, ANNIE HILTON Unavailable Unavailable JANAY NOEP, SALVADOR T Unavailable Unavailable Callum LOCKE, Nithin Unavailable Unavailable JACINTA LOCKE, BALDEV Gutiérrez Unavailable Unavailable JEAN PAUL LOCKE, FIONA Lacy Unavailable Unavailable Michela LOCKE, Thor Unavailable Unavailable MARCUS NOEP-C, MARGIE D Unavailable Unavailable ARTURO LOCKE, SOLAFA Unavailable Unavailable AMAYA LOCKE MS, SHARRON Lacy Unavailable Unavailable KRANTHI LOCKE MS, AKOSUA Chi Unavailable Unavailable JUAN LOCKE, PINEDA W Unavailable Unavailable UMER LOCKE MS, CHE ERNST Unavailable Unavailable VALARIE LAURENT MS, KIMBER Unavailable Unavailable VICENTE MEJIA [facility] RNBC CPN, KOREY Unavailable Unav monster REZA [...] ABERNATHY M.D. * Start : 22-May-2018 Active Jslqx-7-rxpc Ethyl Esters 1 GM Oral Capsule TAKE [...] DAILY. * Quantity: 90 Refills: 3 THOR ABERNTAHY M.D. * Start : 17-Jul-2019 Active tiZANidine [...] BEDTIIME * Quantity: 60 Refills: 0 TANIA Caal, ANNIE * Start : 04-Feb-2020 Active [facility] 140 MG/ML Subcutaneous Solution Auto-injector Inject contents of 1 pen every 2 weeks * Quantity: 3 Refills: 3 MICHELA aCal, THOR * Start : 13-Feb-2020 Active 2 [...] Date: 06-Feb-2020 [QL] CMP W/EGFR Date: 06-Feb-2020 History of Appendectomy [...] valent on: 06-Dec-2009 Fluzone INJ Lot #: [id number] on: 22-Aug-2013 Influenza on: Aug-2014 Prevnar 13 Intramuscular Suspension Lot #: [id number] on: 30-Mar-2015 Zoster (Zostavax) on: 26-Apr-2015 Influenza on: 26-Aug-2015 Fluzone Quadrivalent 0.5 ML Intramuscula r Suspension on: 25-Aug-2016 Fluzone High-Dose 0.5 ML Intramuscular S uspension Prefilled Syringe on: 17-Aug-2017 Fluzone Quadrivalent 0.5 ML Intramuscula r Suspension Lot #: [id number] on: 05-Aug-2018 Shingrix 50 MCG Intramuscular Suspension [...] S tatus: Heart Rate 63 /min Status: [id number]-[id number] Systolic blood pressure 126 mm[Hg] Status: Comments [...] thod: Oral Respiratory rate 16 /min Status: Results Date Description Value Details Results not documented Plan of Care Name Dates Details Planned Observations Planned Goals not documented Planned Encounters Appointment; THOR ABERNATHY M .D. On: 11-May-2020 12:40 Interventions Provided Medication Changes* Losartan Potassium 50 MG Oral Tablet - Renew Instructions Name Dates Details Instructions not documented Encounters Appointment; MIGUEL ANGEL DUMONT PAntoniaAAntonia Encounter Diagnosis: [...] Problem not documented On: 28-Mar-2018 10:30 Appointment; DUMONTMIGUEL ANGEL LA P.A. Encounter Diagnosis: Problem not documented On: [...] 22-May-2018 16:40 [facility]ointment; [facility] Encounter Diagnosis: Problem not documented On: 27-May-2018 [...] Problem not documented On: 11-Jun-2019 13:40 Appointment; [facility], NUCLEAR Encounter Diagnosis: Problem not documented On: [...]
--- OUTSIDE RECORDS SUMMARY | 2020-04-23 23:18 | XMS REPORT | Summary of Care ---
Author Author BRENDA Iraheta M.A. Organization Unknown Address [facility] Phone Unavailable Care Team Providers Care Cradle Slide Maker Name Role Phone JAEL Caal, DANE Unavailable Unavailable TANIA Caal, ANNIE Unavailable Unavailable Myrtle Cool, Anne Marie Unavailable Unavailable CALLUM Caal, NITHIN Unavailable Unavailable MICHELA Caal, THOR Unavailable Unavailab bismark SHEPPARD D.O., KIMBER Unavailable Unavailable ARTURO Caal, MYKE Unavailable Unavailable JUAN Caal, PINEDA Unavailable Unavailable TANIA LOCKE MA, ANNIE HILTON Unavailable Unavailable JANAY ECKERT, SALVADOR T Unavailable Unavailable Callum LOCKE, Nithin Unavailable Unavailable JACINTA LOCKE, BALDEV Gutiérrez Unavailable Unavailable JEAN PAUL LOCKE, FIONA Lacy Unavailable Unavailable Michela LOCKE, Thor Unavailable Unavailable MARCUS NOEP-C, MARGIE D Unavailable Unavailable ARTURO LOCKE, MYKE Unavailable Unavailable AMAYA LOCKE MA, SHARRON Lacy Unavailable Unavailable KRANTHI LOCKE [place], AKOSUA Chi Unavailable Unavailable JUAN LOCKE, PINEDA W Unavailable Unavailable UMER LOCKE MA, CHE ERNST Unavailable Unavailable VALARIE LAURENT [place], KIMBER Unavailable Unavailable VICENTE ME[facility]IA [facility] RNBC CPN, ANNE MARIE Unavailable Unav leonorable LIBIA LOCKE, ADY Unavailable [...] Potassium 50 MG Oral Tablet TAKE 2 TABLET BY MOUTH TWICE DAILY * Quantity: 360 Refills: 0 ANNIE MARIN M.D. * Start [...] ABERNATHY M.D. * Start : 22-May-2018 Active [id number]-2-oipn Ethyl Esters 1 GM Oral Capsule TAKE [...] 2 weeks * Quantity: 3 Refills: 3 EDUARDO ABERNATHY M.D.STANTINOS * Start : 13-Feb-2020 Active 2 x [...] 7.898) Status: Resolved Procedures Procedure Dates Details [Q] LIPID PANEL WITH REFLEX TO DIRECT LDL Date: 09-Jan-2020 [QL] CMP W/EGFR Date: 09-Jan-2020 [Q] LIPID PANEL WITH REFLEX TO DIRECT [...] valent on: 06-Dec-2009 Fluzone INJ Lot #: [id number] on: 22-Aug-2013 Influenza on: Aug-2014 Prevnar 13 Intramuscular Suspension Lot #: [id number] on: 30-Mar-2015 Zoster (Zostavax) on: 26-Apr-2015 Influenza on: 26-Aug-2015 Fluzone Quadrivalent 0.5 ML Intramuscula r Suspension on: 25-Aug-2016 Fluzone High-Dose 0.5 ML Intramuscular S uspension Prefilled Syringe on: 17-Aug-2017 Fluzone Quadrivalent 0.5 ML Intramuscula r Suspension Lot #: [id number] on: 05-Aug-2018 Shingrix 50 MCG Intramuscular Suspension [...] (finding) Vital Signs Date Test Result Details [id number] Systolic blood pressure 129 mm[Hg] Status: Comments [...] THOR ABERNATHY M .D. On: 11-May-2020 12:40 Instructions Name Dates Details Instructions not documented Encounters Appointment; ANNIE MARIN M.D. Encounter Diagnosis: Problem [...] Problem not documented On: 03-Jun-2019 13:00 Appointment; ANNE MARIE ZHANG APRN Encounter Diagnosis: Problem not documented On: 04-Jun-2019 15:00 Appointment; PINEDA MARTINEZ M.D. Encounter Diagnosis: Problem not documented On: 05-Jun-2019 8:00 Appointment; AKOSUA CRISOSTOMO M.D. Encounter Diagnosis: Problem not documented On: 06-Jun-2019 10:00 Appointment; THOR ABERNATHY M .D. Encounter Diagnosis: Problem not documented On: 11-Jun-2019 13:40 Appointment; [facility], NUCLEAR Encounter Diagnosis: Problem not documented On: [...]
--- OUTSIDE RECORDS SUMMARY | 2020-04-23 23:18 | XMS REPORT | Summary of Care ---
Author Author BRENDA Viera R.N. Organization Unknown Address Unknown Phone Unavailable Care Team Providers Care 911 Emergency Services Dispatcher Name Role Phone JAEL Caal, DANE Unavailable Unavailable TANIA Caal, ANNIE Unavailable Unavailable CALLUM Caal, NITHIN Unavailable Unavailable MICHELA Caal, THOR Unavailable Unavailab bismark SHEPPARD D.O., JAIR-MARCIO Unavailable Unavailable ARTURO Caal, VIKYAFA Unavailable Unavailable JUAN Caal, PINEDA Unavailable Unavailable Maximiliano Bruce, [place] Unavailable Unavailable KIAH Caal, NELL Unavailable Unavailable TANIA LOCKE [place], ANNIE HILTON Unavailable Unavailable JANAY ECKERT, SALVADOR T Unavailable Unavailable Callum LOCKE, Nithin Unavailable Unavailable JACINTA LOCKE, BALDEV Gutiérrez Unavailable Unavailable JEAN PAUL LOCKE, FIONA Lacy Unavailable Unavailable Michela LOCKE, Thor Unavailable Unavailable [employer]-C, MARGIE D Unavailable Unavailable ARTURO LOCKE, SOLAFA Unavailable Unavailable AMAYA LOCKE [place], SHARRON S Unavailable Unavailable KRANTHI LOCKE [place], AKOSUA H Unavailable Unavailable JUAN LOCKE, PINEDA W Unavailable Unavailable UMER LOCKE [place], CHE ERNST Unavailable Unavailable VALARIE LAURENT [place], JAIR-MARCIO Unavailable Unavailable VICENTE MEJIA [facility] RNBC CPN, KOREY Unavailable Unav leonorable LIBIA LOCKE, ADY Unavailable Unavailable KIAH LOCKE, NELL Unavailable Unavailable Unavailable Unavailable Functional Status Name Dates Details Functional status health issues are not documented Status: Name Dates Details Cognitive status health issues are not d ocumented Status: Problems Name Dates Details Chronic insomnia (780.52, F51.04) Status: Active Pain in right hip (719.45, M25.551) Status: Active Right inguinal pain (789.03, R10.31) Status: Active Osteoarthritis of left knee (715.96, M17 .12) Status: Active Osteoarthritis of hips, 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, M16.0) Status: Active Symptomatic varicose veins of both lower extremities (454.8, I83.893) Status: Active 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893) Status: Active Paresthesia of both feet (782.0, R20.2) Status: Active Dehydration (276.51, E86.0) Status: Active Soft tissue mass (729.99, M79.89) Status: Active Hospital discharge follow-up (V67.59, Z0 9) Status: Active Overweight (BMI 25.0-29.9) Status: Active Nausea (787.02, R11.0) Status: Active Pulmonary nodules (793.19, R91.8) Status: Active Tachycardia (785.0, R00.0) Status: Active Drug eruption (693.0, L27.0) Status: Active Lightheadedness (780.4, R42) Status: Active Uncontrolled hypertension (401.9, I10) Status: Active Nausea (787.02, R11.0) Status: Active Low HDL (under 40) (272.5, E78.6) Status: Active Medication management (V58.69, Z79.899) Status: Active Seizure (780.39, R56.9) Status: Active S/P coronary artery stent placement (V45 .82, Z95.5) Status: Active Weight loss (783.21, R63.4) Status: Active Postmenopausal hormone replacement thera py (V07.4, Z79.890) Status: Active Tachycardia (785.0, R00.0) Status: Active Dry heaves (787.03, R11.10) Status: Active Vomiting (787.03, R11.10) Status: Active Urinary frequency (788.41, R35.0) Status: Active Nodular radiologic density (793.99, R93. 89) Status: Active Abnormal mammogram (793.80, R92.8) Status: Active Vertebral fracture (805.8) Status: Active Hepatic cyst (573.8, K76.89) Status: Active Left knee pain, unspecified chronicity ( 719.46, M25.562) Status: Active Vaginal atrophy (627.3, N95.2) Status: Active Medial epicondylitis of left elbow (726. 31, M77.02) Status: Active OAB (overactive bladder) (596.51, N32.81 ) Status: Active Palpitations (785.1, R00.2) Status: Active CAD S/P percutaneous coronary angioplast y (414.01, I25.10) Status: Active Paroxysmal SVT (supraventricular tachyca rdia) (427.0, I47.1) Status: Active Abnormal EKG (794.31, R94.31) Status: Active LBBB (left bundle branch block) (426.3, I44.7) Status: Active Primary hypertension (401.9, I10) Status: Active PVC (premature ventricular contraction) (427.69, I49.3) Status: Active Therapeutic opioid-induced constipation (OIC) (564.09, K59.03) Status: Active Headache (784.0, R51) Status: Active Spontaneous bruising (782.7, R23.3) Status: Active Cellulitis (682.9, L03.90) Status: Active Cough (786.2, R05) Status: Active Hand cramp (729.82, R25.2) Status: Active Urinary incontinence (788.30, R32) Status: Active Acute pain of right shoulder (719.41, M2 5.511) Status: Active Left lumbar radiculopathy (724.4, M54.16 ) Status: Active Leg cramps, sleep related (327.52, G47.6 2) Status: Active Disc degeneration (722.6) Status: Active Back pain (724.5, M54.9) Status: Active Acute UTI (599.0, N39.0) Status: Active Neck pain (723.1, M54.2) Status: Active Chronic kidney disease, stage 3a (585.3, N18.3) Status: Active Frequent urinary tract infections (599.0 , N39.0) Status: Active Frequent urinary tract infections (599.0 , N39.0) Status: Active Essential hypertension (401.9, I10) Status: Active Risk for falls (V15.88, Z91.81) Status: Active 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, 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 Statin intolerance (995.27, Z78.9) Status: Active Need for influenza vaccination (V04.81, Z23) Status: Active Reactive airway disease (493.90, J45.909 ) Status: Active Pleural thickening (511.0, J92.9) Status: Active Overweight (278.02, E66.3) Status: Active Mixed hyperlipidemia (272.2, E78.2) Status: Active BMI 27.0-27.9,adult (V85.23, Z68.27) Status: Active Abnormal CAT scan (793.99, R93.89) Status: Active Vitamin B12 deficiency (266.2, E53.8) Status: Active Finding of multiple premature atrial con tractions by electrocardiography (427.61, I49.1) Status: Active Encounter for mini-mental status examina tion Status: Active On potassium sparing diuretic therapy (V 58.69, Z79.899) Status: Active Adult onset hypothyroidism (244.8, E03.8 ) Status: Active Dyslipidemia (high LDL; low HDL) (272.4, E78.5) Status: Active Asthma (493.90, J45.909) Status: Active Acute gastritis without bleeding (535.00 , K29.00) Status: Active Influenza vaccination declined by patien t (V64.06, Z28.21) Status: Active No impairment of memory (V49.89, Z78.9) Status: Active Fracture of right humerus (812.20, S42.3 01A) Status: Active Pelvic cramping (625.9, R10.2) Status: Active Intermittent claudication (443.9, I73.9) Status: Active Allergic rhinitis (477.9, J30.9) Status: Active Allergic reaction to drug, initial encou nter (995.27, T78.40XA) Status: Active Lower back pain (724.2, M54.5) Status: Active 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, M43.6) Status: Active Pain of left knee after injury (719.46, M25.562) Status: Active Easy bruising (782.9, R23.8) Status: Active IBS (irritable bowel syndrome) (564.1, K 58.9) Status: Active Abdominal pain (789.00, R10.9) Status: Active Colon polyp (211.3, K63.5) Status: Active Diarrhea (787.91, R19.7) Status: Active B12 deficiency anemia (281.1, D51.9) Status: Active Acid reflux disease (530.81, K21.9) Status: Active IBS (irritable bowel syndrome) (564.1, K 58.9) Status: Active Preop examination (V72.84, Z01.818) Status: Active Major depressive disorder, recurrent, mo derate (296.32, F33.1) Status: Active Grief (309.0, F43.21) Status: Active Leg pain, lateral, left (729.5, M79.605) Status: Active Hyponatremia (276.1, E87.1) Status: Active Osteoporosis screening (V82.81, Z13.820) Status: Active Atypical chest pain (786.59, R07.89) Status: Active Advance directive discussed with patient (V65.49, Z71.89) Status: Active Hip pain, acute, left (719.45, M25.552) Status: Active Cramp of toe (729.82, R25.2) Status: Active Lipoma of back (214.8, D17.1) Status: Active Hypokalemia (276.8, E87.6) Status: Active Post-menopausal (V49.81, Z78.0) Status: Active Right shoulder pain, unspecified chronic ity (719.41, M25.511) Status: Active Hot flashes (782.62, R23.2) Status: Active Screening mammogram, encounter for (V76. 12, Z12.31) Status: Active Chronic, continuous use of opioids (305. 51, F11.90) Status: Active Chronic constipation (564.00, K59.09) Status: Active Chronic left shoulder pain (719.41, M25. 512) Status: Active Other sprain of right elbow, initial enc ounter (841.8, S53.491A) Status: Active Contusion, elbow, with forearm, right, i nitial encounter (923.10, S50.11XA) Status: Active Cervical radiculopathy, acute (723.4, M5 [...] MOUTH EVERY DAY * Quantity: 30 Refills: 3 ANNIE MARIN M.D. * Start : 15-Sep-2019 Active HYDROcodone-Acetaminophen 7.5-325 MG Oral Tablet TAKE 1 TABLET 4 TIMES DAILY * Refills: 0 Active Losartan Potassium 50 MG Oral Tablet TAKE 2 TABLET BY MOUTH TWICE DAILY * Quantity: 120 [...] ABERNATHY M.D. * Start : 22-May-2018 Active Wpmzb-8-rbjb Ethyl Esters 1 GM Oral Capsule TAKE [...] 75 MG Oral Tablet TAKE 1 TABLET BY MOUTH DAILY * Quantity: 60 Refills: 0 THOR ABERNATHY M.D. * Start : 17-Jul-2019 [...] 13-Feb-2020 Active 2 x 1 ML Pen Cyclobenzaprine HCl - 5 MG Oral Tablet TAKE 1 TABLET AT BEDTIME NEEDED. * Quantity: 10 Refills: 0 NELL DUPONT M.D. * Start : 25-Mar-2020 Active Allergies and Adverse Reactions Name Dates [...] [QL] CMP W/EGFR Date: 06-Feb-2020 History of Shoulder Surgery Left Complet ed [...] valent on: 06-Dec-2009 Fluzone INJ Lot #: [id number] on: 22-Aug-2013 Influenza on: Aug-2014 Prevnar 13 Intramuscular Suspension Lot #: [id number] on: 30-Mar-2015 Zoster (Zostavax) on: 26-Apr-2015 Influenza on: 26-Aug-2015 Fluzone Quadrivalent 0.5 ML Intramuscula r Suspension on: 25-Aug-2016 Fluzone High-Dose 0.5 ML Intramuscular S uspension Prefilled Syringe on: 17-Aug-2017 Fluzone Quadrivalent 0.5 ML Intramuscula r Suspension Lot #: [id number] on: 05-Aug-2018 Shingrix 50 MCG Intramuscular Suspension [...] (finding) Vital Signs Date Test Result Details 16-Oks-131915:13 Systolic blood pressure 119 mm[Hg] Status: Comments : Location: LUE; Position: Sitting Diastolic blood pressure 55 mm[Hg] Status: Comment s: Location: LUE; Position: Sitting Body height 65 in Status: Weight 154 lb Status: Body mass index (BMI) [Ratio] 25.63 kg/m2 Status: Body surface area Derived from formula 1.77 m2 S tatus: Body temperature 97.7 f Status: Comments: Me thod: Temporal Heart Rate 66 /min Status: Comments: Lo cation: L PT; Respiratory rate 16 /min Status: Comments: Qu ality: Normal Results Date Description Value Details Results not documented Plan of Care Name Dates Details Planned Observations Planned Goals not documented Planned Encounters Appointment; THOR ABERNATHY M .D. On: 11-May-2020 12:40 Interventions Provided Discussion/Summary* Guideline Used: * Other: No guideline * [place] * [phone], pt requesting call back. Pt states have questions about meds Dr. Abernathy has prescribed. Task sent to [place] * Intended Caller Action: * Other: medical call back Instructions Name Dates Details Instructions not documented [...] On: 22-May-2018 16:40 [facility] Diagnosis: Problem not documented [...] Problem not documented On: 11-Jun-2019 13:40 Appointment; [facility], [facility] Encounter Diagnosis: Problem not documented On: [...] Diagnosis: Problem not documented On: 18-Feb-2020 12:00 Appointment; NELL DUPONT M.D. Encounter Diagnosis: Problem not documented On: 25-Mar-2020 11:00
--- OUTSIDE RECORDS SUMMARY | 2020-04-23 23:18 | XMS REPORT | Summary of Care ---
Author Author BRENDA Tavarez LVN Organization Unknown Address [facility] Phone Unavailable Care Team Providers Care Respiratory Care Practitioner Name Role Phone JAEL Caal, DANE Unavailable Unavailable TANIA Caal, ANNIE Unavailable Unavailable Daysi THOMPSON, Jennifer Unavailable Unavailable CALLUM Caal, NITHIN Unavailable Unavailable MICHELA Caal, THOR Unavailable Unavailab bismark SHEPPARD D.O., KIMBER Unavailable Unavailable ARTURO Caal, MYKE Unavailable Unavailable JUAN Caal, PINEDA Unavailable Unavailable KIAH Caal, NELL Unavailable Unavailable TANIA LOCKE [place], ANNIE YOBANI Unavailable Unavailable JANAY ECKERT, SALVADOR T Unavailable Unavailable Callum LOCKE, Nithin Unavailable Unavailable JACINTA LOCKE, BALDEV Gutiérrez Unavailable Unavailable JEAN PAUL LOCKE, FIONA Lacy Unavailable Unavailable Michela LOCKE, Thor Unavailable Unavailable MARCUS NOEP-C, MARGIE Gutiérrez Unavailable Unavailable ARTURO LOCKE, MYKE Unavailable Unavailable AMAYA LOCKE [place], SHARRON S Unavailable Unavailable KRANTHI LOCKE [place], AKOSUA H Unavailable Unavailable JUAN LOCKE, PINEDA W Unavailable Unavailable UMER LOCKE [place], CHE ERNST Unavailable Unavailable VALARIE LAURENT [place], KIMBER Unavailable Unavailable VICENTE MEJIA [facility] RNBC CPN, KOREY Unavailable Unav leonorable LIBIA LOCKE, AYD Unavailable Unavailable KIAH LOCKE, NELL Unavailable Unavailable Unavailable Unavailable Functional Status Name Dates Details Functional status health issues are not documented Status: Name Dates Details Cognitive status health issues are not d ocumented Status: Problems Name Dates Details Hepatic cyst (573.8, K76.89) Status: Active Intermittent [...] discharge follow-up (V67.59, Z0 9) Status: Active Pancreatitis (577.0, K85.90) Status: Active [...] Active Medication management (V58.69, Z79.899) Status: Active Partial small bowel obstruction (560.9, K56.600) Status: Active 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 * Start : 22-May-2018 Active Zivxv-1-ufsq Ethyl Esters 1 GM Oral Capsule TAKE [...] N. * Quantity: 510 Refills: 1 DANE ELEDR M.D. * Start : 26-Jan-2020 Active Promethazine HCl - 12.5 MG Oral Tablet TAKE 1 TABLET BY MOUTH EVERY 6 HOURS NEEDED FOR NAUSEA AND VOMITING * Quantity: 12 Refills: 0 DANE ELDER M.D. * Start : 27-Jan-2020 Active Gabapentin 100 MG Oral Capsule TAKE 1-3 CAPSULES AT BEDTIIME * Quantity: 60 Refills: 0 TANIA Caal ANNIE * Start : 04-Feb-2020 Active Repatha SureClick [...] 9) Status: Resolved History of kidney disease (V13., Z87.4 48) Status: Resolved History of thyroid [...] valent on: 06-Dec-2009 Fluzone INJ Lot #: [id number] on: 22-Aug-2013 Influenza on: Aug-2014 Prevnar 13 Intramuscular Suspension Lot #: [id number] on: 30-Mar-2015 Zoster (Zostavax) on: 26-Apr-2015 Influenza on: 26-Aug-2015 Fluzone Quadrivalent 0.5 ML Intramuscula r Suspension on: 25-Aug-2016 Fluzone High-Dose 0.5 ML Intramuscular S uspension Prefilled Syringe on: 17-Aug-2017 Fluzone Quadrivalent 0.5 ML Intramuscula r Suspension Lot #: [id number] on: 05-Aug-2018 Shingrix 50 MCG Intramuscular Suspension [...] (finding) Vital Signs Date Test Result Details [id number] Systolic blood pressure 119 mm[Hg] Status: Comments [...] Observations Planned Goals not documented Planned Encounters Home Health Therapy Referral Appointment; THOR ABERNATHY M .D. On: 11-May-2020 [...] Problem not documented On: 22-May-2018 16:40 [facility] Encounter Diagnosis: [...] Problem not documented On: 11-Jun-2019 13:40 Appointment; [facility], NUCLEAR Encounter Diagnosis: Problem not documented On: [...]
--- OUTSIDE RECORDS SUMMARY | 2020-04-23 23:18 | XMS REPORT | Summary of Care ---
Author Author BRENDA Mckeon R.N. Organization Unknown Address Unknown Phone Unavailable Care Team Providers Care Head Of Training And Development Name Role Phone JAEL Caal, DANE Unavailable Unavailable TANIA Caal, ANNIE Unavailable Unavailable CALLUM Caal, NITHIN Unavailable Unavailable MICHELA Caal, THOR Unavailable Unavailab bismark PerezOAntonia, KIMBER Unavailable Unavailable ARTURO Caal, MYKE Unavailable Unavailable JAUN Caal, PINEDA Unavailable Unavailable TANIA LOCKE [place], ANNIE YOBANI Unavailable Unavailable JESSICAONYDONELL NOEP, SALVADOR T Unavailable Unavailable Callum LOCKE, Nithin Unavailable Unavailable JACINTA LOCKE, BALDEV Gutiérrez Unavailable Unavailable JEAN PAUL LOCKE, FIONA Lacy Unavailable Unavailable Michela LOCKE, Thor Unavailable Unavailable MARCUS NOEP-C, MARGIE D Unavailable Unavailable ARTURO LOCKE, SOLAFA Unavailable Unavailable AMAYA LOCKE [place], SHARRON Lacy Unavailable Unavailable KRANTHI LOCKE [place], AKOSUA Chi Unavailable Unavailable JUAN LOCKE, PINEDA W Unavailable Unavailable UMER LOCKE [place], CHE ERNST Unavailable Unavailable VALARIE LAURENT [place], KIMBER Unavailable Unavailable VICENTE MEJIA [facility] RNBC CPN, KOREY Unavailable Unav monster [...] small bowel obstruction (560.9, K56.600) Status: Active Medications Name Dates Details Vitamin [...] ABERNATHY M.D. * Start : 22-May-2018 Active Lrzqq-3-mwdg Ethyl Esters 1 GM Oral Capsule TAKE [...] valent on: 06-Dec-2009 Fluzone INJ Lot #: [id number] on: 22-Aug-2013 Influenza on: Aug-2014 Prevnar 13 Intramuscular Suspension Lot #: [id number] on: 30-Mar-2015 Zoster (Zostavax) on: 26-Apr-2015 Influenza on: 26-Aug-2015 Fluzone Quadrivalent 0.5 ML Intramuscula r Suspension on: 25-Aug-2016 Fluzone High-Dose 0.5 ML Intramuscular S uspension Prefilled Syringe on: 17-Aug-2017 Fluzone Quadrivalent 0.5 ML Intramuscula r Suspension Lot #: [id number] on: 05-Aug-2018 Shingrix 50 MCG Intramuscular Suspension [...] Oral Capsule Delayed Release Particles - Renew * Losartan Potassium 50 MG Oral Tablet - Renew * Synthroid 112 MCG Oral Tablet - Renew Instructions Name Dates Details Instructions not documented Encounters Appointment; MOKAR PAULINO P.A. Encounter Diagnosis: Problem not documented [...] not documented On: 22-May-2018 16:40 [facility] En[facility] Diagnosis: Problem not documented [...] not documented On: 18-Feb-2019 12:00 Appointment; MARGIE EVLAZQUEZ APRN Encounter Diagnosis: Problem not documented On: [...] Problem not documented On: 11-Jun-2019 13:40 [facility] Encounter Diagnosis: Problem not documented On: [...]
--- OUTSIDE RECORDS SUMMARY | 2020-04-23 23:18 | XMS REPORT | Summary of Care ---
Author Author BRENDA Mckeon R.N. Organization Unknown Address Unknown Phone Unavailable Care Team Providers Care Floor Sweeper Name Role Phone JAEL Caal, DANE Unavailable Unavailable TANIA Caal, ANNIE Unavailable Unavailable CALLUM Caal, NITHIN Unavailable Unavailable MICHELA Caal, THOR Unavailable Unavailab bismark PerezOAntonia, KIMBER Unavailable Unavailable ARTURO Caal, MYKE Unavailable Unavailable JUAN Caal, PINEDA Unavailable Unavailable TANIA LOCKE [place], [...] LAURENT [place], KIMBER Unavailable Unavailable VICENTE MEJIA [facility] [...] ABERNATHY M.D. * Start : 22-May-2018 Active Xrmxp-4-rfyr Ethyl Esters 1 GM Oral Capsule TAKE [...] valent on: 06-Dec-2009 Fluzone INJ Lot #: [id number] on: 22-Aug-2013 Influenza on: Aug-2014 Prevnar 13 Intramuscular Suspension Lot #: [id number] on: 30-Mar-2015 Zoster (Zostavax) on: 26-Apr-2015 Influenza on: 26-Aug-2015 Fluzone Quadrivalent 0.5 ML Intramuscula r Suspension on: 25-Aug-2016 Fluzone High-Dose 0.5 ML Intramuscular S uspension Prefilled Syringe on: 17-Aug-2017 Fluzone Quadrivalent 0.5 ML Intramuscula r Suspension Lot #: [id number] on: 05-Aug-2018 Shingrix 50 MCG Intramuscular Suspension [...] (finding) Vital Signs Date Test Result Details [id number] Systolic blood pressure 129 mm[Hg] Status: Comments [...] Problem not documented On: 22-May-2018 16:40 Appointment; [facility] Encounter Diagnosis: Problem not documented On: [...] Problem not documented On: 11-Jun-2019 13:40 Appointment; [facility], NUCLEAR Encounter Diagnosis: Problem not [...]
--- OUTSIDE RECORDS SUMMARY | 2020-04-23 23:18 | XMS REPORT | Summary of Care ---
Author Author BRENDA Heredia LVN Organization Unknown Address Unknown Phone Unavailable Care Team Providers Care Senior Graduate Advisor Name Role Phone JAEL Caal, DANE Unavailable Unavailable TAINA Caal, ANNIE Unavailable Unavailable CALLUM Caal, NITHIN Unavailable Unavailable MICHELA Caal, THOR Unavailable Unavailab bismark SHEPPARD D.OAntonia, JAIR-MARCIO Unavailable Unavailable ARTURO Caal, VIKYAFA Unavailable Unavailable JUAN Caal, PINEDA Unavailable Unavailable KIAH Caal, NELL Unavailable Unavailable TANIA LOCKE [place], ANNIE YOBANI Unavailable Unavailable OBONYANO CEMENTER MACHINE, SALVADOR T Unavailable Unavailable Callum LOCKE, Nithin Unavailable Unavailable JACINTA LOCKE, BALDEV Gutiérrez Unavailable Unavailable JEAN PAUL LOCKE, FIONA Lacy Unavailable Unavailable Michela LOCKE, Thor Unavailable Unavailable MARCUS CEMENTER MACHINE-C, MARGIE D Unavailable Unavailable ARTURO LOCKE, VIKYAFA Unavailable Unavailable AMAYA LOCKE [place], SHARRON S Unavailable Unavailable KRANTHI LOCKE [place], AKOSUA Chi Unavailable Unavailable JUAN LOCKE, PINEDA W Unavailable Unavailable UMER LOCKE [place], CHE ERNST Unavailable Unavailable VALARIE LAURENT [place], KIMBER Unavailable Unavailable VICENTE MEJIA [facility] RNBC CPN, KOREY Unavailable Unav leonorable LIBIA [...] Status: Active Overweight (BMI 25.0-29.9) Status: Active Soft tissue mass (729.99, M79.89) Status: Active Hospital discharge follow-up (V67.59, Z0 9) Status: Active Breast cancer screening (V76.10, Z12.39) Status: Active Stage 3a chronic kidney disease (585.3, N18.3) Status: Active Partial small bowel obstruction (560.9, K56.600) Status: Active Medication management (V58.69, Z79.899) Status: [...] K29.00) Status: Active Influenza vaccination declined by libia t (V64.06, Z28.21) Status: Active No impairment [...] ABERNATHY M.D. * Start : 22-May-2018 Active Xofzl-3-gzhs Ethyl Esters 1 GM Oral Capsule TAKE [...] valent on: 06-Dec-2009 Fluzone INJ Lot #: [id number] on: 22-Aug-2013 Influenza on: Aug-2014 Prevnar 13 Intramuscular Suspension Lot #: [id number] on: 30-Mar-2015 Zoster (Zostavax) on: 26-Apr-2015 Influenza on: 26-Aug-2015 Fluzone Quadrivalent 0.5 ML Intramuscula r Suspension on: 25-Aug-2016 Fluzone High-Dose 0.5 ML Intramuscular S uspension Prefilled Syringe on: 17-Aug-2017 Fluzone Quadrivalent 0.5 ML Intramuscula r Suspension Lot #: [id number] on: 05-Aug-2018 Shingrix 50 MCG Intramuscular Suspension [...] (finding) Vital Signs Date Test Result Details [id number] Systolic blood pressure 119 mm[Hg] Status: Comments [...] Problem not documented On: 22-May-2018 16:40 Appointment; [facility] Encounter Diagnosis: Problem not documented On: 27-May-2018 [...] Problem not documented On: 11-Jun-2019 13:40 Appointment; [facility], NUCLEAR Encounter Diagnosis: Problem not documented On: [...]
--- OUTSIDE RECORDS SUMMARY | 2020-04-23 23:18 | XMS REPORT | Summary of Care ---
Author Author BRENDA Knowles R.N. Organization Unknown Address Unknown Phone Unavailable Care Team Providers Care Welder 2Nd Shift Name Role Phone JAEL Caal, DANE Unavailable Unavailable TANIA Caal, ANNIE Unavailable Unavailable CALLUM Caal, NITHIN Unavailable Unavailable MICHELA Caal, THOR Unavailable Unavailab bismark PerezOAntonia, KIMBER Unavailable Unavailable ARTURO Caal, MYKE Unavailable Unavailable JUAN aCal, PINEDA Unavailable Unavailable TANIA LOCKE [place], ANNIE YOBANI Unavailable Unavailable JANAY NOEP, SALVADOR T Unavailable Unavailable Callum LOCKE, Nithin Unavailable Unavailable JACINTA LOCKE, BALDEV Gutiérrez Unavailable Unavailable JEAN PAUL LOCKE, FIONA Lacy Unavailable Unavailable Michela LOCKE, Thor Unavailable Unavailable MARCUS NOEP-C, MARGIE D Unavailable Unavailable ARTURO LOCKE, SOLAFA Unavailable Unavailable AMAYA LOCKE [place], SHARRON Lacy Unavailable Unavailable KRANTHI LOCKE [place], AKOSUA Chi Unavailable Unavailable JUAN LOCKE, PINEDA W Unavailable Unavailable UMER LOCKE [place], CHE ERNST Unavailable Unavailable VALARIE LAURENT [place], KIMBER Unavailable Unavailable VICENTE MEJIA [facility] RNBC CPN, KOREY Unavailable Unav monster [...] ABERNATHY M.D. * Start : 22-May-2018 Active Ivjzn-2-snjl Ethyl Esters 1 GM Oral Capsule TAKE 2 CAPSULES BY MOUTH TWICE A DAY * Quantity: 360 Refills: 2 ANNIE MARIN M.D. * Start : 05-Aug-2018 Active Estradiol 0.1 MG/GM Vaginal Cream INSERT 1 GRAM INTO THE VAGINA USING APPLICATOR EVERY NIGHT AT BEDTIME FOR 2 WEEK S THEN DECREASE TO TWICE WEEKLY AT BEDTIME THEREAFTER * Quantity: 2 Refills: 4 MYKE MORIRS M.D. * Start : 27-Mar-2019 Active 42.5 [...] valent on: 06-Dec-2009 Fluzone INJ Lot #: [id number] on: 22-Aug-2013 Influenza on: Aug-2014 Prevnar 13 Intramuscular Suspension Lot #: [id number] on: 30-Mar-2015 Zoster (Zostavax) on: 26-Apr-2015 Influenza on: 26-Aug-2015 Fluzone Quadrivalent 0.5 ML Intramuscula r Suspension on: 25-Aug-2016 Fluzone High-Dose 0.5 ML Intramuscular S uspension Prefilled Syringe on: 17-Aug-2017 Fluzone Quadrivalent 0.5 ML Intramuscula r Suspension Lot #: [id number] on: 05-Aug-2018 Shingrix 50 MCG Intramuscular Suspension [...] On: 11-May-2020 12:40 Interventions Provided Medication Changes* Clopidogrel Bisulfate 75 MG Oral Tablet - Renew Instructions Name [...] Problem not documented On: 22-May-2018 16:40 [facility] Encounter Diagnosis: Problem not documented [...] Problem not documented On: 11-Jun-2019 13:40 [facility] Encounter Diagnosis: Problem not documented On: [...]
--- OUTSIDE RECORDS SUMMARY | 2020-04-23 23:19 | XMS REPORT | Summary of Care ---
Author Author KIAH Caal, BRENDA Lacy Organization Unknown Address Unknown Phone Unavailable Care Team Providers Care Plant Controls Specialist Name Role Phone JAEL Caal, DANE Unavailable Unavailable TANIA Caal, ANNIE Unavailable Unavailable MICHELA Caal, THOR Unavailable Unavailab bismark SHEPPARD D.O., KIMBER Unavailable Unavailable ARTURO Caal, MYKE Unavailable Unavailable JUAN Caal, PINEDA Unavailable Unavailable KIAH Caal, NELL Unavailable Unavailable TANIA LOCKE [place], ANNIE HILTON Unavailable Unavailable LIBIA LOCKE, ADY Unavailable Unavailable JANAY ECKERT, SALVADOR T Unavailable Unavailable Jason LOCKE, Nithin Unavailable Unavailable JACINTA LOCKE, BALDEV Gutiérrez Unavailable Unavailable JEAN PAUL LOCKE, FIONA Lacy Unavailable Unavailable Michela LOCKE, Thor Unavailable Unavailable MARCUS TRANSMITTER TESTER-C, MARGIE D Unavailable Unavailable ARTURO LOCKE, MYKE Unavailable Unavailable AMAYA LOCKE [place], SHARRON S Unavailable Unavailable KRANTHI LOCKE [place], AKOSUA Chi Unavailable Unavailable JUAN LOCKE, PINEDA W Unavailable Unavailable UMER LOCKE [place], CHE ERNST Unavailable Unavailable VALARIE LAURENT [place], JAIR-MARCIO Unavailable Unavailable VICENTE MEJIA [facility] RNBC CPN, KOREY Unavailable Unav ailable KIAH LOCKE, NELL Unavailable Unavailable Unavailable Unavailable [...] discharge follow-up (V67.59, Z0 9) Status: Active Hypertriglyceridemia (272.1, 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 [...] Lower back pain (724.2, M54.5) Status: Active Muscle spasm (728.85, M62.838) Status: Active Constipation (564.00, K59.00) Status: Active Medications Name Dates Details Vitamin [...] Losartan Potassium 50 MG Oral Tablet TAKE 1 TABLET TWICE DAILY. * Quantity: 60 Refills: 0 MOHEYUDDIN M.D., NELL * Start : 28-Sep-2016 Active Spironolactone 25 MG Oral Tablet TAKE 1/2 TABLET BY MOUTH EVERY DAY * Quantity: 45 Refills: 0 ANNIE MARIN M.D. * Start : 19-Jun-2017 Active NIFEdipine ER 30 MG Oral Tablet Extended Release 24 Hour TAKE 1 TABLET DAILY. * Refills: 0 THOR ABERNATHY M.D. * Start : 22-May-2018 Active Bulea-9-cmgn Ethyl Esters 1 GM Oral Capsule TAKE [...] ABERNATHY M.D. * Start : 17-Jul-2019 Active Aspirin 81 MG TABS TAKE 1 [...] Caal, ANNIE * Start : 04-Feb-2020 Active Repatha SureClick 140 MG/ML Subcutaneous Solution Auto-injector Inject contents of 1 pen every 2 weeks * Quantity: 3 Refills: 3 SARAH ABERNATHY M.D.ANTINOS * Start : 13-Feb-2020 Active 2 x 1 ML Pen Cyclobenzaprine HCl - 5 MG Oral Tablet TAKE 1 TABLET AT BEDTIME NEEDED. * Quantity: 10 Refills: 0 KIAH Caal, NELL * Start : 25-Mar-2020 Active Senna 8.6 MG Oral Capsule TAKE 1 CAPSULE Every twelve hours * Quantity: 60 Refills: 0 KIAH Caal, NELL * Start : 02-Apr-2020 Active Docusate Sodium 100 MG Oral Capsule TAKE 1 CAPSULE TWICE DAILY. * Quantity: 60 Refills: 0 KIAH Caal, NELL * Start : 02-Apr-2020 Active Allergies and Adverse Reactions Name Dates [...] valent on: 06-Dec-2009 Fluzone INJ Lot #: [id number] on: 22-Aug-2013 Influenza on: Aug-2014 Prevnar 13 Intramuscular Suspension Lot #: [id number] on: 30-Mar-2015 Zoster (Zostavax) on: 26-Apr-2015 Influenza on: 26-Aug-2015 Fluzone Quadrivalent 0.5 ML Intramuscula r Suspension on: 25-Aug-2016 Fluzone High-Dose 0.5 ML Intramuscular S uspension Prefilled Syringe on: 17-Aug-2017 Fluzone Quadrivalent 0.5 ML Intramuscula r Suspension Lot #: [id number] on: 05-Aug-2018 Shingrix 50 MCG Intramuscular Suspension [...] (finding) Vital Signs Date Test Result Details :23 Systolic blood pressure 128 mm[Hg] Status: Comments : Location: LUE; Position: Sitting Diastolic blood pressure 67 mm[Hg] Status: Comment s: Location: LUE; Position: Sitting Body height 65 in Status: Weight 156 lb Status: Body mass index (BMI) [Ratio] 25.96 kg/m2 Status: Body surface area Derived from formula 1.78 m2 S tatus: Body temperature 98 f Status: Comments: Me thod: Temporal Heart Rate 66 /min Status: Respiratory rate 15 /min Status: Physical Findings 4 Status: Comments: Pa in Scale :13 Systolic blood pressure 119 mm[Hg] Status: Comments [...] L PT; Respiratory rate 16 /min Status: Results Date Description Value Details :25 [QL] CMP W/EGFR Comments: REPORT COM MENT:FASTING:YES GLUCOSE 137 mg/dl (Above high threshold ) Range: 65-99 Comments: Fasting reference interval For someone without known diabetes, a glucosevalue >125 mg/dL indicates that they may havediabetes and this should be confirmed with afollow-up test. UREA NITROGEN (BUN) 16 mg/dl (Normal) Range: 7- 25 CREATININE 1.01 mg/dl (Above high threshol d) Range: 0.60-0.93 Comments: For patients >49 years of age, the reference limitfor Creatinine is approximately 13% higher for peopleidentified as -Sudanese. eGFR NON- 54 {ML/MIN/1.7} (Belo w low threshold) Range: > OR = 60 eGFR 62 {ML/MIN/1.7} (Normal) Range: > OR = 60 BUN/CREATININE RATIO 16 {CALC} (Normal) Range: 6-22 SODIUM 137 mmol/L (Normal) Range: 135- 146 POTASSIUM 4.1 mmol/L (Normal) Range: 3.5- 5.3 CHLORIDE 103 mmol/L (Normal) Range: 98-1 10 CARBON DIOXIDE 24 mmol/L (Normal) Range: 20-32 CALCIUM 9.3 mg/dl (Normal) Range: 8.6-1 0.4 PROTEIN, TOTAL 7.1 g/dl (Normal) Range: 6.1-8. 1 ALBUMIN 4.0 g/dl (Normal) Range: 3.6-5. 1 GLOBULIN 3.1 {G/DL__CALC} (Normal) Range : 1.9-3.7 ALBUMIN/GLOBULIN RATIO 1.3 {CALC} (Normal) Rang e: 1.0-2.5 BILIRUBIN, TOTAL 0.4 mg/dl (Normal) Range: 0.2- 1.2 ALKALINE PHSPHATASE 78 u/l (Normal) Range: 37-1 53 AST 22 u/l (Normal) Range: 10-35 ALT 13 u/l (Normal) Range: 6-29 Plan of Care Name Dates Details Planned Observations Planned Goals not documented Planned Encounters Appointment; THOR ABERNATHY M .D. On: 11-May-2020 12:40 Appointment; NELL DUPONT M.D. On: 22-Jun-2020 10:00 Interventions Provided Medication Changes* Docusate Sodium 100 MG Oral Capsule - Start * Senna 8.6 MG Oral Capsule - Start Instructions Name [...] not documented On: 20-May-2018 13:00 Appointment; THOR ABERNAHTY M .D. Encounter Diagnosis: Problem not documented On: 22-May-2018 16:40 Appointment; [facility] Encounter Diagnosis: Problem not documented On: [...] Problem not documented On: 11-Jun-2019 13:40 Appointment; [facility], NUCLEAR Encounter Diagnosis: Problem not [...] Diagnosis: Problem not documented On: 25-Mar-2020 11:00 Appointment; NELL DUPONT M.D. Encounter Diagnosis: Problem not documented On: 02-Apr-2020 11:00
--- OUTSIDE RECORDS SUMMARY | 2020-04-23 23:19 | XMS REPORT | Summary of Care ---
Author Author KIAH Caal, BRENDA Lacy Organization Unknown Address Unknown Phone Unavailable Care Team Providers Care Pipe Coverer And Insulator Name Role Phone JAEL Caal, DANE Unavailable Unavailable TANIA Caal, ANNIE Unavailable Unavailable Daysi THOMPSON, Jennifer Unavailable Unavailable CALLUM Caal, NITHIN Unavailable Unavailable MICHELA Caal, THOR Unavailable Unavailab bismark SHEPPARD D.O., KIMBER Unavailable Unavailable ARTURO Caal, IVISA Unavailable Unavailable JUAN Caal, PINEDA Unavailable Unavailable KIAH Caal, NELL Unavailable Unavailable TANIA LOCKE [place], ANNIE YOBANI Unavailable Unavailable JANAY ECKERT, SALVADOR T Unavailable Unavailable Callum LOCKE, Nithin Unavailable Unavailable JACINTA LOCKE, BALDEV Gutiérrez Unavailable Unavailable JEAN PAUL LOCKE, FIONA Lacy Unavailable Unavailable Michela LOCKE, Thor Unavailable Unavailable MARCUS NOEP-C, MARGIE Gutiérrez Unavailable Unavailable ARTURO LOCKE, SOLAFA Unavailable Unavailable AMAYA LOCKE [place], SHARRON Lacy Unavailable Unavailable KRANTHI LOCKE [place], AKOSUA H Unavailable Unavailable JUAN LOCKE, PINEDA W Unavailable Unavailable UMER LOCKE [place], CHE ERNST Unavailable Unavailable VALARIE LAURENT [place], KIMBER Unavailable Unavailable VICENTE MEJIA [facility] RNBC CPN, KOREY Unavailable Unav leonorable [...] TWICE DAILY * Quantity: 120 Refills: 0 BETHANY MARIN M.D.NDA * Start : 28-Sep-2016 Active Spironolactone 25 [...] ABERNATHY M.D. * Start : 22-May-2018 Active Agyfy-5-jwjf Ethyl Esters 1 GM Oral Capsule TAKE [...] valent on: 06-Dec-2009 Fluzone INJ Lot #: [id number] on: 22-Aug-2013 Influenza on: Aug-2014 Prevnar 13 Intramuscular Suspension Lot #: [id number] on: 30-Mar-2015 Zoster (Zostavax) on: 26-Apr-2015 Influenza on: 26-Aug-2015 Fluzone Quadrivalent 0.5 ML Intramuscula r Suspension on: 25-Aug-2016 Fluzone High-Dose 0.5 ML Intramuscular S uspension Prefilled Syringe on: 17-Aug-2017 Fluzone Quadrivalent 0.5 ML Intramuscula r Suspension Lot #: [id number] on: 05-Aug-2018 Shingrix 50 MCG Intramuscular Suspension [...] (finding) Vital Signs Date Test Result Details [id number] Systolic blood pressure 119 mm[Hg] Status: Comments [...] documented On: 22-May-2018 16:40 Appointment; [facility] Encounter Diagnosis: Problem not documented On: [...]
--- OUTSIDE RECORDS SUMMARY | 2020-04-23 23:19 | XMS REPORT | Summary of Care ---
Author Author KIAH Caal, BRENDA Lacy Organization Unknown Address Unknown Phone Unavailable Care Team Providers Care Cloth Napping Supervisor Name Role Phone JAEL Caal, DANE Unavailable Unavailable TANIA Caal, ANNIE Unavailable Unavailable CALLUM Caal, NITHIN Unavailable Unavailable MICHELA Caal, THOR Unavailable Unavailab bismark PerezOAntonia, KIMBER Unavailable Unavailable ARTURO Caal, MYKE Unavailable Unavailable JUAN Caal, PINEDA Unavailable Unavailable KIAH Caal, NELL Unavailable Unavailable TANIA LOCKE [place], ANNIE YOBANI Unavailable Unavailable OBONYANO SUEDING MACHINE TENDER, SALVADOR T Unavailable Unavailable Callum LOCKE, Nithin Unavailable Unavailable JACINTA LOCKE, BALDEV Gutiérrez Unavailable Unavailable JEAN PAUL LOCKE, FIONA Lacy Unavailable Unavailable Michela LOCKE, Thor Unavailable Unavailable MARCUS SUEDING MACHINE TENDER-C, MARGIE D Unavailable Unavailable ARTURO LOCKE, MYKE Unavailable Unavailable AMAYA LOCKE [place], SHARRON S Unavailable Unavailable KRANTHI LOCKE [place], AKOSUA Chi Unavailable Unavailable JUAN LOCKE, PINEDA Pagan Unavailable Unavailable UMER LOCKE [place], CHE ERNST Unavailable Unavailable VALARIE LAURENT [place], KIMBER Unavailable Unavailable VICENTE MEJIA [facility] RNBC CPN, KOREY Unavailable Unav leonorable [...] Active Muscle spasm (728.85, M62.838) Status: Active Medications Name Dates Details Vitamin D3 25 MCG (1000 UT) Oral Tablet TAKE 1 TABLET DAILY. M.A. Active DULoxetine HCl - 60 MG Oral [...] TWICE DAILY. * Quantity: 60 Refills: 0 NELL DUPONT M.D. * Start : 28-Sep-2016 Active Spironolactone [...] ABERNATHY M.D. * Start : 22-May-2018 Active Syinz-8-llvd Ethyl Esters 1 GM Oral Capsule TAKE [...] TAKE 1 TABLET DAILY. * Refills: 0 M.A. Active Metamucil 28.3 % Oral Powder ONE [...] 2 weeks * Quantity: 3 Refills: 3 THOR ABERNATHY M.D. * Start : 13-Feb-2020 Active 2 x [...] 48) Status: Resolved History of thyroid disease (V12., Z86. 39) Status: Resolved History of urinary [...] valent on: 06-Dec-2009 Fluzone INJ Lot #: [id number] on: 22-Aug-2013 Influenza on: Aug-2014 Prevnar 13 Intramuscular Suspension Lot #: [id number] on: 30-Mar-2015 Zoster (Zostavax) on: 26-Apr-2015 Influenza on: 26-Aug-2015 Fluzone Quadrivalent 0.5 ML Intramuscula r Suspension on: 25-Aug-2016 Fluzone High-Dose 0.5 ML Intramuscular S uspension Prefilled Syringe on: 17-Aug-2017 Fluzone Quadrivalent 0.5 ML Intramuscula r Suspension Lot #: [id number] on: 05-Aug-2018 Shingrix 50 MCG Intramuscular Suspension [...] (finding) Vital Signs Date Test Result Details :13 Systolic blood pressure 119 mm[Hg] Status: [...] ality: Normal Results Date Description Value Details :25 [QL] [...] is approximately 13% higher for peopleidentified as -[place]ir[place]. eGFR NON- 54 {ML/MIN/1.7} (Belo w low [...] Planned Goals not documented Planned Encounters Appointment; NELL DUPONT M.D. On: 02-Apr-2020 11:00 Appointment; THOR ABERNATHY M .D. On: 11-May-2020 12:40 Interventions Provided Discussion/Summary* Electrolytes within normal limits, mildly reduced kidney function but stable in comparison of previous labs. Will continue to monitor Instructions Name Dates Details Instructions not documented [...] not documented On: 22-May-2018 16:40 Appointment; [facility] Encounter Diagnosis: Problem not documented [...] not documented On: 11-Jun-2019 13:40 Appointment; [facility], NUCLEAR Encounter Diagnosis: Problem not documented [...]
--- OUTSIDE RECORDS SUMMARY | 2020-04-23 23:19 | XMS REPORT | Summary of Care ---
Author Author BRENDA Kemp Organization Unknown Address Unknown Phone Unavailable Care Team Providers Care Candy Counter Clerk Name Role Phone JAEL Caal, DANE Unavailable Unavailable TANIA Caal, ANNIE Unavailable Unavailable CALLUM Caal, NITHIN Unavailable Unavailable MICHELA Caal, THOR Unavailable Unavailab bismark Gutiérrez.OAntonia, KIMBER Unavailable Unavailable ARTURO Caal, IVISA Unavailable Unavailable JUAN Caal, PINEDA Unavailable Unavailable KIAH Caal, NELL Unavailable Unavailable TANIA LOCKE [place], ANNIE YOBANI Unavailable Unavailable OBONYANO JOURNEYMAN LINEMAN, SALVADOR T Unavailable Unavailable Callum LOCKE, Nithin Unavailable Unavailable JACINTA LOCKE, BALDEV Gutiérrez Unavailable Unavailable JEAN PAUL LOCKE, FIONA Lacy Unavailable Unavailable Michela LOCKE, Thor Unavailable Unavailable VELAZQUEZ JOURNEYMAN LINEMAN-C, MARGIE D Unavailable Unavailable ARTURO LOCKE, MYKE Unavailable Unavailable AMAYA LOCKE [place], SHARRON S Unavailable Unavailable KRANTHI LOCKE [place], AKOSUA Chi Unavailable Unavailable JUAN LOCKE, PINEDA W Unavailable Unavailable UMER LOCKE [place], CHE ERNST Unavailable Unavailable VALARIE LAURENT [place], KIMBER Unavailable Unavailable VICENTE MEJIA [facility] RNBC CPN, KOREY Unavailable Unav [...] DAY * Quantity: 45 Refills: 0 ANNIE AMRIN M.D. * Start : 19-Jun-2017 Active Omeprazole 40 MG Oral Capsule Delayed Release TAKE 1 TABLET DAILY as needed * Refills: 0 NITHIN NOLEN M.D. * Start : 27-Dec-2017 Active NIFEdipine ER 30 MG Oral Tablet Extended Release 24 Hour TAKE 1 TABLET DAILY. * Refills: 0 THOR ABERNATHY M.D. * Start : 22-May-2018 Active Filpu-4-vfas Ethyl Esters 1 GM Oral Capsule TAKE [...] 2 weeks * Quantity: 3 Refills: 3 SABINAS Ten, THOR * Start : 13-Feb-2020 Active 2 x 1 ML Pen Cyclobenzaprine HCl - 5 MG Oral Tablet TAKE 1 TABLET AT BEDTIME NEEDED. * Quantity: 10 Refills: 0 KIAH Caal NELL * Start : 25-Mar-2020 Active Allergies and [...] valent on: 06-Dec-2009 Fluzone INJ Lot #: [id number] on: 22-Aug-2013 Influenza on: Aug-2014 Prevnar 13 Intramuscular Suspension Lot #: [id number] on: 30-Mar-2015 Zoster (Zostavax) on: 26-Apr-2015 Influenza on: 26-Aug-2015 Fluzone Quadrivalent 0.5 ML Intramuscula r Suspension on: 25-Aug-2016 Fluzone High-Dose 0.5 ML Intramuscular S uspension Prefilled Syringe on: 17-Aug-2017 Fluzone Quadrivalent 0.5 ML Intramuscula r Suspension Lot #: [id number] on: 05-Aug-2018 Shingrix 50 MCG Intramuscular Suspension [...] (finding) Vital Signs Date Test Result Details [id number] Systolic blood pressure 119 mm[Hg] Status: Comments [...] On: 11-May-2020 12:40 Interventions Provided Medication Changes* Cyclobenzaprine HCl - 5 MG Oral Tablet - Start Follow-ups/Referrals* Physical Therapy Referral; To Be Done: 25 Mar 2020 Plan* 1. Torticollis of neck * - Discussed alternating with heat and cold packs * - Exercises to increase range of motion * - May take muscle relaxer at bedtime, side effects discussed * 2. Chronic back pain * - Referral to PT * Return to clinic in 3 months, sooner if needed * Please seek early care if condition worsens or there are new changes Instructions Name Dates Details Instructions not documented [...] not documented On: 22-May-2018 16:40 Appointment; [facility] Encounter Diagnosis: Problem not documented [...] Problem not documented On: 11-Jun-2019 13:40 Appointment; [facility], N[facility]LEAR Encounter Diagnosis: Problem not documented On: [...]
--- OUTSIDE RECORDS SUMMARY | 2020-04-23 23:19 | XMS REPORT | Summary of Care ---
Author Author BRENDA Tavarez LVN Organization Unknown Address [facility] Phone Unavailable Care Team Providers Care Stone Chimney Mason Name Role Phone JAEL Caal, DANE Unavailable Unavailable TANIA Caal, ANNIE Unavailable Unavailable Daysi THOMPSON, Jennifer Unavailable Unavailable CALLUM Caal, NITHIN Unavailable Unavailable MICHELA Caal, THOR Unavailable Unavailab bismark SHEPPARD D.O., KIMBER Unavailable Unavailable ARTURO Caal, MYKE Unavailable Unavailable JUAN Caal, PINEDA Unavailable Unavailable KIAH Caal, NELL Unavailable Unavailable TNAIA LOCKE [place], ANNIE YOBANI Unavailable Unavailable JANAY ECKERT, SALVADOR T Unavailable Unavailable Callum LOCKE, Nithin Unavailable Unavailable JACINTA LOCKE, BALDEV Gutiérrez Unavailable Unavailable JEAN PAUL LOCKE, FIONA Lacy Unavailable Unavailable Michela LOCKE, Thor Unavailable Unavailable MARCUS NOEP-C, MARGIE Gutiérrez Unavailable Unavailable ARTURO LOCKE, MYKE Unavailable Unavailable AMAYA LOCKE [place], SHARRON Lacy Unavailable Unavailable KRANTHI LOCKE [place], AKOSUA H Unavailable Unavailable JUAN LOCKE, PINEDA W Unavailable Unavailable UMER LOCKE [place], CHE ERNST Unavailable Unavailable VALARIE LAURENT [place], KIMBER Unavailable Unavailable VICENTE MEJIA [facility] RNBC CPN, KOREY Unavailable Unav leonorable [...] EVERY DAY * Quantity: 30 Refills: 3 BETHANY MARIN M.D.NDA * Start : 15-Sep-2019 Active HYDROcodone-Acetaminophen 7.5-325 [...] ABERNATHY M.D. * Start : 22-May-2018 Active Xyfnz-4-agyv Ethyl Esters 1 GM Oral Capsule TAKE [...] valent on: 06-Dec-2009 Fluzone INJ Lot #: [id number] on: 22-Aug-2013 Influenza on: Aug-2014 Prevnar 13 Intramuscular Suspension Lot #: [id number] on: 30-Mar-2015 Zoster (Zostavax) on: 26-Apr-2015 Influenza on: 26-Aug-2015 Fluzone Quadrivalent 0.5 ML Intramuscula r Suspension on: 25-Aug-2016 Fluzone High-Dose 0.5 ML Intramuscular S uspension Prefilled Syringe on: 17-Aug-2017 Fluzone Quadrivalent 0.5 ML Intramuscula r Suspension Lot #: [id number] on: 05-Aug-2018 Shingrix 50 MCG Intramuscular Suspension [...] is approximately 13% higher for peopleidentified as -Burmese. eGFR NON- 54 {ML/MIN/1.7} (Belo w low [...] documented On: 22-May-2018 16:40 [facility] Encounter Diagnosis: Problem not documented On: 27-May-2018 [...] Problem not documented On: 11-Jun-2019 13:40 Appointment; [facility] Encounter Diagnosis: Problem not documented On: [...]
--- OUTSIDE RECORDS SUMMARY | 2020-04-23 23:19 | XMS REPORT | Summary of Care ---
Author Author KIAH Caal, BRENDA Lacy Organization Unknown Address Unknown Phone Unavailable Care Team Providers Care Ruby On Rails Software Developer Name Role Phone JAEL Caal, DANE Unavailable Unavailable TANIA Caal, ANNIE Unavailable Unavailable CALLUM Caal, NITHIN Unavailable Unavailable MICHELA Caal, THOR Unavailable Unavailab bismark PerezOAntonia, KIMBER Unavailable Unavailable ARTURO Caal, MYKE Unavailable Unavailable JUAN Caal, PINEDA Unavailable Unavailable KIAH Caal, NELL Unavailable Unavailable TANIA LOCKE [place], ANNIE YOBANI Unavailable Unavailable OBONYANO EMBEDDED FIRMWARE ENGINEER, SALVADOR T Unavailable Unavailable Callum LOCKE, Nithin Unavailable Unavailable JACINTA LOCKE, BALDEV Gutiérrez Unavailable Unavailable JEAN PAUL LOCKE, FIONA Lacy Unavailable Unavailable Michela LOCKE, Thor Unavailable Unavailable MARCUS EMBEDDED FIRMWARE ENGINEER-C, MARGIE D Unavailable Unavailable ARTURO LOCKE, MYKE Unavailable Unavailable AMAYA LOCKE [place], SHARRON S Unavailable Unavailable KRANTHI LOCKE [place], AKOSUA Chi Unavailable Unavailable JUAN LOCKE, PINEDA Pagan Unavailable Unavailable UMER LOCKE [place], CHE ERNST Unavailable Unavailable VALARIE LAURENT [place], KIMBER Unavailable Unavailable VICENTE MEJIA [facility] RNBC CPN, KOREY Unavailable Unav leonorable [...] * Quantity: 1 Refills: 3 YEH D.O., JAIRISAURO * Start : 16-Feb-2015 Active 8.5 GM [...] ABERNATHY M.D. * Start : 22-May-2018 Active Opcgc-1-qebw Ethyl Esters 1 GM Oral Capsule TAKE [...] 7.898) Status: Resolved Procedures Procedure Dates Details [QL] CMP W/EGFR Date: 29-Mar-2020 [QL] CMP W/EGFR Date: 06-Feb-2020 [Q] LIPID PANEL WITH REFLEX TO DIRECT LDL Date: 06-Feb-2020 History of Appendectomy Completed History [...] valent on: 06-Dec-2009 Fluzone INJ Lot #: [id number] on: 22-Aug-2013 Influenza on: Aug-2014 Prevnar 13 Intramuscular Suspension Lot #: [id number] on: 30-Mar-2015 Zoster (Zostavax) on: 26-Apr-2015 Influenza on: 26-Aug-2015 Fluzone Quadrivalent 0.5 ML Intramuscula r Suspension on: 25-Aug-2016 Fluzone High-Dose 0.5 ML Intramuscular S uspension Prefilled Syringe on: 17-Aug-2017 Fluzone Quadrivalent 0.5 ML Intramuscula r Suspension Lot #: [id number] on: 05-Aug-2018 Shingrix 50 MCG Intramuscular Suspension [...] (finding) Vital Signs Date Test Result Details [id number] Systolic blood pressure 119 mm[Hg] Status: Comments [...] Potassium 50 MG Oral Tablet - Renew with Changes Labs/Procedures/Imaging* [QL] CMP W/EGFR; To Be Done: 29 Mar 2020 Instructions Name Dates Details Instructions not [...] not documented On: 03-Jun-2019 13:00 Appointment; KOREY HZANG APRN Encounter Diagnosis: Problem not documented On: 04-Jun-2019 15:00 Appointment; PINEDA MARTINEZ M.D. Encounter Diagnosis: Problem not documented On: 05-Jun-2019 8:00 Appointment; AKOSUA CRISOSTOMO M.D. Encounter Diagnosis: Problem not documented On: 06-Jun-2019 10:00 Appointment; THOR ABERNATHY M .D. Encounter Diagnosis: Problem not documented On: 11-Jun-2019 13:40 Appointment; [facility], NUCLEAR Encounter Diagnosis: Problem not [...]
--- OUTSIDE RECORDS SUMMARY | 2020-04-23 23:20 | XMS REPORT | Summary of Care ---
Author Author BRENDA Rolon M.A. Organization Unknown Address [facility] Phone Unavailable Care Team Providers Care Division Toll Wire Chief Name Role Phone NEAL Caal, GRISEL Unavailable Unavailable JAEL Caal, DANE Unavailable Unavailable TANIA Caal, ANNIE Unavailable Unavailable MICEHLA Caal, THOR Unavailable Unavailab bismark SHEPPARD D.O., KIMBER Unavailable Unavailable ARTURO Caal, MYKE Unavailable Unavailable JUAN Caal, PINEDA Unavailable Unavailable KIAH Caal, NELL Unavailable Unavailable TANIA LOCKE [place], ANNIE HILTON Unavailable Unavailable LIBIA LOCKE, ADY Unavailable Unavailable JANAY ECKERT, SALVADOR T Unavailable Unavailable Jason LOCKE, Nithin Unavailable Unavailable JACINTA LOCKE, BALDEV Gutiérrez Unavailable Unavailable JEAN PAUL LOCKE, FIONA Lacy Unavailable Unavailable Michela LOCKE, Thor Unavailable Unavailable VELAZQUEZ HR GENERALIST-C, MARGIE Gutiérrez Unavailable Unavailable ARTURO LOCKE, MYKE Unavailable Unavailable AMAYA LOCKE [place], SHARRON Lacy Unavailable Unavailable KRANTHI LOCKE [place], AKOSUA Chi Unavailable Unavailable JUAN LOCKE, PINEDA W Unavailable Unavailable UMER LOCKE [place], CHE ERNST Unavailable Unavailable VALARIE LAURENT [place], KIMBER Unavailable Unavailable VICENTE MEJIA 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 Lower back pain (724.2, M54.5) Status: Active Muscle spasm (728.85, M62.838) Status: Active Constipation (564.00, K59.00) Status: Active Bilateral leg cramps (729.82, R25.2) Status: Active Essential hypertension (401.9, I10) Status: Active CAD S/P percutaneous coronary angioplast y (414.01, I25.10) Status: Active Acute pain of right shoulder (719.41, M2 5.511) Status: Active 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 * Start : 05-May-2014 Active HYDROcodone-Acetaminophen 7.5-325 MG Oral Tablet TAKE 1 TABLET 4 TIMES DAILY * Refills: 0 Active Aikua-1-lfvt Ethyl Esters 1 GM Oral Capsule TAKE 2 CAPSULES BY MOUTH TWICE A DAY * Quantity: 360 Refills: 2 ANNIE MARIN M.D. * Start : 05-Aug-2018 Active NIFEdipine ER 30 MG Oral Tablet Extended Release 24 Hour TAKE 1 TABLET DAILY. * Refills: 0 THOR ABERNATHY M.D. * Start : 22-May-2018 Active Spironolactone 25 MG Oral Tablet TAKE 1/2 TABLET BY MOUTH EVERY DAY * Quantity: 45 Refills: 0 ANNIE MARIN M.D. * Start : 19-Jun-2017 Active Synthroid 112 MCG Oral Tablet TAKE 1 TABLET BY MOUTH EVERY DAY * Quantity: 30 Refills: 3 ANNIE MARIN M.D. * Start : 15-Sep-2019 Active Losartan Potassium 50 MG Oral Tablet TAKE 1 TABLET TWICE DAILY. * Quantity: 60 Refills: 0 NELL DUPONT M.D. * Start : 28-Sep-2016 Active Estradiol 0.1 MG/GM Vaginal Cream INSERT [...] MARTINEZ M.D. * Start : 13-May-2019 Active Aspirin 81 MG TABS TAKE 1 [...] 13-Feb-2020 Active 2 x 1 ML Pen Clopidogrel Bisulfate 75 MG Oral Tablet TAKE 1 TABLET BY MOUTH DAILY * Quantity: 60 Refills: 0 THOR ABERNATHY M.D. * Start : 17-Jul-2019 Active Cyclobenzaprine HCl - 5 MG Oral Tablet TAKE 1 TABLET AT BEDTIME NEEDED. * Quantity: 10 Refills: 0 NELL DUPONT M.D. * Start : 25-Mar-2020 Active Senna 8.6 MG Oral Capsule TAKE 1 CAPSULE Every twelve hours * Quantity: 60 Refills: 0 NELL DUPONT M.D. * Start : 02-Apr-2020 Active Docusate Sodium 100 MG Oral Capsule TAKE 1 CAPSULE TWICE DAILY. * Quantity: 60 Refills: 0 NELL DUPONT M.D. * Start : 02-Apr-2020 Active Nitroglycerin 0.3 MG Sublingual Tablet Sublingual PLACE 1 TABLET Once PRN Chest pain May repeat 5 mins later if pain persists. * Quantity: 10 Refills: 0 NELL DUPONT M.D. * Start : 12-Apr-2020 Active methylPREDNISolone 4 MG Oral Tablet TAKE 1 TABLET DAILY * Quantity: 12 Refills: 0 GRISEL DE JESUS M.D. * Start : 15-Apr-2020 Active Allergies and Adverse Reactions Name Dates [...] Status: Resolved Procedures Procedure Dates Details [QL] VITAMIN B12 Date: 12-Apr-2020 [QL] CMP W/EGFR Date: 12-Apr-2020 [Q] LIPID PANEL WITH REFLEX TO DIRECT LDL Date: 12-Apr-2020 [QL] CBC (INCLUDES DIFF/PLT) Date: 12-Apr-2020 [QL] VITAMIN D, 25-HYDROXY, LC/MS/MS Date: 12-Apr-2020 [U] XR SHOULDER MIN 2 VWS BILATERAL Date: 13-Apr-2020 [U] XRAY SPINE CERVICAL 2 OR 3 VWS [id number] Date: 13-Apr-2020 CVRAD - [place] - [id number] Date: 12-Apr-2020 History of Appendectomy Completed History of Cholecystectomy [...] valent on: 06-Dec-2009 Fluzone INJ Lot #: [id number] on: 22-Aug-2013 Influenza on: Aug-2014 Prevnar 13 Intramuscular Suspension Lot #: [id number] on: 30-Mar-2015 Zoster (Zostavax) on: 26-Apr-2015 Influenza on: 26-Aug-2015 Fluzone Quadrivalent 0.5 ML Intramuscula r Suspension on: 25-Aug-2016 Fluzone High-Dose 0.5 ML Intramuscular S uspension Prefilled Syringe on: 17-Aug-2017 Fluzone Quadrivalent 0.5 ML Intramuscula r Suspension Lot #: [id number] on: 05-Aug-2018 Shingrix 50 MCG Intramuscular Suspension [...] (finding) Vital Signs Date Test Result Details [id number] Systolic blood pressure 139 mm[Hg] Status: Comments : Location: LUE; Position: Sitting Diastolic blood pressure 54 mm[Hg] Status: Comment s: Location: LUE; Position: Sitting Body height 65 in Status: Weight 155 lb Status: Body mass index (BMI) [Ratio] 25.79 kg/m2 Status: Body surface area Derived from formula 1.78 m2 S tatus: Body temperature 97.7 f Status: Comments: Me thod: Temporal Heart Rate 67 /min Status: Comments: Lo cation: L Radial; Respiratory rate 16 /min Status: Comments: Belia au: Normal :23 Systolic blood pressure 128 mm[Hg] Status: [...] PT; Respiratory rate 16 /min Status: Comments: Belia au: Normal Results Date Description Value Details :25 [...] is approximately 13% higher for peopleidentified as -Israeli. eGFR NON- 54 {ML/MIN/1.7} (Belo w low [...] On: 22-Jun-2020 10:00 Interventions Provided Medication Changes* methylPREDNISolone 4 MG Oral Tablet - Start Labs/Procedures/Imaging* [U] XR SHOULDER MIN 2 VWS BILATERAL; To Be Done: 15 Apr 2020 * [U] XRAY SPINE CERVICAL 2 OR 3 VWS [id number]; To Be Done: 15 Apr 2020 Instructions Name Dates Details Instructions not [...] 22-May-2018 16:40 Appointment; [facility] Encounter Diagnosis: Problem not documented [...] On: 11-Jun-2019 13:40 Appointment; [facility], NUCLEAR Encounter Diagnosis: Problem [...] Diagnosis: Problem not documented On: 02-Apr-2020 11:00 Appointment; NELL DUPONT M.D. Encounter Diagnosis: Problem not documented On: 12-Apr-2020 15:30 Appointment; GRISEL DE JESUS M.D. Encounter Diagnosis: Problem not documented On: 15-Apr-2020 14:30
--- OUTSIDE RECORDS SUMMARY | 2020-04-23 23:20 | XMS REPORT | Summary of Care ---
Author Author BRENDA South Organization Unknown Address Unknown Phone Unavailable Care Team Providers Care Medical Laboratory Technical Officer Name Role Phone JAEL Caal, DANE Unavailable Unavailable TANIA Caal, ANNIE Unavailable Unavailable MICHELA Caal, THOR Unavailable Unavailab bismark SHEPPARD D.O., KIMBER Unavailable Unavailable ARTURO Caal, IVISA Unavailable Unavailable JUAN Caal, PINEDA Unavailable Unavailable KIAH Caal, NELL Unavailable Unavailable TANIA LOCKE [place], ANNIE HILTON Unavailable Unavailable LIBIA LOCKE, ADY Unavailable Unavailable JANAY ECKERT, SALVADOR T Unavailable Unavailable Jason LOCKE, Nithin Unavailable Unavailable JACINTA LOCKE, BALDEV Gutiérrez Unavailable Unavailable JEAN PAUL LOCKE, FIONA Layc Unavailable Unavailable Michela LOCKE, Thor Unavailable Unavailable VELAZQUEZ PERSONNEL PSYCHOLOGIST-C, MARGIE D Unavailable Unavailable ARTURO LOCKE, SOLAFA Unavailable Unavailable AMAYA LOCKE [place], SHARRON S Unavailable Unavailable KRANTHI LOCKE [place], AKOSUA Chi Unavailable Unavailable JUAN LOCKE, PINEDA Pagan Unavailable Unavailable UMER LOCKE [place], CHE ERNST Unavailable Unavailable VALARIE LAURENT [place], KIMBER Unavailable Unavailable VICENTE MEJIA [facility] RNBC CPN, KOREY Unavailable Unav leonorable KIAH LOCKE, NELL Unavailable Unavailable Unavailable Unavailable [...] EVERY DAY * Quantity: 30 Refills: 3 JERELINE Marielle.Chris ANNIE * Start : 15-Sep-2019 Active HYDROcodone-Acetaminophen 7.5-325 [...] ABERNATHY M.D. * Start : 22-May-2018 Active Wiwyr-5-cggq Ethyl Esters 1 GM Oral Capsule TAKE [...] DUPONT M.D. * Start : 25-Mar-2020 Active Docusate Sodium 100 MG Oral Capsule TAKE 1 CAPSULE TWICE DAILY. * Quantity: 60 Refills: 0 KATIE DUPONT M.D.A * Start : 02-Apr-2020 Active Senna 8.6 MG Oral Capsule TAKE 1 CAPSULE Every twelve hours * Quantity: 60 Refills: 0 KATIE DUPONT M.D.A * Start : 02-Apr-2020 Active Nitroglycerin 0.3 MG Sublingual Tablet Sublingual PLACE 1 TABLET Once PRN Chest pain May repeat 5 mins later if pain persists. * Quantity: 10 Refills: 0 NELL DUPONT M.D. * Start : 12-Apr-2020 Active Allergies and Adverse Reactions Name Dates [...] [QL] VITAMIN D, 25-HYDROXY, LC/MS/MS Date: 12-Apr-2020 CVRAD - [place] - [id number] Date: 12-Apr-2020 History of Appendectomy Completed History [...] valent on: 06-Dec-2009 Fluzone INJ Lot #: [id number] on: 22-Aug-2013 Influenza on: Aug-2014 Prevnar 13 Intramuscular Suspension Lot #: [id number] on: 30-Mar-2015 Zoster (Zostavax) on: 26-Apr-2015 Influenza on: 26-Aug-2015 Fluzone Quadrivalent 0.5 ML Intramuscula r Suspension on: 25-Aug-2016 Fluzone High-Dose 0.5 ML Intramuscular S uspension Prefilled Syringe on: 17-Aug-2017 Fluzone Quadrivalent 0.5 ML Intramuscula r Suspension Lot #: [id number] on: 05-Aug-2018 Shingrix 50 MCG Intramuscular Suspension [...] (finding) Vital Signs Date Test Result Details :57 Systolic blood pressure 139 mm[Hg] Status: Comments [...] Radial; Respiratory rate 16 /min Status: Comments: Qu ality: Normal :23 Systolic blood pressure 128 mm[Hg] [...] is approximately 13% higher for peopleidentified as -Belgian. eGFR NON- 54 {ML/MIN/1.7} (Belo w low [...] Planned Goals not documented Planned Encounters Appointment; GRISEL DE JESUS M.D. On: 15-Apr-2020 14:30 Appointment; THOR ABERNATHY M .D. On: 11-May-2020 12:40 Appointment; NELL DUPONT M.D. On: 22-Jun-2020 10:00 Instructions Name Dates Details Instructions not documented [...] Problem not documented On: 22-May-2018 16:40 [facility] Encounter Diagnosis: Problem not documented On: 27-May-2018 [...] Problem not documented On: 11-Jun-2019 13:40 [facility] Encounter Diagnosis: Problem not documented On: [...]
--- OUTSIDE RECORDS SUMMARY | 2020-04-23 23:20 | XMS REPORT | Summary of Care ---
Author Author BRENDA South Organization Unknown Address Unknown Phone Unavailable Care Team Providers Care Manager Payer Name Role Phone JAEL Caal, DANE Unavailable Unavailable TANIA Caal, ANNIE Unavailable Unavailable MICHELA Caal, THOR Unavailable Unavailab bismark SHEPPARD D.O., KIMBER Unavailable Unavailable ARTURO Caal, IVISA Unavailable Unavailable JUAN Caal, PINEDA Unavailable Unavailable KIAH Caal, NELL Unavailable Unavailable TANIA LOCKE [place], ANNIE HILTON Unavailable Unavailable LIBIA LOCKE, ADY Unavailable Unavailable JANAY ECKERT, SALVADOR T Unavailable Unavailable Jason LOCKE, Nithin Unavailable Unavailable JACINTA LOCKE, BALDEV Gutiérrez Unavailable Unavailable JEAN PAUL LOCKE, FIONA Lacy Unavailable Unavailable Michela LOCKE, Thor Unavailable Unavailable VELAZQUEZ BLEACHER LARD-C, MARGIE D Unavailable Unavailable ARTURO LOCKE, SOLAFA Unavailable Unavailable AMAYA LOCKE [place], SHARRON S Unavailable Unavailable KRANTHI LOCKE [place], AKOSUA Chi Unavailable Unavailable JUAN LOCKE, PINEDA Pagan Unavailable Unavailable UMER LOCKE [place], CHE ERNST Unavailable Unavailable VALARIE LAURENT [place], KIMBER Unavailable Unavailable VICENTE MEJIA [facility] RNBC CPN, KOREY Unavailable Unav leonorable KIAH [...] right shoulder (719.41, M2 5.511) Status: Active Medications Name Dates Details Vitamin D3 25 MCG (1000 UT) Oral Tablet TAKE 1 TABLET DAILY. M.A. Active Fluticasone Propionate 50 MCG/ACT Nasal Suspension USE 1 SPRAY IN EACH NOSTRIL DAILY * Quantity: 1 Refills: 0 YEH D.O., KIMBER * Start : 15-Jun-2014 Active 16 GM Bottle ProAir HFA 108 (90 Base) MCG/ACT Inhalation Aerosol Solution INHALE 1 TO 2 PUFFS EVERY 4 TO 6 HOURS NEEDED. * Quantity: 1 Refills: 3 YEH D.Nelia., KIMBER * Start : 16-Feb-2015 Active 8.5 GM Inhaler DULoxetine HCl - 60 MG Oral Capsule Delayed Release Particles TAKE 1 CAPSULE BY MOUTH EVERY DAY DIRECTED * Quantity: 30 Refills: 0 ANNIE MARIN M.D. * Start : 05-May-2014 Active HYDROcodone-Acetaminophen 7.5-325 MG Oral Tablet TAKE 1 TABLET 4 TIMES DAILY * Refills: 0 M.A. Active Outnl-3-ahpf Ethyl Esters 1 GM Oral Capsule TAKE [...] XRAY SPINE CERVICAL 2 OR 3 [id number] [id number] Date: 13-Apr-2020 CVRAD - [place] - [id number] Date: 12-Apr-2020 History of Appendectomy Completed History [...] valent on: 06-Dec-2009 Fluzone INJ Lot #: [id number] on: 22-Aug-2013 Influenza on: Aug-2014 Prevnar 13 Intramuscular Suspension Lot #: [id number] on: 30-Mar-2015 Zoster (Zostavax) on: 26-Apr-2015 Influenza on: 26-Aug-2015 Fluzone Quadrivalent 0.5 ML Intramuscula r Suspension on: 25-Aug-2016 Fluzone High-Dose 0.5 ML Intramuscular S uspension Prefilled Syringe on: 17-Aug-2017 Fluzone Quadrivalent 0.5 ML Intramuscula r Suspension Lot #: [id number] on: 05-Aug-2018 Shingrix 50 MCG Intramuscular Suspension [...] (finding) Vital Signs Date Test Result Details [id number] Systolic blood pressure 139 mm[Hg] Status: Comments [...] is approximately 13% higher for peopleidentified as -Scottish. eGFR NON- 54 {ML/MIN/1.7} (Belo w low [...] Problem not documented On: 22-May-2018 16:40 Appointment; [facility] Encounter Diagnosis: Problem not documented On: 27-May-2018 14:00 Appointment; THOR ABERNATHY M .D. Encounter Diagnosis: Problem not documented On: 18-Jun-2018 14:40 Appointment; NITHIN NOLEN M.D. Encounter Diagnosis: Problem not documented On: 11-Jul-2018 13:45 Appointment; ANNIE MARIN M.D. Encounter Diagnosis: Problem not documented On: 10-Sep-2018 11:00 Appointment; FIONA REAVES M.D. Encounter Diagnosis: [...] On: 11-Jun-2019 13:40 Appointment; [facility] Encounter Diagnosis: Problem not documented On: [...]
--- OUTSIDE RECORDS SUMMARY | 2020-04-23 23:20 | XMS REPORT | Summary of Care ---
Author Author BRENDA Rolon M.A. Organization Unknown Address [facility] Phone Unavailable Care Team Providers Care Machine Stemmer Name Role Phone NEAL Caal, GRISEL Unavailable Unavailable JAEL Caal, DANE Unavailable Unavailable TANIA Caal, ANNIE Unavailable Unavailable MICHELA Caal, THOR Unavailable Unavailab bismark SHEPPARD D.O., KIMBER Unavailable Unavailable ARTURO Caal, MYKE Unavailable Unavailable JUAN Caal, PINEDA Unavailable Unavailable KIAH Caal, NELL Unavailable Unavailable TANIA LOCKE MS, ANNIE HILTON Unavailable Unavailable LIBIA LOCKE, ADY Unavailable Unavailable JANAY ECKERT, SALVADOR T Unavailable Unavailable Jason LOCKE, Nithin Unavailable Unavailable JACINTA LOCKE, BALDEV Gutiérrez Unavailable Unavailable JEAN PAUL LOCKE, FIONA Lacy Unavailable Unavailable Michela LOCKE, Thor Unavailable Unavailable VELAZQUEZ MACHINIST APPRENTICE-C, MARGIE Gutiérrez Unavailable Unavailable ARTURO LOCKE, MYKE Unavailable Unavailable AMAYA LOCKE MS, SHARRON Lacy Unavailable Unavailable KRANTHI LOCKE MS, AKOSUA Chi Unavailable Unavailable JUAN LOCKE, PINEDA W Unavailable Unavailable UMER LOCKE MS, CHE ERNST Unavailable Unavailable VALARIE LAURENT MS, KIMBER Unavailable Unavailable VICENTE MEJIA [facility] RNBC CPN, KOREY Unavailable Unav ailable [...] EVERY DAY * Quantity: 30 Refills: 3 TANIA Palomares.BETHANY PerezNDA * Start : 15-Sep-2019 Active HYDROcodone-Acetaminophen 7.5-325 [...] ABERNATHY M.D. * Start : 22-May-2018 Active Xgumr-5-dweu Ethyl Esters 1 GM Oral Capsule TAKE [...] Caal, NELL * Start : 02-Apr-2020 Active Senna 8.6 MG Oral Capsule TAKE 1 CAPSULE Every twelve hours * Quantity: 60 Refills: 0 KIAH Caal, NELL * Start : 02-Apr-2020 Active Nitroglycerin 0.3 MG Sublingual Tablet Sublingual PLACE 1 TABLET Once PRN Chest pain May repeat 5 mins later if pain persists. * Quantity: 10 Refills: 0 KATIE DUPONT M.D.A * Start : 12-Apr-2020 Active Allergies and [...] XRAY SPINE CERVICAL 2 OR 3 VWS [id number] Date: 13-Apr-2020 CVRAD - ENRIKE - [id number] Date: 12-Apr-2020 History of Appendectomy Completed History [...] valent on: 06-Dec-2009 Fluzone INJ Lot #: [id number] on: 22-Aug-2013 Influenza on: Aug-2014 Prevnar 13 Intramuscular Suspension Lot #: [id number] on: 30-Mar-2015 Zoster (Zostavax) on: 26-Apr-2015 Influenza on: 26-Aug-2015 Fluzone Quadrivalent 0.5 ML Intramuscula r Suspension on: 25-Aug-2016 Fluzone High-Dose 0.5 ML Intramuscular S uspension Prefilled Syringe on: 17-Aug-2017 Fluzone Quadrivalent 0.5 ML Intramuscula r Suspension Lot #: [id number] on: 05-Aug-2018 Shingrix 50 MCG Intramuscular Suspension [...] is approximately 13% higher for peopleidentified as -[place]. eGFR NON- 54 {ML/MIN/1.7} (Belo w low [...] DUPONT M.D. On: 22-Jun-2020 10:00 Interventions Provided Labs/Procedures/Imaging* [U] XR SHOULDER MIN 2 VWS BILATERAL; To Be Done: 15 Apr 2020 * [U] XRAY SPINE CERVICAL 2 OR 3 VWS [id number]; To Be Done: 15 Apr 2020 Instructions [...] Problem not documented On: 11-Jun-2019 13:40 [facility] Encounter Diagnosis: Problem not documented On: 17-Jun-2019 [...]
--- OUTSIDE RECORDS SUMMARY | 2020-04-23 23:20 | XMS REPORT | Summary of Care ---
Author Author KIAH Caal, BRENDA Lacy Organization Unknown Address Unknown Phone Unavailable Care Team Providers Care [employer] Principal Name Role Phone JAEL Caal, DANE Unavailable Unavailable TANIA Caal, ANNIE Unavailable Unavailable MICHELA Caal, THOR Unavailable Unavailab bismark SHEPPARD D.O., KIMBER Unavailable Unavailable ARTURO Caal, MYKE Unavailable Unavailable JUAN Caal, PINEDA Unavailable Unavailable KIAH Caal, NELL Unavailable Unavailable TANIA LOCKE NE, ANNIE HILTON Unavailable Unavailable LIBIA OLCKE, ADY Unavailable Unavailable JANAY ECKERT, SALVADOR T Unavailable Unavailable Jason LOCKE, Nithin Unavailable Unavailable JACINTA LOCKE, BALDEV Gutiérrez Unavailable Unavailable JEAN PAUL LOCKE, FIONA Lacy Unavailable Unavailable Michela LOCKE, Thor Unavailable Unavailable MARCUS COMBAT RIFLE CREWMEMBER-C, MARGIE D Unavailable Unavailable ARTURO LOCKE, MYKE Unavailable Unavailable AMAYA LOCKE NE, SHARRON S Unavailable Unavailable KRANTHI LOCKE NE, AKOSUA Chi Unavailable Unavailable JUAN LOCKE, PINEDA W Unavailable Unavailable UMER LOCKE NE, CHE ERNST Unavailable Unavailable VALARIE LAURENT NE, JAIR-MARCIO Unavailable Unavailable VICENTE MEJIA [facility] RNBC CPN, KOREY Unavailable Unav ailable [...] ABERNATHY M.D. * Start : 22-May-2018 Active Qjebe-4-iywq Ethyl Esters 1 GM Oral Capsule TAKE [...] valent on: 06-Dec-2009 Fluzone INJ Lot #: [id number] on: 22-Aug-2013 Influenza on: Aug-2014 Prevnar 13 Intramuscular Suspension Lot #: [id number] on: 30-Mar-2015 Zoster (Zostavax) on: 26-Apr-2015 Influenza on: 26-Aug-2015 Fluzone Quadrivalent 0.5 ML Intramuscula r Suspension on: 25-Aug-2016 Fluzone High-Dose 0.5 ML Intramuscular S uspension Prefilled Syringe on: 17-Aug-2017 Fluzone Quadrivalent 0.5 ML Intramuscula r Suspension Lot #: [id number] on: 05-Aug-2018 Shingrix 50 MCG Intramuscular Suspension [...] is approximately 13% higher for peopleidentified as -Spanish. eGFR NON- 54 {ML/MIN/1.7} (Belo w low [...] Senna 8.6 MG Oral Capsule - Start Plan* 1. Htn * - BP at goal. Continue current medications. Advised against frequent checks unless symptomatic. Discussed risks of clonidine and sticking to miko inhibitor * - Patient advised to eat a healthy diet * - Discussed increasing physical activity by exercising at least 150 mins per week * - Alcohol should be limited to two drinks per day for men and one per day for women. * - Patient to check blood pressure at home with a goal of <130/80 and log reading for review on next visit. If blood pressure persistently >140/90 or < 100/50, advised to RTC or if symptomatic go to ER for immediate care or if symptomatic (dizziness, change in vision, nose bleed, weakness, or worst headache in life) * 2. Constipation * - Drink two to four extra glasses of water a day. Add fruits, vegetables whole grains and other high-fiber foods to your diet. * - Continue supplemental Metamucil or Benefiber * - Advised keeping active, start colace and senna. Instructions Name Dates Details Instructions not documented [...] Problem not documented On: 22-May-2018 16:40 [facility] Diagnosis: Problem not documented On: 27-May-2018 [...] Problem not documented On: 11-Jun-2019 13:40 [facility] Encounter Diagnosis: Problem not documented On: [...]
--- OUTSIDE RECORDS SUMMARY | 2020-04-23 23:20 | XMS REPORT | Summary of Care ---
Author Author KIAH Caal, BRENDA Lacy Organization Unknown Address Unknown Phone Unavailable Care Team Providers Care Continuous Churn Buttermaker Name Role Phone JAEL Caal, DANE Unavailable Unavailable TANIA Caal, ANNIE Unavailable Unavailable MICHELA Caal, THOR Unavailable Unavailab bismark SHEPPARD D.O., KIMBER Unavailable Unavailable ARTURO Caal, MYKE Unavailable Unavailable JUAN Caal, PINEDA Unavailable Unavailable KIAH Caal, NELL Unavailable Unavailable TANIA LOCKE [place], ANNIE HILTON Unavailable Unavailable LIBIA LOCKE, ADY Unavailable Unavailable JANAY ECKERT, SALVADOR T Unavailable Unavailable Jason LOCKE, Nithin Unavailable Unavailable JACINTA LOCKE, BALDEV Gutiérrez Unavailable Unavailable JEAN PAUL LOCKE, FIONA Lacy Unavailable Unavailable Michela LOCKE, Thor Unavailable Unavailable MARCUS TAVERN KEEPER-C, MARGIE D Unavailable Unavailable ARTURO LOCKE, MYKE Unavailable Unavailable AMAYA LOCKE [place], SHARRON S Unavailable Unavailable KRANTHI LOCKE [place], AKOSUA Chi Unavailable Unavailable JUAN LOCKE, PINEDA W Unavailable Unavailable UMER LOCKE [place], CHE ERNST Unavailable Unavailable VALARIE LAURENT [place], JAIR-MARCIO Unavailable Unavailable VICENTE MEJIA [facility] RNBC CPN, KOREY Unavailable Unav ailable [...] DAILY * Quantity: 1 Refills: 0 YEH D.O.IKMBER * Start : 15-Jun-2014 Active 16 GM [...] ABERNATHY M.D. * Start : 22-May-2018 Active Ujyib-0-hvdu Ethyl Esters 1 GM Oral Capsule TAKE [...] BEDTIME NEEDED. * Quantity: 10 Refills: 0 KATIE DUPONT M.D.A * Start : 25-Mar-2020 Active Senna 8.6 [...] LC/MS/MS Date: 12-Apr-2020 CVRAD - ENRIKE - [id number] Date: 12-Apr-2020 History of Appendectomy Completed History [...] valent on: 06-Dec-2009 Fluzone INJ Lot #: [id number] on: 22-Aug-2013 Influenza on: Aug-2014 Prevnar 13 Intramuscular Suspension Lot #: [id number] on: 30-Mar-2015 Zoster (Zostavax) on: 26-Apr-2015 Influenza on: 26-Aug-2015 Fluzone Quadrivalent 0.5 ML Intramuscula r Suspension on: 25-Aug-2016 Fluzone High-Dose 0.5 ML Intramuscular S uspension Prefilled Syringe on: 17-Aug-2017 Fluzone Quadrivalent 0.5 ML Intramuscula r Suspension Lot #: [id number] on: 05-Aug-2018 Shingrix 50 MCG Intramuscular Suspension [...] is approximately 13% higher for peopleidentified as -[place]. eGFR NON- 54 {ML/MIN/1.7} (Belo w low [...] On: 22-Jun-2020 10:00 Interventions Provided Medication Changes* Nitroglycerin 0.3 MG Sublingual Tablet Sublingual - Start Labs/Procedures/Imaging* [Q] LIPID PANEL WITH REFLEX TO DIRECT LDL; To Be Done: 12 Apr 2020 * [QL] CBC (INCLUDES DIFF/PLT); To Be Done: 12 Apr 2020 * [QL] CMP W/EGFR; To Be Done: 12 Apr 2020 * [QL] VITAMIN B12; To Be Done: 12 Apr 2020 * [QL] VITAMIN D, 25-HYDROXY, LC/MS/MS; To Be Done: 12 Apr 2020 * CVRAD - ENRIKE - [id number]; To Be Done: 12 Apr 2020 Plan* 1. Muscle cramps * - Electrolytes at last visit were within normal, CK checked in past also normal. Does not appear to be medication induced. Straight leg raise negative, unlikely originating from back. * - Trial of gabapentin * - If no improvement, will refer to neuro for nerve conduction eval. * 2. CAD * - Nitroglycerin PRN, cont BP meds * - Will have CHW f/u on repatha injections * - Discussed if it reoccurs call office or 911 Instructions Name Dates Details Instructions not documented [...] On: 11-Jun-2019 13:40 Appointment; [facility], [facility] Encounter Diagnosis: Problem not documented On: [...]
--- OUTSIDE RECORDS SUMMARY | 2020-04-23 23:21 | XMS REPORT | Summary of Care ---
Author Author BRENDA Rolon M.A. Organization Unknown Address [facility] Phone Unavailable Care Team Providers Care Soil Tester Name Role Phone NEAL Caal, GRISEL Unavailable Unavailable JAEL Caal, DANE Unavailable Unavailable TANIA Caal, ANNIE Unavailable Unavailable MICHELA Caal, THOR Unavailable Unavailab bismark SHEPPARD D.O., KIMBER Unavailable Unavailable ARTURO Caal, MYKE Unavailable Unavailable JUAN Caal, PINEDA Unavailable Unavailable KIAH Caal, NELL Unavailable Unavailable TANIA LOCKE [place], ANNIE HILTON Unavailable Unavailable LIBIA LOCKE, ADY Unavailable Unavailable JANAY ECKERT, SALVADOR T Unavailable Unavailable Jason LOCKE, Nithin Unavailable Unavailable JACINTA LOCKE, BALDEV Gutiérrez Unavailable Unavailable JEAN PAUL LOCKE, FIONA Lacy Unavailable Unavailable Michela LOCKE, Thor Unavailable Unavailable VELAZQUEZ COMMUNICATIONS EQUIPMENT INSTALLER-C, MARGIE Gutiérrez Unavailable Unavailable ARTURO LOCKE, MYKE Unavailable Unavailable AMAYA LOCKE [place], SHARRON Lacy Unavailable Unavailable KRANTHI LOCKE [place], AKOSUA Chi Unavailable Unavailable JUAN LOCKE, PINEDA W Unavailable Unavailable UMER LOCKE [place], CHE ERNST Unavailable Unavailable VALARIE LAURENT [place], KIMBER Unavailable Unavailable VICENTE MEJIA [facility] RNBC CPN, KOREY Unavailable Unav ailable [...] 4 TIMES DAILY * Refills: 0 Active Uixfi-0-ltsz Ethyl Esters 1 GM Oral Capsule TAKE [...] LC/MS/MS Date: 12-Apr-2020 CVRAD - ENRIKE - [id number] Date: 12-Apr-2020 History of Appendectomy Completed History [...] valent on: 06-Dec-2009 Fluzone INJ Lot #: [id number] on: 22-Aug-2013 Influenza on: Aug-2014 Prevnar 13 Intramuscular Suspension Lot #: [id number] on: 30-Mar-2015 Zoster (Zostavax) on: 26-Apr-2015 Influenza on: 26-Aug-2015 Fluzone Quadrivalent 0.5 ML Intramuscula r Suspension on: 25-Aug-2016 Fluzone High-Dose 0.5 ML Intramuscular S uspension Prefilled Syringe on: 17-Aug-2017 Fluzone Quadrivalent 0.5 ML Intramuscula r Suspension Lot #: [id number] on: 05-Aug-2018 Shingrix 50 MCG Intramuscular Suspension [...] (finding) Vital Signs Date Test Result Details [id number] Systolic blood pressure 139 mm[Hg] Status: Comments [...] 16 /min Status: Comments: Qu ality: Normal [id number] Systolic blood pressure 128 mm[Hg] Status: Comments [...] is approximately 13% higher for peopleidentified as -[place]ese. eGFR NON- 54 {ML/MIN/1.7} (Belo w low [...] 10-35 ALT 13 u/l (Normal) Range: 6-29 [id number] [U] XR SHOULDER MIN 2 VWS BILATERAL XR SHOULDER MIN 2 VWS BILATERAL Images a cquired, not reported on this accession number. [id number] [U] XRAY SPINE CERVICAL 2 OR 3 VWS [id number] XR SPINE CERVICAL 2 OR 3 VWS Images acqu ired, not reported on this accession number. Plan of Care Name Dates Details Planned Observations Planned Goals not documented Planned Encounters Pain Management Referral Appointment; THOR ABERNATHY M .D. On: 11-May-2020 12:40 Appointment; NELL DUPONT M.D. On: 22-Jun-2020 10:00 Interventions Provided Medication Changes* methylPREDNISolone 4 MG Oral Tablet - Start Labs/Procedures/Imaging* [U] XR SHOULDER MIN 2 VWS BILATERAL; Done: 15 Apr 2020 * [U] XRAY SPINE CERVICAL 2 OR 3 VWS [id number]; Done: 15 Apr 2020 Instructions Name Dates [...] not documented On: 22-May-2018 16:40 Appointment; [facility] Encounter Diagnosis: Problem not documented On: [...] not documented On: 11-Jun-2019 13:40 Appointment; [facility], NUCLEAR Encounter Diagnosis: Problem [...]
--- OUTSIDE RECORDS SUMMARY | 2020-04-23 23:21 | XMS REPORT | Summary of Care ---
Author Author BRENDA Silva R.N. Organization Unknown Address Unknown Phone Unavailable Care Team Providers Care Financial Report Service Sales Agent Name Role Phone NEAL Caal, GRISEL Unavailable Unavailable JAEL Caal, DANE Unavailable Unavailable TANIA Caal, ANNIE Unavailable Unavailable MICHELA Caal, THOR Unavailable Unavailab bismark SHEPPARD D.O., KIMBER Unavailable Unavailable ARTURO Caal, MYKE Unavailable Unavailable JUAN Caal, PINEDA Unavailable Unavailable Ricardo Bruce, Carroll Unavailable Unavailable KIAH Caal, NELL Unavailable Unavailable TANIA LOCKE [place], ANNIE HILTON Unavailable Unavailable LIBIA LOCKE, ADY Unavailable Unavailable JANAY ECKERT, SALVADOR T Unavailable Unavailable Jason LOCKE, Nithin Unavailable Unavailable JACINTA LOCKE, BALDEV Gutiérrez Unavailable Unavailable JEAN PAUL LOCKE, FIONA S Unavailable Unavailable Michela LOCKE, Thor Unavailable Unavailable MARCUS ECKERT-C, MARGIE Gutiérrez Unavailable Unavailable ARTURO LOCKE, MYKE Unavailable Unavailable AMAYA LOCKE NM, SHARRON S Unavailable Unavailable KRANTHI LOCKE NM, AKOSUA H Unavailable Unavailable JUAN LOCKE, PINEDA W Unavailable Unavailable UMER LOCKE NM, CHE ERNST Unavailable Unavailable VALARIE LAURENT NM, KIMBER Unavailable Unavailable VICENTE MEJIA [facility] RNBC CPN, KOREY Unavailable Unav ailable KIAH LOCKE, NELL Unavailable Unavailable Unavailable Unavailable Functional Status Name Dates Details Functional status health issues are not documented Status: Name Dates Details Cognitive status health issues are not d ocumented Status: Problems Name Dates Details Pulmonary nodules (793.19, R91.8) Status: Active Tachycardia (785.0, R00.0) Status: Active Drug eruption (693.0, L27.0) Status: Active Lightheadedness (780.4, R42) Status: Active Uncontrolled hypertension (401.9, I10) Status: Active Nausea (787.02, R11.0) Status: Active Nausea (787.02, R11.0) Status: Active Low HDL (under 40) (272.5, E78.6) Status: Active Chronic insomnia (780.52, F51.04) Status: [...] Active BMI 26.0-26.9,adult (V85.22, Z68.26) Status: Active Partial small bowel obstruction (560.9, K56.600) Status: Active Breast cancer screening (V76.10, Z12.39) Status: Active Stage 3a chronic kidney disease (585.3, N18.3) Status: Active Varicose veins of both legs with edema ( 454.8, I83.893) Status: Active Paresthesia of both feet (782.0, R20.2) Status: Active Dehydration (276.51, E86.0) Status: Active Soft tissue mass (729.99, M79.89) Status: Active Hospital discharge follow-up (V67.59, Z0 9) Status: Active Overweight (BMI 25.0-29.9) Status: Active Medication management (V58.69, Z79.899) Status: [...] Active Abnormal mammogram (793.80, R92.8) Status: Active Hepatic cyst (573.8, K76.89) Status: Active Vertebral fracture (805.8) Status: Active Vaginal atrophy (627.3, N95.2) Status: Active Left knee pain, unspecified chronicity ( 719.46, M25.562) Status: Active Medial epicondylitis of left elbow (726. 31, M77.02) Status: Active OAB (overactive bladder) (596.51, N32.81 ) Status: Active Paroxysmal SVT (supraventricular tachyca rdia) (427.0, I47.1) Status: Active Palpitations (785.1, R00.2) Status: Active Abnormal EKG (794.31, R94.31) Status: Active LBBB (left bundle branch block) (426.3, I44.7) Status: Active Primary hypertension (401.9, I10) Status: Active PVC (premature ventricular contraction) (427.69, I49.3) Status: Active Therapeutic opioid-induced constipation (OIC) (564.09, K59.03) Status: Active Headache (784.0, R51) Status: Active Spontaneous bruising (782.7, R23.3) Status: Active Cellulitis (682.9, L03.90) Status: Active Cough (786.2, R05) Status: Active Urinary incontinence (788.30, R32) Status: Active Hand cramp (729.82, R25.2) Status: Active Left lumbar radiculopathy (724.4, M54.16 ) Status: Active Leg cramps, sleep related (327.52, G47.6 2) Status: Active Disc degeneration (722.6) Status: Active Back pain (724.5, M54.9) Status: Active Allergic rhinitis (477.9, J30.9) Status: Active Allergic reaction to drug, initial encou nter (995.27, T78.40XA) Status: Active Need for influenza vaccination (V04.81, Z23) Status: Active Reactive airway disease (493.90, J45.909 ) Status: Active Acute UTI (599.0, N39.0) Status: Active Neck pain (723.1, M54.2) Status: Active Pleural thickening (511.0, J92.9) Status: Active Overweight (278.02, E66.3) Status: Active Mixed hyperlipidemia (272.2, E78.2) Status: Active BMI 27.0-27.9,adult (V85.23, Z68.27) Status: Active Abnormal CAT scan (793.99, R93.89) Status: Active Vitamin B12 deficiency (266.2, E53.8) Status: Active Encounter for mini-mental status examina tion Status: Active On potassium sparing diuretic therapy (V 58.69, Z79.899) Status: Active Adult onset hypothyroidism (244.8, E03.8 ) Status: Active Finding of multiple premature atrial con tractions by electrocardiography (427.61, I49.1) Status: Active Risk for falls (V15.88, Z91.81) Status: Active 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, 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 Statin intolerance (995.27, Z78.9) Status: Active Chronic kidney disease, stage 3a [...] right humerus (812.20, S42.3 01A) Status: Active Bilateral leg cramps (729.82, R25.2) Status: Active Constipation (564.00, K59.00) Status: Active Lower back pain (724.2, M54.5) Status: Active Muscle spasm (728.85, M62.838) Status: Active CAD S/P percutaneous coronary angioplast y (414.01, I25.10) Status: Active Essential hypertension (401.9, I10) Status: Active 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, M43.6) Status: Active Pelvic cramping (625.9, R10.2) Status: Active Intermittent claudication (443.9, I73.9) Status: Active Pain of left knee after injury (719.46, M25.562) Status: Active Easy bruising (782.9, R23.8) Status: Active IBS (irritable bowel syndrome) (564.1, K 58.9) Status: Active Abdominal pain (789.00, R10.9) Status: Active Colon polyp (211.3, K63.5) Status: Active Diarrhea (787.91, R19.7) Status: Active B12 deficiency anemia (281.1, D51.9) Status: Active IBS (irritable bowel syndrome) (564.1, K 58.9) Status: Active Acid reflux disease (530.81, K21.9) Status: Active Chronic, continuous use of opioids [...] Atypical chest pain (786.59, R07.89) Status: Active Cramp of toe (729.82, R25.2) Status: Active Lipoma of back (214.8, D17.1) Status: Active Hip pain, acute, left (719.45, M25.552) Status: Active Advance directive discussed with patient (V65.49, Z71.89) Status: Active Hypokalemia (276.8, E87.6) Status: Active Post-menopausal (V49.81, Z78.0) Status: Active Right shoulder pain, unspecified chronic ity (719.41, M25.511) Status: Active Hot flashes (782.62, R23.2) Status: Active Screening mammogram, encounter for (V76. 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 * Start : 22-May-2018 Active Kgzmr-7-pdgt Ethyl Esters 1 GM Oral Capsule TAKE [...] Start : 26-Jan-2020 Active 575 GM Bottle ProAir HFA 108 (90 Base) MCG/ACT Inhalation Aerosol Solution INHALE 1 TO 2 PUFFS EVERY 4 TO 6 HOURS NEEDED. * Quantity: 1 Refills: 3 KIMBER SHEPPARD D.O. * Start : 16-Feb-2015 Active 8.5 GM Inhaler Polyethylene Glycol 3350 17 GM/SCOOP Oral Powder [...] DUPONT M.D. * Start : 02-Apr-2020 Active Senna 8.6 [...] LC/MS/MS Date: 12-Apr-2020 CVRAD - ENRIKE - [id number] Date: 12-Apr-2020 History of Shoulder Surgery Left Complet ed [...] valent on: 06-Dec-2009 Fluzone INJ Lot #: [id number] on: 22-Aug-2013 Influenza on: Aug-2014 Prevnar 13 Intramuscular Suspension Lot #: [id number] on: 30-Mar-2015 Zoster (Zostavax) on: 26-Apr-2015 Influenza on: 26-Aug-2015 Fluzone Quadrivalent 0.5 ML Intramuscula r Suspension on: 25-Aug-2016 Fluzone High-Dose 0.5 ML Intramuscular S uspension Prefilled Syringe on: 17-Aug-2017 Fluzone Quadrivalent 0.5 ML Intramuscula r Suspension Lot #: [id number] on: 05-Aug-2018 Shingrix 50 MCG Intramuscular Suspension [...] (finding) Vital Signs Date Test Result Details [id number] Systolic blood pressure 139 mm[Hg] Status: Comments [...] Respiratory rate 16 /min Status: Comments: Belia benderbelle: Normal Results Date Description Value Details :25 [...] is approximately 13% higher for peopleidentified as -[place]. eGFR NON- 54 {ML/MIN/1.7} (Belo w low [...] 10-35 ALT 13 u/l (Normal) Range: 6-29 :24 [U] XR SHOULDER MIN 2 VWS BILATERAL XR SHOULDER MIN 2 VWS BILATERAL Images a cquired, not reported on this accession number. :24 [U] XRAY SPINE CERVICAL 2 OR 3 VWS [id number] XR SPINE CERVICAL 2 OR 3 VWS Images acqu ired, not reported on this accession number. Plan of Care Name Dates Details Planned Observations Planned Goals not documented Planned Encounters Appointment; THOR ABERNATHY M .D. On: 11-May-2020 12:40 Appointment; NELL DUPONT M.D. On: 22-Jun-2020 10:00 Interventions Provided Discussion/Summary* Guideline Used: * Clinic: [place] * Dr. Prieto's pt is requesting callback for recommendations regarding the following symptoms * Chills , sweating, * mild headache treated with [place] * nausea, no vomiting * chronic back pain, * runny nose * Denies chest pain, dizziness, jawa pain, shoulder pain , neck pain, fever, loss of sense of smell or tasete, diarrhea, shortness of breath,cough or cold * PT alert, awake, conversing in full sentences in no apparent distress. * Callback * Intended Caller Action: * Other: Speak with clinical staff. * Additional Information: * Attempted to call clinic but was unable to reach staff. Task sent to [facility] Clinical Team Instructions Name Dates Details Instructions not documented [...] Problem not documented On: 11-Jun-2019 13:40 Appointment; [facility] Encounter Diagnosis: Problem not documented On: [...]
--- OUTSIDE RECORDS SUMMARY | 2020-04-23 23:21 | XMS REPORT | Summary of Care ---
Author Author BRENDA [place] Organization Unknown Address Unknown Phone Unavailable Care Team Providers Care Student Outreach Coordinator Name Role Phone NEAL Caal, GRISEL Unavailable Unavailable JAEL Caal, DANE Unavailable Unavailable TANIA Caal, ANNIE Unavailable Unavailable MICHELA Caal, THOR Unavailable Unavailab bismark SHEPPARD D.O., JAIR-MARCIO Unavailable Unavailable ARTURO Caal, IVISA Unavailable Unavailable JUAN Caal, PINEDA Unavailable Unavailable KIAH Caal, NELL Unavailable Unavailable TANIA LOCKE MD, ANNIE HILTON Unavailable Unavailable LIBIA LOCKE, ADY Unavailable Unavailable JANAY ECKERT, SALVADOR T Unavailable Unavailable Jason LOCKE, Nithin Unavailable Unavailable JACINTA LOCKE, BALDEV Gutiérrez Unavailable Unavailable JEAN PAUL LOCKE, FIONA Lacy Unavailable Unavailable Michela LOCKE, Thor Unavailable Unavailable MARCUS NOEP-C, MARGIE D Unavailable Unavailable ARTURO LOCKE, SOLAFTrinidad Unavailable Unavailable AMAYA LOCKE MD, SHARRON Lacy Unavailable Unavailable KRANTHI LOCKE MD, AKOSUA Chi Unavailable Unavailable JUAN LOCKE, PINEDA W Unavailable Unavailable UMER LOCKE MD, CHE ERNST Unavailable Unavailable VALARIE LAURENT UT, JAIR-MARCIO Unavailable Unavailable VICENTE MEJIA [facility] RNBC CPN, KOREY Unavailable Unav ailable [...] TIMES DAILY * Refills: 0 M.A. Active Spironolactone 25 MG Oral Tablet TAKE 1/2 TABLET BY MOUTH EVERY DAY * Quantity: 45 Refills: 0 ANNIE MARIN M.D. * Start : 19-Jun-2017 Active Losartan Potassium 50 MG Oral Tablet TAKE 1 TABLET TWICE DAILY. * Quantity: 60 Refills: 0 NELL DUPONT M.D. * Start : 28-Sep-2016 Active NIFEdipine ER 30 MG Oral Tablet Extended Release 24 Hour TAKE 1 TABLET DAILY. * Refills: 0 THOR ABERNATHY M.D. * Start : 22-May-2018 Active Izelo-9-swsj Ethyl Esters 1 GM Oral Capsule TAKE [...] LC/MS/MS Date: 12-Apr-2020 [facility] - [facility] - [id number] Date: 12-Apr-2020 History of Shoulder Surgery Left [...] valent on: 06-Dec-2009 Fluzone INJ Lot #: [id number] on: 22-Aug-2013 Influenza on: Aug-2014 Prevnar 13 Intramuscular Suspension Lot #: [id number] on: 30-Mar-2015 Zoster (Zostavax) on: 26-Apr-2015 Influenza on: 26-Aug-2015 Fluzone Quadrivalent 0.5 ML Intramuscula r Suspension on: 25-Aug-2016 Fluzone High-Dose 0.5 ML Intramuscular S uspension Prefilled Syringe on: 17-Aug-2017 Fluzone Quadrivalent 0.5 ML Intramuscula r Suspension Lot #: [id number] on: 05-Aug-2018 Shingrix 50 MCG Intramuscular Suspension [...] is approximately 13% higher for peopleidentified as -Namibian. eGFR NON- 54 {ML/MIN/1.7} (Belo w low [...] cquired, not reported on this accession number. [id number] [U] XRAY SPINE CERVICAL 2 OR 3 VWS [id number] XR SPINE CERVICAL 2 OR 3 VWS [...] Problem not documented On: 22-May-2018 16:40 Appointment; [facility]3] [facility] Encounter Diagnosis: Problem not documented On: [...] Problem not documented On: 11-Jun-2019 13:40 Appointment; [facility]3], NUCLEAR Encounter Diagnosis: Problem not documented On: [...]
--- OUTSIDE RECORDS SUMMARY | 2020-04-23 23:21 | XMS REPORT | Summary of Care ---
Author Author BRENDA Loredo R.N. Organization Unknown Address Unknown Phone Unavailable Care Team Providers Care Machinery Mechanic Name Role Phone NEAL Caal, GRISEL Unavailable Unavailable JAEL Caal, DANE Unavailable Unavailable TANIA Caal, ANNIE Unavailable Unavailable MICHELA Caal, THOR Unavailable Unavailab bismark SHEPPARD D.O., KIMBER Unavailable Unavailable Gertrude Bruce, Justa Unavailable Unavailable ARTURO Caal, MYKE Unavailable Unavailable [...] MYKE Unavailable Unavailable AMAYA LOCKE [place], SHARRON S Unavailable Unavailable KRANTHI LOCKE [place], AKOSUA H Unavailable Unavailable JUAN LOCKE, PINEDA W Unavailable Unavailable UMER LOCKE [place], CHE ERNST Unavailable Unavailable VALARIE LAURENT [place], KIMBER Unavailable Unavailable VICENTE MEJIA [facility] RNBC CPN, KOREY Unavailable Unav [...] DIRECTED * Quantity: 30 Refills: 0 ANNIE LEPE M.D. * Start : 05-May-2014 Active Fluticasone [...] DAY * Quantity: 30 Refills: 3 ANNIE LEPE M.D. * Start : 15-Sep-2019 Active HYDROcodone-Acetaminophen 7.5-325 MG Oral Tablet TAKE 1 TABLET 4 TIMES DAILY * Refills: 0 Active Losartan Potassium 50 MG Oral Tablet TAKE 1 TABLET TWICE DAILY. * Quantity: 60 Refills: 0 NELL DUPONT M.D. * Start : 28-Sep-2016 Active Spironolactone 25 MG Oral Tablet TAKE 1/2 TABLET BY MOUTH EVERY DAY * Quantity: 45 Refills: 0 ANNIE LEPE M.D. * Start : 19-Jun-2017 Active NIFEdipine ER 30 MG Oral Tablet Extended Release 24 Hour TAKE 1 TABLET DAILY. * Refills: 0 THOR ABERNATHY M.D. * Start : 22-May-2018 Active Oxxdk-0-xrak Ethyl Esters 1 GM Oral Capsule TAKE 2 CAPSULES BY MOUTH TWICE A DAY * Quantity: 360 Refills: 2 ANNIE LEPE M.D. * Start : 05-Aug-2018 Active Estradiol [...] BEDTIIME * Quantity: 60 Refills: 0 ANNIE LEPE M.D. * Start : 04-Feb-2020 Active Repatha [...] LC/MS/MS Date: 12-Apr-2020 [facility] - [facility] - [id number] Date: 12-Apr-2020 History of Appendectomy Completed History [...] valent on: 06-Dec-2009 Fluzone INJ Lot #: [id number] on: 22-Aug-2013 Influenza on: Aug-2014 Prevnar 13 Intramuscular Suspension Lot #: [id number] on: 30-Mar-2015 Zoster (Zostavax) on: 26-Apr-2015 Influenza on: 26-Aug-2015 Fluzone Quadrivalent 0.5 ML Intramuscula r Suspension on: 25-Aug-2016 Fluzone High-Dose 0.5 ML Intramuscular S uspension Prefilled Syringe on: 17-Aug-2017 Fluzone Quadrivalent 0.5 ML Intramuscula r Suspension Lot #: [id number] on: 05-Aug-2018 Shingrix 50 MCG Intramuscular Suspension [...] (finding) Vital Signs Date Test Result Details [id number] Systolic blood pressure 139 mm[Hg] Status: Comments [...] is approximately 13% higher for peopleidentified as -Turkish. eGFR NON- 54 {ML/MIN/1.7} (Belo w low [...] XRAY SPINE CERVICAL 2 OR 3 VWS [id number] XR SPINE CERVICAL 2 OR 3 VWS Images acqu ired, not reported on this accession number. Plan of Care Name Dates Details Planned Observations Planned Goals not documented Planned Encounters Appointment; THOR ABERNATHY M .D. On: 11-May-2020 12:40 Appointment; NELL DUPONT M.D. On: 22-Jun-2020 10:00 Interventions Provided Discussion/Summary* Guideline Used: * [facility] * No triage. Patient is requesting to discontinue Gabapentin and go back on Trazodone. She noticed that the Gabapentin had been giving her a "hungover" feeling that would last into the afternoon, so she got back on her Trazodone. Now she will run out by the weekend. * 02/04/20, after her hospital discharge, she was not sleeping well so she asked to be placed on something else for trazodone, so Dr. Lepe had discontinued this and started Gabapentin 1-3 tablets at bedtime. * Task sent to clinic. Instructions Name Dates Details Instructions not documented Encounters Appointment; OMKAR PAULINO P.A. Encounter Diagnosis: Problem not documented On: 08-May-2018 10:30 Appointment; ANNIE LEPE M.D. Encounter Diagnosis: Problem not documented On: 10-May-2018 16:15 Appointment; ANNIE LEPE M.D. Encounter Diagnosis: Problem not documented On: 13-May-2018 13:15 Appointment; ANNIE LEPE M.D. Encounter Diagnosis: Problem not documented On: 20-May-2018 13:00 Appointment; THOR ABERNATHY M .D. Encounter Diagnosis: Problem not documented On: 22-May-2018 16:40 [facility] Encounter Diagnosis: Problem not documented On: 27-May-2018 14:00 Appointment; THOR ABERNATHY M .D. Encounter Diagnosis: Problem not documented On: 18-Jun-2018 14:40 Appointment; NITHIN NOLEN M.D. Encounter Diagnosis: Problem not documented On: 11-Jul-2018 13:45 Appointment; ANNIE LEPE M.D. Encounter Diagnosis: Problem not documented On: 05-Aug-2018 11:00 Appointment; FIONA REAVES M.D. Encounter Diagnosis: Problem not documented On: 31-Aug-2018 11:15 Appointment; NITHIN NOELN M.D. Encounter Diagnosis: [...] not documented On: 11-Jan-2019 10:45 Appointment; ANNIE LEPE M.D. Encounter Diagnosis: Problem not documented On: 28-Jan-2019 10:00 Appointment; ANNIE LEPE M.D. Encounter Diagnosis: Problem not documented On: 28-Jan-2019 10:00 Appointment; ANNIE LEPE M.D. Encounter Diagnosis: Problem not documented On: [...] not documented On: 11-Jun-2019 13:40 Appointment; [facility], NUCLEAR Encounter Diagnosis: Problem not documented On: 17-Jun-2019 8:00 Appointment; THOR ABERNATHY M .D. Encounter Diagnosis: Problem not documented On: 17-Jun-2019 12:20 Appointment; DARRON LIRIANO M.D. Encounter Diagnosis: Problem not documented On: 11-Jul-2019 11:15 Appointment; THOR ABERNATHY M .D. Encounter Diagnosis: Problem not documented On: 22-Jul-2019 14:20 Appointment; KIMBER SHEPPARD D.O. Encounter Diagnosis: Problem not documented On: 21-Aug-2019 13:00 Appointment; ANNIE LEPE M.D. Encounter Diagnosis: Problem not documented On: 28-Aug-2019 10:30 Appointment; MYKE MORRIS M.D. Encounter Diagnosis: Problem not documented On: 29-Aug-2019 9:30 Appointment; ANNIE LEPE M.D. Encounter Diagnosis: Problem not documented On: 22-Dec-2019 14:15 Appointment; ANNIE LEPE M.D. Encounter Diagnosis: Problem not documented On: [...]
--- OUTSIDE RECORDS SUMMARY | 2020-04-23 23:21 | XMS REPORT | Summary of Care ---
Author Author RUBIO Caal, BRENDA Lacy Organization Unknown Address Unknown Phone Unavailable Care Team Providers Care Windows Laptop Technician Name Role Phone NEAL Caal, GRISEL Unavailable Unavailable JAEL Caal, DANE Unavailable Unavailable TANIA Caal, ANNIE Unavailable Unavailable MICHELA Caal, THOR Unavailable Unavailab bismark SHEPPARD D.O., KIMBER Unavailable Unavailable ARTURO Caal, MYKE Unavailable Unavailable JUAN Caal, PINEDA Unavailable Unavailable RUBIO Caal, NICKI Unavailable Unavailable KIAH Caal, NELL Unavailable Unavailable TANIA LOCKE [place], ANNIE HILTON Unavailable Unavailable RUBIO LOCKE, NICKI K Unavailable Unavailable LIBIA LOCKE, ADY Unavailable Unavailable JANAY ECKERT, SALVADOR T Unavailable Unavailable Jason LOCKE, Nithin Unavailable Unavailable JACINTA LOCKE, BALDEV Gutiérrez Unavailable Unavailable JEAN PAUL LOCKE, FIONA Lacy Unavailable Unavailable Michela LOCKE, Thor Unavailable Unavailable MARCUS NOEP-C, MARGIE Gutiérrez Unavailable Unavailable ARTURO LOCKE, SOLAFA Unavailable Unavailable AMAYA LOCKE [place], SHARRON S Unavailable Unavailable KRANTHI LOCKE [place], AKOSUA H Unavailable Unavailable JUAN LOCKE, PINEDA W Unavailable Unavailable UMER LOCKE [place], CHE ERNST Unavailable Unavailable VALARIE LAURENT [place], KIMBER Unavailable Unavailable VICENTE MEJIA [facility] RNBC CPN, KOREY Unavailable Unav ailable KIAH [...] rotato r cuff (726.13, M75.112) Status: Active Suspected 2019 novel coronavirus infecti on (V01.79, Z20.828) Status: Active Chills (780.64, R68.83) Status: Active Restless leg syndrome (333.94, G25.81) Status: Active Acute sinusitis (461.9, J01.90) Status: Active Insomnia (780.52, G47.00) Status: Active Medications Name Dates Details Vitamin D3 25 MCG (1000 UT) Oral Tablet TAKE 1 TABLET DAILY. Active DULoxetine HCl - 60 MG Oral Capsule Delayed Release Particles TAKE 1 CAPSULE BY MOUTH EVERY DAY DIRECTED * Quantity: 30 Refills: ANNIE LOPEZ M.D. * Start : 05-May-2014 Active Fluticasone [...] ABERNATHY M.D. * Start : 22-May-2018 Active Djxfh-6-ttsa Ethyl Esters 1 GM Oral Capsule TAKE [...] ELDER M.D. * Start : 27-Jan-2020 Active Repatha SureClick 140 MG/ML Subcutaneous Solution [...] JESUS M.D. * Start : 15-Apr-2020 Active rOPINIRole HCl - 0.25 MG Oral Tablet TAKE 1 TABLET 3 TIMES DAILY. * Quantity: 30 Refills: 3 NICKI BERGERON M.D. * Start : 21-Apr-2020 Active Azithromycin 250 MG Oral Tablet TAKE 2 TABLETS ON DAY 1 THEN TAKE 1 TABLET A DAY FOR 4 DAYS. * Quantity: 1 Refills: 0 NICKI BERGERON M.D. * Start : 21-Apr-2020 Active 6 Tablet Box traZODone HCl - 50 MG Oral Tablet TAKE 1 TABLET AT BEDTIME NEEDED FOR SLEEP. * Quantity: 30 Refills: 1 NICKI BERGERON M.D. * Start : 21-Apr-2020 Active Allergies and Adverse Reactions Name Dates [...] [QL] VITAMIN D, 25-HYDROXY, LC/MS/MS Date: 12-Apr-2020 . [facility] - COVID-19/SARS-Cov-2 Date: 21-Apr-2020 CVRAD - [place] - [id number] Date: 12-Apr-2020 History of Appendectomy Completed History [...] valent on: 06-Dec-2009 Fluzone INJ Lot #: [id number] on: 22-Aug-2013 Influenza on: Aug-2014 Prevnar 13 Intramuscular Suspension Lot #: [id number] on: 30-Mar-2015 Zoster (Zostavax) on: 26-Apr-2015 Influenza on: 26-Aug-2015 Fluzone Quadrivalent 0.5 ML Intramuscula r Suspension on: 25-Aug-2016 Fluzone High-Dose 0.5 ML Intramuscular S uspension Prefilled Syringe on: 17-Aug-2017 Fluzone Quadrivalent 0.5 ML Intramuscula r Suspension Lot #: [id number] on: 05-Aug-2018 Shingrix 50 MCG Intramuscular Suspension [...] (finding) Vital Signs Date Test Result Details :06 Systolic blood pressure 159 mm[Hg] Status: Diastolic blood pressure 62 mm[Hg] Status: Heart Rate 67 /min Status: :01 Systolic blood pressure 162 mm[Hg] Status: Comments : Location: LUE; Diastolic blood pressure 71 mm[Hg] Status: Comment s: Location: LUE; Heart Rate 66 /min Status: Body height 65 in Status: Weight 155 lb Status: Body mass index (BMI) [Ratio] 25.79 kg/m2 Status: Body surface area Derived from formula 1.78 m2 S tatus: Body temperature 98 f Status: Comments: Me thod: Temporal Respiratory rate 16 /min Status: O2 SAT 98 % Status: :57 Systolic blood pressure 139 mm[Hg] Status: Comments : Location: LUE; Position: Sitting Diastolic blood pressure 54 mm[Hg] Status: Comment s: Location: LUE; Position: Sitting Heart Rate 67 /min Status: Comments: Lo cation: L Radial; Body height 65 in Status: Weight 155 lb Status: Body mass index (BMI) [Ratio] 25.79 kg/m2 Status: Body surface area Derived from formula 1.78 m2 S tatus: Body temperature 97.7 f Status: Comments: Me thod: Temporal Respiratory rate 16 /min Status: :23 Systolic blood pressure 128 mm[Hg] Status: Comments : Location: LUE; Position: Sitting Diastolic blood pressure 67 mm[Hg] Status: Comment s: Location: LUE; Position: Sitting Heart Rate 66 /min Status: Body height 65 in Status: Weight 156 lb Status: Body mass index (BMI) [Ratio] 25.96 kg/m2 Status: Body surface area Derived from formula 1.78 m2 S tatus: Body temperature 98 f Status: Comments: Me thod: Temporal Respiratory rate 15 /min Status: Physical Findings 4 Status: Comments: Pa in Scale :13 Systolic blood pressure 119 mm[Hg] Status: Comments : Location: LUE; Position: Sitting Diastolic blood pressure 55 mm[Hg] Status: Comment s: Location: LUE; Position: Sitting Heart Rate 66 /min Status: Comments: Lo cation: L PT; Body height 65 in Status: Weight 154 lb Status: Body mass index (BMI) [Ratio] 25.63 kg/m2 Status: Body surface area Derived from formula 1.77 m2 S tatus: Body temperature 97.7 f Status: Comments: Me thod: Temporal Respiratory rate 16 /min Status: Results Date [...] is approximately 13% higher for peopleidentified as -Armenian. eGFR NON- 54 {ML/MIN/1.7} (Belo w low [...] XRAY SPINE CERVICAL 2 OR 3 VWS 16993 XR SPINE CERVICAL 2 OR 3 VWS Images acqu ired, not reported on this accession number. [id number] [O] Influenza A and B, Rapid Method (In Office) INFLUENZA A & B Rapid neg (Normal) Plan of Care Name Dates Details Planned Observations Planned Goals not documented Planned Encounters Appointment; THOR ABERNATHY M .D. On: 11-May-2020 12:40 Appointment; NELL DUPONT M.D. On: 22-Jun-2020 10:00 Interventions Provided Medication Changes* Azithromycin 250 MG Oral Tablet - Start * rOPINIRole HCl - 0.25 MG Oral Tablet - Start * traZODone HCl - 50 MG Oral Tablet - Start Labs/Procedures/Imaging* . [facility] - COVID-19/SARS-Cov-2; To Be Done: 21 Apr 2020 * [O] Influenza A and B, Rapid Method (In Office); Done: 21 Apr 2020 Instructions Name Dates Details Instructions [...] Problem not documented On: 22-May-2018 16:40 Appointment; [facility] Encounter Diagnosis: Problem not documented On: [...] Problem not documented On: 04-Jun-2019 15:00 Appointment; PNIEDA MARTINEZ M.D. Encounter Diagnosis: Problem not documented On: 05-Jun-2019 8:00 Appointment; AKOSUA CRISOSTOMO M.D. Encounter Diagnosis: Problem not documented On: 06-Jun-2019 10:00 Appointment; THOR ABERNATHY M .D. Encounter Diagnosis: Problem not documented On: 11-Jun-2019 13:40 Appointment; [facility], NUCLEAR Encounter Diagnosis: Problem not documented [...] Problem not documented On: 06-Feb-2020 10:20 Appointment; HTOR ABERNATHY M .D. Encounter Diagnosis: Problem not documented On: 18-Feb-2020 12:00 Appointment; NELL DUPONT M.D. Encounter Diagnosis: Problem not documented On: 25-Mar-2020 11:00 Appointment; NELL DUPONT M.D. Encounter Diagnosis: Problem not documented On: 02-Apr-2020 11:00 Appointment; NELL DUPONT M.D. Encounter Diagnosis: Problem not documented On: 12-Apr-2020 15:30 Appointment; GRISEL DE JESUS M.D. Encounter Diagnosis: Problem not documented On: 15-Apr-2020 14:30 Appointment; NICKI BERGERON M.D. Encounter Diagnosis: Problem not documented On: 21-Apr-2020 14:30
--- NOTE | 2020-04-23 23:34 | Emergency Department Note ---
History of Present Illnes History of Present Illness Chief Complaint: c/o muscle spasms History of Present Illness This is a 79 year old female . Historian: Patient Arrival Mode: Car Additional Treatment MEDICAL SUPERVISOR: none Detective Automobile Section Required: No Onset (how long ago): week(s) (3 weeks seen by 2 other doctors given an rx for requip but did not start) Location: all over Radiation: back, extremity Onset quality: gradual Duration (how long): hour(s) Timing of current episode: intermittent Progression: unchanged Chronicity: new Context: recent illness Relieving factors: none Exacerbating factors: none Associated symptoms: denies other symptoms Previous service: medications given (tizanidine, requip) Past Medical/Family History Physician Review I have reviewed the patient's past medical and family history. Any updates have been documented here. Past Medical History Recent Fever: No Clinical Suspicion of Infectio: No New/Unexplained Change in Ment: No Past Medical History: Hypertension, Hypothyroidism, CAD, Hyperlipedemia, Chronic Back Pain Other Medical History: Gómez Fundoplication stage 3 kidney disease Lamb's oesophagus Past Surgical History: Cholecysctectomy, Hysterectomy, Cataract Removal Other Surgery: right shoulder surgery 1 month ago HEART STENTS PER PATIENT Gómez Fundlication Back Sx Colon rescyyyyyyyyyyyyyyyyyyyyyyyyyyyyyyyyyyyyyyyyyyyyyy yyyyyyyyyyyyyyyyyyyyyyyyyyyyyyyyyyyyy Social History Smoking Cessation: Never Smoker Counseling Performed: No Alcohol Use: None Any Illegal Drug Use: No TB Exposure/Symptoms: No Physically hurt or threatened: No Other Last Tetanus: UTD Any Pre-Existing Lines (PICC,: No Is patient up to date on immun: No Last Flu: UNK Last Pneumovax: UNK Review of Systems Review of Systems Constitutional: no symptoms EENTM: no symptoms Cardiovascular: no symptoms Respiratory: no symptoms Gastrointestinal: no symptoms Genitourinary: no symptoms Musculoskeletal: no symptoms Neurological: as per HPI Psychological: no symptoms Endocrine: no symptoms Hematological/Lymphatic: no symptoms Review of other systems All other systems reviewed and negative. Physical Exam Related Data Allergies: Coded Allergies: Penicillins (Verified Allergy, Unknown, 09/27/16) meperidine HCl (Verified Allergy, Unknown, 09/27/16) Triage Vital Signs Vital Signs Date Time Temp Pulse Resp B/P (MAP) Pulse Ox O2 Delivery O2 Flow Rate FiO2 04/23/20 23:21 98.0 67 18 120/60 95 Physical Exam CONSTITUTIONAL Constitutional: well-developed, well-nourished HENT HENT: normocephalic, atraumatic EYES Eyes: PERRL, conjunctivae normal, EOM normal NECK Neck: ROM normal, supple PULMONARY Pulmonary: effort normal, breath sounds normal CARDIOVASCULAR Cardiovascular: regular rhythm, heart sounds normal, intact distal pulses, capillary refill normal GASTROINTESTINAL Abdominal: soft, nontender, bowel sounds normal GENITOURINARY Genitourinary: exam deferred SKIN Skin: warm, dry MUSCULOSKELETAL Musculoskeletal: ROM normal NEUROLOGICAL Neurological: alert, oriented x 3, no gross motor or sensory deficits PSYCHOLOGICAL Psychological: mood/affect normal, behavior normal Results Laboratory Lab results reviewed: Yes Laboratory comments na 127 low and cl 98, glucose mildly elevated at 135 and bun 23 with creatine of 1.0. cbc wnl. will repeat NA level repeat N129 still low Critical Care Time Subsequent provider I assumed direction of critical care for this patient from another provider of my specialty. Assessment & Plan Reassessment Reassessment time: 00:25 Reassessment pt advised that she should be admitted to the hospital to correct the hyponatremia. warned of possible seizures and . She refused and stated she would come back if she could find some one to care for her dogs. pt alert and oriented times 3 with clear thought process Assessment & Plan Final Impression: (1) OTHER MUSCLE SPASM (2) HYPO-OSMOLALITY AND HYPONATREMIA Assessment & Plan pt refused admission . told to follow up with PMD in the AM copy of labs given to patient Depart Disposition: HOME, SELF-CARE Last Vital Signs Date Time Temp Pulse Resp B/P (MAP) Pulse Ox O2 Delivery O2 Flow Rate FiO2 04/23/20 23:21 98.0 67 18 120/60 95 Home Meds Reported Medications Aspirin (ASPIR-LOW) 81 Mg Tablet. 01/21/20 Clopidogrel Bisulfate (CLOPIDOGREL) 75 Mg Tablet, 75 MG PO DAILY, #30 TAB 01/21/20 Hydrocodone Bit/Acetaminophen (NORCO 7.5-325 TABLET) 1 Each Tablet, 1 EA PO PRN, TAB 04/01/19 Nifedipine (NIFEDIPINE ER) 30 Mg Tablet.er, 30 MG PO HS 07/02/18 Spironolactone (SPIRONOLACTONE) 25 Mg Tablet, 12.5 MG PO DAILY, #60 TAB 07/02/18 Losartan Potassium (LOSARTAN POTASSIUM) 25 Mg Tablet, 50 MG PO BID 02/20/17 Trazodone Hcl (TRAZODONE HCL) 50 Mg Tablet, 50 MG PO HS, #30 TAB 05/19/15 Duloxetine Hcl (CYMBALTA) 60 Mg Capsule.dr, 60 MG PO DAILY 09/23/13 Levothyroxine Sodium (LEVOTHYROXINE SODIUM) 137 Mcg Tablet, 112 MCG PO DAILY 09/23/13 Medications in the ED toradol 30 mg IM DAISY WEBER MD April 23, 2020 23:33
[2020-04-24] MEDS ORDERED: KETOROLAC TROMETHAMINE 30 MG/ML VIAL IV STA (00:08)
[2020-04-24] MEDS ORDERED: KETOROLAC TROMETHAMINE 30 MG/ML VIAL ONE (00:15)
== END 2020-04-24 00:35 | disposition home or self-care (01) ==
LOC: FSED 23:08
DX: M62.838 Other muscle spasm (principal); E87.1 Hypo-osmolality and hyponatremia; I10 Essential (primary) hypertension; E78.5 Hyperlipidemia, unspecified; E03.9 Hypothyroidism, unspecified; N18.3 Chronic kidney disease, stage 3 (moderate); Z95.5 Presence of coronary angioplasty implant and graft
CPT/HCPCS: 99283; J1885

== ENCOUNTER 2020-08-18 23:47 | Emergency (ER) | payer MEDICARE, OTHER ==
[~2020-08-18] VITALS: Ht 162.6 cm; Wt 71.7 kg
--- NOTE | 2020-08-19 00:48 | Emergency Department Note ---
History of Present Illnes History of Present Illness History of Present Illness This is a 79 year old female fell at home 2 days ago , and hit her head . Onset (how long ago): day(s) (2) Location: head and neck Quality: dull Radiation: Denies non-radiation, Denies back, Denies neck, Denies extremity, Denies abdomen, Denies periumbilical, Denies flank, Denies proximal, Denies distal, Denies other Severity: moderate Onset quality: gradual Duration (how long): day(s) (2) Timing of current episode: constant Progression: unchanged Chronicity: new Context: Denies recent illness, Denies recent surgery, Denies recent immobilization, Denies recent travel, Denies trauma/injury, Denies new medications, Denies hx of DVT/PE, Denies non-compliance w/ medications, Denies other Relieving factors: none Exacerbating factors: none Associated symptoms: Reports headaches; Denies denies other symptoms, Denies confusion, Denies chest pain, Denies cough, Denies diaphoresis, Denies fever/chills, Denies loss of appetite, Denies malaise, Denies nausea/vomiting, Denies rash, Denies seizure, Denies shortness of breath, Denies syncope, Denies weakness, Denies other Treatments prior to arrival: none Past Medical/Family History Physician Review I have reviewed the patient's past medical and family history. Any updates have been documented here. Past Medical History Past Medical History: Hypertension, Hypothyroidism, CAD, Hyperlipedemia, Chronic Back Pain Other Medical History: Gómez Fundoplication stage 3 kidney disease Lamb's oesophagus Past Surgical History: Cholecysctectomy, Hysterectomy, Cataract Removal Other Surgery: right shoulder surgery 1 month ago HEART STENTS PER PATIENT Gómez Fundlication Back Sx Colon rescyyyyyyyyyyyyyyyyyyyyyyyyyyyyyyyyyyyyyyyyyyyyyy yyyyyyyyyyyyyyyyyyyyyyyyyyyyyyyyyyyyy Social History Smoking Cessation: Never Smoker Alcohol Use: None Other Last Tetanus: UTD Review of Systems Review of Systems Constitutional: Reports no symptoms EENTM: Reports as per HPI Cardiovascular: Reports no symptoms Respiratory: Reports no symptoms Gastrointestinal: Reports no symptoms Genitourinary: Reports no symptoms Musculoskeletal: Reports no symptoms Integumentary: Reports no symptoms Neurological: Reports no symptoms Psychological: Reports no symptoms Endocrine: Reports no symptoms Hematological/Lymphatic: Reports no symptoms Physical Exam Related Data Allergies: Coded Allergies: Penicillins (Verified Allergy, Unknown, 09/27/16) meperidine HCl (Verified Allergy, Unknown, 09/27/16) Vital signs reviewed: Yes Physical Exam CONSTITUTIONAL Constitutional: Present well-developed, Present well-nourished HENT HENT: Present normocephalic, Present oropharynx clear/moist, Present nose normal, Present other (hematoma foreheAD) HENT L/R: Present left ext ear normal, Present right ext ear normal EYES Eyes: Reports PERRL, Reports conjunctivae normal NECK Neck: Present ROM normal PULMONARY Pulmonary: Present effort normal, Present breath sounds normal CARDIOVASCULAR Cardiovascular: Present regular rhythm, Present heart sounds normal, Present capillary refill normal, Present normal rate GASTROINTESTINAL Abdominal: Present soft, Present nontender, Present bowel sounds normal GENITOURINARY Genitourinary: Present exam deferred SKIN Skin: Present warm, Present dry MUSCULOSKELETAL Musculoskeletal: Present ROM normal NEUROLOGICAL Neurological: Present alert, Present oriented x 3, Present no gross motor or sensory deficits PSYCHOLOGICAL Psychological: Present mood/affect normal, Present judgement normal Results Imaging Imaging results reviewed: Yes Assessment & Plan Medical Decision Making MDM FACIAL FX NTRACEREBRAL BLEED Reassessment Reassessment time: 00:47 Reassessment BETTER Assessment & Plan Final Impression: (1) Acute pain due to trauma (2) Head injury (3) Neck sprain Depart Disposition: HOME, SELF-[facility]it[facility] Meds Reported Medications Aspirin (ASPIR-LOW) 81 Mg Tablet. 01/21/20 Clopidogrel Bisulfate (CLOPIDOGREL) 75 Mg Tablet, 75 MG PO DAILY, #30 TAB 01/21/20 Hydrocodone Bit/Acetaminophen (NORCO 7.5-325 TABLET) 1 Each Tablet, 1 EA PO PRN, TAB 04/01/19 Nifedipine (NIFEDIPINE ER) 30 Mg Tablet.er, 30 MG PO HS 07/02/18 Spironolactone (SPIRONOLACTONE) 25 Mg Tablet, 12.5 MG PO DAILY, #60 TAB 07/02/18 Losartan Potassium (LOSARTAN POTASSIUM) 25 Mg Tablet, 50 MG PO BID 3/28/17 Trazodone Hcl (TRAZODONE HCL) 50 Mg Tablet, 50 MG PO HS, #30 TAB 05/19/15 Duloxetine Hcl (CYMBALTA) 60 Mg Capsule.dr, 60 MG PO DAILY 09/23/13 Levothyroxine Sodium (LEVOTHYROXINE SODIUM) 137 Mcg Tablet, 112 MCG PO DAILY 09/23/13 HORTENSIA FONTANEZ MD Aug 19, 2020 00:48
[2020-08-19] MEDS ORDERED: CYCLOBENZAPRINE5 MG PO (00:49)
--- NOTE | 2020-08-19 01:07 | Diagnostic Imaging Report ---
History: Fall Comparison studies:None Technique: Axial images were obtained from the skull base to the vertex Coronal and sagittal images reconstructed from the axial data. Dose modulation, iterative reconstruction, and/or weight based adjustment of the mA/kV was utilized to reduce the radiation dose to as low as reasonably achievable. Intravenous contrast: None Findings: Head CT: Scalp/skull: Questionable subtle left frontal scalp hematoma is not associated with subcutaneous emphysema or hyperdense foreign bodies. No fractures, blastic or lytic lesions. Brain sulci: Appropriate for age. Ventricles: Normal in size and configuration. No hydrocephalus. Extra-axial spaces: No masses. No fluid collections. Parenchyma: No abnormal densities. No masses, hemorrhage, acute or chronic cortical vascular insults. Sellar/suprasellar region: No abnormalities. Craniocervical junction: Patent foramen magnum. No Chiari one malformation. IMPRESSION: 1. Subtle questionable left frontal scalp hematoma. 2. No fractures. 3. No intracranial abnormalities Signed by: Dr. Williams Wasserman M.D. on 08/19/2020 1:04 AM
--- NOTE | 2020-08-19 01:11 | Diagnostic Imaging Report ---
History: Trauma Comparison studies: None Technique: Axial images were obtained through the cervical region.. Coronal and sagittal images reconstructed from the axial data. Dose modulation, iterative reconstruction, and/or weight based adjustment of the mA/kV was utilized to reduce the radiation dose to as low as reasonably achievable. Intravenous contrast: None Findings: Alignment: Normal cervical and lumbar lordosis. Normal thoracic kyphosis. No scoliosis. Cervicomedullary junction: No abnormalities. The foramen magnum is patent. Soft tissues:No gross abnormalities . Soft tissues: No abnormalities.. Paraspinal muscles: Unremarkable Spinal cord: Can not be evaluated. Vertebrae: Bones are mildly demineralized. No fractures. No infection or neoplasm. Degenerative changes: Minimally degenerated disc at C4-5. Moderate facet arthrosis on the right from C2 through C6 and on the left from C2 through C4 Foraminal stenosis, mild right at C3-4, C4-5 due to facet and uncoarthrosis. Patent spinal canal. Incidental findings: Atherosclerotic calcifications in the aortic arch and at the carotid bulbs. Nonobstructing retention cyst in the right maxillary sinus IMPRESSION: 1. No acute abnormalities. 2. Specifically, no fractures or subluxations. 3. Cannot adequately evaluate for ligament, spinal cord and or vascular abnormalities. 4. Degenerative changes as described Signed by: Dr. Williams Wasserman M.D. on 08/19/2020 1:08 AM
== END 2020-08-19 01:28 | disposition home or self-care (01) ==
LOC: FSED 08-19 00:06
DX: S00.83XA Contusion of other part of head, initial encounter (principal); S13.4XXA Sprain of ligaments of cervical spine, initial encounter; W18.30XA Fall on same level, unspecified, initial encounter; I10 Essential (primary) hypertension; E78.5 Hyperlipidemia, unspecified; E03.9 Hypothyroidism, unspecified; N28.9 Disorder of kidney and ureter, unspecified; Z95.5 Presence of coronary angioplasty implant and graft
CPT/HCPCS: 70450; 72125; 99283

== ENCOUNTER 2021-02-28 14:10 | Emergency (ER) | payer MEDICARE, OTHER ==
[~2021-02-28] VITALS: Ht 162.6 cm; Wt 70.4 kg
[2021-02-28] MEDS ORDERED: FAMOTIDINE 20 MG/2 ML VIAL IV STA (15:33)
[2021-02-28] MEDS ORDERED: SODIUM CHLORIDE 0.9% 500ML 500 ML IV ONE (15:45)
[2021-02-28] MEDS ORDERED: ONDANSETRON HCL INJ 2MG/ML 2ML 2 MG/ML VIAL IV STA (15:54)
[2021-02-28] MEDS ORDERED: DIATRIZOATE MEGL/DIATRIZOA SOD 30 ML BTL PO ONE (15:55)
[2021-02-28] MEDS ORDERED: FAMOTIDINE 20 MG/2 ML VIAL IV ONE (16:13)
[2021-02-28] MEDS ORDERED: ONDANSETRON HCL INJ 2MG/ML 2ML 2 MG/ML VIAL ONE (16:13)
[2021-02-28] MEDS ORDERED: SODIUM CHLORIDE 0.9% 500ML 500 ML ONE (16:13)
[2021-02-28] MEDS ORDERED: K-DUR10 MEQ PO (18:15)
[2021-02-28] MEDS ORDERED: DICYCLOMINE HCL20 MG PO (18:17)
[2021-02-28] MEDS ORDERED: PANTOPRAZOLE SO40 MG PO (18:18)
[2021-02-28] MEDS ORDERED: ONDANSETRON ODT4 MG PO (18:19)
[2021-02-28] MEDS ORDERED: DICYCLOMINE HCL 10 MG CAP ONE (18:25)
[2021-02-28 18:30] VITALS: BP 160/72
[2021-02-28] MEDS ORDERED: DICYCLOMINE HCL 20 MG TAB PO ONE (18:30)
[2021-02-28] MEDS ORDERED: POTASSIUM CHLO10 ME1 PO (18:36)
== END 2021-02-28 18:40 | disposition home or self-care (01) ==
LOC: FSED 14:30
DX: R14.0 Abdominal distension (gaseous) (principal); R53.1 Weakness; K21.9 Gastro-esophageal reflux disease without esophagitis; E87.6 Hypokalemia; I10 Essential (primary) hypertension; E03.9 Hypothyroidism, unspecified; I25.10 Atherosclerotic heart disease of native coronary artery without angina pectoris; R94.31 Abnormal electrocardiogram [ECG] [EKG]; Z98.0 Intestinal bypass and anastomosis status
CPT/HCPCS: 74176; 80048; 81003; 85025; 93005; 96374; 96375; 99284; J2405; J7040

== ENCOUNTER 2024-06-10 16:22 | Emergency (ER) | payer MEDICARE, OTHER ==
[~2024-06-10] VITALS: Ht 162.6 cm; Wt 72.6 kg
[~2024-06-10 16:22] MED LIST changes: +DICYCLOMINE HCL20 MG PO; +K-DUR10 MEQ PO; +ONDANSETRON ODT4 MG PO; +PANTOPRAZOLE SO40 MG PO; +POTASSIUM CHLO10 ME1 PO
[2024-06-10 16:40] VITALS: PULSE 61; RESP 18; TEMP 97.6
[2024-06-10] MEDS ORDERED: IOPAMIDOL 370 MG/ML 100 ML INFUS..BTL INJ ONE (19:09)
[2024-06-10] MEDS: SODIUM CHLORIDE 0.9% 1000ML 1,000 ML IV ONE (20:10)
[2024-06-10] MEDS: ONDANSETRON HCL INJ 2MG/ML 2ML 2 MG/ML VIAL IV STA (20:13)
[2024-06-10] MEDS: Morphine 4mg INJECTION 4 MG/ML INJ IM ONE (20:14)
[2024-06-10 21:38] VITALS: BP 163/69; PULSE 64; RESP 18; O2SAT 96
== END 2024-06-10 21:38 | disposition home or self-care (01) ==
LOC: FSED 16:39
DX: R10.13 Epigastric pain (principal); M54.9 Dorsalgia, unspecified; G89.29 Other chronic pain; I12.9 Hypertensive chronic kidney disease with stage 1 through stage 4 chronic kidney disease, or unspecified chronic kidney disease; N18.30 Chronic kidney disease, stage 3 unspecified; E78.5 Hyperlipidemia, unspecified; E03.9 Hypothyroidism, unspecified; I25.10 Atherosclerotic heart disease of native coronary artery without angina pectoris; K21.9 Gastro-esophageal reflux disease without esophagitis
CPT/HCPCS: 36415; 71275; 74174; 80053; 81003; 83690; 85025; 93005; 99283; J2270; J2405; J7030; Q9967

== ENCOUNTER 2024-06-29 14:51 | Emergency (ER) | payer MEDICARE ==
[~2024-06-29] VITALS: Ht 162.6 cm; Wt 72.1 kg
[2024-06-29 15:00] VITALS: TEMP 98.8
[2024-06-29] MEDS ORDERED: PLAVIX75 MG PO (15:14)
[2024-06-29] MEDS ORDERED: PERCOCET 10-321 EACH PO (15:14)
[2024-06-29] MEDS: SODIUM CHLORIDE 0.9% 1000ML 1,000 ML IV ONE (16:13)
[2024-06-29] MEDS ORDERED: IOPAMIDOL 370 MG/ML 100 ML INFUS..BTL INJ ONE (16:42)
[2024-06-29] MEDS ORDERED: SODIUM CHLORIDE 0.9% 100 ML ONE (16:42)
[2024-06-29 17:48] VITALS: BP 194/88
[2024-06-29] MEDS: CLONIDINE HCL 0.1 MG TAB PO ONE (17:48)
[2024-06-29 17:49] VITALS: PULSE 58; RESP 18; O2SAT 97
== END 2024-06-29 17:55 | disposition home or self-care (01) ==
LOC: FSED 14:59
DX: R53.1 Weakness (principal); R42 Dizziness and giddiness; E78.5 Hyperlipidemia, unspecified; K21.9 Gastro-esophageal reflux disease without esophagitis; E03.9 Hypothyroidism, unspecified; I12.9 Hypertensive chronic kidney disease with stage 1 through stage 4 chronic kidney disease, or unspecified chronic kidney disease; N18.30 Chronic kidney disease, stage 3 unspecified; M54.9 Dorsalgia, unspecified; G89.29 Other chronic pain; Z11.52 Encounter for screening for COVID-19
CPT/HCPCS: 0223U; 70496; 70498; 80048; 80076; 81003; 85025; 87400; 99284; J7030; J7050; Q9967